=== PATIENT | male | born 1955 | race Caucasian/White ===

== ENCOUNTER 2017-06-06 04:53 | Inpatient (IN) | payer MEDICARE, OTHER ==
[2017-06-06] MEDS ORDERED: RX INFO: IV CONTRAST WAS GIVEN 1 EACH MISC MISCELLANE PRN (05:00)
[2017-06-06 05:03] LABS: Glucose,Whole Blood 563 mg/dL (75-99)
[2017-06-06] MEDS ORDERED: INSULIN REGULAR 100 UNIT/ML VIAL SQ STA (05:09)
--- NOTE | 2017-06-06 05:41 | CT ---
EXAM: CT Angiography Head Without and With Intravenous Contrast CLINICAL HISTORY: Reason: Neuro Deficits TECHNIQUE: Axial computed tomographic angiography images of the head without and with intravenous contrast using CT angiography protocol. DLP is 1936.30 mGy-cm. This CT exam was performed using one or more of the following dose reduction techniques: automated exposure control, adjustment of the mA and/or kV according to patient size, and/or use of iterative reconstruction technique. MIP reconstructed images were created and reviewed. CONTRAST: 65 mL of omni 350 administered intravenously. COMPARISON: 09/08/16 FINDINGS: Artifacts: Exam limited by motion artifact. VASCULATURE: Right internal carotid artery: No acute findings. Intracranial segment is patent with no significant stenosis. No aneurysm. Right anterior cerebral artery: Unremarkable. No occlusion or significant stenosis. No aneurysm. Right middle cerebral artery: Unremarkable. No occlusion or significant stenosis. No aneurysm. Right posterior cerebral artery: Unremarkable. No occlusion or significant stenosis. No aneurysm. Right vertebral artery: Unremarkable as visualized. Left internal carotid artery: No acute findings. Intracranial segment is patent with no significant stenosis. No aneurysm. Left anterior cerebral artery: Unremarkable. No occlusion or significant stenosis. No aneurysm. Left middle cerebral artery: Unremarkable. No occlusion or significant stenosis. No aneurysm. Left posterior cerebral artery: Unremarkable. No occlusion or significant stenosis. No aneurysm. Left vertebral artery: Unremarkable as visualized. Basilar artery: Unremarkable. No occlusion or significant stenosis. No aneurysm. HEAD: Brain: No acute findings. No hemorrhage. No edema. Normal enhancement. Ventricles: Unremarkable. No ventriculomegaly. Bones/joints: No acute fracture. Soft tissues: Unremarkable. Sinuses: Unremarkable as visualized. No acute sinusitis. Mastoid air cells: Unremarkable as visualized. No mastoid effusion. IMPRESSION: No acute findings. EXAM: CT Angiography Neck With Intravenous Contrast CLINICAL HISTORY: Reason: Neuro Deficits TECHNIQUE: Axial computed tomographic angiography images of the neck with intravenous contrast using CT angiography protocol. DLP is 476.80 mGy-cm. This CT exam was performed using one or more of the following dose reduction techniques: automated exposure control, adjustment of the mA and/or kV according to patient size, and/or use of iterative reconstruction technique. MIP reconstructed images were created and reviewed. CONTRAST: 65 mL of omni 350 administered intravenously. COMPARISON: 09/08/16 FINDINGS: VASCULATURE: Right common carotid artery: Unremarkable. No significant stenosis. No dissection or occlusion. Right internal carotid artery: Calcified atherosclerotic plaques are seen in the origins of the internal carotid arteries bilaterally without significant stenosis. No dissection or occlusion. Right external carotid artery: Unremarkable. No occlusion. Right vertebral artery: Unremarkable. No significant stenosis. No dissection or occlusion. Left common carotid artery: Unremarkable. No significant stenosis. No dissection or occlusion. Left internal carotid artery: See above. Left external carotid artery: Unremarkable. No occlusion. Left vertebral artery: Unremarkable. No significant stenosis. No dissection or occlusion. NECK: Bones/joints: No acute fracture. No dislocation. Soft tissues: Unremarkable as visualized. No mass. CAROTID STENOSIS REFERENCE USING NASCET CRITERIA: % ICA stenosis = (1 - narrowest ICA diameter/diameter of distal cervical ICA) x 100. Mild - <50% stenosis. Moderate - 50-69% stenosis. Severe - 70-94% stenosis. Near occlusion - 95-99% stenosis. Occluded - 100% stenosis. IMPRESSION: No acute findings.
--- NOTE | 2017-06-06 05:43 | CT ---
EXAM: CT Head Without Intravenous Contrast CLINICAL HISTORY: Reason: Neuro Deficits TECHNIQUE: Axial computed tomography images of the head/brain without intravenous contrast. DLP is 1936.30 mGy-cm. This CT exam was performed using one or more of the following dose reduction techniques: automated exposure control, adjustment of the mA and/or kV according to patient size, and/or use of iterative reconstruction technique. COMPARISON: No relevant prior studies available. FINDINGS: Brain: No hemorrhage. No significant white matter disease. No edema. Old lacunar infarct left basal ganglia. Ventricles: Unremarkable. No ventriculomegaly. Bones/joints: Unremarkable. No acute fracture. Soft tissues: Unremarkable. Sinuses: Unremarkable as visualized. No acute sinusitis. Mastoid air cells: Unremarkable as visualized. No mastoid effusion. Other findings: Generalized atrophy. IMPRESSION: No acute findings.
--- NOTE | 2017-06-06 05:52 | XR ---
EXAM: XR Chest, 1 View CLINICAL HISTORY: Reason: altered mental status TECHNIQUE: Frontal view of the chest. COMPARISON: 09/08/16 FINDINGS: Lungs: Unremarkable. No consolidation. Pleural space: Unremarkable. No pneumothorax. Heart: Unremarkable. No cardiomegaly. Mediastinum: Unremarkable. Bones/joints: Unremarkable. IMPRESSION: Normal chest x-ray.
[2017-06-06] MEDS ORDERED: ONDANSETRON 4 MG/2 ML VIAL IVP STA (06:07)
[2017-06-06] MEDS ORDERED: SODIUM CHLORIDE 0.9% 1,000 ML IV STA (06:31)
[2017-06-06] MEDS ORDERED: SODIUM CHLORIDE 0.9% 500 ML IV STA (06:31)
[2017-06-06] MEDS ORDERED: LORazepam 2 MG/ML SYRINGE IV STA ×2 (06:31→12:54)
[2017-06-06 06:32] LABS: Basophils % (A) 0 %; CH 29.3; CHCM 33.4; Eosinophils % (A) 0 %; HDW 2.68; Luc # (Auto) 0.07; Luc % (Auto) 1; Lymphocytes # (A) 1.1 k/uL (1.0-4.8); Lymphocytes % (A) 8 %; MCH 28.8 pg (25.0-35.0); MCHC 32.6 g/dL (31.0-37.0); MCV 88.2 fL (80.0-100.0); Mean Platelet Volume 9.9; Monocytes # (A) 0.3 k/uL (0-1.0); Monocytes % (A) 2 %; Neutrophils # (A) 12.1 k/uL (1.3-7.7); Neutrophils % (A) 89 %; RBC 4.87 m/uL (4.30-5.90); WBC 13.5 k/uL (3.8-10.6)
[2017-06-06 06:42] LABS: ALT 29 U/L (21-72); AST 21 U/L (17-59); Alkaline Phosphatase 102 U/L (38-126); Anion Gap 19 mmol/L; Blood Urea Nitrogen 14 mg/dL (9-20); Calcium 9.2 mg/dL (8.4-10.2); Carbon Dioxide 23 mmol/L (22-30); Chloride 103 mmol/L (98-107); Non-African American GFR(MDRD) >60 (>60 ml/min/1.73 sqM); Potassium 4.1 mmol/L (3.5-5.1); Sodium 145 mmol/L (137-145); Total Bilirubin 1.2 mg/dL (0.2-1.3); Total Protein 7.5 g/dL (6.3-8.2)
[2017-06-06 06:53] LABS: Glucose 569 mg/dL (74-99)
[2017-06-06 06:57] LABS: Creatine Kinase 105 U/L (55-170)
[2017-06-06 07:00] LABS: Appearance,Urine Clear (Clear); Bilirubin,Urine Negative (Negative); Glucose,Urine (UA) 4+ (Negative); Leukocyte Esterase,Urine Negative (Negative); Nitrite,Urine Negative (Negative); Protein,Urine Negative (Negative); Specific Gravity,Urine 1.035 (1.001-1.035); UA Billing (MACRO vs. MICRO) CHEM; Urobilinogen,Urine <2.0 mg/dL (<2.0)
[2017-06-06 07:04] LABS: INR 1.1 (<1.2); Prothrombin Time 11.2 sec (9.0-12.0)
[2017-06-06 07:11] LABS: Creatine Kinase MB 1.8 ng/mL (0.0-2.4); Troponin I <0.012 ng/mL (0.000-0.034)
[2017-06-06 07:13] LABS: Partial Thromboplastin Time 21.7 sec (22.0-30.0)
[2017-06-06] MEDS ORDERED: SODIUM CHLORIDE 0.9% 1,000 ML IV SCH (07:15)
[2017-06-06] MEDS ORDERED: INSULIN REGULAR 100 UNIT in SODIUM CHLORIDE 0.9% 100 ML IV ONE (07:18)
[2017-06-06 07:25] LABS: Ketones,Urine 2+ (Negative)
--- NOTE | 2017-06-06 07:29 | ED ---
Neuro HPI - General Chief Complaint: Neuro Symptoms/Deficit Stated Complaint: Possible CVA Time Seen by Provider: 06/06/17 04:57 Source: patient Mode of arrival: EMS Limitations: altered mental status - History of Present Illness Is the patient presenting with stroke symptoms?: Yes Last Known Well Date: 06/05/17 Last Known Well Time: 21:00 -: hour(s) Initial Comments: This patient is a 62-year-old man with history of previous stroke who presents after being found by his family members down on the floor. They state that when they found him this morning he was not able speak in he was having right sided weakness. The patient reportedly has history of previous right-sided weakness due to stroke. He was last seen well by family member who went to work at 9 PM. When they return from work he was found in the condition that he is now. I'm not able to obtain any history from the patient as he appears to have aphasia. Location: speech, right arm, right leg History of same: Yes Place: home Severity: severe Quality: weak Improves With: none Worsens With: none Context: found down - Related Data Home Medications: Home Medications Medication Instructions Recorded Confirmed Aspirin EC [Ecotrin] 325 mg PO DAILY 09/08/16 06/06/17 Atorvastatin [Lipitor] 20 mg PO DAILY 09/08/16 06/06/17 Clopidogrel [Plavix] 75 mg PO DAILY 09/08/16 06/06/17 Entyvio 1 tab PO DAILY 09/08/16 06/06/17 Gabapentin 600 mg PO TID 09/08/16 06/06/17 LORazepam [Ativan] 1 mg PO QID 09/08/16 06/06/17 Lisinopril [Zestril] 2.5 mg PO DAILY 09/08/16 06/06/17 Metoprolol Tartrate [Lopressor] 50 mg PO BID 09/08/16 06/06/17 Pantoprazole Sodium [Protonix] 40 mg PO DAILY 09/08/16 06/06/17 Sertraline [Zoloft] 150 mg PO DAILY 09/08/16 06/06/17 Temazepam [Restoril] 30 mg PO DAILY 09/08/16 06/06/17 levETIRAcetam [Keppra] 500 mg PO Q12HR 09/08/16 06/06/17 metFORMIN HCL [Glucophage] 500 mg PO BID 09/08/16 06/06/17 Insuln Asp Prt/Insulin Aspart 40 unit SQ TID 06/06/17 06/06/17 [NovoLOG MIX 70-30 VIAL] Allergies/Adverse Reactions: Allergies Allergy/AdvReac Type Severity Reaction Status Date / Time infliximab [From Remicade] Allergy Unknown Verified 06/06/17 07:41 neomycin Allergy Unknown Verified 06/06/17 07:41 nickel Allergy Unknown Verified 06/06/17 07:41 sulfamethoxazole Allergy Unknown Verified 06/06/17 07:41 [From Bactrim] trimethoprim [From Bactrim] Allergy Unknown Verified 06/06/17 07:41 Review of Systems ROS Statement: Those systems with pertinent positive or pertinent negative responses have been documented in the HPI. ROS Other: All systems not noted in ROS Statement are negative. Limitations: ROS unobtainable due to patients medical condition Constitutional: Denies: fever Neurological: Reports: weakness, confusion General Exam Limitations: altered mental status General appearance: alert Head exam: Present: atraumatic, normocephalic Eye exam: Present: normal appearance, PERRL, EOMI. Absent: scleral icterus, conjunctival injection ENT exam: Present: mucous membranes dry Neck exam: Present: normal inspection, full ROM. Absent: tenderness, meningismus Respiratory exam: Present: normal lung sounds bilaterally. Absent: respiratory distress, wheezes, rales, rhonchi, stridor Cardiovascular Exam: Present: regular rate, normal rhythm, normal heart sounds. Absent: systolic murmur, diastolic murmur, rubs, gallop GI/Abdominal exam: Present: soft. Absent: distended, tenderness, guarding, rebound, mass Extremities exam: Present: normal inspection, normal capillary refill. Absent: pedal edema, calf tenderness Back exam: Present: normal inspection. Absent: CVA tenderness (R), CVA tenderness (L) Neurological exam: Present: alert, motor sensory deficit, other (Patient is alert and does follow examiner with his eyes. He is nonverbal. Patient does have right-sided weakness versus contralateral. See the attached stroke scale.) . Absent: oriented X3 Skin exam: Present: warm, dry, intact, normal color. Absent: rash Stroke MDM - Lab Data Result diagrams: 06/06/17 06:14 06/06/17 11:48 Lab Results 06/06/17 06/06/17 06/06/17 Range/Units 05:02 06:14 06:14 WBC 13.5 H (3.8-10.6) k/uL RBC 4.87 (4.30-5.90) m/uL Hgb 14.0 (13.0-17.5) gm/dL Hct 43.0 (39.0-53.0) % MCV 88.2 (80.0-100.0) fL MCH 28.8 (25.0-35.0) pg MCHC 32.6 (31.0-37.0) g/dL RDW 15.0 (11.5-15.5) % Plt Count 247 (150-450) k/uL Neutrophils % 89 % Lymphocytes % 8 % Monocytes % 2 % Eosinophils % 0 % Basophils % 0 % Neutrophils # 12.1 H (1.3-7.7) k/uL Lymphocytes # 1.1 (1.0-4.8) k/uL Monocytes # 0.3 (0-1.0) k/uL Eosinophils # 0.0 (0-0.7) k/uL Basophils # 0.0 (0-0.2) k/uL PT (9.0-12.0) sec INR (<1.2) APTT (22.0-30.0) sec Sodium (137-145) mmol/L Potassium (3.5-5.1) mmol/L Chloride (98-107) mmol/L Carbon Dioxide (22-30) mmol/L Anion Gap mmol/L BUN (9-20) mg/dL Creatinine (0.66-1.25) mg/dL Est GFR (MDRD) Af Amer (>60 ml/min/1.73 sqM) Est GFR (MDRD) Non-Af (>60 ml/min/1.73 sqM) Glucose (74-99) mg/dL POC Glucose (mg/dL) 563 H (75-99) mg/dL POC Glu Map Maker ID Lacey Dodson Calcium (8.4-10.2) mg/dL Total Bilirubin (0.2-1.3) mg/dL AST (17-59) U/L ALT (21-72) U/L Alkaline Phosphatase (38-126) U/L Total Creatine Kinase 105 (55-170) U/L CK-MB (CK-2) 1.8 (0.0-2.4) ng/mL CK-MB (CK-2) Rel Index 1.7 Troponin I <0.012 (0.000-0.034) ng/mL Total Protein (6.3-8.2) g/dL Albumin (3.5-5.0) g/dL Urine Color Urine Appearance (Clear) Urine pH (5.0-8.0) Ur Specific [place] (1.001-1.035) Urine Protein (Negative) Urine Glucose (UA) (Negative) Urine Ketones (Negative) Urine Blood (Negative) Urine Nitrite (Negative) Urine Bilirubin (Negative) Urine Urobilinogen (<2.0) mg/dL Ur Leukocyte Esterase (Negative) Urine Opiates Screen (NotDetected) Ur Oxycodone Screen (NotDetected) Urine Methadone Screen (NotDetected) Ur Propoxyphene Screen (NotDetected) Ur Barbiturates Screen (NotDetected) U Tricyclic Antidepress (NotDetected) Ur Phencyclidine Scrn (NotDetected) Ur Amphetamines Screen (NotDetected) U Methamphetamines Scrn (NotDetected) U Benzodiazepines Scrn (NotDetected) Urine Cocaine Screen (NotDetected) U Marijuana (THC) Screen (NotDetected) Acetone, Qual (Negative) 06/06/17 06/06/17 06/06/17 Range/Units 06:14 06:14 06:30 WBC (3.8-10.6) k/uL RBC (4.30-5.90) m/uL Hgb (13.0-17.5) gm/dL Hct (39.0-53.0) % MCV (80.0-100.0) fL MCH (25.0-35.0) pg MCHC (31.0-37.0) g/dL RDW (11.5-15.5) % Plt Count (150-450) k/uL Neutrophils % % Lymphocytes % % Monocytes % % Eosinophils % % Basophils % % Neutrophils # (1.3-7.7) k/uL Lymphocytes # (1.0-4.8) k/uL Monocytes # (0-1.0) k/uL Eosinophils # (0-0.7) k/uL Basophils # (0-0.2) k/uL PT 11.2 (9.0-12.0) sec INR 1.1 (<1.2) APTT 21.7 L (22.0-30.0) sec Sodium 145 (137-145) mmol/L Potassium 4.1 (3.5-5.1) mmol/L Chloride 103 (98-107) mmol/L Carbon Dioxide 23 (22-30) mmol/L Anion Gap 19 mmol/L BUN 14 (9-20) mg/dL Creatinine 0.77 (0.66-1.25) mg/dL Est GFR (MDRD) Af Amer >60 (>60 ml/min/1.73 sqM) Est GFR (MDRD) Non-Af >60 (>60 ml/min/1.73 sqM) Glucose 569 H* (74-99) mg/dL POC Glucose (mg/dL) (75-99) mg/dL POC Glu Map Maker ID Calcium 9.2 (8.4-10.2) mg/dL Total Bilirubin 1.2 (0.2-1.3) mg/dL AST 21 (17-59) U/L ALT 29 (21-72) U/L Alkaline Phosphatase 102 (38-126) U/L Total Creatine Kinase (55-170) U/L CK-MB (CK-2) (0.0-2.4) ng/mL CK-MB (CK-2) Rel Index Troponin I (0.000-0.034) ng/mL Total Protein 7.5 (6.3-8.2) g/dL Albumin 4.4 (3.5-5.0) g/dL Urine Color Colorless Urine Appearance Clear (Clear) Urine pH 6.0 (5.0-8.0) Ur Specific [place] 1.035 (1.001-1.035) Urine Protein Negative (Negative) Urine Glucose (UA) 4+ H (Negative) Urine Ketones 2+ H (Negative) Urine Blood Negative (Negative) Urine Nitrite Negative (Negative) Urine Bilirubin Negative (Negative) Urine Urobilinogen <2.0 (<2.0) mg/dL Ur Leukocyte Esterase Negative (Negative) Urine Opiates Screen Not Detected (NotDetected) Ur Oxycodone Screen Not Detected (NotDetected) Urine Methadone Screen Not Detected (NotDetected) Ur Propoxyphene Screen Not Detected (NotDetected) Ur Barbiturates Screen Not Detected (NotDetected) U Tricyclic Antidepress Not Detected (NotDetected) Ur Phencyclidine Scrn Not Detected (NotDetected) Ur Amphetamines Screen Not Detected (NotDetected) U Methamphetamines Scrn Not Detected (NotDetected) U Benzodiazepines Scrn Detected H (NotDetected) Urine Cocaine Screen Not Detected (NotDetected) U Marijuana (THC) Screen Not Detected (NotDetected) Acetone, Qual Positive (Negative) - Thrombolytic Inclusion/Exclusion Thrombolytic Exclusion Criteria: Onset of Symptoms Unknown - Medical Decision Making This patient is a 62-year-old man with aphasia and right-sided weakness. The onset of symptoms is unknown, making him ineligible for TPA. Evaluated by stroke team and there treatment recommendations are incorporated. I discussed the patient's care with the hospitalist group as he falls under city call. Patient be admitted and have neurology consultation, as well as being treated for what appears to be some mild DKA. The patient's family is subsequently able to provide history that he has had symptoms like this associated with "fluid on the brain," however the patient's CT is not showing hydrocephalus today. Patient to have follow-up MRI and neurology consult. - EKG Data -: EKG Interpreted by Me EKG shows normal: sinus rhythm, axis (Normal), intervals (Normal), QRS complexes (Normal), ST-T waves (Normal) Rate: tachycardia (Rate 104 bpm) Past Medical History Past Medical History: Coronary Artery Disease (CAD), CVA/TIA, Diabetes Mellitus , Hyperlipidemia, Hypertension, Myocardial Infarction (MD), Osteoarthritis (OA) , Seizure Disorder Additional Past Medical History / Comment(s): seizure x1 in 2013, cva residual deficits right side weakness foot drag when tired/TRIPS EASILY-able to write but is shaky,delayed answers at times thought process slower now and has short term memory problems and at time has difficult time getting out what he wants to say. Crohns disease, DM, CAD with previous cath and stent insertion and previous MD, anxiety, depression, HYperlipidemia Last Myocardial Infarction Date:: History of Any Multi-Drug Resistant Organisms: None Reported Past Surgical History: Back Surgery, Heart Catheterization With Stent Additional Past Surgical History / Comment(s): lt elbow sx,bowel sx- ileostomy dt/ crohns disease, oral sx had all teeth extracted Past Anesthesia/Blood Transfusion Reactions: No Reported Reaction Date of Last Stent Placement:: 2011 Past Psychological History: Anxiety, Depression Smoking Status: Former smoker Past Alcohol Use History: None Reported Past Drug Use History: None Reported - Past Family History Father Family Medical History: Unable to Obtain Mother Family Medical History: Dementia Course Vital Signs 06/06/17 06/06/17 06/06/17 04:56 05:20 05:35 Temperature 98.1 F Pulse Rate 110 H 106 H 98 Pulse Rate [ Cupola Repairer ] Respiratory 24 24 Rate Blood Pressure 215/100 217/107 209/102 Blood Pressure [Right Arm] O2 Sat by Pulse 96 96 95 Oximetry 06/06/17 06/06/17 06/06/17 05:50 06:00 06:54 Temperature 97.3 F L Pulse Rate 91 103 H 95 Pulse Rate [ Cupola Repairer ] Respiratory 22 Rate Blood Pressure 254/154 254/124 Blood Pressure [Right Arm] O2 Sat by Pulse 94 L 94 L Oximetry 06/06/17 06/06/17 06/06/17 07:00 08:00 09:00 Temperature 97.0 F L Pulse Rate 93 Pulse Rate [ 104 H 107 H Cupola Repairer ] Respiratory 20 20 Rate Blood Pressure 190/110 Blood Pressure 188/90 192/91 [Right Arm] O2 Sat by Pulse 95 96 95 Oximetry 06/06/17 06/06/17 10:15 12:00 Temperature 97.2 F L 98.8 F Pulse Rate Pulse Rate [ 102 H 109 H Cupola Repairer ] Respiratory 20 16 Rate Blood Pressure Blood Pressure 181/85 186/80 [Right Arm] O2 Sat by Pulse 96 92 L Oximetry Critical Care Time Critical Care Time: Yes (35 minutes) Disposition Clinical Impression: Cerebrovascular accident, Altered mental status, Diabetic ketoacidosis Disposition: ADMITTED IP TO THIS [facility] Condition: Poor
[2017-06-06 08:13] LABS: Glucose,Whole Blood 393 mg/dL (75-99)
[2017-06-06] MEDS ORDERED: METOPROLOL TARTRATE 50 MG TAB PO SCH (09:00)
[2017-06-06] MEDS ORDERED: SERTRALINE 100 MG TAB PO SCH (09:00)
[2017-06-06] MEDS ORDERED: CLOPIDOGREL 75 MG TAB PO SCH (09:00)
[2017-06-06] MEDS ORDERED: LISINOPRIL 2.5 MG TAB PO SCH (09:00)
[2017-06-06] MEDS ORDERED: ENTYVIO PO SCH (09:00)
[2017-06-06] MEDS ORDERED: GABAPENTIN 300 MG CAP PO SCH (09:00)
[2017-06-06] MEDS ORDERED: NON-FORMULARY DRUG (Aspirin Ec 325 MG) PO SCH (09:00)
[2017-06-06] MEDS ORDERED: metFORMIN 500 MG TAB PO SCH (09:00)
[2017-06-06] MEDS ORDERED: FAMOTIDINE 20 MG/2 ML VIAL IV SCH (09:00)
[2017-06-06] MEDS ORDERED: levETIRAcetam 500 MG TAB PO SCH (09:00)
[2017-06-06] MEDS ORDERED: PANTOPRAZOLE 40 MG TABLET PO SCH (09:00)
[2017-06-06 09:11] LABS: Glucose,Whole Blood 239 mg/dL (75-99)
[2017-06-06] MEDS: LORazepam 1 MG TAB PO SCH ×2 (09:38→13:07)
[2017-06-06 10:11] LABS: Glucose,Whole Blood 482 mg/dL (75-99)
[2017-06-06 11:09] LABS: Glucose,Whole Blood 159 mg/dL (75-99)
[2017-06-06 12:07] LABS: Glucose,Whole Blood 145 mg/dL (75-99)
[2017-06-06 13:23] LABS: Glucose,Whole Blood >600 mg/dL (75-99)
[2017-06-06 13:25] LABS: Glucose,Whole Blood 196 mg/dL (75-99)
[2017-06-06 13:41] VITALS: BMI 29.8
[2017-06-06 13:46] LABS: Anion Gap 15 mmol/L; Blood Urea Nitrogen 16 mg/dL (9-20); Calcium 9.5 mg/dL (8.4-10.2); Carbon Dioxide 25 mmol/L (22-30); Chloride 109 mmol/L (98-107); Glucose 131 mg/dL (74-99); Non-African American GFR(MDRD) >60 (>60 ml/min/1.73 sqM); Potassium 3.8 mmol/L (3.5-5.1); Sodium 149 mmol/L (137-145)
--- NOTE | 2017-06-06 14:22 | P.HPIM ---
History of Present Illness H&P Date: 06/06/17 Chief Complaint: altered mentation Patient is a 8-year-old male with a past medical history of diabetes mellitus type 2 insulin-dependent, prior stroke with residual right-sided deficits, prior seizure disorder with last seizure greater than 1 year ago, and prior heart attack with stent placement who presented with altered mentation. His reports that for the last 2 days he has had multiple falls. He does have a history of right-sided weakness from his prior stroke but this appears to be slightly increased per the . Last night at 9 PM she came home and he was incoherent and confused. She presented to the emergency department here around 4 in the morning. She states that on a typical day he is alert and oriented 3 and is independent in all activities of daily living. Currently he opens his eyes to his name but is nonverbal. He does not follow commands. She has not noted any other unusual circumstances. She states he has not reported his blood sugars being high. He has not complained of any nausea, vomiting, chest pain, shortness of breath, urinary problems, diarrhea, or constipation. He recently saw his primary care doctor approximately one week ago. He did not have any changes in his medications. He has been being treated for a right great toe infection and his toe and the ulcer has been improving. He has been following with podiatry for this. She reports a history of normal pressure hydrocephalus in September of last year. She states he was seen at [facility]. They did not place a DATA SYSTEMS ANALYST shunt at that point in time. She states this is the exact same presentation he had prior. The last time he had urinary problems as well, however those have remained persistent so she is unaware of a change in his urinary patterns. In the emergency department he was found to have DKA with an anion gap of 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 He had a CTA of the carotids which was negative. He underwent a chest x-ray which was negative. He also underwent a urinalysis which was not consistent with infection. He was found to have a slightly elevated white blood cell count at 13.5. He does have a history of Crohn's disease, but again she denies any unusual diarrhea. Review of Systems ROS unobtainable: due to mental status (as able to obtain from in HPI.) Past Medical History Past Medical History: Coronary Artery Disease (CAD), CVA/TIA, Diabetes Mellitus , Hyperlipidemia, Hypertension, Myocardial Infarction ([place]), Osteoarthritis (OA) , Seizure Disorder Additional Past Medical History / Comment(s): seizure x1 in 2013, cva residual deficits right side weakness foot drag when tired/TRIPS EASILY-able to write but is shaky,delayed answers at times thought process slower now and has short term memory problems and at time has difficult time getting out what he wants to say. Crohns disease, DM, CAD with previous cath and stent insertion and previous [place], anxiety, depression, HYperlipidemia Last Myocardial Infarction Date:: History of Any Multi-Drug Resistant Organisms: None Reported Past Surgical History: Back Surgery, Heart Catheterization With Stent Additional Past Surgical History / Comment(s): lt elbow sx,bowel sx- ileostomy dt/ crohns disease, oral sx had all teeth extracted Past Anesthesia/Blood Transfusion Reactions: No Reported Reaction Date of Last Stent Placement:: 2011 Past Psychological History: Anxiety, Depression Smoking Status: Former smoker Past Alcohol Use History: None Reported Past Drug Use History: None Reported - Past Family History Father Family Medical History: Unable to Obtain Mother Family Medical History: Dementia Medications and Allergies Home Medications Medication Instructions Recorded Confirmed Type Aspirin EC [Ecotrin] 325 mg PO DAILY 09/08/16 06/06/17 History Atorvastatin [Lipitor] 20 mg PO DAILY 09/08/16 06/06/17 History Clopidogrel [Plavix] 75 mg PO DAILY 09/08/16 06/06/17 History Entyvio 1 tab PO DAILY 09/08/16 06/06/17 History LORazepam [Ativan] 1 mg PO QID 09/08/16 06/06/17 History Lisinopril [Zestril] 2.5 mg PO DAILY 09/08/16 06/06/17 History Metoprolol Tartrate [Lopressor] 50 mg PO BID 09/08/16 06/06/17 History Pantoprazole Sodium [Protonix] 40 mg PO DAILY 09/08/16 06/06/17 History RX: Gabapentin 600 mg PO TID 09/08/16 06/06/17 History Sertraline [Zoloft] 150 mg PO DAILY 09/08/16 06/06/17 History Temazepam [Restoril] 30 mg PO DAILY 09/08/16 06/06/17 History levETIRAcetam [Keppra] 500 mg PO Q12HR 09/08/16 06/06/17 History metFORMIN HCL [Glucophage] 500 mg PO BID 09/08/16 06/06/17 History Insuln Asp Prt/Insulin Aspart 40 unit SQ TID 06/06/17 06/06/17 History [NovoLOG MIX 70-30 VIAL] Allergies Allergy/AdvReac Type Severity Reaction Status Date / Time infliximab [From Remicade] Allergy Unknown Verified 06/06/17 07:41 neomycin Allergy Unknown Verified 06/06/17 07:41 nickel Allergy Unknown Verified 06/06/17 07:41 sulfamethoxazole Allergy Unknown Verified 06/06/17 07:41 [From Bactrim] trimethoprim [From Bactrim] Allergy Unknown Verified 06/06/17 07:41 Physical Exam Osteopathic Statement: *. No significant issues noted on an osteopathic structural exam other than those noted in the History and Physical/Consult. Vitals: Vital Signs Temp Pulse Pulse Resp BP BP Pulse Ox 06/06/17 12:00 96 20 184/80 96 06/06/17 10:15 97.2 F L 102 H 20 181/85 96 06/06/17 09:00 97.0 F L 107 H 20 192/91 95 06/06/17 08:00 104 H 20 188/90 96 06/06/17 07:38 98.8 F 104 H 16 186/80 92 L 06/06/17 07:00 93 190/110 95 06/06/17 06:54 97.3 F L 95 22 94 L 06/06/17 06:00 103 H 254/124 94 L 06/06/17 05:50 91 254/154 06/06/17 05:35 98 24 209/102 95 06/06/17 05:20 106 H 24 217/107 96 06/06/17 04:56 98.1 F 110 H 215/100 96 Intake and Output 06/05/17 06/06/17 06/06/17 22:59 06:59 14:59 Intake Total 12.541 Balance 12.541 Intake: Intake, IV Titration 12.541 Amount Insulin Regular 100 unit 12.541 In Sodium Chloride 0.9% 100 ml @ 3 UNIT/HR 3.03 mls/hr IV .Q24H ONE Rx#: [id number] Other: Weight 99.79 kg 99.79 kg Patient Weight 06/07/17 06:59 Weight 99.79 kg General: non toxic, moderate distress, appears at stated age, weight normal Derm: 0.5 cm ulcer with Ruber and escher and place, no lesions, no ulcers, no unusual ecchymoses Head: atraumatic, normocephalic, symmetric Eyes: EOMI, no lid lag, anicteric sclera, pupils equal round reactive to light ENT: no post nasal drip, no thrush , nearest patent, no pharyngeal erythema Neck: No thyromegaly, no cervical lymphadenopathy, trachea midline, supple Mouth: no lip lesion, mucus membranes moist Cardiovascular: S1S2 reg, no murmur, positive posterior tibial pulse bilateral, no edema , no JVD, no clubbing, no cyanosis, capillary refill less than 2 seconds Lungs: CTA bilateral, no rhonchi, no rales , no accessory muscle use Abdominal: soft, nontender to palpation, no guarding, no appreciable organomegaly, normal bowel sounds Ext: no gross muscle atrophy, muscle strength 5 out of 5 in all 4 extremities grossly, no contractures, Neuro: Pulse equal round and reactive to light, withdrawal to pain in all 4 extremities, all 4 extremities independently in bed, does not follow commands, Psych: Opens eyes to name, does not follow commands Results CBC & Chem 7: 06/06/17 06:14 06/06/17 11:48 Labs: Abnormal Lab Results - Last 24 Hours (Table) 06/06/17 06/06/17 06/06/17 Range/Units 05:02 06:14 06:14 WBC 13.5 H (3.8-10.6) k/uL Neutrophils # 12.1 H (1.3-7.7) k/uL APTT (22.0-30.0) sec Sodium (137-145) mmol/L Chloride (98-107) mmol/L Glucose 569 H* (74-99) mg/dL POC Glucose (mg/dL) 563 H (75-99) mg/dL Urine Glucose (UA) (Negative) Urine Ketones (Negative) U Benzodiazepines Scrn (NotDetected) 06/06/17 06/06/17 06/06/17 Range/Units 06:14 06:30 07:52 WBC (3.8-10.6) k/uL Neutrophils # (1.3-7.7) k/uL APTT 21.7 L (22.0-30.0) sec Sodium (137-145) mmol/L Chloride (98-107) mmol/L Glucose (74-99) mg/dL POC Glucose (mg/dL) 393 H (75-99) mg/dL Urine Glucose (UA) 4+ H (Negative) Urine Ketones 2+ H (Negative) U Benzodiazepines Scrn Detected H (NotDetected) 06/06/17 06/06/17 06/06/17 Range/Units 09:08 10:08 11:07 WBC (3.8-10.6) k/uL Neutrophils # (1.3-7.7) k/uL APTT (22.0-30.0) sec Sodium (137-145) mmol/L Chloride (98-107) mmol/L Glucose (74-99) mg/dL POC Glucose (mg/dL) 239 H 482 H 159 H (75-99) mg/dL Urine Glucose (UA) (Negative) Urine Ketones (Negative) U Benzodiazepines Scrn (NotDetected) 06/06/17 06/06/17 06/06/17 Range/Units 11:48 12:05 13:21 WBC (3.8-10.6) k/uL Neutrophils # (1.3-7.7) k/uL APTT (22.0-30.0) sec Sodium 149 H (137-145) mmol/L Chloride 109 H (98-107) mmol/L Glucose 131 H (74-99) mg/dL POC Glucose (mg/dL) 145 H >600 H (75-99) mg/dL Urine Glucose (UA) (Negative) Urine Ketones (Negative) U Benzodiazepines Scrn (NotDetected) 06/06/17 Range/Units 13:24 WBC (3.8-10.6) k/uL Neutrophils # (1.3-7.7) k/uL APTT (22.0-30.0) sec Sodium (137-145) mmol/L Chloride (98-107) mmol/L Glucose (74-99) mg/dL POC Glucose (mg/dL) 196 H (75-99) mg/dL Urine Glucose (UA) (Negative) Urine Ketones (Negative) U Benzodiazepines Scrn (NotDetected) CT Scan - head: report reviewed Thrombosis Risk Factor Assmnt - DVT/VTE Prophylaxis DVT/VTE Prophylaxis: Pharmacologic Prophylaxis ordered Assessment and Plan Plan: #DKA-hold insulin drip until we can verify glucose with basic metabolic profile , then initiate DKA protocol with sliding scale insulin, potassium and magnesium replacement, serial electrolytes, check hemoglobin A1c #Encephalopathy-suspected due to normal pressure hydrocephalus, unable to perform MRI here, unable to perform lumbar puncture at this time, has followed with [facility] regarding this in September 2016 and did not have a shunt placed, has spoke with the neuro ICU resident who has accepted his transfer to [facility]. #leukocytosis, undetermined etiology-chest x-ray negative, urinalysis negative, does have chronic infection of right great toe that will need to be further investigated but her family is appearing better and less infected #Prior cerebrovascular accident with residual right-sided deficits-aspirin, statin, PT, OT Chronic problems: Hypertension Dyslipidemia Atherosclerotic coronary artery disease with prior PCI and stent placement Crohn's disease Seizure disorder Surrogate decision-maker: Alpa Hickman [phone] CODE STATUS: DNR, but very hesitant DVT prophylaxis: SCDs Discussed with: and son, nursing, case management, ED physician, neuro ICU resident Anticipated discharge: Will transfer to [facility] today A total of 90 minutes of critical care time was spent on the care of this complex patient more than 50% of the time was spent in counseling and care coordination.
--- NOTE | 2017-06-06 14:29 | P.DS ---
Providers Date of admission: 06/06/17 07:15 Expected date of discharge: 06/06/17 Attending physician: Bria Coley DO Consults: 06/06/17 07:16 Consult Physician Routine Consulting Provider: Julissa Aguilar Consult Reason/Comments: altered mental status. Suspect stroke Do you want consulting provider notified?: Yes Primary care physician: Camacho Bauer - Discharge Diagnosis(es) (1) Encephalopathy Current Visit: Yes Status: Acute (2) Ulcer Current Visit: Yes Status: Acute (3) Dyslipidemia Current Visit: Yes Status: Acute (4) Hypertension Current Visit: Yes Status: Acute (5) Normal pressure hydrocephalus Current Visit: Yes Status: Acute (6) Diabetic ketoacidosis Current Visit: Yes Status: Acute (7) Cerebrovascular accident Current Visit: Yes Status: Acute Onset Date: ~09/08/16 Hospital Course: Patient is a 8-year-old male with a past medical history of diabetes mellitus type 2 insulin-dependent, prior stroke with residual right-sided deficits, prior seizure disorder with last seizure greater than 1 year ago, and prior heart attack with stent placement who presented with altered mentation. His reports that for the last 2 days he has had multiple falls. He does have a history of right-sided weakness from his prior stroke but this appears to be slightly increased per the . Last night at 9 PM she came home and he was incoherent and confused. She presented to the emergency department here around 4 in the morning. She states that on a typical day he is alert and oriented 3 and is independent in all activities of daily living. Currently he opens his eyes to his name but is nonverbal. He does not follow commands. She has not noted any other unusual circumstances. She states he has not reported his blood sugars being high. He has not complained of any nausea, vomiting, chest pain, shortness of breath, urinary problems, diarrhea, or constipation. He recently saw his primary care doctor approximately one week ago. He did not have any changes in his medications. He has been being treated for a right great toe infection and his toe and the ulcer has been improving. He has been following with podiatry for this. She reports a history of normal pressure hydrocephalus in September of last year. She states he was seen at [facility]. They did not place a HAM SAWYER shunt at that point in time. She states this is the exact same presentation he had prior. The last time he had urinary problems as well, however those have remained persistent so she is unaware of a change in his urinary patterns. In the emergency department he was found to have DKA with an anion gap of 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 He had a CTA of the carotids which was negative. He underwent a chest x-ray which was negative. He also underwent a urinalysis which was not consistent with infection. He was found to have a slightly elevated white blood cell count at 13.5. He does have a history of Crohn's disease, but again she denies any unusual diarrhea. On arrival to the unit stat basic metabolic profile was ordered. His insulin drip was held. It had been running at 2 units per hour in the emergency department until 12:15 and an had been on hold approximately 1.5 hours. notes that his right lower extremity wound is better. This could potentially be a source of infection. I was concerned that this may be a recurrence of his normal pressure hydrocephalus or other neurologic condition. I contacted [facility] and discussed the case with the physician covering the neuro intensive care unit. They have accepted the patient for transfer and further investigation of his altered mentation. His transfer had artery been improved with bed placement at [facility]. One dose of vancomycin was ordered, however this will be held in light of transferring. Patient is not clearly septic and if an LP is performed today it would yield better results prior to antibiotic administration. Vital signs are currently stable. updated up pending transfer. Patient is transferred in guarded condition. Pertinent Studies: Head CT with old left basal tingling or stroke, CTA with no signs of carotid stenosis or cerebral aneurysm, chest x-ray negative. Patient Condition at Discharge: Poor Plan - Discharge Summary New Discharge Prescriptions: No Action levETIRAcetam [Keppra] 500 mg PO Q12HR Lisinopril [Zestril] 2.5 mg PO DAILY Sertraline [Zoloft] 150 mg PO DAILY LORazepam [Ativan] 1 mg PO QID Temazepam [Restoril] 30 mg PO DAILY Metoprolol Tartrate [Lopressor] 50 mg PO BID Gabapentin 600 mg PO TID Atorvastatin [Lipitor] 20 mg PO DAILY Aspirin EC [Ecotrin] 325 mg PO DAILY metFORMIN HCL [Glucophage] 500 mg PO BID Pantoprazole Sodium [Protonix] 40 mg PO DAILY Clopidogrel [Plavix] 75 mg PO DAILY Entyvio 1 tab PO DAILY Insuln Asp Prt/Insulin Aspart [NovoLOG MIX 70-30 VIAL] 40 unit SQ TID Discharge Medication List Aspirin EC [Ecotrin] 325 mg PO DAILY 09/08/16 [History] Atorvastatin [Lipitor] 20 mg PO DAILY 09/08/16 [History] Clopidogrel [Plavix] 75 mg PO DAILY 09/08/16 [History] Entyvio 1 tab PO DAILY 09/08/16 [History] Gabapentin 600 mg PO TID 09/08/16 [History] LORazepam [Ativan] 1 mg PO QID 09/08/16 [History] Lisinopril [Zestril] 2.5 mg PO DAILY 09/08/16 [History] Metoprolol Tartrate [Lopressor] 50 mg PO BID 09/08/16 [History] Pantoprazole Sodium [Protonix] 40 mg PO DAILY 09/08/16 [History] Sertraline [Zoloft] 150 mg PO DAILY 09/08/16 [History] Temazepam [Restoril] 30 mg PO DAILY 09/08/16 [History] levETIRAcetam [Keppra] 500 mg PO Q12HR 09/08/16 [History] metFORMIN HCL [Glucophage] 500 mg PO BID 09/08/16 [History] Insuln Asp Prt/Insulin Aspart [NovoLOG MIX 70-30 VIAL] 40 unit SQ TID 06/06/17 [ History] Follow up Appointment(s)/Referral(s): Camacho Bauer MD [Primary Care Provider] - 1-2 days Discharge Disposition: OTHER INSTITUTION NOT DEFINED
[2017-06-06 14:36] VITALS: BP 186/80; RESP 16; TEMP 98.8
[2017-06-06 15:38] VITALS: PULSE 109
[2017-06-06] MEDS ORDERED: ATORVASTATIN 20 MG TAB PO SCH (21:00)
[2017-06-07] MEDS ORDERED: ASPIRIN 325 MG TAB PO SCH (09:00)
== END 2017-06-06 15:45 | disposition short-term general hospital (02) | DRG 56 ==
LOC: EC 04:53 → 6SEL 07:15
PROVIDERS: ADMIT Internal Medicine; ATTEND Internal Medicine
DX: G91.2 (Idiopathic) normal pressure hydrocephalus (principal); G93.40 Encephalopathy, unspecified; E13.10 Other specified diabetes mellitus with ketoacidosis without coma; I69.351 Hemiplegia and hemiparesis following cerebral infarction affecting right dominant side; K50.90 Crohn's disease, unspecified, without complications; D72.829 Elevated white blood cell count, unspecified; E78.5 Hyperlipidemia, unspecified; F32.9 Major depressive disorder, single episode, unspecified; F41.9 Anxiety disorder, unspecified; G40.909 Epilepsy, unspecified, not intractable, without status epilepticus; I10 Essential (primary) hypertension; I25.10 Atherosclerotic heart disease of native coronary artery without angina pectoris; I25.2 Old myocardial infarction; S81.801A Unspecified open wound, right lower leg, initial encounter; M19.90 Unspecified osteoarthritis, unspecified site; I69.998 Other sequelae following unspecified cerebrovascular disease; Z66 Do not resuscitate; Z79.02 Long term (current) use of antithrombotics/antiplatelets; Z79.4 Long term (current) use of insulin; Z79.899 Other long term (current) drug therapy; Z87.891 Personal history of nicotine dependence; Z95.5 Presence of coronary angioplasty implant and graft; Z88.1 Allergy status to other antibiotic agents; Z88.2 Allergy status to sulfonamides; Z88.8 Allergy status to other drugs, medicaments and biological substances
CPT/HCPCS: 36415; 70450; 70496; 70498; 71010; 80048; 80053; 80306; 81003; 82009; 82550; 82553; 84484; 85025; 85610; 85730; 93005; 96361; 96374; 96375; 99285

== ENCOUNTER 2018-12-11 11:40 | Inpatient (IN) | payer MEDICARE, OTHER ==
[2018-12-11] MEDS ORDERED: SODIUM CHLORIDE 0.9% 1,000 ML IV STA ×2 (11:42)
--- NOTE | 2018-12-11 11:49 | ED ---
GI Bleed HPI - General Stated complaint: Altered Mental Status Time Seen by Provider: 12/11/18 11:42 - History of Present Illness Initial comments: Patient is a 63-year-old male presenting for altered mental status, syncope and vomiting. Per EMS, the patient has a history of GI bleed and had coffee-ground emesis earlier today. He had a couple episodes of syncopized in. The details of these events are unknown as there is no family bedside. Patient is unable to provide review of systems but states that he does not have any chest pain, abdominal pain or headaches. - Related Data Home Medications Medication Instructions Recorded Confirmed Atorvastatin [Lipitor] 20 mg PO DAILY 09/08/16 12/11/18 Clopidogrel [Plavix] 75 mg PO DAILY 09/08/16 12/11/18 Gabapentin 600 mg PO TID 09/08/16 12/11/18 LORazepam [Ativan] 1 mg PO QID 09/08/16 12/11/18 Lisinopril [Zestril] 2.5 mg PO DAILY 09/08/16 12/11/18 Metoprolol Tartrate [Lopressor] 50 mg PO BID 09/08/16 12/11/18 Pantoprazole Sodium [Protonix] 40 mg PO DAILY 09/08/16 12/11/18 Sertraline [Zoloft] 150 mg PO DAILY 09/08/16 12/11/18 Temazepam [Restoril] 30 mg PO DAILY 09/08/16 12/11/18 levETIRAcetam [Keppra] 500 mg PO Q12HR 09/08/16 12/11/18 Insulin Glargine [Lantus] 25 mg PO DAILY 12/11/18 12/11/18 Toujeo (Unknown) unit SQ DIRECTED 12/11/18 Allergies Allergy/AdvReac Type Severity Reaction Status Date / Time infliximab [From Remicade] Allergy Unknown Verified 12/11/18 13:41 neomycin Allergy Unknown Verified 12/11/18 13:41 nickel Allergy Unknown Verified 12/11/18 13:41 sulfamethoxazole Allergy Unknown Verified 12/11/18 13:41 [From Bactrim] trimethoprim [From Bactrim] Allergy Unknown Verified 12/11/18 13:41 Review of Systems ROS Statement: Those systems with pertinent positive or pertinent negative responses have been documented in the HPI. Unable to complete secondary to patient's altered mental status ROS Other: All systems not noted in ROS Statement are negative. Past Medical History Past Medical History: Coronary Artery Disease (CAD), CVA/TIA, Diabetes Mellitus , Hyperlipidemia, Hypertension, Myocardial Infarction ([place]), Osteoarthritis (OA) , Seizure Disorder Additional Past Medical History / Comment(s): seizure x1 in 2013, cva residual deficits right side weakness foot drag when tired/TRIPS EASILY-able to write but is shaky,delayed answers at times thought process slower now and has short term memory problems and at time has difficult time getting out what he wants to say. Crohns disease, DM, CAD with previous cath and stent insertion and previous [place], anxiety, depression, HYperlipidemia Last Myocardial Infarction Date:: History of Any Multi-Drug Resistant Organisms: None Reported Past Surgical History: Back Surgery, Heart Catheterization With Stent Additional Past Surgical History / Comment(s): lt elbow sx,bowel sx- ileostomy dt/ crohns disease, oral sx had all teeth extracted Past Anesthesia/Blood Transfusion Reactions: No Reported Reaction Date of Last Stent Placement:: 2011 Past Psychological History: Anxiety, Depression Smoking Status: Former smoker Past Alcohol Use History: None Reported Past Drug Use History: None Reported - Past Family History Father Family Medical History: Unable to Obtain Mother Family Medical History: Dementia General Exam - General Exam Comments Initial Comments: Constitutional: Pt appears well-developed and well-nourished. Patient is ill- appearing Head: Normocephalic and atraumatic. Eyes: EOM are normal. Pupils PERRLA Mouth: Dry mucous membranes with coffee ground vomitus remnants noted in the oropharynx Neck: Normal range of motion. Neck supple. Cardiovascular: Tachycardia present, regular rhythm, S1 normal, S2 normal and normal heart sounds. Exam reveals no gallop and no friction rub. No murmur heard. Pulmonary/Chest: Effort normal and breath sounds normal. No tachypnea and no bradypnea. No respiratory distress. No wheezes or rales noted. Abdominal: Soft. Bowel sounds are normal. Pt exhibits no shifting dullness, no distension, no pulsatile liver, no fluid wave, no abdominal bruit and no ascites. There is no rigidity, no rebound, no guarding, no tenderness at McBurney's point and negative Orellana's sign. There is no tenderness. Musculoskeletal: Normal range of motion. Neurological: Pt is alert and oriented to person. Patient unable to comply with complex neuro exam but no obvious cranial nerve deficits noted Skin: Skin is warm and dry. No rash noted. Pt is not diaphoretic. No erythema. No pallor. Psychiatric: Pt has a normal mood and affect. Pt behavior is normal. Thought content normal. Course Vital Signs 12/11/18 12/11/18 12/11/18 11:49 12:52 13:01 Temperature Pulse Rate 128 H 130 H 129 H Respiratory 18 18 18 Rate Blood Pressure 109/73 109/81 119/70 O2 Sat by Pulse 89 L 88 L 92 L Oximetry 12/11/18 13:07 Temperature 97.4 F L Pulse Rate Respiratory Rate Blood Pressure O2 Sat by Pulse Oximetry Medical Decision Making - Medical Decision Making Based on initial physical exam, it appears that the patient was in either DKA or HHS. Based on the laboratory studies it is still unclear but it is more likely that it is DKA as the bicarbonate was 15. VBG was still pending at the time of disposition but because of the 1400 glucose, patient was started on insulin drip as well as given a bolus of insulin. Patient was also given 2 L of fluid and from a cardiac standpoint, BNP was elevated at 7080 but chest x- ray showed no extreme CHF overload. Troponin was also elevated at 0.181. However, the patient was not given aspirin as there is concern about hematemesis. In regards to hematemesis, patient was started on Protonix. CT of the head and neck were also noted to be unremarkable for acute pathology. Case is discussed with Dr. Moura and and it was agreed that the patient should go to the ICU. Additionally, the patient was in atrial fibrillation upon arrival and it was thought that perhaps replacement of fluid loss would slow down the heart rate. However, patient remained in age of fibrillation after the 2 L of fluids and therefore he was started on heart is a bolus as well as drip. - Lab Data Result diagrams: 12/11/18 12:07 12/11/18 12:07 Lab Results 12/11/18 12/11/18 12/11/18 Range/Units 12:00 12:07 12:07 WBC 13.8 H (3.8-10.6) k/uL RBC 5.74 (4.30-5.90) m/uL Hgb 16.5 (13.0-17.5) gm/dL Hct 56.4 H (39.0-53.0) % MCV 98.2 (80.0-100.0) fL MCH 28.8 (25.0-35.0) pg MCHC 29.3 L (31.0-37.0) g/dL RDW 14.2 (11.5-15.5) % Plt Count 320 (150-450) k/uL Neutrophils % 85 % Lymphocytes % 7 % Monocytes % 7 % Eosinophils % 1 % Basophils % 0 % Neutrophils # 11.7 H (1.3-7.7) k/uL Lymphocytes # 0.9 L (1.0-4.8) k/uL Monocytes # 1.0 (0-1.0) k/uL Eosinophils # 0.1 (0-0.7) k/uL Basophils # 0.0 (0-0.2) k/uL Hypochromasia Marked PT (9.0-12.0) sec INR (<1.2) APTT (22.0-30.0) sec Sodium 146 H (137-145) mmol/L Potassium 3.8 (3.5-5.1) mmol/L Chloride 99 (98-107) mmol/L Carbon Dioxide 15 L (22-30) mmol/L Anion Gap 32 mmol/L BUN 79 H (9-20) mg/dL Creatinine 3.95 H (0.66-1.25) mg/dL Est GFR (CKD-EPI)AfAm 18 (>60 ml/min/1.73 sqM) Est GFR (CKD-EPI)NonAf 15 (>60 ml/min/1.73 sqM) Glucose 1400 H* (74-99) mg/dL POC Glucose (mg/dL) >600 H (75-99) mg/dL POC Glu Machine Stone Polisher ID Chinyere Flores Osmolality 418 H* (280-301) mosm/kg Plasma Lactic Acid Jeffery (0.7-2.0) mmol/L Calcium 10.2 (8.4-10.2) mg/dL Total Bilirubin 1.2 (0.2-1.3) mg/dL AST 113 H (17-59) U/L ALT 34 (21-72) U/L Alkaline Phosphatase 139 H (38-126) U/L Troponin I (0.000-0.034) ng/mL NT-Pro-B Natriuret Pep pg/mL Total Protein 8.4 H (6.3-8.2) g/dL Albumin 4.6 (3.5-5.0) g/dL Lipase 113 (23-300) U/L Urine Color Urine Appearance (Clear) Urine pH (5.0-8.0) Ur Specific Fish[place] Eddy (1.001-1.035) Urine Protein (Negative) Urine Glucose (UA) (Negative) Urine Ketones (Negative) Urine Blood (Negative) Urine Nitrite (Negative) Urine Bilirubin (Negative) Urine Urobilinogen (<2.0) mg/dL Ur Leukocyte Esterase (Negative) Urine RBC (0-5) /hpf Urine WBC (0-5) /hpf Ur Squamous Epith Cells (0-4) /hpf Amorphous Sediment (None) /hpf Urine Bacteria (None) /hpf Hyaline Casts (0-2) /lpf Urine Mucus (None) /hpf Acetone, Qual Cancelled Blood Type Blood Type Recheck Antibody Screen Spec Expiration Date 12/11/18 12/11/18 12/11/18 Range/Units 12:07 12:07 12:07 WBC (3.8-10.6) k/uL RBC (4.30-5.90) m/uL Hgb (13.0-17.5) gm/dL Hct (39.0-53.0) % MCV (80.0-100.0) fL MCH (25.0-35.0) pg MCHC (31.0-37.0) g/dL RDW (11.5-15.5) % Plt Count (150-450) k/uL Neutrophils % % Lymphocytes % % Monocytes % % Eosinophils % % Basophils % % Neutrophils # (1.3-7.7) k/uL Lymphocytes # (1.0-4.8) k/uL Monocytes # (0-1.0) k/uL Eosinophils # (0-0.7) k/uL Basophils # (0-0.2) k/uL Hypochromasia PT (9.0-12.0) sec INR (<1.2) APTT (22.0-30.0) sec Sodium (137-145) mmol/L Potassium (3.5-5.1) mmol/L Chloride (98-107) mmol/L Carbon Dioxide (22-30) mmol/L Anion Gap mmol/L BUN (9-20) mg/dL Creatinine (0.66-1.25) mg/dL Est GFR (CKD-EPI)AfAm (>60 ml/min/1.73 sqM) Est GFR (CKD-EPI)NonAf (>60 ml/min/1.73 sqM) Glucose (74-99) mg/dL POC Glucose (mg/dL) (75-99) mg/dL POC Glu Machine Stone Polisher ID Osmolality ([phone]) mosm/kg Plasma Lactic Acid Jeffery 3.0 H* (0.7-2.0) mmol/L Calcium (8.4-10.2) mg/dL Total Bilirubin (0.2-1.3) mg/dL AST (17-59) U/L ALT (21-72) U/L Alkaline Phosphatase (38-126) U/L Troponin I 0.181 H* (0.000-0.034) ng/mL NT-Pro-B Natriuret Pep pg/mL Total Protein (6.3-8.2) g/dL Albumin (3.5-5.0) g/dL Lipase (23-300) U/L Urine Color Urine Appearance (Clear) Urine pH (5.0-8.0) Ur Specific Fish[place] Eddy (1.001-1.035) Urine Protein (Negative) Urine Glucose (UA) (Negative) Urine Ketones (Negative) Urine Blood (Negative) Urine Nitrite (Negative) Urine Bilirubin (Negative) Urine Urobilinogen (<2.0) mg/dL Ur Leukocyte Esterase (Negative) Urine RBC (0-5) /hpf Urine WBC (0-5) /hpf Ur Squamous Epith Cells (0-4) /hpf Amorphous Sediment (None) /hpf Urine Bacteria (None) /hpf Hyaline Casts (0-2) /lpf Urine Mucus (None) /hpf Acetone, Qual Blood Type A Positive Blood Type Recheck CABO Indicated Antibody Screen NEGATIVE Spec Expiration Date 12/14/2018 - 230612/11/18 12/11/18 12/11/18 Range/Units 12:07 12:37 13:23 WBC (3.8-10.6) k/uL RBC (4.30-5.90) m/uL Hgb (13.0-17.5) gm/dL Hct (39.0-53.0) % MCV (80.0-100.0) fL MCH (25.0-35.0) pg MCHC (31.0-37.0) g/dL RDW (11.5-15.5) % Plt Count (150-450) k/uL Neutrophils % % Lymphocytes % % Monocytes % % Eosinophils % % Basophils % % Neutrophils # (1.3-7.7) k/uL Lymphocytes # (1.0-4.8) k/uL Monocytes # (0-1.0) k/uL Eosinophils # (0-0.7) k/uL Basophils # (0-0.2) k/uL Hypochromasia PT 10.6 (9.0-12.0) sec INR 1.0 (<1.2) APTT 20.3 L (22.0-30.0) sec Sodium (137-145) mmol/L Potassium (3.5-5.1) mmol/L Chloride (98-107) mmol/L Carbon Dioxide (22-30) mmol/L Anion Gap mmol/L BUN (9-20) mg/dL Creatinine (0.66-1.25) mg/dL Est GFR (CKD-EPI)AfAm (>60 ml/min/1.73 sqM) Est GFR (CKD-EPI)NonAf (>60 ml/min/1.73 sqM) Glucose (74-99) mg/dL POC Glucose (mg/dL) (75-99) mg/dL POC Glu Machine Stone Polisher ID Osmolality ([phone]) mosm/kg Plasma Lactic Acid Jeffery (0.7-2.0) mmol/L Calcium (8.4-10.2) mg/dL Total Bilirubin (0.2-1.3) mg/dL AST (17-59) U/L ALT (21-72) U/L Alkaline Phosphatase (38-126) U/L Troponin I (0.000-0.034) ng/mL NT-Pro-B Natriuret Pep 7080 pg/mL Total Protein (6.3-8.2) g/dL Albumin (3.5-5.0) g/dL Lipase (23-300) U/L Urine Color Yellow Urine Appearance Cloudy (Clear) Urine pH 5.0 (5.0-8.0) Ur Specific Fishs Eddy 1.019 (1.001-1.035) Urine Protein 1+ H (Negative) Urine Glucose (UA) 4+ H (Negative) Urine Ketones Trace H (Negative) Urine Blood Moderate H (Negative) Urine Nitrite Negative (Negative) Urine Bilirubin Negative (Negative) Urine Urobilinogen <2.0 (<2.0) mg/dL Ur Leukocyte Esterase Negative (Negative) Urine RBC 2 (0-5) /hpf Urine WBC 7 H (0-5) /hpf Ur Squamous Epith Cells <1 (0-4) /hpf Amorphous Sediment Occasional H (None) /hpf Urine Bacteria Rare H (None) /hpf Hyaline Casts 53 H (0-2) /lpf Urine Mucus Occasional H (None) /hpf Acetone, Qual Blood Type Blood Type Recheck Antibody Screen Spec Expiration Date 12/11/18 Range/Units 14:43 WBC (3.8-10.6) k/uL RBC (4.30-5.90) m/uL Hgb (13.0-17.5) gm/dL Hct (39.0-53.0) % MCV (80.0-100.0) fL MCH (25.0-35.0) pg MCHC (31.0-37.0) g/dL RDW (11.5-15.5) % Plt Count (150-450) k/uL Neutrophils % % Lymphocytes % % Monocytes % % Eosinophils % % Basophils % % Neutrophils # (1.3-7.7) k/uL Lymphocytes # (1.0-4.8) k/uL Monocytes # (0-1.0) k/uL Eosinophils # (0-0.7) k/uL Basophils # (0-0.2) k/uL Hypochromasia PT (9.0-12.0) sec INR (<1.2) APTT (22.0-30.0) sec Sodium (137-145) mmol/L Potassium (3.5-5.1) mmol/L Chloride (98-107) mmol/L Carbon Dioxide (22-30) mmol/L Anion Gap mmol/L BUN (9-20) mg/dL Creatinine (0.66-1.25) mg/dL Est GFR (CKD-EPI)AfAm (>60 ml/min/1.73 sqM) Est GFR (CKD-EPI)NonAf (>60 ml/min/1.73 sqM) Glucose (74-99) mg/dL POC Glucose (mg/dL) >600 H (75-99) mg/dL POC Glu Machine Stone Polisher ID Dariana Hanna Osmolality ([phone]) mosm/kg Plasma Lactic Acid Jeffery (0.7-2.0) mmol/L Calcium (8.4-10.2) mg/dL Total Bilirubin (0.2-1.3) mg/dL AST (17-59) U/L ALT (21-72) U/L Alkaline Phosphatase (38-126) U/L Troponin I (0.000-0.034) ng/mL NT-Pro-B Natriuret Pep pg/mL Total Protein (6.3-8.2) g/dL Albumin (3.5-5.0) g/dL Lipase (23-300) U/L Urine Color Urine Appearance (Clear) Urine pH (5.0-8.0) Ur Specific Fish[place] Eddy (1.001-1.035) Urine Protein (Negative) Urine Glucose (UA) (Negative) Urine Ketones (Negative) Urine Blood (Negative) Urine Nitrite (Negative) Urine Bilirubin (Negative) Urine Urobilinogen (<2.0) mg/dL Ur Leukocyte Esterase (Negative) Urine RBC (0-5) /hpf Urine WBC (0-5) /hpf Ur Squamous Epith Cells (0-4) /hpf Amorphous Sediment (None) /hpf Urine Bacteria (None) /hpf Hyaline Casts (0-2) /lpf Urine Mucus (None) /hpf Acetone, Qual Blood Type Blood Type Recheck Antibody Screen Spec Expiration Date - EKG Data EKG Comments: EKG shows atrial fibrillation with RVR rate of 136, QRS duration 76, QTC 451. There is significant baseline artifact noted throughout all leads. Disposition Clinical Impression: DKA (diabetic ketoacidoses), Atrial fibrillation with RVR, Encephalopathy, NSTEMI (non-ST elevated myocardial infarction) Disposition: ADMITTED IP TO THIS HOSP Condition: Poor Referrals: None,Stated [Primary Care Provider] - 1-2 days Decision to Admit Reason: Admit from EC Decision Date: 12/11/18 Decision Time: 15:07
[2018-12-11 12:02] LABS: Glucose,Whole Blood >600 mg/dL (75-99)
[2018-12-11 12:42] LABS: Basophils % (A) 0 %; Eosinophils # (A) 0.1 k/uL (0-0.7); Eosinophils % (A) 1 %; HGB 16.5 gm/dL (13.0-17.5); Hypochromasia Marked; Lymphocytes # (A) 0.9 k/uL (1.0-4.8); Lymphocytes % (A) 7 %; MCH 28.8 pg (25.0-35.0); MCHC 29.3 g/dL (31.0-37.0); MCV 98.2 fL (80.0-100.0); Mean Platelet Volume 11.5; Monocytes % (A) 7 %; Neutrophils # (A) 11.7 k/uL (1.3-7.7); Neutrophils % (A) 85 %; Platelet Count 320 k/uL (150-450); RBC 5.74 m/uL (4.30-5.90); RDW 14.2 % (11.5-15.5); WBC 13.8 k/uL (3.8-10.6)
[2018-12-11 12:43] LABS: HCT 56.4 % (39.0-53.0)
[2018-12-11 12:56] LABS: Amorphous Sediment,Urine Occasional /hpf; Appearance,Urine Cloudy (Clear); Bacteria,Urine Rare /hpf; Bilirubin,Urine Negative (Negative); Blood,Urine Moderate (Negative); Color,Urine Yellow; Glucose,Urine (UA) 4+ (Negative); Hyaline Casts,Urine 53 /lpf (0-2); Ketones,Urine Trace (Negative); Leukocyte Esterase,Urine Negative (Negative); Mucus,Urine Occasional /hpf; Nitrite,Urine Negative (Negative); Protein,Urine 1+ (Negative); RBC,Urine 2 /hpf (0-5); Specific Gravity,Urine 1.019 (1.001-1.035); Squamous Epithelial Cell,Urine <1 /hpf (0-4); Urobilinogen,Urine <2.0 mg/dL (<2.0)
[2018-12-11 12:57] LABS: Albumin 4.6 g/dL (3.5-5.0); Calcium 10.2 mg/dL (8.4-10.2); Potassium 3.8 mmol/L (3.5-5.1); Total Bilirubin 1.2 mg/dL (0.2-1.3); Total Protein 8.4 g/dL (6.3-8.2)
[2018-12-11] MEDS ORDERED: PANTOPRAZOLE 40 MG/10 ML VIAL IVP ONE (13:03)
[2018-12-11] MEDS ORDERED: INSULIN REGULAR 100 UNIT in SODIUM CHLORIDE 0.9% 100 ML IV SCH (13:45)
--- NOTE | 2018-12-11 14:30 | CT ---
EXAMINATION TYPE: CT brain milind wo con DATE OF EXAM: 12/11/2018 COMPARISON: CT brain 06/06/2017 HISTORY: Pain headache. Neck pain. CT DLP: 1557.6 mGycm Automated exposure control for dose reduction was used. TECHNIQUE: CT scan of the head and cervical spine are performed without contrast. FINDINGS: There is enlargement of the ventricles. There is hypodensity in the left internal capsule . There is no mass effect nor midline shift. There is cerebral cortical atrophy. There is no evidence of intracranial hemorrhage. The calvarium is intact. Cervical vertebra have normal alignment. There is degenerative disc space narrowing at C5-6 C6-7. The re is spurring of the endplates. There is mild hypertrophic facet arthropathy. The skull base is inta ct. There is no evidence of a fracture. IMPRESSION: Spondylotic changes in the cervical spine. No fracture. Cerebral atrophy and hydrocephalus. Chronic small vessel ischemia. No change compared to old exam.
--- NOTE | 2018-12-11 14:35 | XR ---
EXAMINATION TYPE: XR chest 2V DATE OF EXAM: 12/11/2018 COMPARISON: 06/06/2017 HISTORY: Syncope TECHNIQUE: Frontal and lateral views of the chest are obtained. FINDINGS: There is mild infiltrate at the lateral left lung base. The other lung hawkins are clear. H eart is normal. There is no heart failure. Bony thorax is intact. There are chest leads. IMPRESSION: There is new Mild left basilar pulmonary infiltrate and atelectasis compared to old exam.
[2018-12-11] MEDS ORDERED: DILTIAZEM DRIP BOLUS FROM BAG 1 MG SOLN IV ONE (14:39)
[2018-12-11] MEDS ORDERED: DILTIAZEM 125 MG in SODIUM CHLORIDE 0.9% 100 ML IV SCH (14:45)
[2018-12-11] MEDS: INSULIN REGULAR BOLUS (FROM DRIP BAG) IV PRN ×2 (14:49→15:03)
[2018-12-11 14:55] LABS: Glucose,Whole Blood >600 mg/dL (75-99)
[2018-12-11] MEDS ORDERED: NALOXONE 0.4 MG/ML 1 ML VIAL IV PRN (14:55)
[2018-12-11] MEDS: INSULIN REGULAR 100 UNIT in SODIUM CHLORIDE 0.9% 100 ML IV SCH ×2 (15:07→23:12)
[2018-12-11 15:12] LABS: Partial Thromboplastin Time 20.3 sec (22.0-30.0); Prothrombin Time 10.6 sec (9.0-12.0)
[2018-12-11] MEDS ORDERED: SODIUM CHLORIDE 0.9% 1,000 ML IV ONE ×2 (15:19→18:36)
[2018-12-11] MEDS: DILTIAZEM 125 MG in SODIUM CHLORIDE 0.9% 100 ML IV STA (15:20)
[2018-12-11 15:31] LABS: VBG PH 7.25 (7.31-7.41)
--- NOTE | 2018-12-11 15:48 | P.CNPUL ---
History of Present Illness Consult date: 12/11/18 Chief complaint: Hyperglycemia History of present illness: 63-year-old male patient presented with altered mentation and vomiting. He apparently had coffee-ground emesis and syncope. In the ED, the patient was diagnosed having a acute hyperosmolar nonketotic state and the patient was started on treatment immediately with IV fluids and insulin drip. The patient himself was unable to provide any history. He denied having any chest pain. No abdominal pain. His initial blood sugar was 1400. The patient was given 2 L of IV fluids and started on insulin drip. The first set of troponin was 0.1. The BNP was 7080. Computed tomography scan of the head and the neck was unremarkable. The patient got transferred to the ICU. The patient is an acute kidney injury. Urine is at 79. Creatinine is at 3.9. The patient's anion gap is at 32. Serum bicarb is at 15. The lactic acid level is at 3.0. There is only trace urinary ketones. The patient's hemoglobin is at 16.5. White cell count is not elevated. EKG showing atrial fibrillation with rapid ventricular response. Chest x-ray showing a basilar atelectasis Review of Systems ROS unobtainable: due to mental status Past Medical History Past Medical History: Coronary Artery Disease (CAD), CVA/TIA, Diabetes Mellitus , Hyperlipidemia, Hypertension, Myocardial Infarction ([place]), Osteoarthritis (OA) , Seizure Disorder Additional Past Medical History / Comment(s): Coronary artery disease with previous cardiac catheterization and stenting, previous [place], Crohn's disease, diabetes mellitus, hyperlipidemia, depression, chronic anxiety, history of CVA with some right-sided weakness, history of seizure disorder last seizure was in 2013, hyperlipidemia, hypertension Last Myocardial Infarction Date:: History of Any Multi-Drug Resistant Organisms: None Reported Past Surgical History: Back Surgery, Heart Catheterization With Stent Additional Past Surgical History / Comment(s): lt elbow sx,bowel sx- ileostomy dt/ crohns disease, oral sx had all teeth extracted Past Anesthesia/Blood Transfusion Reactions: No Reported Reaction Date of Last Stent Placement:: 2011 Past Psychological History: Anxiety, Depression Smoking Status: Former smoker Past Alcohol Use History: None Reported Past Drug Use History: None Reported - Past Family History Father Family Medical History: Unable to Obtain Mother Family Medical History: Dementia Medications and Allergies Home Medications Medication Instructions Recorded Confirmed Type Atorvastatin [Lipitor] 20 mg PO DAILY 09/08/16 12/11/18 History Clopidogrel [Plavix] 75 mg PO DAILY 09/08/16 12/11/18 History Gabapentin 600 mg PO TID 09/08/16 12/11/18 History LORazepam [Ativan] 1 mg PO QID 09/08/16 12/11/18 History Lisinopril [Zestril] 2.5 mg PO DAILY 09/08/16 12/11/18 History Metoprolol Tartrate [Lopressor] 50 mg PO BID 09/08/16 12/11/18 History Pantoprazole Sodium [Protonix] 40 mg PO DAILY 09/08/16 12/11/18 History Sertraline [Zoloft] 150 mg PO DAILY 09/08/16 12/11/18 History Temazepam [Restoril] 30 mg PO DAILY 09/08/16 12/11/18 History levETIRAcetam [Keppra] 500 mg PO Q12HR 09/08/16 12/11/18 History Insulin Glargine [Lantus] 25 mg PO DAILY 12/11/18 12/11/18 History Toujeo (Unknown) unit SQ DIRECTED 12/11/18 History Allergies Allergy/AdvReac Type Severity Reaction Status Date / Time infliximab [From Remicade] Allergy Unknown Verified 12/11/18 13:41 neomycin Allergy Unknown Verified 12/11/18 13:41 nickel Allergy Unknown Verified 12/11/18 13:41 sulfamethoxazole Allergy Unknown Verified 12/11/18 13:41 [From Bactrim] trimethoprim [From Bactrim] Allergy Unknown Verified 12/11/18 13:41 Physical Exam Vitals: Vital Signs Temp Pulse Resp BP Pulse Ox 12/11/18 15:22 151 H 35 H 96/72 95 12/11/18 13:07 97.4 F L 12/11/18 13:01 129 H 18 119/70 92 L 12/11/18 12:52 130 H 18 109/81 88 L 12/11/18 11:49 128 H 18 109/73 89 L Intake and Output 12/11/18 12/11/18 12/11/18 06:59 14:59 22:59 Output Total 45 Balance -45 Output: Urine 45 Uretheral (Hunter) 45 Other: Weight 95.617 kg The patient is lethargic, arousable Head exam was generally normal. Examination of the neck was no scleral icterus or corneal arcus. Mucous membranes were moist.Neck was supple and without jugular venous distension, thyromegaly, or carotid bruits. Carotids were easily palpable bilaterally. There was no adenopathy. Note that there is no evidence of any neck stiffness and a neck is quite supple at this point. Mucus from veins are dry. Cardiac exam revealed the PMI to be normally situated and sized. The rhythm was irregular S1-S2 and no extrasystoles were noted during several minutes of auscultation. The first and second heart sounds were irregular and physiologic splitting of the second heart sound was noted. There were no murmurs, rubs, clicks, or gallops. Lungs were clear to auscultation and percussion, and with normal diaphragmatic excursion. No wheezes or rales were noted. Abdominal exam revealed normal bowel sounds. The abdomen was soft, non-tender, and without masses, organomegaly, or appreciable enlargement of the abdominal aorta. There are scars of previous abdominal surgery over the anterior abdominal wall. No direct tenderness. No rebound tenderness. No guarding Extremities show no cyanosis or clubbing. sores are present lower extremities bilaterally which are essentially well-healed. Pulses are diminished at the present. No cyanosis or clubbing at this point. Some chronic contractures are seen on the right compared to left. Neurologically, there is no facial asymmetry. No motor function on the right upper and right lower extremity. Preferential gaze to the left upper corner. No nystagmus. Pupils are 6 mm in size and they're reactive to light. Hyperreflexia is noted on the right side. Rigidity is also present on the right. Results - Laboratory Findings CBC and BMP: 12/11/18 12:07 12/11/18 12:07 PT/INR, D-dimer PT 10.6 sec (9.0-12.0) 12/11/18 13:23 INR 1.0 (<1.2) 12/11/18 13:23 Abnormal lab findings: Abnormal Labs 12/11/18 12/11/18 12/11/18 12:00 12:07 12:07 WBC 13.8 H Hct 56.4 H MCHC 29.3 L Neutrophils # 11.7 H Lymphocytes # 0.9 L APTT VBG pH VBG HCO3 Sodium 146 H Carbon Dioxide 15 L BUN 79 H Creatinine 3.95 H Glucose 1400 H* POC Glucose (mg/dL) >600 H Osmolality 418 H* Plasma Lactic Acid Jeffery AST 113 H Alkaline Phosphatase 139 H Troponin I Total Protein 8.4 H Urine Protein Urine Glucose (UA) Urine Ketones Urine Blood Urine WBC Amorphous Sediment Urine Bacteria Hyaline Casts Urine Mucus 12/11/18 12/11/18 12/11/18 12:07 12:07 12:37 WBC Hct MCHC Neutrophils # Lymphocytes # APTT VBG pH VBG HCO3 Sodium Carbon Dioxide BUN Creatinine Glucose POC Glucose (mg/dL) Osmolality Plasma Lactic Acid Jeffery 3.0 H* AST Alkaline Phosphatase Troponin I 0.181 H* Total Protein Urine Protein 1+ H Urine Glucose (UA) 4+ H Urine Ketones Trace H Urine Blood Moderate H Urine WBC 7 H Amorphous Sediment Occasional H Urine Bacteria Rare H Hyaline Casts 53 H Urine Mucus Occasional H 12/11/18 12/11/18 12/11/18 13:23 14:43 14:48 WBC Hct MCHC Neutrophils # Lymphocytes # APTT 20.3 L VBG pH 7.25 L VBG HCO3 19 L Sodium Carbon Dioxide BUN Creatinine Glucose POC Glucose (mg/dL) >600 H Osmolality Plasma Lactic Acid Jeffery AST Alkaline Phosphatase Troponin I Total Protein Urine Protein Urine Glucose (UA) Urine Ketones Urine Blood Urine WBC Amorphous Sediment Urine Bacteria Hyaline Casts Urine Mucus - Diagnostic Findings Chest x-ray: image reviewed Assessment and Plan Plan: Assessment 1 hyperosmolar nonketotic state (HHS) a complication of poorly controlled diabetes mellitus 2 altered mentation secondary to above 3 acute kidney injury along with a anion gap metabolic acidosis with mild lactic acidosis. Minimal amount of ketones also seen the urine. 4 new onset atrial fibrillation with rapid ventricular response 5 history of CVA with some residual right-sided weakness back in 2013 6 seizure disorder on Keppra, last bout of seizure was in 2013 7 coronary artery disease with previous myocardial infarction stenting of the coronaries, currently has a troponin leak due to above-mentioned metabolic derangements 8 diabetes mellitus 9 hypertension 10 hyperlipidemia 11 chronic anxiety/depression 12 questionable upper GI bleed with coffee-ground emesis I am Continue IV fluids. The patient received 2 L in the emergency. Increase his maintenance rate up to 150 mL an hour. The patient is currently on insulin drip at 0.1 units per KG. Titrate insulin dose based on the blood sugar control. Will follow hour strict protocols. We'll replace electrolytes if needed. IV Protonix. Monitor cardiac enzymes. Continue Cardizem drip and no need for IV heparin for now. Proceed with echocardiogram in a.m. Keep the patient nothing by mouth for now. Monitor the lactic acid level. Monitor the renal function. Monitor electrolyte q6 hours. Monitor the blood sugar every hour. No oral medications to the patient's mental status improve. Blood cultures. Urine cultures. We'll follow.
[2018-12-11 15:53] LABS: Glucose,Whole Blood >600 mg/dL (75-99)
[2018-12-11] MEDS ORDERED: SODIUM CHLORIDE 0.9% 2,000 ML IV ONE (16:01)
--- NOTE | 2018-12-11 16:10 | P.HPIM ---
History of Present Illness Chief Complaint: Hypoglycemia, altered mental status This 8-year-old gentleman who comes in to the ED for above-mentioned complaint. Patient the time examination was in the ICU he was alert oriented 0 totally obtunded not responding to commands barely able to open his eyes. Most of the history was taken with the help of the nurse and with the help of the ER records. Apparently according to the EMS patient had coffee-ground emesis earlier in the morning. Apparently according to the ER notes he was not complaining of any chest pain abdominal pain or headaches but to me he was not responding to anything or even able to tell me his name. Review of systems unobtainable at this time because of his mental status. ER course vitals show temperature of 97.4 pulse 151 respiration 35 blood pressure 96/72 chest x-ray showed mild left basilar infiltrate and atelectasis CT head and C-spine didn't show any acute abnormalities. Lab work showed WBC 13.8 hemoglobin 15.5 platelets 320 sodium 140 respiration 3.8 B1 39 creatinine 3.95 glucose 1400 anion gap was 32 lipase 113 per patient was given 2 L of IV fluid bolus, was started on insulin drip according to the DKA protocol. Patient was also admitted to ICU for further management Review of Systems ROS unobtainable: due to mental status Past Medical History Past Medical History: Coronary Artery Disease (CAD), CVA/TIA, Diabetes Mellitus , Hyperlipidemia, Hypertension, Myocardial Infarction ([place]), Osteoarthritis ([place]) , Seizure Disorder Additional Past Medical History / Comment(s): Coronary artery disease with previous cardiac catheterization and stenting, previous [place], Crohn's disease, diabetes mellitus, hyperlipidemia, depression, chronic anxiety, history of CVA with some right-sided weakness, history of seizure disorder last seizure was in 2013, hyperlipidemia, hypertension Last Myocardial Infarction Date:: History of Any Multi-Drug Resistant Organisms: None Reported Past Surgical History: Back Surgery, Heart Catheterization With Stent Additional Past Surgical History / Comment(s): lt elbow sx,bowel sx- ileostomy dt/ crohns disease, oral sx had all teeth extracted Past Anesthesia/Blood Transfusion Reactions: No Reported Reaction Date of Last Stent Placement:: 2011 Past Psychological History: Anxiety, Depression Smoking Status: Former smoker Past Alcohol Use History: None Reported Past Drug Use History: None Reported - Past Family History Father Family Medical History: Unable to Obtain Mother Family Medical History: Dementia Medications and Allergies Home Medications Medication Instructions Recorded Confirmed Type Atorvastatin [Lipitor] 20 mg PO DAILY 09/08/16 12/11/18 History Clopidogrel [Plavix] 75 mg PO DAILY 09/08/16 12/11/18 History Gabapentin 600 mg PO TID 09/08/16 12/11/18 History LORazepam [Ativan] 1 mg PO QID 09/08/16 12/11/18 History Lisinopril [Zestril] 2.5 mg PO DAILY 09/08/16 12/11/18 History Metoprolol Tartrate [Lopressor] 50 mg PO BID 09/08/16 12/11/18 History Pantoprazole Sodium [Protonix] 40 mg PO DAILY 09/08/16 12/11/18 History Sertraline [Zoloft] 150 mg PO DAILY 09/08/16 12/11/18 History Temazepam [Restoril] 30 mg PO DAILY 09/08/16 12/11/18 History levETIRAcetam [Keppra] 500 mg PO Q12HR 09/08/16 12/11/18 History Insulin Glargine [Lantus] 25 mg PO DAILY 12/11/18 12/11/18 History Toujeo (Unknown) unit SQ DIRECTED 12/11/18 History Allergies Allergy/AdvReac Type Severity Reaction Status Date / Time infliximab [From Remicade] Allergy Unknown Verified 12/11/18 13:41 neomycin Allergy Unknown Verified 12/11/18 13:41 nickel Allergy Unknown Verified 12/11/18 13:41 sulfamethoxazole Allergy Unknown Verified 12/11/18 13:41 [From Bactrim] trimethoprim [From Bactrim] Allergy Unknown Verified 12/11/18 13:41 Physical Exam Vitals: Vital Signs Temp Pulse Resp BP Pulse Ox 12/11/18 15:22 151 H 35 H 96/72 95 12/11/18 13:07 97.4 F L 12/11/18 13:01 129 H 18 119/70 92 L 12/11/18 12:52 130 H 18 109/81 88 L 12/11/18 11:49 128 H 18 109/73 89 L Intake and Output 12/11/18 12/11/18 12/11/18 06:59 14:59 22:59 Intake Total 8.042 Output Total 45 200 Balance -45 -191.958 Intake: Intake, IV Titration 8.042 Amount Insulin Regular 100 unit 8.042 In Sodium Chloride 0.9% 100 ml @ 0.1 UNITS/KG/HR 9.65 mls/hr IV .[id number] [facility] Rx#:[id number] Output: Urine 45 200 Uretheral (Hunter) 45 Other: Weight 95.617 kg On exam, alert and oriented 0. HEENT: Conjunctivae normal. eyes normal. Oral Mucosa is very dry NECK: No JVD. No thyroid enlargement. No LNs CARDIOVASCULAR: S1, S2 positive tachycardic RESPIRATION: Patient is having Kussmaul breathing because of his acidosis. ABDOMEN: Soft, nontender . No guarding. no masses palpable. No ascites, No hepatosplenomegaly.Bowel sounds heard. LEGS: No edema. no swelling NERVOUS SYSTEM: R was not able to examine his neuro status because of his mental status Results CBC & Chem 7: 12/11/18 12:07 12/11/18 12:07 Labs: Abnormal Lab Results - Last 24 Hours (Table) 12/11/18 12/11/18 12/11/18 Range/Units 12:00 12:07 12:07 WBC 13.8 H (3.8-10.6) k/uL Hct 56.4 H (39.0-53.0) % MCHC 29.3 L (31.0-37.0) g/dL Neutrophils # 11.7 H (1.3-7.7) k/uL Lymphocytes # 0.9 L (1.0-4.8) k/uL APTT (22.0-30.0) sec VBG pH (7.31-7.41) VBG HCO3 (24-28) mmol/L Sodium 146 H (137-145) mmol/L Carbon Dioxide 15 L (22-30) mmol/L BUN 79 H (9-20) mg/dL Creatinine 3.95 H (0.66-1.25) mg/dL Glucose 1400 H* (74-99) mg/dL POC Glucose (mg/dL) >600 H (75-99) mg/dL Osmolality 418 H* (280-301) mosm/kg Plasma Lactic Acid Jeffery (0.7-2.0) mmol/L AST 113 H (17-59) U/L Alkaline Phosphatase 139 H (38-126) U/L Troponin I (0.000-0.034) ng/mL Total Protein 8.4 H (6.3-8.2) g/dL Urine Protein (Negative) Urine Glucose (UA) (Negative) Urine Ketones (Negative) Urine Blood (Negative) Urine WBC (0-5) /hpf Amorphous Sediment (None) /hpf Urine Bacteria (None) /hpf Hyaline Casts (0-2) /lpf Urine Mucus (None) /hpf 12/11/18 12/11/18 12/11/18 Range/Units 12:07 12:07 12:37 WBC (3.8-10.6) k/uL Hct (39.0-53.0) % MCHC (31.0-37.0) g/dL Neutrophils # (1.3-7.7) k/uL Lymphocytes # (1.0-4.8) k/uL APTT (22.0-30.0) sec VBG pH (7.31-7.41) VBG HCO3 (24-28) mmol/L Sodium (137-145) mmol/L Carbon Dioxide (22-30) mmol/L BUN (9-20) mg/dL Creatinine (0.66-1.25) mg/dL Glucose (74-99) mg/dL POC Glucose (mg/dL) (75-99) mg/dL Osmolality (280-301) mosm/kg Plasma Lactic Acid Jeffery 3.0 H* (0.7-2.0) mmol/L AST (17-59) U/L Alkaline Phosphatase (38-126) U/L Troponin I 0.181 H* (0.000-0.034) ng/mL Total Protein (6.3-8.2) g/dL Urine Protein 1+ H (Negative) Urine Glucose (UA) 4+ H (Negative) Urine Ketones Trace H (Negative) Urine Blood Moderate H (Negative) Urine WBC 7 H (0-5) /hpf Amorphous Sediment Occasional H (None) /hpf Urine Bacteria Rare H (None) /hpf Hyaline Casts 53 H (0-2) /lpf Urine Mucus Occasional H (None) /hpf 12/11/18 12/11/18 12/11/18 Range/Units 13:23 14:43 14:48 WBC (3.8-10.6) k/uL Hct (39.0-53.0) % MCHC (31.0-37.0) g/dL Neutrophils # (1.3-7.7) k/uL Lymphocytes # (1.0-4.8) k/uL APTT 20.3 L (22.0-30.0) sec VBG pH 7.25 L (7.31-7.41) VBG HCO3 19 L (24-28) mmol/L Sodium (137-145) mmol/L Carbon Dioxide (22-30) mmol/L BUN (9-20) mg/dL Creatinine (0.66-1.25) mg/dL Glucose (74-99) mg/dL POC Glucose (mg/dL) >600 H (75-99) mg/dL Osmolality (280-301) mosm/kg Plasma Lactic Acid Jeffery (0.7-2.0) mmol/L AST (17-59) U/L Alkaline Phosphatase (38-126) U/L Troponin I (0.000-0.034) ng/mL Total Protein (6.3-8.2) g/dL Urine Protein (Negative) Urine Glucose (UA) (Negative) Urine Ketones (Negative) Urine Blood (Negative) Urine WBC (0-5) /hpf Amorphous Sediment (None) /hpf Urine Bacteria (None) /hpf Hyaline Casts (0-2) /lpf Urine Mucus (None) /hpf 12/11/18 Range/Units 15:51 WBC (3.8-10.6) k/uL Hct (39.0-53.0) % MCHC (31.0-37.0) g/dL Neutrophils # (1.3-7.7) k/uL Lymphocytes # (1.0-4.8) k/uL APTT (22.0-30.0) sec VBG pH (7.31-7.41) VBG HCO3 (24-28) mmol/L Sodium (137-145) mmol/L Carbon Dioxide (22-30) mmol/L BUN (9-20) mg/dL Creatinine (0.66-1.25) mg/dL Glucose (74-99) mg/dL POC Glucose (mg/dL) >600 H (75-99) mg/dL Osmolality (280-301) mosm/kg Plasma Lactic Acid Jeffery (0.7-2.0) mmol/L AST (17-59) U/L Alkaline Phosphatase (38-126) U/L Troponin I (0.000-0.034) ng/mL Total Protein (6.3-8.2) g/dL Urine Protein (Negative) Urine Glucose (UA) (Negative) Urine Ketones (Negative) Urine Blood (Negative) Urine WBC (0-5) /hpf Amorphous Sediment (None) /hpf Urine Bacteria (None) /hpf Hyaline Casts (0-2) /lpf Urine Mucus (None) /hpf Assessment and Plan Assessment: - Acute metabolic encephalopathy - Hyperosmolar nonketotic state probably causing altered mental status - AK I - Rule out GI bleed - New-onset A. fib with RVR - Mild troponin elevation - History of CVA with residual right-sided weakness - History of seizures - History of CAD - History of hypertension - History of hyperlipidemia Plan - Patient is admitted to ICU management of hyperglycemia and HSS as per ICU - GI consulted to rule out GI bleed - Patient is on Cardizem drip will continue that. We'll hold off on the heparin drip until generally ruled out - We'll consult cardiology for the recommendations - Patient also has CELESTINA. We'll continue with fluids - We'll hold off on any blood pressure medications that the patient is on as a blood pressures in the softer side - DVT and GI prophylaxis - We'll order for lab work in the morning - Expected length of stay: 2 midnights - Patient is full code Time with Patient: Greater than 30
[2018-12-11 16:46] LABS: Potassium 3.3 mmol/L (3.5-5.1)
[2018-12-11 16:56] LABS: Glucose,Whole Blood >600 mg/dL (75-99)
[2018-12-11 18:01] LABS: Glucose,Whole Blood >600 mg/dL (75-99)
[2018-12-11] MEDS ORDERED: POTASSIUM CHLORIDE 40 MEQ in WATER FOR INJECTION 1 100ML.BAG IVPB STA (18:37)
[2018-12-11 19:06] LABS: Glucose,Whole Blood 557 mg/dL (75-99)
[2018-12-11] MEDS: POTASSIUM CHLORIDE 20 MEQ in WATER FOR INJECTION 1 100ML.BAG IVPB SCH ×2 (19:43→22:53)
[2018-12-11] MEDS: SODIUM CHLORIDE 0.9% 1,000 ML IV SCH ×2 (19:43→20:14)
[2018-12-11 19:51] LABS: Glucose,Whole Blood 548 mg/dL (75-99)
[2018-12-11 21:02] LABS: Glucose,Whole Blood 448 mg/dL (75-99)
[2018-12-11 21:43] LABS: Phosphorus 1.8 mg/dL (2.5-4.5); Potassium 3.7 mmol/L (3.5-5.1)
[2018-12-11] MEDS ORDERED: SODIUM CHLORIDE 0.45% 1,000 ML IV SCH (22:00)
[2018-12-11] MEDS: levETIRAcetam IV 500 MG in SODIUM CHLORIDE 0.9% 100 ML IVPB SCH (22:04)
[2018-12-11 22:13] LABS: Glucose,Whole Blood 384 mg/dL (75-99)
[2018-12-11] MEDS ORDERED: METOPROLOL TARTRATE 5 MG/5 ML VIAL IVP ONE (22:47)
[2018-12-11 23:00] LABS: Glucose,Whole Blood 306 mg/dL (75-99)
[2018-12-12 00:01] LABS: Glucose,Whole Blood 259 mg/dL (75-99)
[2018-12-12] MEDS: PIPERACILLIN-TAZOBACTAM 3.375 GM in SODIUM CHLORIDE 0.9% 100 ML IVPB SCH ×4 (00:06→23:27)
[2018-12-12 01:11] LABS: Glucose,Whole Blood 164 mg/dL (75-99)
[2018-12-12 02:13] LABS: Glucose,Whole Blood 126 mg/dL (75-99)
[2018-12-12] MEDS: DEXTROSE 5%-0.45% NACL 1,000 ML IV SCH ×2 (02:27→11:23)
[2018-12-12 03:06] LABS: Glucose,Whole Blood 98 mg/dL (75-99)
[2018-12-12 03:25] LABS: Calcium 9.1 mg/dL (8.4-10.2); Magnesium 2.4 mg/dL (1.6-2.3); Phosphorus 2.8 mg/dL (2.5-4.5); Potassium 3.8 mmol/L (3.5-5.1)
[2018-12-12 03:41] LABS: Glucose,Whole Blood 77 mg/dL (75-99)
[2018-12-12] MEDS: DEXTROSE 5% IN WATER 1,000 ML IV SCH ×4 (03:43→23:28)
[2018-12-12 04:04] LABS: Glucose,Whole Blood 85 mg/dL (75-99)
[2018-12-12] MEDS: DILTIAZEM 125 MG in SODIUM CHLORIDE 0.9% 100 ML IV STA (04:45)
[2018-12-12] MEDS ORDERED: DILTIAZEM 125 MG in SODIUM CHLORIDE 0.9% 100 ML IV SCH (04:45)
[2018-12-12 05:04] LABS: Glucose,Whole Blood 125 mg/dL (75-99)
[2018-12-12] MEDS: INSULIN REGULAR 100 UNIT in SODIUM CHLORIDE 0.9% 100 ML IV SCH ×2 (05:06→12:08)
[2018-12-12 06:05] LABS: Glucose,Whole Blood 164 mg/dL (75-99)
[2018-12-12 06:57] LABS: Glucose,Whole Blood 195 mg/dL (75-99)
--- NOTE | 2018-12-12 07:26 | XR ---
EXAMINATION TYPE: XR chest 1V DATE OF EXAM: 12/12/2018 COMPARISON: 12/11/2018 HISTORY: Shortness of breath. Concern for congestive heart failure. TECHNIQUE: Single frontal view of the chest is obtained. FINDINGS: There is redemonstration of a small left basilar opacity and linear right basilar atelecta sis. No pulmonary vascular congestion. Trace left pleural effusion is noted. Remainder the lungs are well aerated. Cardiomediastinal silhouette is upper limits of normal. IMPRESSION: Redemonstration of left basilar airspace disease that may relate to atelectasis or devel oping pneumonia. This is unchanged from the prior.
[2018-12-12 08:21] LABS: Glucose,Whole Blood 227 mg/dL (75-99)
[2018-12-12] MEDS: PANTOPRAZOLE 40 MG/10 ML VIAL IV SCH (08:42)
[2018-12-12 10:01] LABS: Glucose,Whole Blood 248 mg/dL (75-99)
--- NOTE | 2018-12-12 10:29 | P.PN ---
Subjective Patient is still encephalopathy slightly better than yesterday. He is saying yes and no ROS unobtainable because of the mental status. Objective - Vital Signs Vital signs: Vital Signs Temp 99.2 F 12/12/18 04:00 Pulse 104 H 12/12/18 09:30 Resp 38 H 12/12/18 09:30 BP 122/69 12/12/18 09:30 Pulse Ox 94 L 12/12/18 09:30 Intake & Output 12/11/18 12/12/18 12/12/18 18:59 06:59 18:59 Intake Total 3031.203 3668.853 550 Output Total 360 390 150 Balance 2671.203 3278.853 400 Weight 95.617 kg 97.6 kg Intake: IV 3000 1000 Sodium Chloride 0.9% 2, 3000 1000 000 ml @ 999 mls/hr IV . Q2H1M ONE Rx#:[id number] Intake, IV Titration 31.203 2668.853 550 Amount Dextrose 5% in Water 1, 450 450 000 ml @ 150 mls/hr IV . Q6H40M [facility] Rx#:[id number] Dextrose 5%-0.45% NaCl 1, 150 000 ml @ 150 mls/hr IV . Q6H40M A[facility] Rx#:[id number] Diltiazem 125 mg In 110.833 Sodium Chloride 0.9% 100 ml @ 10 MG/HR 10 mls/hr IV .[id number] STA Rx#: [id number] Insulin Regular 100 unit 31.203 158.020 In Sodium Chloride 0.9% 100 ml @ 0.1 UNITS/KG/HR 9.65 mls/hr IV .[id number] [facility] Rx#:[id number] Piperacillin-Tazobactam 3 100 100 .375 gm In Sodium Chloride 0.9% 100 ml @ 25 mls/hr IVPB Q8HR [facility] Rx# :[id number] Potassium Chloride 20 meq 200 In Water For Injection 1 100ml.bag @ 50 mls/hr IVPB Q2H [facility] Rx#: [id number] Sodium Chloride 0.45% 1, 1000 000 ml @ 200 mls/hr IV . Q5H [facility] Rx#:[id number] Sodium Chloride 0.9% 1, 400 000 ml @ 200 mls/hr IV . Q5H [facility] Rx#:[id number] levETIRAcetam IV 500 mg 100 In Sodium Chloride 0.9% 100 ml @ 400 mls/hr IVPB Q12HR [facility] Rx#:[id number] Output: Urine 360 390 150 Uretheral (Hunter) 45 Other: Voiding Method Indwelling Catheter # Voids 1 - Exam On exam, alert and oriented x0. HEENT: Conjunctivae normal. eyes normal. NECK: No JVD. No thyroid enlargement. No LNs CARDIOVASCULAR: S1, S2 positive RESPIRATION: normal breath sounds, no ronchi, no crepts, no rales ABDOMEN: Soft, nontender . No guarding. no masses palpable. No ascites, No hepatosplenomegaly.Bowel sounds heard. LEGS: No edema. no swelling NERVOUS SYSTEM: Unable to examine the neuro exam as the patient is encephalopathic Skin: no ulcer no rash - Labs CBC & Chem 7: 12/11/18 12:07 12/12/18 02:15 Labs: Abnormal Lab Results - Last 24 Hours (Table) 12/11/18 12/11/18 12/11/18 Range/Units 12:00 12:07 12:07 WBC 13.8 H (3.8-10.6) k/uL Hct 56.4 H (39.0-53.0) % MCHC 29.3 L (31.0-37.0) g/dL Neutrophils # 11.7 H (1.3-7.7) k/uL Lymphocytes # 0.9 L (1.0-4.8) k/uL APTT (22.0-30.0) sec VBG pH (7.31-7.41) VBG HCO3 (24-28) mmol/L Sodium 146 H (137-145) mmol/L Potassium (3.5-5.1) mmol/L Chloride (98-107) mmol/L Carbon Dioxide 15 L (22-30) mmol/L BUN 79 H (9-20) mg/dL Creatinine 3.95 H (0.66-1.25) mg/dL Glucose 1400 H* (74-99) mg/dL POC Glucose (mg/dL) >600 H (75-99) mg/dL Osmolality 418 H* (280-301) mosm/kg Plasma Lactic Acid Jeffery (0.7-2.0) mmol/L Phosphorus (2.5-4.5) mg/dL Magnesium (1.6-2.3) mg/dL AST 113 H (17-59) U/L Alkaline Phosphatase 139 H (38-126) U/L Troponin I (0.000-0.034) ng/mL Total Protein 8.4 H (6.3-8.2) g/dL Urine Protein (Negative) Urine Glucose (UA) (Negative) Urine Ketones (Negative) Urine Blood (Negative) Urine WBC (0-5) /hpf Amorphous Sediment (None) /hpf Urine Bacteria (None) /hpf Hyaline Casts (0-2) /lpf Urine Mucus (None) /hpf 12/11/18 12/11/18 12/11/18 Range/Units 12:07 12:07 12:37 WBC (3.8-10.6) k/uL Hct (39.0-53.0) % MCHC (31.0-37.0) g/dL Neutrophils # (1.3-7.7) k/uL Lymphocytes # (1.0-4.8) k/uL APTT (22.0-30.0) sec VBG pH (7.31-7.41) VBG HCO3 (24-28) mmol/L Sodium (137-145) mmol/L Potassium (3.5-5.1) mmol/L Chloride (98-107) mmol/L Carbon Dioxide (22-30) mmol/L BUN (9-20) mg/dL Creatinine (0.66-1.25) mg/dL Glucose (74-99) mg/dL POC Glucose (mg/dL) (75-99) mg/dL Osmolality (280-301) mosm/kg Plasma Lactic Acid Jeffery 3.0 H* (0.7-2.0) mmol/L Phosphorus (2.5-4.5) mg/dL Magnesium (1.6-2.3) mg/dL AST (17-59) U/L Alkaline Phosphatase (38-126) U/L Troponin I 0.181 H* (0.000-0.034) ng/mL Total Protein (6.3-8.2) g/dL Urine Protein 1+ H (Negative) Urine Glucose (UA) 4+ H (Negative) Urine Ketones Trace H (Negative) Urine Blood Moderate H (Negative) Urine WBC 7 H (0-5) /hpf Amorphous Sediment Occasional H (None) /hpf Urine Bacteria Rare H (None) /hpf Hyaline Casts 53 H (0-2) /lpf Urine Mucus Occasional H (None) /hpf 12/11/18 12/11/18 12/11/18 Range/Units 13:23 14:43 14:48 WBC (3.8-10.6) k/uL Hct (39.0-53.0) % MCHC (31.0-37.0) g/dL Neutrophils # (1.3-7.7) k/uL Lymphocytes # (1.0-4.8) k/uL APTT 20.3 L (22.0-30.0) sec VBG pH 7.25 L (7.31-7.41) VBG HCO3 19 L (24-28) mmol/L Sodium (137-145) mmol/L Potassium (3.5-5.1) mmol/L Chloride (98-107) mmol/L Carbon Dioxide (22-30) mmol/L BUN (9-20) mg/dL Creatinine (0.66-1.25) mg/dL Glucose (74-99) mg/dL POC Glucose (mg/dL) >600 H (75-99) mg/dL Osmolality (280-301) mosm/kg Plasma Lactic Acid Jeffery (0.7-2.0) mmol/L Phosphorus (2.5-4.5) mg/dL Magnesium (1.6-2.3) mg/dL AST (17-59) U/L Alkaline Phosphatase (38-126) U/L Troponin I (0.000-0.034) ng/mL Total Protein (6.3-8.2) g/dL Urine Protein (Negative) Urine Glucose (UA) (Negative) Urine Ketones (Negative) Urine Blood (Negative) Urine WBC (0-5) /hpf Amorphous Sediment (None) /hpf Urine Bacteria (None) /hpf Hyaline Casts (0-2) /lpf Urine Mucus (None) /hpf 12/11/18 12/11/18 12/11/18 Range/Units 15:31 15:51 16:20 WBC (3.8-10.6) k/uL Hct (39.0-53.0) % MCHC (31.0-37.0) g/dL Neutrophils # (1.3-7.7) k/uL Lymphocytes # (1.0-4.8) k/uL APTT (22.0-30.0) sec VBG pH (7.31-7.41) VBG HCO3 (24-28) mmol/L Sodium 151 H (137-145) mmol/L Potassium 3.3 L (3.5-5.1) mmol/L Chloride 109 H (98-107) mmol/L Carbon Dioxide 17 L (22-30) mmol/L BUN 81 H (9-20) mg/dL Creatinine 3.59 H (0.66-1.25) mg/dL Glucose 1054 H* (74-99) mg/dL POC Glucose (mg/dL) >600 H (75-99) mg/dL Osmolality (280-301) mosm/kg Plasma Lactic Acid Jeffery (0.7-2.0) mmol/L Phosphorus (2.5-4.5) mg/dL Magnesium 3.0 H (1.6-2.3) mg/dL AST (17-59) U/L Alkaline Phosphatase (38-126) U/L Troponin I 0.175 H* (0.000-0.034) ng/mL Total Protein (6.3-8.2) g/dL Urine Protein (Negative) Urine Glucose (UA) (Negative) Urine Ketones (Negative) Urine Blood (Negative) Urine WBC (0-5) /hpf Amorphous Sediment (None) /hpf Urine Bacteria (None) /hpf Hyaline Casts (0-2) /lpf Urine Mucus (None) /hpf 12/11/18 12/11/18 12/11/18 Range/Units 16:20 16:51 18:00 WBC (3.8-10.6) k/uL Hct (39.0-53.0) % MCHC (31.0-37.0) g/dL Neutrophils # (1.3-7.7) k/uL Lymphocytes # (1.0-4.8) k/uL APTT (22.0-30.0) sec VBG pH (7.31-7.41) VBG HCO3 (24-28) mmol/L Sodium (137-145) mmol/L Potassium (3.5-5.1) mmol/L Chloride (98-107) mmol/L Carbon Dioxide (22-30) mmol/L BUN (9-20) mg/dL Creatinine (0.66-1.25) mg/dL Glucose (74-99) mg/dL POC Glucose (mg/dL) >600 H >600 H (75-99) mg/dL Osmolality (280-301) mosm/kg Plasma Lactic Acid Jeffery 3.7 H* (0.7-2.0) mmol/L Phosphorus (2.5-4.5) mg/dL Magnesium (1.6-2.3) mg/dL AST (17-59) U/L Alkaline Phosphatase (38-126) U/L Troponin I (0.000-0.034) ng/mL Total Protein (6.3-8.2) g/dL Urine Protein (Negative) Urine Glucose (UA) (Negative) Urine Ketones (Negative) Urine Blood (Negative) Urine WBC (0-5) /hpf Amorphous Sediment (None) /hpf Urine Bacteria (None) /hpf Hyaline Casts (0-2) /lpf Urine Mucus (None) /hpf 12/11/18 12/11/18 12/11/18 Range/Units 19:05 19:49 21:00 WBC (3.8-10.6) k/uL Hct (39.0-53.0) % MCHC (31.0-37.0) g/dL Neutrophils # (1.3-7.7) k/uL Lymphocytes # (1.0-4.8) k/uL APTT (22.0-30.0) sec VBG pH (7.31-7.41) VBG HCO3 (24-28) mmol/L Sodium (137-145) mmol/L Potassium (3.5-5.1) mmol/L Chloride (98-107) mmol/L Carbon Dioxide (22-30) mmol/L BUN (9-20) mg/dL Creatinine (0.66-1.25) mg/dL Glucose (74-99) mg/dL POC Glucose (mg/dL) 557 H 548 H 448 H (75-99) mg/dL Osmolality (280-301) mosm/kg Plasma Lactic Acid Jeffery (0.7-2.0) mmol/L Phosphorus (2.5-4.5) mg/dL Magnesium (1.6-2.3) mg/dL AST (17-59) U/L Alkaline Phosphatase (38-126) U/L Troponin I (0.000-0.034) ng/mL Total Protein (6.3-8.2) g/dL Urine Protein (Negative) Urine Glucose (UA) (Negative) Urine Ketones (Negative) Urine Blood (Negative) Urine WBC (0-5) /hpf Amorphous Sediment (None) /hpf Urine Bacteria (None) /hpf Hyaline Casts (0-2) /lpf Urine Mucus (None) /hpf 12/11/18 12/11/18 12/11/18 Range/Units 21:10 21:10 21:10 WBC (3.8-10.6) k/uL Hct (39.0-53.0) % MCHC (31.0-37.0) g/dL Neutrophils # (1.3-7.7) k/uL Lymphocytes # (1.0-4.8) k/uL APTT (22.0-30.0) sec VBG pH (7.31-7.41) VBG HCO3 (24-28) mmol/L Sodium 155 H (137-145) mmol/L Potassium (3.5-5.1) mmol/L Chloride 122 H (98-107) mmol/L Carbon Dioxide (22-30) mmol/L BUN 83 H (9-20) mg/dL Creatinine 2.69 H (0.66-1.25) mg/dL Glucose 499 H (74-99) mg/dL POC Glucose (mg/dL) (75-99) mg/dL Osmolality (280-301) mosm/kg Plasma Lactic Acid Jeffery 3.2 H* (0.7-2.0) mmol/L Phosphorus 1.8 L (2.5-4.5) mg/dL Magnesium (1.6-2.3) mg/dL AST (17-59) U/L Alkaline Phosphatase (38-126) U/L Troponin I 0.235 H* (0.000-0.034) ng/mL Total Protein (6.3-8.2) g/dL Urine Protein (Negative) Urine Glucose (UA) (Negative) Urine Ketones (Negative) Urine Blood (Negative) Urine WBC (0-5) /hpf Amorphous Sediment (None) /hpf Urine Bacteria (None) /hpf Hyaline Casts (0-2) /lpf Urine Mucus (None) /hpf 12/11/18 12/11/18 12/11/18 Range/Units 22:11 22:59 23:59 WBC (3.8-10.6) k/uL Hct (39.0-53.0) % MCHC (31.0-37.0) g/dL Neutrophils # (1.3-7.7) k/uL Lymphocytes # (1.0-4.8) k/uL APTT (22.0-30.0) sec VBG pH (7.31-7.41) VBG HCO3 (24-28) mmol/L Sodium (137-145) mmol/L Potassium (3.5-5.1) mmol/L Chloride (98-107) mmol/L Carbon Dioxide (22-30) mmol/L BUN (9-20) mg/dL Creatinine (0.66-1.25) mg/dL Glucose (74-99) mg/dL POC Glucose (mg/dL) 384 H 306 H 259 H (75-99) mg/dL Osmolality (280-301) mosm/kg Plasma Lactic Acid Jeffery (0.7-2.0) mmol/L Phosphorus (2.5-4.5) mg/dL Magnesium (1.6-2.3) mg/dL AST (17-59) U/L Alkaline Phosphatase (38-126) U/L Troponin I (0.000-0.034) ng/mL Total Protein (6.3-8.2) g/dL Urine Protein (Negative) Urine Glucose (UA) (Negative) Urine Ketones (Negative) Urine Blood (Negative) Urine WBC (0-5) /hpf Amorphous Sediment (None) /hpf Urine Bacteria (None) /hpf Hyaline Casts (0-2) /lpf Urine Mucus (None) /hpf 12/12/18 12/12/18 12/12/18 Range/Units 01:09 02:09 02:15 WBC (3.8-10.6) k/uL Hct (39.0-53.0) % MCHC (31.0-37.0) g/dL Neutrophils # (1.3-7.7) k/uL Lymphocytes # (1.0-4.8) k/uL APTT (22.0-30.0) sec VBG pH (7.31-7.41) VBG HCO3 (24-28) mmol/L Sodium 157 H (137-145) mmol/L Potassium (3.5-5.1) mmol/L Chloride 125 H (98-107) mmol/L Carbon Dioxide (22-30) mmol/L BUN 81 H (9-20) mg/dL Creatinine 2.64 H (0.66-1.25) mg/dL Glucose 125 H (74-99) mg/dL POC Glucose (mg/dL) 164 H 126 H (75-99) mg/dL Osmolality (280-301) mosm/kg Plasma Lactic Acid Jeffery (0.7-2.0) mmol/L Phosphorus (2.5-4.5) mg/dL Magnesium 2.4 H (1.6-2.3) mg/dL AST (17-59) U/L Alkaline Phosphatase (38-126) U/L Troponin I (0.000-0.034) ng/mL Total Protein (6.3-8.2) g/dL Urine Protein (Negative) Urine Glucose (UA) (Negative) Urine Ketones (Negative) Urine Blood (Negative) Urine WBC (0-5) /hpf Amorphous Sediment (None) /hpf Urine Bacteria (None) /hpf Hyaline Casts (0-2) /lpf Urine Mucus (None) /hpf 12/12/18 12/12/18 12/12/18 Range/Units 02:15 02:15 05:03 WBC (3.8-10.6) k/uL Hct (39.0-53.0) % MCHC (31.0-37.0) g/dL Neutrophils # (1.3-7.7) k/uL Lymphocytes # (1.0-4.8) k/uL APTT (22.0-30.0) sec VBG pH (7.31-7.41) VBG HCO3 (24-28) mmol/L Sodium (137-145) mmol/L Potassium (3.5-5.1) mmol/L Chloride (98-107) mmol/L Carbon Dioxide (22-30) mmol/L BUN (9-20) mg/dL Creatinine (0.66-1.25) mg/dL Glucose (74-99) mg/dL POC Glucose (mg/dL) 125 H (75-99) mg/dL Osmolality (280-301) mosm/kg Plasma Lactic Acid Jeffery 2.2 H* (0.7-2.0) mmol/L Phosphorus (2.5-4.5) mg/dL Magnesium (1.6-2.3) mg/dL AST (17-59) U/L Alkaline Phosphatase (38-126) U/L Troponin I 0.311 H* (0.000-0.034) ng/mL Total Protein (6.3-8.2) g/dL Urine Protein (Negative) Urine Glucose (UA) (Negative) Urine Ketones (Negative) Urine Blood (Negative) Urine WBC (0-5) /hpf Amorphous Sediment (None) /hpf Urine Bacteria (None) /hpf Hyaline Casts (0-2) /lpf Urine Mucus (None) /hpf 12/12/18 12/12/18 12/12/18 Range/Units 06:04 06:56 08:19 WBC (3.8-10.6) k/uL Hct (39.0-53.0) % MCHC (31.0-37.0) g/dL Neutrophils # (1.3-7.7) k/uL Lymphocytes # (1.0-4.8) k/uL APTT (22.0-30.0) sec VBG pH (7.31-7.41) VBG HCO3 (24-28) mmol/L Sodium (137-145) mmol/L Potassium (3.5-5.1) mmol/L Chloride (98-107) mmol/L Carbon Dioxide (22-30) mmol/L BUN (9-20) mg/dL Creatinine (0.66-1.25) mg/dL Glucose (74-99) mg/dL POC Glucose (mg/dL) 164 H 195 H 227 H (75-99) mg/dL Osmolality (280-301) mosm/kg Plasma Lactic Acid Jeffery (0.7-2.0) mmol/L Phosphorus (2.5-4.5) mg/dL Magnesium (1.6-2.3) mg/dL AST (17-59) U/L Alkaline Phosphatase (38-126) U/L Troponin I (0.000-0.034) ng/mL Total Protein (6.3-8.2) g/dL Urine Protein (Negative) Urine Glucose (UA) (Negative) Urine Ketones (Negative) Urine Blood (Negative) Urine WBC (0-5) /hpf Amorphous Sediment (None) /hpf Urine Bacteria (None) /hpf Hyaline Casts (0-2) /lpf Urine Mucus (None) /hpf 12/12/18 Range/Units 09:58 WBC (3.8-10.6) k/uL Hct (39.0-53.0) % MCHC (31.0-37.0) g/dL Neutrophils # (1.3-7.7) k/uL Lymphocytes # (1.0-4.8) k/uL APTT (22.0-30.0) sec VBG pH (7.31-7.41) VBG HCO3 (24-28) mmol/L Sodium (137-145) mmol/L Potassium (3.5-5.1) mmol/L Chloride (98-107) mmol/L Carbon Dioxide (22-30) mmol/L BUN (9-20) mg/dL Creatinine (0.66-1.25) mg/dL Glucose (74-99) mg/dL POC Glucose (mg/dL) 248 H (75-99) mg/dL Osmolality (280-301) mosm/kg Plasma Lactic Acid Jeffery (0.7-2.0) mmol/L Phosphorus (2.5-4.5) mg/dL Magnesium (1.6-2.3) mg/dL AST (17-59) U/L Alkaline Phosphatase (38-126) U/L Troponin I (0.000-0.034) ng/mL Total Protein (6.3-8.2) g/dL Urine Protein (Negative) Urine Glucose (UA) (Negative) Urine Ketones (Negative) Urine Blood (Negative) Urine WBC (0-5) /hpf Amorphous Sediment (None) /hpf Urine Bacteria (None) /hpf Hyaline Casts (0-2) /lpf Urine Mucus (None) /hpf Microbiology - Last 24 Hours (Table) 12/11/18 12:37 Urine Culture - Preliminary Urine,Voided Assessment and Plan Assessment: - Acute metabolic encephalopathy - Hyperosmolar nonketotic state probably causing altered mental status - Hypernatremia - AK I - Rule out GI bleed - New-onset A. fib with RVR - Mild troponin elevation - History of CVA with residual right-sided weakness - History of seizures - History of CAD - History of hypertension - History of hyperlipidemia Plan - patient admitted to ICU - Sugars better controlled today - Na LEVELS HIGH, ON d5w - GI consulted to rule out GI bleed - Patient is on Cardizem drip will continue that. - We'll consult cardiology for the recommendations - We'll continue with fluids - DVT and GI prophylaxis - Will f/u on the patient. Time with Patient: Greater than 30
[2018-12-12 10:53] LABS: Calcium 8.6 mg/dL (8.4-10.2); Potassium 4.1 mmol/L (3.5-5.1)
[2018-12-12 10:58] LABS: Glucose,Whole Blood 250 mg/dL (75-99)
--- NOTE | 2018-12-12 11:14 | P.PN ---
Subjective Progress Note Date: 12/12/18 Principal diagnosis: Hyperosmolar nonketotic state and mental status change 63-year-old male patient presented with altered mentation and vomiting. He apparently had coffee-ground emesis and syncope. In the ED, the patient was diagnosed having a acute hyperosmolar nonketotic state and the patient was started on treatment immediately with IV fluids and insulin drip. The patient himself was unable to provide any history. He denied having any chest pain. No abdominal pain. His initial blood sugar was 1400. The patient was given 2 L of IV fluids and started on insulin drip. The first set of troponin was 0.1. The BNP was 7080. Computed tomography scan of the head and the neck was unremarkable. The patient got transferred to the ICU. The patient is an acute kidney injury. Urine is at 79. Creatinine is at 3.9. The patient's anion gap is at 32. Serum bicarb is at 15. The lactic acid level is at 3.0. There is only trace urinary ketones. The patient's hemoglobin is at 16.5. White cell count is not elevated. EKG showing atrial fibrillation with rapid ventricular response. Chest x-ray showing a basilar atelectasis Patient was reevaluated today on 12/12/2018, remains in the intensive care unit, and bit more arousable, follows very simple instructions, but overall remains a bit encephalopathic. According to the nurses his mental status is gradually improving. Patient remains on insulin drip, his IV fluid was switched to D5W because of his significantly elevated sodium today is up to 157. Patient does not seem to be in any form of distress. He is resting comfortably in bed. Repeat labs this morning showed a sodium of 154 BUN of 76 creatinine is 2.09. His creatinine is gradually improving, it was 3.95 yesterday. Chest x-ray this morning showed mostly left basilar airspace disease, likely atelectasis, underlying pneumonia is not entirely ruled out. Objective - Vital Signs Vital signs: Vital Signs Temp 99.2 F 12/12/18 04:00 Pulse 104 H 12/12/18 09:30 Resp 38 H 12/12/18 09:30 BP 122/69 12/12/18 09:30 Pulse Ox 94 L 12/12/18 09:30 Intake & Output 12/11/18 12/12/18 12/12/18 18:59 06:59 18:59 Intake Total 3031.203 3668.853 550 Output Total 360 390 150 Balance 2671.203 3278.853 400 Weight 95.617 kg 97.6 kg Intake: IV 3000 1000 Sodium Chloride 0.9% 2, 3000 1000 000 ml @ 999 mls/hr IV . Q2H1M ONE Rx#:[id number] Intake, IV Titration 31.203 2668.853 550 Amount Dextrose 5% in Water 1, 450 450 000 ml @ 150 mls/hr IV . Q6H40M [facility] Rx#:[id number] Dextrose 5%-0.45% NaCl 1, 150 000 ml @ 150 mls/hr IV . Q6H40M [facility] Rx#:[id number] Diltiazem 125 mg In 110.833 Sodium Chloride 0.9% 100 ml @ 10 MG/HR 10 mls/hr IV .[id number] STA Rx#: [id number] Insulin Regular 100 unit 31.203 158.020 In Sodium Chloride 0.9% 100 ml @ 0.1 UNITS/KG/HR 9.65 mls/hr IV .[id number] [facility] Rx#:[id number] Piperacillin-Tazobactam 3 100 100 .375 gm In Sodium Chloride 0.9% 100 ml @ 25 mls/hr IVPB Q8HR [facility] Rx# :[id number] Potassium Chloride 20 meq 200 In Water For Injection 1 100ml.bag @ 50 mls/hr IVPB Q2H A[facility] Rx#: [id number] Sodium Chloride 0.45% 1, 1000 000 ml @ 200 mls/hr IV . Q5H [facility] Rx#:[id number] Sodium Chloride 0.9% 1, 400 000 ml @ 200 mls/hr IV . Q5H [facility] Rx#:[id number] levETIRAcetam IV 500 mg 100 In Sodium Chloride 0.9% 100 ml @ 400 mls/hr IVPB Q12HR [facility] Rx#:[id number] Output: Urine 360 390 150 Uretheral (Hunter) 45 Other: Voiding Method Indwelling Catheter # Voids 1 - Exam Physical Exam: Revealed a 63-year-old white male, lethargic, in no distress. Head: Atraumatic, normocephalic. HEENT:[Neck is supple.] [No neck masses.] [No thyromegaly.] [No JVD.] PERRLA, EOMI, no icterus. Chest: [Diminished breath sounds at the bases, no crackles or rhonchi or wheezes.] Cardiac Exam: [Normal S1 and S2, no S3 gallop, no murmur.] Abdomen: [Soft, nontender, no megaly, no rebound, no guarding, normal bowel sounds.] Extremities: [No clubbing, no edema, no cyanosis.], However there is evidence of inflammatory changes involving both feet especially the right big toe, foot was noted to be slightly erythematous, warm, good pulses. Superficial ulceration noted on his distal aspect of the right big toe. Neurological Exam: Arousable, followed simple instructions, but overall remains slightly encephalopathic. And lethargic. Lymphatics: No lymphadenopathy. Psychiatric: Could not be assessed. - Labs CBC & Chem 7: 12/11/18 12:07 12/12/18 10:34 Labs: Abnormal Lab Results - Last 24 Hours (Table) 12/11/18 12/11/18 12/11/18 Range/Units 12:00 12:07 12:07 WBC 13.8 H (3.8-10.6) k/uL Hct 56.4 H (39.0-53.0) % MCHC 29.3 L (31.0-37.0) g/dL Neutrophils # 11.7 H (1.3-7.7) k/uL Lymphocytes # 0.9 L (1.0-4.8) k/uL APTT (22.0-30.0) sec VBG pH (7.31-7.41) VBG HCO3 (24-28) mmol/L Sodium 146 H (137-145) mmol/L Potassium (3.5-5.1) mmol/L Chloride (98-107) mmol/L Carbon Dioxide 15 L (22-30) mmol/L BUN 79 H (9-20) mg/dL Creatinine 3.95 H (0.66-1.25) mg/dL Glucose 1400 H* (74-99) mg/dL POC Glucose (mg/dL) >600 H (75-99) mg/dL Osmolality 418 H* (280-301) mosm/kg Plasma Lactic Acid Jeffery (0.7-2.0) mmol/L Phosphorus (2.5-4.5) mg/dL Magnesium (1.6-2.3) mg/dL AST 113 H (17-59) U/L Alkaline Phosphatase 139 H (38-126) U/L Troponin I (0.000-0.034) ng/mL Total Protein 8.4 H (6.3-8.2) g/dL Urine Protein (Negative) Urine Glucose (UA) (Negative) Urine Ketones (Negative) Urine Blood (Negative) Urine WBC (0-5) /hpf Amorphous Sediment (None) /hpf Urine Bacteria (None) /hpf Hyaline Casts (0-2) /lpf Urine Mucus (None) /hpf 12/11/18 12/11/18 12/11/18 Range/Units 12:07 12:07 12:37 WBC (3.8-10.6) k/uL Hct (39.0-53.0) % MCHC (31.0-37.0) g/dL Neutrophils # (1.3-7.7) k/uL Lymphocytes # (1.0-4.8) k/uL APTT (22.0-30.0) sec VBG pH (7.31-7.41) VBG HCO3 (24-28) mmol/L Sodium (137-145) mmol/L Potassium (3.5-5.1) mmol/L Chloride (98-107) mmol/L Carbon Dioxide (22-30) mmol/L BUN (9-20) mg/dL Creatinine (0.66-1.25) mg/dL Glucose (74-99) mg/dL POC Glucose (mg/dL) (75-99) mg/dL Osmolality (280-301) mosm/kg Plasma Lactic Acid Jeffery 3.0 H* (0.7-2.0) mmol/L Phosphorus (2.5-4.5) mg/dL Magnesium (1.6-2.3) mg/dL AST (17-59) U/L Alkaline Phosphatase (38-126) U/L Troponin I 0.181 H* (0.000-0.034) ng/mL Total Protein (6.3-8.2) g/dL Urine Protein 1+ H (Negative) Urine Glucose (UA) 4+ H (Negative) Urine Ketones Trace H (Negative) Urine Blood Moderate H (Negative) Urine WBC 7 H (0-5) /hpf Amorphous Sediment Occasional H (None) /hpf Urine Bacteria Rare H (None) /hpf Hyaline Casts 53 H (0-2) /lpf Urine Mucus Occasional H (None) /hpf 12/11/18 12/11/18 12/11/18 Range/Units 13:23 14:43 14:48 WBC (3.8-10.6) k/uL Hct (39.0-53.0) % MCHC (31.0-37.0) g/dL Neutrophils # (1.3-7.7) k/uL Lymphocytes # (1.0-4.8) k/uL APTT 20.3 L (22.0-30.0) sec VBG pH 7.25 L (7.31-7.41) VBG HCO3 19 L (24-28) mmol/L Sodium (137-145) mmol/L Potassium (3.5-5.1) mmol/L Chloride (98-107) mmol/L Carbon Dioxide (22-30) mmol/L BUN (9-20) mg/dL Creatinine (0.66-1.25) mg/dL Glucose (74-99) mg/dL POC Glucose (mg/dL) >600 H (75-99) mg/dL Osmolality (280-301) mosm/kg Plasma Lactic Acid Jeffery (0.7-2.0) mmol/L Phosphorus (2.5-4.5) mg/dL Magnesium (1.6-2.3) mg/dL AST (17-59) U/L Alkaline Phosphatase (38-126) U/L Troponin I (0.000-0.034) ng/mL Total Protein (6.3-8.2) g/dL Urine Protein (Negative) Urine Glucose (UA) (Negative) Urine Ketones (Negative) Urine Blood (Negative) Urine WBC (0-5) /hpf Amorphous Sediment (None) /hpf Urine Bacteria (None) /hpf Hyaline Casts (0-2) /lpf Urine Mucus (None) /hpf 12/11/18 12/11/18 12/11/18 Range/Units 15:31 15:51 16:20 WBC (3.8-10.6) k/uL Hct (39.0-53.0) % MCHC (31.0-37.0) g/dL Neutrophils # (1.3-7.7) k/uL Lymphocytes # (1.0-4.8) k/uL APTT (22.0-30.0) sec VBG pH (7.31-7.41) VBG HCO3 (24-28) mmol/L Sodium 151 H (137-145) mmol/L Potassium 3.3 L (3.5-5.1) mmol/L Chloride 109 H (98-107) mmol/L Carbon Dioxide 17 L (22-30) mmol/L BUN 81 H (9-20) mg/dL Creatinine 3.59 H (0.66-1.25) mg/dL Glucose 1054 H* (74-99) mg/dL POC Glucose (mg/dL) >600 H (75-99) mg/dL Osmolality (280-301) mosm/kg Plasma Lactic Acid Jeffery (0.7-2.0) mmol/L Phosphorus (2.5-4.5) mg/dL Magnesium 3.0 H (1.6-2.3) mg/dL AST (17-59) U/L Alkaline Phosphatase (38-126) U/L Troponin I 0.175 H* (0.000-0.034) ng/mL Total Protein (6.3-8.2) g/dL Urine Protein (Negative) Urine Glucose (UA) (Negative) Urine Ketones (Negative) Urine Blood (Negative) Urine WBC (0-5) /hpf Amorphous Sediment (None) /hpf Urine Bacteria (None) /hpf Hyaline Casts (0-2) /lpf Urine Mucus (None) /hpf 12/11/18 12/11/18 12/11/18 Range/Units 16:20 16:51 18:00 WBC (3.8-10.6) k/uL Hct (39.0-53.0) % MCHC (31.0-37.0) g/dL Neutrophils # (1.3-7.7) k/uL Lymphocytes # (1.0-4.8) k/uL APTT (22.0-30.0) sec VBG pH (7.31-7.41) VBG HCO3 (24-28) mmol/L Sodium (137-145) mmol/L Potassium (3.5-5.1) mmol/L Chloride (98-107) mmol/L Carbon Dioxide (22-30) mmol/L BUN (9-20) mg/dL Creatinine (0.66-1.25) mg/dL Glucose (74-99) mg/dL POC Glucose (mg/dL) >600 H >600 H (75-99) mg/dL Osmolality (280-301) mosm/kg Plasma Lactic Acid Jeffery 3.7 H* (0.7-2.0) mmol/L Phosphorus (2.5-4.5) mg/dL Magnesium (1.6-2.3) mg/dL AST (17-59) U/L Alkaline Phosphatase (38-126) U/L Troponin I (0.000-0.034) ng/mL Total Protein (6.3-8.2) g/dL Urine Protein (Negative) Urine Glucose (UA) (Negative) Urine Ketones (Negative) Urine Blood (Negative) Urine WBC (0-5) /hpf Amorphous Sediment (None) /hpf Urine Bacteria (None) /hpf Hyaline Casts (0-2) /lpf Urine Mucus (None) /hpf 12/11/18 12/11/18 12/11/18 Range/Units 19:05 19:49 21:00 WBC (3.8-10.6) k/uL Hct (39.0-53.0) % MCHC (31.0-37.0) g/dL Neutrophils # (1.3-7.7) k/uL Lymphocytes # (1.0-4.8) k/uL APTT (22.0-30.0) sec VBG pH (7.31-7.41) VBG HCO3 (24-28) mmol/L Sodium (137-145) mmol/L Potassium (3.5-5.1) mmol/L Chloride (98-107) mmol/L Carbon Dioxide (22-30) mmol/L BUN (9-20) mg/dL Creatinine (0.66-1.25) mg/dL Glucose (74-99) mg/dL POC Glucose (mg/dL) 557 H 548 H 448 H (75-99) mg/dL Osmolality (280-301) mosm/kg Plasma Lactic Acid Jeffery (0.7-2.0) mmol/L Phosphorus (2.5-4.5) mg/dL Magnesium (1.6-2.3) mg/dL AST (17-59) U/L Alkaline Phosphatase (38-126) U/L Troponin I (0.000-0.034) ng/mL Total Protein (6.3-8.2) g/dL Urine Protein (Negative) Urine Glucose (UA) (Negative) Urine Ketones (Negative) Urine Blood (Negative) Urine WBC (0-5) /hpf Amorphous Sediment (None) /hpf Urine Bacteria (None) /hpf Hyaline Casts (0-2) /lpf Urine Mucus (None) /hpf 12/11/18 12/11/18 12/11/18 Range/Units 21:10 21:10 21:10 WBC (3.8-10.6) k/uL Hct (39.0-53.0) % MCHC (31.0-37.0) g/dL Neutrophils # (1.3-7.7) k/uL Lymphocytes # (1.0-4.8) k/uL APTT (22.0-30.0) sec VBG pH (7.31-7.41) VBG HCO3 (24-28) mmol/L Sodium 155 H (137-145) mmol/L Potassium (3.5-5.1) mmol/L Chloride 122 H (98-107) mmol/L Carbon Dioxide (22-30) mmol/L BUN 83 H (9-20) mg/dL Creatinine 2.69 H (0.66-1.25) mg/dL Glucose 499 H (74-99) mg/dL POC Glucose (mg/dL) (75-99) mg/dL Osmolality (280-301) mosm/kg Plasma Lactic Acid Jeffery 3.2 H* (0.7-2.0) mmol/L Phosphorus 1.8 L (2.5-4.5) mg/dL Magnesium (1.6-2.3) mg/dL AST (17-59) U/L Alkaline Phosphatase (38-126) U/L Troponin I 0.235 H* (0.000-0.034) ng/mL Total Protein (6.3-8.2) g/dL Urine Protein (Negative) Urine Glucose (UA) (Negative) Urine Ketones (Negative) Urine Blood (Negative) Urine WBC (0-5) /hpf Amorphous Sediment (None) /hpf Urine Bacteria (None) /hpf Hyaline Casts (0-2) /lpf Urine Mucus (None) /hpf 12/11/18 12/11/18 12/11/18 Range/Units 22:11 22:59 23:59 WBC (3.8-10.6) k/uL Hct (39.0-53.0) % MCHC (31.0-37.0) g/dL Neutrophils # (1.3-7.7) k/uL Lymphocytes # (1.0-4.8) k/uL APTT (22.0-30.0) sec VBG pH (7.31-7.41) VBG HCO3 (24-28) mmol/L Sodium (137-145) mmol/L Potassium (3.5-5.1) mmol/L Chloride (98-107) mmol/L Carbon Dioxide (22-30) mmol/L BUN (9-20) mg/dL Creatinine (0.66-1.25) mg/dL Glucose (74-99) mg/dL POC Glucose (mg/dL) 384 H 306 H 259 H (75-99) mg/dL Osmolality (280-301) mosm/kg Plasma Lactic Acid Jeffery (0.7-2.0) mmol/L Phosphorus (2.5-4.5) mg/dL Magnesium (1.6-2.3) mg/dL AST (17-59) U/L Alkaline Phosphatase (38-126) U/L Troponin I (0.000-0.034) ng/mL Total Protein (6.3-8.2) g/dL Urine Protein (Negative) Urine Glucose (UA) (Negative) Urine Ketones (Negative) Urine Blood (Negative) Urine WBC (0-5) /hpf Amorphous Sediment (None) /hpf Urine Bacteria (None) /hpf Hyaline Casts (0-2) /lpf Urine Mucus (None) /hpf 12/12/18 12/12/18 12/12/18 Range/Units 01:09 02:09 02:15 WBC (3.8-10.6) k/uL Hct (39.0-53.0) % MCHC (31.0-37.0) g/dL Neutrophils # (1.3-7.7) k/uL Lymphocytes # (1.0-4.8) k/uL APTT (22.0-30.0) sec VBG pH (7.31-7.41) VBG HCO3 (24-28) mmol/L Sodium 157 H (137-145) mmol/L Potassium (3.5-5.1) mmol/L Chloride 125 H (98-107) mmol/L Carbon Dioxide (22-30) mmol/L BUN 81 H (9-20) mg/dL Creatinine 2.64 H (0.66-1.25) mg/dL Glucose 125 H (74-99) mg/dL POC Glucose (mg/dL) 164 H 126 H (75-99) mg/dL Osmolality (280-301) mosm/kg Plasma Lactic Acid Jeffery (0.7-2.0) mmol/L Phosphorus (2.5-4.5) mg/dL Magnesium 2.4 H (1.6-2.3) mg/dL AST (17-59) U/L Alkaline Phosphatase (38-126) U/L Troponin I (0.000-0.034) ng/mL Total Protein (6.3-8.2) g/dL Urine Protein (Negative) Urine Glucose (UA) (Negative) Urine Ketones (Negative) Urine Blood (Negative) Urine WBC (0-5) /hpf Amorphous Sediment (None) /hpf Urine Bacteria (None) /hpf Hyaline Casts (0-2) /lpf Urine Mucus (None) /hpf 12/12/18 12/12/18 12/12/18 Range/Units 02:15 02:15 05:03 WBC (3.8-10.6) k/uL Hct (39.0-53.0) % MCHC (31.0-37.0) g/dL Neutrophils # (1.3-7.7) k/uL Lymphocytes # (1.0-4.8) k/uL APTT (22.0-30.0) sec VBG pH (7.31-7.41) VBG HCO3 (24-28) mmol/L Sodium (137-145) mmol/L Potassium (3.5-5.1) mmol/L Chloride (98-107) mmol/L Carbon Dioxide (22-30) mmol/L BUN (9-20) mg/dL Creatinine (0.66-1.25) mg/dL Glucose (74-99) mg/dL POC Glucose (mg/dL) 125 H (75-99) mg/dL Osmolality (280-301) mosm/kg Plasma Lactic Acid Jeffery 2.2 H* (0.7-2.0) mmol/L Phosphorus (2.5-4.5) mg/dL Magnesium (1.6-2.3) mg/dL AST (17-59) U/L Alkaline Phosphatase (38-126) U/L Troponin I 0.311 H* (0.000-0.034) ng/mL Total Protein (6.3-8.2) g/dL Urine Protein (Negative) Urine Glucose (UA) (Negative) Urine Ketones (Negative) Urine Blood (Negative) Urine WBC (0-5) /hpf Amorphous Sediment (None) /hpf Urine Bacteria (None) /hpf Hyaline Casts (0-2) /lpf Urine Mucus (None) /hpf 12/12/18 12/12/18 12/12/18 Range/Units 06:04 06:56 08:19 WBC (3.8-10.6) k/uL Hct (39.0-53.0) % MCHC (31.0-37.0) g/dL Neutrophils # (1.3-7.7) k/uL Lymphocytes # (1.0-4.8) k/uL APTT (22.0-30.0) sec VBG pH (7.31-7.41) VBG HCO3 (24-28) mmol/L Sodium (137-145) mmol/L Potassium (3.5-5.1) mmol/L Chloride (98-107) mmol/L Carbon Dioxide (22-30) mmol/L BUN (9-20) mg/dL Creatinine (0.66-1.25) mg/dL Glucose (74-99) mg/dL POC Glucose (mg/dL) 164 H 195 H 227 H (75-99) mg/dL Osmolality (280-301) mosm/kg Plasma Lactic Acid Jeffery (0.7-2.0) mmol/L Phosphorus (2.5-4.5) mg/dL Magnesium (1.6-2.3) mg/dL AST (17-59) U/L Alkaline Phosphatase (38-126) U/L Troponin I (0.000-0.034) ng/mL Total Protein (6.3-8.2) g/dL Urine Protein (Negative) Urine Glucose (UA) (Negative) Urine Ketones (Negative) Urine Blood (Negative) Urine WBC (0-5) /hpf Amorphous Sediment (None) /hpf Urine Bacteria (None) /hpf Hyaline Casts (0-2) /lpf Urine Mucus (None) /hpf 12/12/18 12/12/18 12/12/18 Range/Units 09:58 10:34 10:56 WBC (3.8-10.6) k/uL Hct (39.0-53.0) % MCHC (31.0-37.0) g/dL Neutrophils # (1.3-7.7) k/uL Lymphocytes # (1.0-4.8) k/uL APTT (22.0-30.0) sec VBG pH (7.31-7.41) VBG HCO3 (24-28) mmol/L Sodium 154 H (137-145) mmol/L Potassium (3.5-5.1) mmol/L Chloride 123 H (98-107) mmol/L Carbon Dioxide 21 L (22-30) mmol/L BUN 76 H (9-20) mg/dL Creatinine 2.09 H (0.66-1.25) mg/dL Glucose 299 H (74-99) mg/dL POC Glucose (mg/dL) 248 H 250 H (75-99) mg/dL Osmolality (280-301) mosm/kg Plasma Lactic Acid Jeffery (0.7-2.0) mmol/L Phosphorus (2.5-4.5) mg/dL Magnesium (1.6-2.3) mg/dL AST (17-59) U/L Alkaline Phosphatase (38-126) U/L Troponin I (0.000-0.034) ng/mL Total Protein (6.3-8.2) g/dL Urine Protein (Negative) Urine Glucose (UA) (Negative) Urine Ketones (Negative) Urine Blood (Negative) Urine WBC (0-5) /hpf Amorphous Sediment (None) /hpf Urine Bacteria (None) /hpf Hyaline Casts (0-2) /lpf Urine Mucus (None) /hpf Microbiology - Last 24 Hours (Table) 12/11/18 12:37 Urine Culture - Preliminary Urine,Voided Assessment and Plan Assessment: Impression: 1 acute hyperosmolar nonketotic state. 2 acute metabolic encephalopathy 3 new-onset atrial fibrillation with RVR, presently in sinus rhythm. 4 acute kidney injury with anion gap metabolic acidosis, could be related to profound hypovolemia on presentation with hyperosmolar nonketotic state. Possibility of infection and sepsis is not entirely ruled out, but felt to be less likely. 5 history of seizure disorder remains on Keppra. 6 history of CVA in 2013. 7 coronary artery disease and previous DC 8 benign essential hypertension 9 chronic generalized anxiety disorder and depression. 10 acute hypernatremia, mostly iatrogenic received significant amount of saline since admission. patient is free water depleted, hence he will improve with changing the fluids from 0.9 normal saline to D5W. Recommendation: Continue IV fluids, presently on D5W, presently at 1 50 mL per hour, continue insulin as per protocol. Continue to monitor electrolytes, continue GI and DVT prophylaxis, continue to monitor for recurrent atrial fibrillation and RVR, continue empiric antibiotics. Patient is presently on Zosyn, the findings on the right foot and the right big toe are slightly concerning, blood cultures were ordered. Overall prognosis remains guarded, however I believe the patient is making slight improvement over the last 24 hours. We will continue to follow. Patient will remain in the ICU today. Time with Patient: Less than 30
[2018-12-12] MEDS: levETIRAcetam IV 500 MG in SODIUM CHLORIDE 0.9% 100 ML IVPB SCH ×2 (11:28→20:17)
[2018-12-12 12:14] LABS: Glucose,Whole Blood 313 mg/dL (75-99)
--- NOTE | 2018-12-12 12:38 | ECHOF ---
Referral Reason:Assess heart function MEASUREMENTS -------- HEIGHT: 180.3 cm WEIGHT: 95.3 kg BP: 114/63 IVSd: 1.8 cm (0.6 - 1.1) LVIDd: 2.7 cm (3.9 - 5.3) LVPWd: 1.6 cm (0.6 - 1.1) IVSs: 1.8 cm LVIDs: 1.3 cm LVPWs: 1.9 cm Ao Diam: 3.4 cm (2.0 - 3.7) AV Cusp: 1.6 cm (1.5 - 2.6) LA Diam: 4.4 cm (2.7 - 3.8) MV E Gabriele: 0.76 m/s MV DecT: 151 ms MV A Gabriele: 1.12 m/s MV E/A Ratio: 0.68 FINDINGS -------- Resting tachycardia (HR>100bpm). This was a technically adequate study. The left ventricular size is normal. There is moderate concentric left ventricular hypertrophy. O verall left ventricular systolic function is normal with, an EF between 55 - 60 %. LVOT Obstruction with a peak gradient of 23mmHg The right ventricular wall thickness is normal measuring < 5mm. The left atrium is normal in size. The right atrial size is normal. The aortic valve is trileaflet, and appears structurally normal. No aortic stenosis or regurgitation. The mitral valve leaflets are mildly thickened. Mild mitral regurgitation is present. Mild tricuspid regurgitation present. There is no evidence of pulmonary hypertension. The right v entricular systolic pressure, as measured by Doppler, is {RVSP}. There is no pulmonic regurgitation present. The aortic root size is normal. Normal inferior vena cava with normal inspiratory collapse consistent with estimated right atrial pre ssure of 5 mmHg. There is no pericardial effusion. CONCLUSIONS -------- 1. Resting tachycardia (HR>100bpm). 2. This was a technically adequate study. 3. The left ventricular size is normal. 4. There is moderate concentric left ventricular hypertrophy. 5. Overall left ventricular systolic function is normal with, an EF between 55 - 60 %. 6. LVOT Obstruction with a peak gradient of 23mmHg. 7. The right ventricular wall thickness is normal measuring < 5mm. 8. The left atrium is normal in size. 9. The aortic valve is trileaflet, and appears structurally normal. No aortic stenosis or regurgitati on. 10. The mitral valve leaflets are mildly thickened. 11. Mild mitral regurgitation is present. 12. Mild tricuspid regurgitation present. 13. There is no evidence of pulmonary hypertension. 14. There is no pulmonic regurgitation present. 15. The aortic root size is normal. 16. Normal inferior vena cava with normal inspiratory collapse consistent with estimated right atrial pressure of 5 mmHg. 17. There is no pericardial effusion. INSPECTOR FINISHING: Clare Garcia RDCS
[2018-12-12 13:01] LABS: Glucose,Whole Blood 284 mg/dL (75-99)
--- NOTE | 2018-12-12 13:57 | P.CRDCN ---
History of Present Illness Consult date: 12/12/18 History of present illness: This is a 63-year-old male with history of coronary artery disease, diabetes mellitus, hyperlipidemia, hypertension, previous myocardial infarction and also seizure disorder who is admitted to the hospital with heart rate mental status and vomiting. Apparently patient had episode of syncope and also coffee-ground emesis at home. Patient was brought to the emergency room and was found to be unresponsive. Patient was found to have hyperosmolar nonketotic state and patient was started IV fluids and also insulin drip. At the time of my examination patient is still unresponsive, hypercapnic and apparently not responding to verbal stimuli. Computed tomography scan of the head and neck were negative. His BNP was reported as 7080. His troponin values were 0.181 and went up to maximum 0.311. Patient also was initially noted to have accelerated junctional rhythm and subsequently went into atrial fibrillation with rapid ventricular response. He was given IV Cardizem and converted back to sinus rhythm and has been maintaining sinus tachycardia. His echo cardiogram showed normal LV function. At this time, We'll continue with medical therapy with IV beta blockers, aspirin and possibly IV heparin. Most probably troponin elevation is secondary to supply demand mismatch suggestive of type II myocardial infarction. His creatinine is also high in the range of 2.09. No invasive cardiac workup at this time. Prognosis is guarded Review of Systems Not obtained Past Medical History Past Medical History: Coronary Artery Disease (CAD), CVA/TIA, Diabetes Mellitus , Hyperlipidemia, Hypertension, Myocardial Infarction (MT), Osteoarthritis (OA) , Seizure Disorder Additional Past Medical History / Comment(s): Coronary artery disease with previous cardiac catheterization and stenting, previous MT, Crohn's disease, diabetes mellitus, hyperlipidemia, depression, chronic anxiety, history of CVA with some right-sided weakness, history of seizure disorder last seizure was in 2013, hyperlipidemia, hypertension Last Myocardial Infarction Date:: History of Any Multi-Drug Resistant Organisms: None Reported Past Surgical History: Back Surgery, Heart Catheterization With Stent Additional Past Surgical History / Comment(s): lt elbow sx,bowel sx- ileostomy with reversal dt/ crohns disease, oral sx had all teeth extracted Past Anesthesia/Blood Transfusion Reactions: No Reported Reaction Date of Last Stent Placement:: 2011 Smoking Status: Former smoker - Past Family History Father Family Medical History: Unable to Obtain Mother Family Medical History: Dementia Medications and Allergies Home Medications Medication Instructions Recorded Confirmed Type Atorvastatin [Lipitor] 20 mg PO DAILY 09/08/16 12/11/18 History Clopidogrel [Plavix] 75 mg PO DAILY 09/08/16 12/11/18 History Gabapentin 600 mg PO TID 09/08/16 12/11/18 History LORazepam [Ativan] 1 mg PO QID 09/08/16 12/11/18 History Lisinopril [Zestril] 2.5 mg PO DAILY 09/08/16 12/11/18 History Metoprolol Tartrate [Lopressor] 50 mg PO BID 09/08/16 12/11/18 History Pantoprazole Sodium [Protonix] 40 mg PO DAILY 09/08/16 12/11/18 History Sertraline [Zoloft] 150 mg PO DAILY 09/08/16 12/11/18 History Temazepam [Restoril] 30 mg PO DAILY 09/08/16 12/11/18 History levETIRAcetam [Keppra] 500 mg PO Q12HR 09/08/16 12/11/18 History Insulin Glargine [Lantus] 25 units SQ DAILY 12/11/18 12/11/18 History Allergies Allergy/AdvReac Type Severity Reaction Status Date / Time infliximab [From Remicade] Allergy Unknown Verified 12/11/18 13:41 neomycin Allergy Unknown Verified 12/11/18 13:41 nickel Allergy Unknown Verified 12/11/18 13:41 sulfamethoxazole Allergy Unknown Verified 12/11/18 13:41 [From Bactrim] trimethoprim [From Bactrim] Allergy Unknown Verified 12/11/18 13:41 Physical Exam Vitals: Vital Signs Temp Pulse Resp BP Pulse Ox 12/12/18 12:00 109 H 34 H 128/68 92 L 12/12/18 11:30 105 H 37 H 126/67 92 L 12/12/18 11:00 102 H 37 H 121/66 92 L 12/12/18 10:30 108 H 35 H 128/68 94 L 12/12/18 10:00 105 H 39 H 122/67 92 L 12/12/18 09:30 104 H 38 H 122/69 94 L 12/12/18 09:00 107 H 37 H 123/69 94 L 12/12/18 08:30 106 H 40 H 119/65 93 L 12/12/18 08:00 106 H 38 H 110/63 93 L 12/12/18 07:30 114 H 31 H 117/66 93 L 12/12/18 07:00 106 H 41 H 119/66 93 L 12/12/18 06:30 106 H 40 H 112/65 93 L 12/12/18 06:00 106 H 41 H 114/63 94 L 12/12/18 05:30 105 H 42 H 100/59 93 L 12/12/18 05:00 109 H 47 H 107/66 92 L 12/12/18 04:30 111 H 44 H 115/72 93 L 12/12/18 04:00 99.2 F 111 H 41 H 119/72 93 L 12/12/18 03:30 113 H 44 H 118/69 92 L 12/12/18 03:00 111 H 40 H 114/67 93 L 12/12/18 02:30 113 H 42 H 101/64 93 L 12/12/18 02:00 111 H 43 H 102/64 93 L 12/12/18 01:30 111 H 42 H 112/67 93 L 12/12/18 01:00 112 H 42 H 112/67 92 L 12/12/18 00:30 110 H 41 H 109/65 93 L 12/12/18 00:01 109 H 38 H 103/67 93 L 12/12/18 00:00 99.7 F H 109 H 42 H 117/65 94 L 12/11/18 23:30 103 H 44 H 104/69 92 L 12/11/18 23:00 151 H 41 H 100/62 92 L 12/11/18 22:30 151 H 43 H 90/60 12/11/18 22:00 149 H 37 H 99/63 92 L 12/11/18 21:30 151 H 44 H 83/59 91 L 12/11/18 21:00 149 H 46 H 98/63 91 L 12/11/18 20:45 147 H 42 H 94/59 91 L 12/11/18 20:30 147 H 48 H 105/62 91 L 12/11/18 20:15 149 H 38 H 97/65 92 L 12/11/18 20:00 99.1 F 146 H 41 H 98/65 92 L 12/11/18 19:45 147 H 45 H 115/75 92 L 12/11/18 19:30 144 H 43 H 103/67 92 L 12/11/18 19:15 144 H 42 H 96/69 92 L 12/11/18 19:00 144 H 34 H 109/65 92 L 12/11/18 18:45 144 H 42 H 102/67 92 L 12/11/18 18:30 144 H 34 H 103/65 92 L 12/11/18 18:15 142 H 39 H 100/63 91 L 12/11/18 18:00 144 H 34 H 94/62 92 L 12/11/18 17:45 142 H 34 H 91/62 91 L 12/11/18 17:30 142 H 41 H 98/60 91 L 12/11/18 17:15 144 H 37 H 99/65 91 L 12/11/18 17:00 141 H 34 H 104/70 92 L 12/11/18 16:45 138 H 35 H 115/78 91 L 12/11/18 16:30 137 H 38 H 91 L 12/11/18 16:15 138 H 38 H 92 L 12/11/18 16:00 97.3 F L 135 H 32 H 110/68 94 L 12/11/18 15:22 151 H 35 H 96/72 95 Intake and Output 12/11/18 12/12/18 12/12/18 22:59 06:59 14:59 Intake Total 4880.676 4316.295 9588.421 Output Total 415 290 375 Balance 4465.676 1529.380 625.421 Intake: IV 4000 Sodium Chloride 0.9% 2, 4000 000 ml @ 999 mls/hr IV . Q2H1M [facility] Rx#:[id number] Intake, IV Titration 575.727 3661.380 1000.421 Amount Dextrose 5% in Water 1, 450 900 000 ml @ 150 mls/hr IV . Q6H40M [facility] Rx#:[id number] Dextrose 5%-0.45% NaCl 1, 150 000 ml @ 150 mls/hr IV . Q6H40M [facility] Rx#:[id number] Diltiazem 125 mg In 23.333 87.5 Sodium Chloride 0.9% 100 ml @ 10 MG/HR 10 mls/hr IV .[id number] [facility] Rx#: [id number] Insulin Regular 100 unit 57.343 131.880 In Sodium Chloride 0.9% 100 ml @ 0.1 UNITS/KG/HR 9.65 mls/hr IV .[id number] [facility] Rx#:[id number] Insulin Regular 100 unit 0.421 In Sodium Chloride 0.9% 100 ml @ Per Protocol IV .Q0M [facility] Rx#:[id number] Piperacillin-Tazobactam 3 100 100 .375 gm In Sodium Chloride 0.9% 100 ml @ 25 mls/hr IVPB Q8HR [facility] Rx# :[id number] Potassium Chloride 20 meq 100 100 In Water For Injection 1 100ml.bag @ 50 mls/hr IVPB Q2H [facility] Rx#: [id number] Sodium Chloride 0.45% 1, 200 800 000 ml @ 200 mls/hr IV . Q5H [facility] Rx#:[id number] Sodium Chloride 0.9% 1, 400 000 ml @ 200 mls/hr IV . Q5H [facility] Rx#:[id number] levETIRAcetam IV 500 mg 100 In Sodium Chloride 0.9% 100 ml @ 400 mls/hr IVPB Q12HR [facility] Rx#:[id number] Output: Urine 415 290 375 Other: Voiding Method Indwelling Catheter # Voids 1 Weight 97.6 kg 97.6 kg GENERAL EXAM: Patient is unresponsive and appears to be tachypneic HEENT: Normocephalic. Pupils appear to small but reactive NECK: No masses, no nuchal rigidity. CHEST: No chest wall deformity. LUNGS: Diminished breath sounds at bases HEART: S1 and S2 normal ABDOMEN: Soft SKIN: No rashes CENTRAL NERVOUS SYSTEM: Deferred Results 12/11/18 12:07 12/12/18 10:34 Cardiac Enzymes 12/11/18 12/11/18 12/12/18 Range/Units 15:31 21:10 02:15 Troponin I 0.175 H* 0.235 H* 0.311 H* (0.000-0.034) ng/mL 12/12/18 Range/Units 10:34 Troponin I 0.246 H* (0.000-0.034) ng/mL Coagulation 12/11/18 Range/Units 13:23 PT 10.6 (9.0-12.0) sec APTT 20.3 L (22.0-30.0) sec Comprehensive Metabolic Panel 12/11/18 12/11/18 12/12/18 Range/Units 16:20 21:10 02:15 Sodium 151 H 155 H 157 H (137-145) mmol/L Potassium 3.3 L 3.7 3.8 (3.5-5.1) mmol/L Chloride 109 H 122 H 125 H (98-107) mmol/L Carbon Dioxide 17 L 22 23 (22-30) mmol/L BUN 81 H 83 H 81 H (9-20) mg/dL Creatinine 3.59 H 2.69 H 2.64 H (0.66-1.25) mg/dL Glucose 1054 H* 499 H 125 H (74-99) mg/dL Calcium 9.1 (8.4-10.2) mg/dL 12/12/18 Range/Units 10:34 Sodium 154 H (137-145) mmol/L Potassium 4.1 (3.5-5.1) mmol/L Chloride 123 H (98-107) mmol/L Carbon Dioxide 21 L (22-30) mmol/L BUN 76 H (9-20) mg/dL Creatinine 2.09 H (0.66-1.25) mg/dL Glucose 299 H (74-99) mg/dL Calcium 8.6 (8.4-10.2) mg/dL Current Medications Generic Name Dose Route Start Last Admin Trade Name Freq PRN Reason Stop Dose Admin Levetiracetam 500 mg/ Sodium 105 mls @ 400 mls/hr 12/11/18 21:00 12/12/18 11: 28 Chloride IVPB 400 mls/hr Q12HR [facility] Administration Piperacillin Sod/Tazobactam 100 mls @ 25 mls/hr 12/12/18 00:00 12/12/18 08:41 Sod 3.375 gm/ Sodium Chloride IVPB 25 mls/hr Q8HR [facility] Administration Dextrose/Water 1,000 mls @ 150 mls/hr 12/12/18 03:45 12/12/18 11:29 Dextrose 5%-Water Iv Soln IV 150 mls/hr .Q6H40M [facility] Administration Insulin Human Regular 100 unit 101 mls @ 0 mls/hr 12/12/18 11:00 12/12/18 12: 13 / Sodium Chloride IV 7 units/hr .Q0M [facility] 7.07 mls/hr Titration Protocol Per Protocol Naloxone HCl 0.2 mg 12/11/18 14:55 Narcan IV Q2M PRN Opioid Reversal Pantoprazole Sodium 40 mg 12/12/18 09:00 12/12/18 08:42 Protonix IV 40 mg DAILY [facility] Administration Intake and Output 12/11/18 12/12/18 12/12/18 22:59 06:59 14:59 Intake Total 4880.676 2327.216 3260.421 Output Total 415 290 375 Balance 4465.676 1529.380 625.421 Intake: IV 4000 Sodium Chloride 0.9% 2, 4000 000 ml @ 999 mls/hr IV . Q2H1M [facility] Rx#:[id number] Intake, IV Titration 273.685 5100.380 1000.421 Amount Dextrose 5% in Water 1, 450 900 000 ml @ 150 mls/hr IV . Q6H40M [facility] Rx#:[id number] Dextrose 5%-0.45% NaCl 1, 150 000 ml @ 150 mls/hr IV . Q6H40M [facility] Rx#:[id number] Diltiazem 125 mg In 23.333 87.5 Sodium Chloride 0.9% 100 ml @ 10 MG/HR 10 mls/hr IV .[id number] [facility] Rx#: [id number] Insulin Regular 100 unit 57.343 131.880 In Sodium Chloride 0.9% 100 ml @ 0.1 UNITS/KG/HR 9.65 mls/hr IV .[id number] [facility] Rx#:[id number] Insulin Regular 100 unit 0.421 In Sodium Chloride 0.9% 100 ml @ Per Protocol IV .Q0M [facility] Rx#:[id number] Piperacillin-Tazobactam 3 100 100 .375 gm In Sodium Chloride 0.9% 100 ml @ 25 mls/hr IVPB Q8HR [facility] Rx# :[id number] Potassium Chloride 20 meq 100 100 In Water For Injection 1 100ml.bag @ 50 mls/hr IVPB Q2H [facility] Rx#: [id number] Sodium Chloride 0.45% 1, 200 800 000 ml @ 200 mls/hr IV . Q5H [facility] Rx#:[id number] Sodium Chloride 0.9% 1, 400 000 ml @ 200 mls/hr IV . Q5H [facility] Rx#:[id number] levETIRAcetam IV 500 mg 100 In Sodium Chloride 0.9% 100 ml @ 400 mls/hr IVPB Q12HR [facility] Rx#:[id number] Output: Urine 415 290 375 Other: Voiding Method Indwelling Catheter # Voids 1 Weight 97.6 kg 97.6 kg Patient Weight 12/13/18 06:59 Weight 97.6 kg 12/11/18 12:07 12/12/18 10:34 EKG Interpretations (text) Atrial fibrillation with rapid ventricular response Assessment and Plan (1) Atrial fibrillation with RVR Current Visit: Yes Status: Acute Code(s): I48.91 - UNSPECIFIED ATRIAL FIBRILLATION SNOMED Code(s): 808725226714622 (2) Dyslipidemia Current Visit: No Status: Acute Code(s): E78.5 - HYPERLIPIDEMIA, UNSPECIFIED SNOMED Code(s): 350362893 (3) Hypertension Current Visit: No Status: Acute Code(s): I10 - ESSENTIAL (PRIMARY) HYPERTENSION SNOMED Code(s): 21109981 (4) Elevated troponin Current Visit: Yes Status: Acute Code(s): R74.8 - ABNORMAL LEVELS OF OTHER SERUM ENZYMES SNOMED Code(s): 902104946 Plan: This patient is still in a hyperosmolar state. Patient is back in sinus rhythm. His troponin elevation most probably related to supply demand mismatch and also increasing creatinine. Echo Cardigan showed normal LV function. I'll continue with IV beta aliya, aspirin, and also heparin at this time. Further recommendations depend upon clinical course.
[2018-12-12 14:25] LABS: Glucose,Whole Blood 224 mg/dL (75-99)
[2018-12-12] MEDS: METOPROLOL TARTRATE 5 MG/5 ML VIAL IVP SCH ×3 (14:38→23:28)
[2018-12-12 16:07] LABS: Glucose,Whole Blood 214 mg/dL (75-99)
--- NOTE | 2018-12-12 16:38 | CONS ---
CONSULTATION REASON FOR CONSULT: Renal failure. HISTORY OF PRESENT ILLNESS: Patient is a 63-year-old male who was admitted to the hospital, as he was found by his family to be unresponsive. He was barely opening his eyes. They are not sure how long patient was down. In the ER, he was found to be in DKA. His glucose was 1400. Patient's anion gap was 32 at the time of admission. His serum creatinine was 3.95 on initial admission. Patient is currently maintained on IV fluids. His serum creatinine is down to 2.09. Sodium is elevated at 157, for which patient is maintained on D5W, and his sodium was down to 154 this morning. Patient has had good urine output. PAST MEDICAL HISTORY: Significant for: 1. Type 2 diabetes. 2. Coronary artery disease. 3. History of CVA/TIA. 4. Hyperlipidemia. 5. History of ID. 6. Osteoarthritis. 7. Seizure disorder. 8. History of Crohn's disease. 9. Anxiety. 10.Depression. PAST SURGICAL HISTORY: 1. Back surgery. 2. Cardiac catheterization. 3. Coronary stent placement. 4. Bowel surgery with ileostomy. 5. Oral surgery for teeth. SOCIAL HISTORY: Patient is a former smoker. No history of drug abuse or alcohol abuse. MEDICATIONS: Medications prior to admission included: 1. Lipitor. 2. Plavix. 3. Ativan. 4. Gabapentin. 5. Zestril. 6. Lopressor. 7. Protonix. 8. Zoloft. 9. Keppra. 10.Insulin. ALLERGIES: ALLERGIES INCLUDE: 1. REMICADE. 2. NEOMYCIN. 3. NICKEL. PHYSICAL EXAMINATION: Patient is currently sleepy. He is arousable but is not able to communicate or answer questions. Blood pressure is 128/68, heart rate 108 per minute. He is afebrile. EXAMINATION OF THE HEART: S1 and S2. EXAMINATION OF LUNGS: Bilateral breath sounds are heard. ABDOMEN: Soft, non-tender. Examination of lower extremities shows no significant edema. There is erythema noted on the right big toe with induration; possibly some small amount of drainage also noted. [employer] exam cannot be performed in detail. However, patient had been moving all 4 extremities. LABS: Sodium 154, potassium 4.1, chloride 123, BUN 76, serum creatinine 2.09. Troponin 0.246. UA shows 4+ glucose, 1+ protein, 7 WBCs and hyaline casts 53. ASSESSMENT: 1. Acute kidney injury, prerenal, currently improving. There is an element of ATN which is currently nonoliguric. Patient is not on any nephrotoxic medications currently. 2. Hypernatremia secondary to free water deficit, maintained on D5W and currently improving. 3. Atrial fibrillation with rapid ventricular response, maintained on Cardizem drip. Troponin borderline at 0.181 and 0.311. 4. History of hypertension. 5. Previous history of cerebrovascular accident/transient ischemic attack. PLAN: Continue with D5W. Repeat electrolytes this evening. Continue to avoid nephrotoxic agents. Avoid hypotension. Thank you for this consultation. We will continue to follow the patient with you during his hospitalization. MMODL / IJN: [id number] /
[2018-12-12 17:51] LABS: Glucose,Whole Blood 205 mg/dL (75-99)
[2018-12-12 18:46] LABS: Calcium 8.8 mg/dL (8.4-10.2)
[2018-12-12 19:55] LABS: Glucose,Whole Blood 171 mg/dL (75-99)
--- NOTE | 2018-12-12 21:16 | P.CONS ---
History of Present Illness - Reason for Consult Consult date: 12/12/18 GI bleed Requesting physician: Rafy Moura - Chief Complaint Altered mental status - History of Present Illness 63-year-old male with multiple medical comorbidities including coronary artery disease, prior CVA, diabetes mellitus, osteoarthritis, seizure disorder and hypertension who presented to the hospital due to altered mental status. The patient was found hyperosmolar nonketotic hyperglycemia and is currently receiving treatment in the medical ICU. In addition he is receiving treatment for acute kidney injury. Of note history has been taken in conversation with the ICU team and on review of the EMR due to the patient's mentation. GI consult was placed for reports of coffee-ground emesis prior to presentation. Since being admitted to the hospital the patient has had no further nausea or vomiting, coffee-ground emesis, or any bowel movements, melena or hematochezia. No reports of abdominal pain. The patient's hemoglobin was found to be 16.5 on presentation and stool was found to be negative for occult blood. Review of Systems ROS unobtainable: due to mental status Past Medical History Past Medical History: Coronary Artery Disease (CAD), CVA/TIA, Diabetes Mellitus , Hyperlipidemia, Hypertension, Myocardial Infarction (SC), Osteoarthritis (OA) , Seizure Disorder Additional Past Medical History / Comment(s): Coronary artery disease with previous cardiac catheterization and stenting, previous SC, Crohn's disease, diabetes mellitus, hyperlipidemia, depression, chronic anxiety, history of CVA with some right-sided weakness, history of seizure disorder last seizure was in 2013, hyperlipidemia, hypertension Last Myocardial Infarction Date:: History of Any Multi-Drug Resistant Organisms: None Reported Past Surgical History: Back Surgery, Heart Catheterization With Stent Additional Past Surgical History / Comment(s): lt elbow sx,bowel sx- ileostomy with reversal dt/ crohns disease, oral sx had all teeth extracted Past Anesthesia/Blood Transfusion Reactions: No Reported Reaction Date of Last Stent Placement:: 2011 Smoking Status: Former smoker - Past Family History Father Family Medical History: Unable to Obtain Mother Family Medical History: Dementia Medications and Allergies Home Medications Medication Instructions Recorded Confirmed Type Atorvastatin [Lipitor] 20 mg PO DAILY 09/08/16 12/11/18 History Clopidogrel [Plavix] 75 mg PO DAILY 09/08/16 12/11/18 History Gabapentin 600 mg PO TID 09/08/16 12/11/18 History LORazepam [Ativan] 1 mg PO QID 09/08/16 12/11/18 History Lisinopril [Zestril] 2.5 mg PO DAILY 09/08/16 12/11/18 History Metoprolol Tartrate [Lopressor] 50 mg PO BID 09/08/16 12/11/18 History Pantoprazole Sodium [Protonix] 40 mg PO DAILY 09/08/16 12/11/18 History Sertraline [Zoloft] 150 mg PO DAILY 09/08/16 12/11/18 History Temazepam [Restoril] 30 mg PO DAILY 09/08/16 12/11/18 History levETIRAcetam [Keppra] 500 mg PO Q12HR 09/08/16 12/11/18 History Insulin Glargine [Lantus] 25 units SQ DAILY 12/11/18 12/11/18 History Insulin Glargine,Hum.rec.anlog 25 units SQ DAILY 12/12/18 12/12/18 History [Kyara Torres] Allergies Allergy/AdvReac Type Severity Reaction Status Date / Time infliximab [From Remicade] Allergy Unknown Verified 12/11/18 13:41 neomycin Allergy Unknown Verified 12/11/18 13:41 nickel Allergy Unknown Verified 12/11/18 13:41 sulfamethoxazole Allergy Unknown Verified 12/11/18 13:41 [From Bactrim] trimethoprim [From Bactrim] Allergy Unknown Verified 12/11/18 13:41 Physical Exam Vitals: Vital Signs Temp Pulse Resp BP Pulse Ox 12/12/18 20:00 99.1 F 95 23 140/76 92 L 12/12/18 19:00 93 31 H 137/75 92 L 12/12/18 18:00 96 30 H 137/78 92 L 12/12/18 17:00 96 32 H 135/73 92 L 12/12/18 16:00 94 34 H 125/74 12/12/18 15:00 90 31 H 137/76 94 L 12/12/18 14:00 108 H 35 H 112/68 94 L 12/12/18 13:00 99 33 H 129/69 94 L 12/12/18 12:00 109 H 34 H 128/68 92 L 12/12/18 11:30 105 H 37 H 126/67 92 L /01/27 11:00 102 H 37 H 121/66 92 L 12/12/18 10:30 108 H 35 H 128/68 94 L 12/12/18 10:00 105 H 39 H 122/67 92 L 12/12/18 09:30 104 H 38 H 122/69 94 L /01/27 09:00 107 H 37 H 123/69 94 L /01/27 08:30 106 H 40 H 119/65 93 L 12/12/18 08:00 106 H 38 H 110/63 93 L 12/12/18 07:30 114 H 31 H 117/66 93 L 12/12/18 07:00 106 H 41 H 119/66 93 L 12/12/18 06:30 106 H 40 H 112/65 93 L 12/12/18 06:00 106 H 41 H 114/63 94 L 12/12/18 05:30 105 H 42 H 100/59 93 L 12/12/18 05:00 109 H 47 H 107/66 92 L 12/12/18 04:30 111 H 44 H 115/72 93 L /01/27 04:00 99.2 F 111 H 41 H 119/72 93 L /01/27 03:30 113 H 44 H 118/69 92 L 12/12/18 03:00 111 H 40 H 114/67 93 L 12/12/18 02:30 113 H 42 H 101/64 93 L 12/12/18 02:00 111 H 43 H 102/64 93 L 12/12/18 01:30 111 H 42 H 112/67 93 L 12/12/18 01:00 112 H 42 H 112/67 92 L 12/12/18 00:30 110 H 41 H 109/65 93 L /01/27 00:01 109 H 38 H 103/67 93 L /01/27 00:00 99.7 F H 109 H 42 H 117/65 94 L 12/11/18 23:30 103 H 44 H 104/69 92 L 03 23:00 151 H 41 H 100/62 92 L /03 22:30 151 H 43 H 90/60 12/11/18 22:00 149 H 37 H 99/63 92 L 12/11/18 21:30 151 H 44 H 83/59 91 L Intake and Output 12/12/18 12/12/18 12/12/18 06:59 14:59 22:59 Intake Total 0257.573 3240.847 1273.836 Output Total 290 575 575 Balance 1529.380 739.847 698.836 Intake: IV 650 Dextrose 5% in Water 1, 450 000 ml @ 150 mls/hr IV . Q6H40M [facility] Rx#:[id number] Piperacillin-Tazobactam 3 100 .375 gm In Sodium Chloride 0.9% 100 ml @ 25 mls/hr IVPB Q8HR [facility] Rx# :[id number] levETIRAcetam IV 500 mg 100 In Sodium Chloride 0.9% 100 ml @ 400 mls/hr IVPB Q12HR [facility] Rx#:[id number] Intake, IV Titration 6675.411 0244.847 623.836 Amount Dextrose 5% in Water 1, 450 1200 300 000 ml @ 150 mls/hr IV . Q6H40M [facility] Rx#:[id number] Dextrose 5%-0.45% NaCl 1, 150 300 000 ml @ 150 mls/hr IV . Q6H40M [facility] Rx#:[id number] Diltiazem 125 mg In 87.5 Sodium Chloride 0.9% 100 ml @ 10 MG/HR 10 mls/hr IV .[id number] [facility] Rx#: [id number] Insulin Regular 100 unit 131.880 In Sodium Chloride 0.9% 100 ml @ 0.1 UNITS/KG/HR 9.65 mls/hr IV .[id number] [facility] Rx#:[id number] Insulin Regular 100 unit 14.847 23.836 In Sodium Chloride 0.9% 100 ml @ Per Protocol IV .Q0M [facility] Rx#:[id number] Piperacillin-Tazobactam 3 100 100 .375 gm In Sodium Chloride 0.9% 100 ml @ 25 mls/hr IVPB Q8HR [facility] Rx# :[id number] Potassium Chloride 20 meq 100 In Water For Injection 1 100ml.bag @ 50 mls/hr IVPB Q2H [facility] Rx#: [id number] Sodium Chloride 0.45% 1, 800 000 ml @ 200 mls/hr IV . Q5H [facility] Rx#:[id number] Output: Urine 290 575 575 Other: Voiding Method Indwelling Catheter Indwelling Catheter # Voids 1 Weight 97.6 kg 97.6 kg On physical examination, patient appears comfortable in no apparent distress. HEAD: Normocephalic, atraumatic. EYES: No scleral icterus. No conjunctival injection. MOUTH: No lesions, tongue midline. NECK: Trachea midline, no gross abnormalities. CHEST: Clear to auscultation with no wheezing or rhonchi appreciated. HEART: S1-S2 appreciated, no murmurs appreciated. ABDOMEN: Soft, obese. Bowel sounds are positive. No organomegaly. No guarding or rigidity. EXTREMITIES: No pedal edema. SKIN: No rashes, no jaundice. NEUROLOGIC: Arousable but not interactive. Results CBC & Chem 7: 12/11/18 12:07 12/12/18 18:00 Labs: Abnormal Lab Results - Last 24 Hours (Table) 12/11/18 12/11/18 12/11/18 Range/Units 21:00 21:10 21:10 Sodium 155 H (137-145) mmol/L Chloride 122 H (98-107) mmol/L Carbon Dioxide (22-30) mmol/L BUN 83 H (9-20) mg/dL Creatinine 2.69 H (0.66-1.25) mg/dL Glucose 499 H (74-99) mg/dL POC Glucose (mg/dL) 448 H (75-99) mg/dL Plasma Lactic Acid Jeffery (0.7-2.0) mmol/L Phosphorus 1.8 L (2.5-4.5) mg/dL Magnesium (1.6-2.3) mg/dL Troponin I 0.235 H* (0.000-0.034) ng/mL 12/11/18 12/11/18 12/11/18 Range/Units 21:10 22:11 22:59 Sodium (137-145) mmol/L Chloride (98-107) mmol/L Carbon Dioxide (22-30) mmol/L BUN (9-20) mg/dL Creatinine (0.66-1.25) mg/dL Glucose (74-99) mg/dL POC Glucose (mg/dL) 384 H 306 H (75-99) mg/dL Plasma Lactic Acid Jeffery 3.2 H* (0.7-2.0) mmol/L Phosphorus (2.5-4.5) mg/dL Magnesium (1.6-2.3) mg/dL Troponin I (0.000-0.034) ng/mL 12/11/18 12/12/18 12/12/18 Range/Units 23:59 01:09 02:09 Sodium (137-145) mmol/L Chloride (98-107) mmol/L Carbon Dioxide (22-30) mmol/L BUN (9-20) mg/dL Creatinine (0.66-1.25) mg/dL Glucose (74-99) mg/dL POC Glucose (mg/dL) 259 H 164 H 126 H (75-99) mg/dL Plasma Lactic Acid Jeffery (0.7-2.0) mmol/L Phosphorus (2.5-4.5) mg/dL Magnesium (1.6-2.3) mg/dL Troponin I (0.000-0.034) ng/mL 12/12/18 12/12/18 12/12/18 Range/Units 02:15 02:15 02:15 Sodium 157 H (137-145) mmol/L Chloride 125 H (98-107) mmol/L Carbon Dioxide (22-30) mmol/L BUN 81 H (9-20) mg/dL Creatinine 2.64 H (0.66-1.25) mg/dL Glucose 125 H (74-99) mg/dL POC Glucose (mg/dL) (75-99) mg/dL Plasma Lactic Acid Jeffery 2.2 H* (0.7-2.0) mmol/L Phosphorus (2.5-4.5) mg/dL Magnesium 2.4 H (1.6-2.3) mg/dL Troponin I 0.311 H* (0.000-0.034) ng/mL 12/12/18 12/12/18 12/12/18 Range/Units 05:03 06:04 06:56 Sodium (137-145) mmol/L Chloride (98-107) mmol/L Carbon Dioxide (22-30) mmol/L BUN (9-20) mg/dL Creatinine (0.66-1.25) mg/dL Glucose (74-99) mg/dL POC Glucose (mg/dL) 125 H 164 H 195 H (75-99) mg/dL Plasma Lactic Acid Jeffery (0.7-2.0) mmol/L Phosphorus (2.5-4.5) mg/dL Magnesium (1.6-2.3) mg/dL Troponin I (0.000-0.034) ng/mL 12/12/18 12/12/18 12/12/18 Range/Units 08:19 09:58 10:34 Sodium 154 H (137-145) mmol/L Chloride 123 H (98-107) mmol/L Carbon Dioxide 21 L (22-30) mmol/L BUN 76 H (9-20) mg/dL Creatinine 2.09 H (0.66-1.25) mg/dL Glucose 299 H (74-99) mg/dL POC Glucose (mg/dL) 227 H 248 H (75-99) mg/dL Plasma Lactic Acid Jeffery (0.7-2.0) mmol/L Phosphorus (2.5-4.5) mg/dL Magnesium (1.6-2.3) mg/dL Troponin I (0.000-0.034) ng/mL 12/12/18 12/12/18 12/12/18 Range/Units 10:34 10:56 12:13 Sodium (137-145) mmol/L Chloride (98-107) mmol/L Carbon Dioxide (22-30) mmol/L BUN (9-20) mg/dL Creatinine (0.66-1.25) mg/dL Glucose (74-99) mg/dL POC Glucose (mg/dL) 250 H 313 H (75-99) mg/dL Plasma Lactic Acid Jeffery (0.7-2.0) mmol/L Phosphorus (2.5-4.5) mg/dL Magnesium (1.6-2.3) mg/dL Troponin I 0.246 H* (0.000-0.034) ng/mL 12/12/18 12/12/18 12/12/18 Range/Units 12:59 14:23 16:05 Sodium (137-145) mmol/L Chloride (98-107) mmol/L Carbon Dioxide (22-30) mmol/L BUN (9-20) mg/dL Creatinine (0.66-1.25) mg/dL Glucose (74-99) mg/dL POC Glucose (mg/dL) 284 H 224 H 214 H (75-99) mg/dL Plasma Lactic Acid Jeffery (0.7-2.0) mmol/L Phosphorus (2.5-4.5) mg/dL Magnesium (1.6-2.3) mg/dL Troponin I (0.000-0.034) ng/mL 12/12/18 12/12/18 12/12/18 Range/Units 17:49 18:00 19:54 Sodium 155 H (137-145) mmol/L Chloride 121 H (98-107) mmol/L Carbon Dioxide (22-30) mmol/L BUN 64 H (9-20) mg/dL Creatinine 1.61 H (0.66-1.25) mg/dL Glucose 218 H (74-99) mg/dL POC Glucose (mg/dL) 205 H 171 H (75-99) mg/dL Plasma Lactic Acid Jeffery (0.7-2.0) mmol/L Phosphorus (2.5-4.5) mg/dL Magnesium (1.6-2.3) mg/dL Troponin I (0.000-0.034) ng/mL Microbiology - Last 24 Hours (Table) 12/11/18 12:37 Urine Culture - Final Urine,Voided Chest x-ray: report reviewed (Redemonstration of left basilar airspace disease on chest x-ray) Assessment and Plan (1) Coffee ground emesis Narrative/Plan: Reports of coffee-ground emesis on presentation in the setting of nausea and vomiting, suspicion is for possible Vilma-Stein tear with differential also including esophagitis, gastritis, peptic ulcer disease or other etiology, although these are less likely in the setting of stable hemoglobin and a negative stool testing for occult blood. Current Visit: Yes Status: Acute Code(s): K92.0 - HEMATEMESIS SNOMED Code( s): 94896765 (2) Nausea & vomiting Current Visit: Yes Status: Acute Code(s): R11.2 - NAUSEA WITH VOMITING, UNSPECIFIED SNOMED Code(s): 20302976 Plan: Supportive care Nothing by mouth Continue Protonix daily Continue to monitor hemoglobin and transfuse as needed Continue medical management of multiple medical comorbidities No plans for endoscopic evaluation at this time, however further evaluation if patient has fall in his hemoglobin or signs or symptoms of GI bleeding develops Thank you for allowing us to participate in the care of the patient, we will continue to follow
[2018-12-12 21:52] LABS: Glucose,Whole Blood 174 mg/dL (75-99)
[2018-12-13 00:10] LABS: Glucose,Whole Blood 220 mg/dL (75-99)
[2018-12-13 01:25] LABS: Calcium 8.7 mg/dL (8.4-10.2); Potassium 3.8 mmol/L (3.5-5.1)
[2018-12-13 01:48] LABS: Glucose,Whole Blood 217 mg/dL (75-99)
[2018-12-13] MEDS ORDERED: Potassium Replacement Protocol 1 EACH MISC MISCELLANE PRN (01:53)
[2018-12-13] MEDS: POTASSIUM CHLORIDE 10 MEQ in WATER FOR INJECTION 1 100ML.BAG IVPB SCH ×2 (03:29→04:22)
[2018-12-13 04:04] LABS: Glucose,Whole Blood 245 mg/dL (75-99)
[2018-12-13 04:51] LABS: HCT 48.6 % (39.0-53.0); HGB 14.6 gm/dL (13.0-17.5); Hypochromasia Marked; MCH 28.4 pg (25.0-35.0); MCHC 30.1 g/dL (31.0-37.0); MCV 94.1 fL (80.0-100.0); Mean Platelet Volume 9.3; Platelet Count 192 k/uL (150-450); RBC 5.17 m/uL (4.30-5.90); RDW 14.6 % (11.5-15.5); WBC 10.5 k/uL (3.8-10.6)
[2018-12-13 05:08] LABS: Calcium 8.6 mg/dL (8.4-10.2); Phosphorus 1.7 mg/dL (2.5-4.5); Potassium 3.9 mmol/L (3.5-5.1)
[2018-12-13] MEDS ORDERED: Phosphorus Replacement Protoco 1 EACH MISC MISCELLANE PRN (05:20)
[2018-12-13 05:24] LABS: Band Neutrophils % 9 %; Eosinophils # (M) 0.11 k/uL (0-0.7); Monocytes # (M) 0.42 k/uL (0-1.0); Neutrophils % (M) 66 %; Nucleated Red Blood Cells 0 /100 WBC (0-0); Total Cells Counted 100
[2018-12-13 05:25] LABS: Large Platelets Present
[2018-12-13] MEDS: METOPROLOL TARTRATE 5 MG/5 ML VIAL IVP SCH ×3 (05:31→23:53)
[2018-12-13] MEDS: DEXTROSE 5% IN WATER 1,000 ML IV SCH ×3 (05:31→20:09)
[2018-12-13 05:40] LABS: Glucose,Whole Blood 147 mg/dL (75-99)
[2018-12-13] MEDS: POTASSIUM PHOSPHATE 10 MMOL in SODIUM CHLORIDE 0.9% 250 ML IV SCH ×2 (05:49→08:40)
[2018-12-13 08:01] LABS: Glucose,Whole Blood 155 mg/dL (75-99)
[2018-12-13] MEDS: levETIRAcetam IV 500 MG in SODIUM CHLORIDE 0.9% 100 ML IVPB SCH ×2 (08:14→20:10)
[2018-12-13] MEDS: PANTOPRAZOLE 40 MG/10 ML VIAL IV SCH (08:15)
[2018-12-13] MEDS ORDERED: ASPIRIN 325 MG TAB PO SCH (09:00)
[2018-12-13] MEDS: PIPERACILLIN-TAZOBACTAM 3.375 GM in SODIUM CHLORIDE 0.9% 100 ML IVPB SCH ×3 (09:05→23:53)
--- NOTE | 2018-12-13 09:06 | XR ---
EXAMINATION TYPE: XR chest 1V portable DATE OF EXAM: 12/13/2018 Comparison: 12/12/2018 Clinical History: 63-year-old male shortness of breath Findings: Heart normal size. Aorta and pulmonary vasculature within normal limits. Continued focal patchy left opacity. Trace effusion may be present on that side as well. Impression: Stable left basilar infiltrate. Trace effusion on the left is also possible.
[2018-12-13] MEDS ORDERED: HEPARIN SODIUM,PORCINE 5,000 UNIT/ML 1 ML VIAL IV ONE (09:16)
--- NOTE | 2018-12-13 09:19 | P.PN ---
Subjective Progress Note Date: 12/13/18 Principal diagnosis: Altered mental status coffee-ground emesis No episodes of hematemesis hematochezia or melena. Patient more alert today. Hemoglobin 14.6. BUN improved 46. Creatinine 1.0. Objective - Vital Signs Vital signs: Vital Signs Temp 99.4 F 12/13/18 04:00 Pulse 98 12/13/18 07:00 Resp 25 H 12/13/18 07:00 BP 155/94 12/13/18 07:00 Pulse Ox 93 L 12/13/18 07:00 Intake & Output 12/12/18 12/13/18 12/13/18 18:59 06:59 18:59 Intake Total 5545.292 2407.230 Output Total 950 1105 Balance 083.918 1358.230 Weight 97.6 kg 98.8 kg Intake: IV 2475 Dextrose 5% in Water 1, 1950 000 ml @ 150 mls/hr IV . Q6H40M [facility] Rx#:[id number] Piperacillin-Tazobactam 3 225 .375 gm In Sodium Chloride 0.9% 100 ml @ 25 mls/hr IVPB Q8HR [facility] Rx# :[id number] Potassium Chloride 10 meq 200 In Water For Injection 1 100ml.bag @ 100 mls/hr IVPB Q1H [facility] Rx#: [id number] levETIRAcetam IV 500 mg 100 In Sodium Chloride 0.9% 100 ml @ 400 mls/hr IVPB Q12HR [facility] Rx#:[id number] Intake, IV Titration 1914.847 60.230 Amount Dextrose 5% in Water 1, 1500 000 ml @ 150 mls/hr IV . Q6H40M [facility] Rx#:[id number] Dextrose 5%-0.45% NaCl 1, 300 000 ml @ 150 mls/hr IV . Q6H40M [facility] Rx#:[id number] Insulin Regular 100 unit 14.847 60.230 In Sodium Chloride 0.9% 100 ml @ Per Protocol IV .Q0M [facility] Rx#:[id number] Piperacillin-Tazobactam 3 100 .375 gm In Sodium Chloride 0.9% 100 ml @ 25 mls/hr IVPB Q8HR [facility] Rx# :[id number] Output: Urine 950 1105 Other: Voiding Method Indwelling Catheter Indwelling Catheter # Voids 1 - Exam General appearance: The patient is awake answers to his name but does not hold a conversation. HET: Head is normocephalic and atraumatic. Pupils are equal and reactive. Oropharynx is clear without lesions. Neck: Supple without lymphadenopathy. Trachea midline. Heart: S1 S2. Regular rate and rhythm. Lungs: No crackles or wheezes are heard. Abdomen: Soft, nontender, nondistended with bowel sounds. No peritoneal signs. No palpable organomegaly or masses. Extremities: No edema. - Labs CBC & Chem 7: 12/13/18 04:35 12/13/18 04:35 Labs: Abnormal Lab Results - Last 24 Hours (Table) 12/12/18 12/12/18 12/12/18 Range/Units 09:58 10:34 10:34 MCHC (31.0-37.0) g/dL Neutrophils # (Manual) (1.3-7.7) k/uL Sodium 154 H (137-145) mmol/L Chloride 123 H (98-107) mmol/L Carbon Dioxide 21 L (22-30) mmol/L BUN 76 H (9-20) mg/dL Creatinine 2.09 H (0.66-1.25) mg/dL Glucose 299 H (74-99) mg/dL POC Glucose (mg/dL) 248 H (75-99) mg/dL Phosphorus (2.5-4.5) mg/dL Troponin I 0.246 H* (0.000-0.034) ng/mL 12/12/18 12/12/18 12/12/18 Range/Units 10:56 12:13 12:59 MCHC (31.0-37.0) g/dL Neutrophils # (Manual) (1.3-7.7) k/uL Sodium (137-145) mmol/L Chloride (98-107) mmol/L Carbon Dioxide (22-30) mmol/L BUN (9-20) mg/dL Creatinine (0.66-1.25) mg/dL Glucose (74-99) mg/dL POC Glucose (mg/dL) 250 H 313 H 284 H (75-99) mg/dL Phosphorus (2.5-4.5) mg/dL Troponin I (0.000-0.034) ng/mL 12/12/18 12/12/18 12/12/18 Range/Units 14:23 16:05 17:49 MCHC (31.0-37.0) g/dL Neutrophils # (Manual) (1.3-7.7) k/uL Sodium (137-145) mmol/L Chloride (98-107) mmol/L Carbon Dioxide (22-30) mmol/L BUN (9-20) mg/dL Creatinine (0.66-1.25) mg/dL Glucose (74-99) mg/dL POC Glucose (mg/dL) 224 H 214 H 205 H (75-99) mg/dL Phosphorus (2.5-4.5) mg/dL Troponin I (0.000-0.034) ng/mL 12/12/18 12/12/18 12/12/18 Range/Units 18:00 19:54 21:50 MCHC (31.0-37.0) g/dL Neutrophils # (Manual) (1.3-7.7) k/uL Sodium 155 H (137-145) mmol/L Chloride 121 H (98-107) mmol/L Carbon Dioxide (22-30) mmol/L BUN 64 H (9-20) mg/dL Creatinine 1.61 H (0.66-1.25) mg/dL Glucose 218 H (74-99) mg/dL POC Glucose (mg/dL) 171 H 174 H (75-99) mg/dL Phosphorus (2.5-4.5) mg/dL Troponin I (0.000-0.034) ng/mL 12/13/18 12/13/18 12/13/18 Range/Units 00:09 00:26 01:47 MCHC (31.0-37.0) g/dL Neutrophils # (Manual) (1.3-7.7) k/uL Sodium 154 H (137-145) mmol/L Chloride 120 H (98-107) mmol/L Carbon Dioxide (22-30) mmol/L BUN 49 H (9-20) mg/dL Creatinine (0.66-1.25) mg/dL Glucose 233 H (74-99) mg/dL POC Glucose (mg/dL) 220 H 217 H (75-99) mg/dL Phosphorus (2.5-4.5) mg/dL Troponin I (0.000-0.034) ng/mL 12/13/18 12/13/18 12/13/18 Range/Units 04:02 04:35 04:35 MCHC 30.1 L (31.0-37.0) g/dL Neutrophils # (Manual) 7.80 H (1.3-7.7) k/uL Sodium 153 H (137-145) mmol/L Chloride 121 H (98-107) mmol/L Carbon Dioxide (22-30) mmol/L BUN 46 H (9-20) mg/dL Creatinine (0.66-1.25) mg/dL Glucose 218 H (74-99) mg/dL POC Glucose (mg/dL) 245 H (75-99) mg/dL Phosphorus 1.7 L (2.5-4.5) mg/dL Troponin I (0.000-0.034) ng/mL 12/13/18 12/13/18 Range/Units 05:39 08:00 MCHC (31.0-37.0) g/dL Neutrophils # (Manual) (1.3-7.7) k/uL Sodium (137-145) mmol/L Chloride (98-107) mmol/L Carbon Dioxide (22-30) mmol/L BUN (9-20) mg/dL Creatinine (0.66-1.25) mg/dL Glucose (74-99) mg/dL POC Glucose (mg/dL) 147 H 155 H (75-99) mg/dL Phosphorus (2.5-4.5) mg/dL Troponin I (0.000-0.034) ng/mL Microbiology - Last 24 Hours (Table) 12/11/18 12:37 Urine Culture - Final Urine,Voided Assessment and Plan (1) Coffee ground emesis Current Visit: Yes Status: Acute Code(s): K92.0 - HEMATEMESIS SNOMED Code( s): 16684513 (2) Metabolic encephalopathy Current Visit: Yes Status: Acute Code(s): G93.41 - METABOLIC ENCEPHALOPATHY SNOMED Code(s): 02653030 (3) Acute kidney injury Current Visit: Yes Status: Acute Code(s): N17.9 - ACUTE KIDNEY FAILURE, UNSPECIFIED SNOMED Code(s): 34638894 (4) Diabetic ketoacidosis Current Visit: Yes Status: Acute Code(s): E13.10 - OTH DIABETES MELLITUS WITH KETOACIDOSIS WITHOUT COMA SNOMED Code(s): 893201130 (5) Elevated troponin Current Visit: Yes Status: Acute Code(s): R74.8 - ABNORMAL LEVELS OF OTHER SERUM ENZYMES SNOMED Code(s): 452404581 Plan: 1. From a GI standpoint agreeable for aspirin and IV heparin per cardiology recommendations. Patient will need to be observed closely for any signs or symptoms of acute GI bleeding such as hematemesis hematochezia melena. CBC monitoring. Continue with Protonix 40 mg daily. Speech consult for swallowing evaluation; if satisfactory may have ice chips and popsicles sparingly today. Inpatient endoscopic exam not planned at this time but contingent on clinical course. Assessment and plan a care discussed with Dr. Giron
--- NOTE | 2018-12-13 09:38 | XR ---
EXAMINATION TYPE: XR chest 1V portable DATE OF EXAM: 12/13/2018 COMPARISON: Prior chest x-ray same date earlier time. HISTORY: Shortness of breath TECHNIQUE: Single frontal view of the chest is obtained. FINDINGS: Patchy basilar density persists on the left. No pneumothorax. Heart size is stable. There are overlying cardiac leads. IMPRESSION: No significant interval change. Correlate for left lower lobe atelectasis versus pneumon ia. Possible associated small effusion.
[2018-12-13 10:02] LABS: Glucose,Whole Blood 170 mg/dL (75-99)
[2018-12-13] MEDS: INSULIN REGULAR 100 UNIT in SODIUM CHLORIDE 0.9% 100 ML IV SCH ×2 (10:07→21:37)
[2018-12-13] MEDS: ASPIRIN 300 MG SUPP RECTAL SCH (10:09)
[2018-12-13] MEDS ORDERED: LORazepam 2 MG/ML INJ IV STA (10:23)
--- NOTE | 2018-12-13 10:42 | P.PN ---
Subjective Progress Note Date: 12/13/18 Principal diagnosis: Hyperosmolar nonketotic state and mental status change 63-year-old male patient presented with altered mentation and vomiting. He apparently had coffee-ground emesis and syncope. In the ED, the patient was diagnosed having a acute hyperosmolar nonketotic state and the patient was started on treatment immediately with IV fluids and insulin drip. The patient himself was unable to provide any history. He denied having any chest pain. No abdominal pain. His initial blood sugar was 1400. The patient was given 2 L of IV fluids and started on insulin drip. The first set of troponin was 0.1. The BNP was 7080. Computed tomography scan of the head and the neck was unremarkable. The patient got transferred to the ICU. The patient is an acute kidney injury. Urine is at 79. Creatinine is at 3.9. The patient's anion gap is at 32. Serum bicarb is at 15. The lactic acid level is at 3.0. There is only trace urinary ketones. The patient's hemoglobin is at 16.5. White cell count is not elevated. EKG showing atrial fibrillation with rapid ventricular response. Chest x-ray showing a basilar atelectasis Patient was reevaluated today on 12/12/2018, remains in the intensive care unit, and bit more arousable, follows very simple instructions, but overall remains a bit encephalopathic. According to the nurses his mental status is gradually improving. Patient remains on insulin drip, his IV fluid was switched to D5W because of his significantly elevated sodium today is up to 157. Patient does not seem to be in any form of distress. He is resting comfortably in bed. Repeat labs this morning showed a sodium of 154 BUN of 76 creatinine is 2.09. His creatinine is gradually improving, it was 3.95 yesterday. Chest x-ray this morning showed mostly left basilar airspace disease, likely atelectasis, underlying pneumonia is not entirely ruled out. Reevaluated today on 12/13/2018, patient remains in the ICU, he is more alert, however he is noted to have marginal O2 saturations. Patient was placed overnight on a high flow nasal cannula, and I have noted this morning that the patient has an extremely poor and weak cough. His chest x-ray showed mostly atelectasis especially at the left base. Hence I recommended patient goes on BiPAP, and he would be on BiPAP of 12 and 4. His FiO2 will be titrated accordingly. His sodium remains high at 153, BUN is 46 creatinine is 1.05. WBC count is 10.5 hemoglobin is 14.6. Patient remains on Zosyn empirically, his IV fluid was cut down to 75 mL/h, he remains on Keppra, and this morning because of his agitation and I recommended Ativan 1 mg IV push times one. Objective - Vital Signs Vital signs: Vital Signs Temp 99.1 F 12/13/18 08:00 Pulse 110 H 12/13/18 10:00 Resp 40 H 12/13/18 10:00 BP 148/82 12/13/18 10:00 Pulse Ox 97 12/13/18 10:00 Intake & Output 12/12/18 12/13/18 12/13/18 18:59 06:59 18:59 Intake Total 2285.632 4267.230 565.810 Output Total 950 1105 110 Balance 590.563 4727.230 455.810 Weight 97.6 kg 98.8 kg Intake: IV 2475 550 Dextrose 5% in Water 1, 1950 100 000 ml @ 75 mls/hr IV . [id number] ALEYDA Rx#:[id number] Piperacillin-Tazobactam 3 225 100 .375 gm In Sodium Chloride 0.9% 100 ml @ 25 mls/hr IVPB Q8HR ALEYDA Rx# :[id number] Potassium Chloride 10 meq 200 In Water For Injection 1 100ml.bag @ 100 mls/hr IVPB Q1H ALEYDA Rx#: [id number] Potassium Phosphate 10 250 mmol In Sodium Chloride 0 .9% 250 ml @ 125 mls/hr IV Q2H ALEYDA Rx#:[id number] levETIRAcetam IV 500 mg 100 100 In Sodium Chloride 0.9% 100 ml @ 400 mls/hr IVPB Q12HR ALEYDA Rx#:[id number] Intake, IV Titration 1914.847 60.230 15.810 Amount Dextrose 5% in Water 1, 1500 000 ml @ 75 mls/hr IV . [id number] ALEYDA Rx#:[id number] Dextrose 5%-0.45% NaCl 1, 300 000 ml @ 150 mls/hr IV . Q6H40M ALEYDA Rx#:[id number] Insulin Regular 100 unit 14.847 60.230 15.810 In Sodium Chloride 0.9% 100 ml @ Per Protocol IV .Q0M ALEYDA Rx#:[id number] Piperacillin-Tazobactam 3 100 .375 gm In Sodium Chloride 0.9% 100 ml @ 25 mls/hr IVPB Q8HR ALEYDA Rx# :[id number] Output: Urine 950 1105 110 Other: Voiding Method Indwelling Catheter Indwelling Catheter # Voids 1 - Exam Physical Exam: Revealed a 63-year-old white male, awake, responsive, follows instructions, Head: Atraumatic, normocephalic. HEENT:[Neck is supple.] [No neck masses.] [No thyromegaly.] [No JVD.] PERRLA, EOMI, no icterus. Chest: [Diminished breath sounds at the bases, minimal crackles at the left base noted, no rhonchi and no wheezes. Symmetrical chest expansion. No chest wall tenderness..] Cardiac Exam: [Normal S1 and S2, no S3 gallop, no murmur.] Abdomen: [Soft, nontender, no megaly, no rebound, no guarding, normal bowel sounds.] Extremities: [No clubbing, no edema, no cyanosis.], However there is evidence of inflammatory changes involving both feet especially the right big toe, foot was noted to be slightly erythematous, warm, good pulses. Superficial ulceration noted on his distal aspect of the right big toe. Neurological Exam: Alert, oriented, seems to be generally weak, followed all simple instructions. Lymphatics: No lymphadenopathy. Psychiatric: Normal mood, affect and mental status examination. - Labs CBC & Chem 7: 12/13/18 04:35 12/13/18 04:35 Labs: Abnormal Lab Results - Last 24 Hours (Table) 12/12/18 12/12/18 12/12/18 Range/Units 10:34 10:34 10:56 MCHC (31.0-37.0) g/dL Neutrophils # (Manual) (1.3-7.7) k/uL Sodium 154 H (137-145) mmol/L Chloride 123 H (98-107) mmol/L Carbon Dioxide 21 L (22-30) mmol/L BUN 76 H (9-20) mg/dL Creatinine 2.09 H (0.66-1.25) mg/dL Glucose 299 H (74-99) mg/dL POC Glucose (mg/dL) 250 H (75-99) mg/dL Phosphorus (2.5-4.5) mg/dL Troponin I 0.246 H* (0.000-0.034) ng/mL 12/12/18 12/12/18 12/12/18 Range/Units 12:13 12:59 14:23 MCHC (31.0-37.0) g/dL Neutrophils # (Manual) (1.3-7.7) k/uL Sodium (137-145) mmol/L Chloride (98-107) mmol/L Carbon Dioxide (22-30) mmol/L BUN (9-20) mg/dL Creatinine (0.66-1.25) mg/dL Glucose (74-99) mg/dL POC Glucose (mg/dL) 313 H 284 H 224 H (75-99) mg/dL Phosphorus (2.5-4.5) mg/dL Troponin I (0.000-0.034) ng/mL 12/12/18 12/12/18 12/12/18 Range/Units 16:05 17:49 18:00 MCHC (31.0-37.0) g/dL Neutrophils # (Manual) (1.3-7.7) k/uL Sodium 155 H (137-145) mmol/L Chloride 121 H (98-107) mmol/L Carbon Dioxide (22-30) mmol/L BUN 64 H (9-20) mg/dL Creatinine 1.61 H (0.66-1.25) mg/dL Glucose 218 H (74-99) mg/dL POC Glucose (mg/dL) 214 H 205 H (75-99) mg/dL Phosphorus (2.5-4.5) mg/dL Troponin I (0.000-0.034) ng/mL 12/12/18 12/12/18 12/13/18 Range/Units 19:54 21:50 00:09 MCHC (31.0-37.0) g/dL Neutrophils # (Manual) (1.3-7.7) k/uL Sodium (137-145) mmol/L Chloride (98-107) mmol/L Carbon Dioxide (22-30) mmol/L BUN (9-20) mg/dL Creatinine (0.66-1.25) mg/dL Glucose (74-99) mg/dL POC Glucose (mg/dL) 171 H 174 H 220 H (75-99) mg/dL Phosphorus (2.5-4.5) mg/dL Troponin I (0.000-0.034) ng/mL 12/13/18 12/13/18 12/13/18 Range/Units 00:26 01:47 04:02 MCHC (31.0-37.0) g/dL Neutrophils # (Manual) (1.3-7.7) k/uL Sodium 154 H (137-145) mmol/L Chloride 120 H (98-107) mmol/L Carbon Dioxide (22-30) mmol/L BUN 49 H (9-20) mg/dL Creatinine (0.66-1.25) mg/dL Glucose 233 H (74-99) mg/dL POC Glucose (mg/dL) 217 H 245 H (75-99) mg/dL Phosphorus (2.5-4.5) mg/dL Troponin I (0.000-0.034) ng/mL 12/13/18 12/13/18 12/13/18 Range/Units 04:35 04:35 05:39 MCHC 30.1 L (31.0-37.0) g/dL Neutrophils # (Manual) 7.80 H (1.3-7.7) k/uL Sodium 153 H (137-145) mmol/L Chloride 121 H (98-107) mmol/L Carbon Dioxide (22-30) mmol/L BUN 46 H (9-20) mg/dL Creatinine (0.66-1.25) mg/dL Glucose 218 H (74-99) mg/dL POC Glucose (mg/dL) 147 H (75-99) mg/dL Phosphorus 1.7 L (2.5-4.5) mg/dL Troponin I (0.000-0.034) ng/mL 12/13/18 12/13/18 Range/Units 08:00 10:00 MCHC (31.0-37.0) g/dL Neutrophils # (Manual) (1.3-7.7) k/uL Sodium (137-145) mmol/L Chloride (98-107) mmol/L Carbon Dioxide (22-30) mmol/L BUN (9-20) mg/dL Creatinine (0.66-1.25) mg/dL Glucose (74-99) mg/dL POC Glucose (mg/dL) 155 H 170 H (75-99) mg/dL Phosphorus (2.5-4.5) mg/dL Troponin I (0.000-0.034) ng/mL Microbiology - Last 24 Hours (Table) 12/11/18 12:37 Urine Culture - Final Urine,Voided Assessment and Plan Assessment: Impression: 1 acute hyperosmolar nonketotic state. 2 acute metabolic encephalopathy, improving significantly over the last 2 days. 3 new-onset atrial fibrillation with RVR, presently in sinus rhythm. 4 acute kidney injury with anion gap metabolic acidosis, could be related to profound hypovolemia on presentation with hyperosmolar nonketotic state. Possibility of infection and sepsis is not entirely ruled out, but felt to be less likely. 5 history of seizure disorder remains on Keppra. 6 history of CVA in 2013. 7 coronary artery disease and previous [place] 8 benign essential hypertension 9 chronic generalized anxiety disorder and depression. 10 acute hypernatremia, mostly iatrogenic received significant amount of saline since admission. patient is free water depleted, hence he will improve with changing the fluids from 0.9 normal saline to D5W. 11 by basilar atelectasis is noted on the chest x-ray this morning, requiring patient to be placed on BiPAP, chest x-ray was reviewed, and we will encourage incentive spirometry. In the meantime we'll continue antibiotics for possible component of aspiration involving her lower lobes. Patient is on Zosyn. Recommendation: Continue IV fluids, cut down D5W to 75 ML per hour., continue insulin as per protocol. Continue to monitor electrolytes, continue GI and DVT prophylaxis, continue to monitor for recurrent atrial fibrillation and RVR, continue empiric antibiotics. Patient is presently on Zosyn, the findings on the right foot and the right big toe are slightly concerning, blood cultures are pending, this Zosyn is given empirically for his cellulitis of the right foot, and empirically for presumptive/possible pneumonia involving the lower lobes. Patient will need to remain in the ICU today, and we will continue to follow closely. Prognosis remains relatively guarded at this point. He is not ready for any transfer plans at this point. Time with Patient: Less than 30
[2018-12-13 11:05] LABS: INR 1.1 (<1.2); Partial Thromboplastin Time 22.5 sec (22.0-30.0); Prothrombin Time 11.2 sec (9.0-12.0)
--- NOTE | 2018-12-13 11:07 | P.PN ---
Subjective Patient is still encephalopathy slightly better than yesterday. He is saying yes and no ROS unobtainable because of the mental status. 12/13/2018 Patient on BiPAP now Patient more awake than yesterday. According to the he apparently has expressive aphasia and very slow. He is moving his left upper and lower extremities on command today. Objective - Vital Signs Vital signs: Vital Signs Temp 99.1 F 12/13/18 08:00 Pulse 110 H 12/13/18 10:00 Resp 40 H 12/13/18 10:00 BP 148/82 12/13/18 10:00 Pulse Ox 97 12/13/18 10:00 Intake & Output 12/12/18 12/13/18 12/13/18 18:59 06:59 18:59 Intake Total 2432.125 0357.230 565.810 Output Total 950 1105 110 Balance 866.432 0268.230 455.810 Weight 97.6 kg 98.8 kg Intake: IV 2475 550 Dextrose 5% in Water 1, 1950 100 000 ml @ 75 mls/hr IV . [id number] ALEYDA Rx#:[id number] Piperacillin-Tazobactam 3 225 100 .375 gm In Sodium Chloride 0.9% 100 ml @ 25 mls/hr IVPB Q8HR ALEYDA Rx# :[id number] Potassium Chloride 10 meq 200 In Water For Injection 1 100ml.bag @ 100 mls/hr IVPB Q1H ALEYDA Rx#: [id number] Potassium Phosphate 10 250 mmol In Sodium Chloride 0 .9% 250 ml @ 125 mls/hr IV Q2H ALEYDA Rx#:[id number] levETIRAcetam IV 500 mg 100 100 In Sodium Chloride 0.9% 100 ml @ 400 mls/hr IVPB Q12HR ALEYDA Rx#:[id number] Intake, IV Titration 1914.847 60.230 15.810 Amount Dextrose 5% in Water 1, 1500 000 ml @ 75 mls/hr IV . [id number] ALEYDA Rx#:[id number] Dextrose 5%-0.45% NaCl 1, 300 000 ml @ 150 mls/hr IV . Q6H40M ALEYDA Rx#:[id number] Insulin Regular 100 unit 14.847 60.230 15.810 In Sodium Chloride 0.9% 100 ml @ Per Protocol IV .Q0M ALEYDA Rx#:[id number] Piperacillin-Tazobactam 3 100 .375 gm In Sodium Chloride 0.9% 100 ml @ 25 mls/hr IVPB Q8HR ALEYDA Rx# :[id number] Output: Urine 950 1105 110 Other: Voiding Method Indwelling Catheter Indwelling Catheter # Voids 1 - Exam On exam, more alert today.. HEENT: Conjunctivae normal. eyes normal. NECK: No JVD. No thyroid enlargement. No LNs CARDIOVASCULAR: S1, S2 positive RESPIRATION: Raspy breath sounds anteriorly and posteriorly ABDOMEN: Soft, nontender . No guarding. no masses palpable. No ascites, No hepatosplenomegaly.Bowel sounds heard. LEGS: No edema. no swelling NERVOUS SYSTEM: He is moving his left upper and lower extremities on command and saying that he is doing fine when asked Skin: no ulcer no rash - Labs CBC & Chem 7: 12/13/18 04:35 12/13/18 04:35 Labs: Abnormal Lab Results - Last 24 Hours (Table) 12/12/18 12/12/18 12/12/18 Range/Units 10:34 10:34 12:13 MCHC (31.0-37.0) g/dL Neutrophils # (Manual) (1.3-7.7) k/uL Sodium 154 H (137-145) mmol/L Chloride 123 H (98-107) mmol/L Carbon Dioxide 21 L (22-30) mmol/L BUN 76 H (9-20) mg/dL Creatinine 2.09 H (0.66-1.25) mg/dL Glucose 299 H (74-99) mg/dL POC Glucose (mg/dL) 313 H (75-99) mg/dL Phosphorus (2.5-4.5) mg/dL Troponin I 0.246 H* (0.000-0.034) ng/mL 12/12/18 12/12/18 12/12/18 Range/Units 12:59 14:23 16:05 MCHC (31.0-37.0) g/dL Neutrophils # (Manual) (1.3-7.7) k/uL Sodium (137-145) mmol/L Chloride (98-107) mmol/L Carbon Dioxide (22-30) mmol/L BUN (9-20) mg/dL Creatinine (0.66-1.25) mg/dL Glucose (74-99) mg/dL POC Glucose (mg/dL) 284 H 224 H 214 H (75-99) mg/dL Phosphorus (2.5-4.5) mg/dL Troponin I (0.000-0.034) ng/mL 12/12/18 12/12/18 12/12/18 Range/Units 17:49 18:00 19:54 MCHC (31.0-37.0) g/dL Neutrophils # (Manual) (1.3-7.7) k/uL Sodium 155 H (137-145) mmol/L Chloride 121 H (98-107) mmol/L Carbon Dioxide (22-30) mmol/L BUN 64 H (9-20) mg/dL Creatinine 1.61 H (0.66-1.25) mg/dL Glucose 218 H (74-99) mg/dL POC Glucose (mg/dL) 205 H 171 H (75-99) mg/dL Phosphorus (2.5-4.5) mg/dL Troponin I (0.000-0.034) ng/mL 12/12/18 12/13/18 12/13/18 Range/Units 21:50 00:09 00:26 MCHC (31.0-37.0) g/dL Neutrophils # (Manual) (1.3-7.7) k/uL Sodium 154 H (137-145) mmol/L Chloride 120 H (98-107) mmol/L Carbon Dioxide (22-30) mmol/L BUN 49 H (9-20) mg/dL Creatinine (0.66-1.25) mg/dL Glucose 233 H (74-99) mg/dL POC Glucose (mg/dL) 174 H 220 H (75-99) mg/dL Phosphorus (2.5-4.5) mg/dL Troponin I (0.000-0.034) ng/mL 12/13/18 12/13/18 12/13/18 Range/Units 01:47 04:02 04:35 MCHC 30.1 L (31.0-37.0) g/dL Neutrophils # (Manual) 7.80 H (1.3-7.7) k/uL Sodium (137-145) mmol/L Chloride (98-107) mmol/L Carbon Dioxide (22-30) mmol/L BUN (9-20) mg/dL Creatinine (0.66-1.25) mg/dL Glucose (74-99) mg/dL POC Glucose (mg/dL) 217 H 245 H (75-99) mg/dL Phosphorus (2.5-4.5) mg/dL Troponin I (0.000-0.034) ng/mL 12/13/18 12/13/18 12/13/18 Range/Units 04:35 05:39 08:00 MCHC (31.0-37.0) g/dL Neutrophils # (Manual) (1.3-7.7) k/uL Sodium 153 H (137-145) mmol/L Chloride 121 H (98-107) mmol/L Carbon Dioxide (22-30) mmol/L BUN 46 H (9-20) mg/dL Creatinine (0.66-1.25) mg/dL Glucose 218 H (74-99) mg/dL POC Glucose (mg/dL) 147 H 155 H (75-99) mg/dL Phosphorus 1.7 L (2.5-4.5) mg/dL Troponin I (0.000-0.034) ng/mL 12/13/18 Range/Units 10:00 MCHC (31.0-37.0) g/dL Neutrophils # (Manual) (1.3-7.7) k/uL Sodium (137-145) mmol/L Chloride (98-107) mmol/L Carbon Dioxide (22-30) mmol/L BUN (9-20) mg/dL Creatinine (0.66-1.25) mg/dL Glucose (74-99) mg/dL POC Glucose (mg/dL) 170 H (75-99) mg/dL Phosphorus (2.5-4.5) mg/dL Troponin I (0.000-0.034) ng/mL Microbiology - Last 24 Hours (Table) 12/11/18 12:37 Urine Culture - Final Urine,Voided Assessment and Plan Assessment: - Acute hypoxic respiratory failure rule out aspiration - Acute metabolic encephalopathy - Hyperosmolar nonketotic state probably causing altered mental status - Hypernatremia improving - AK I - Rule out GI bleed - New-onset A. fib with RVR now in sinus rhythm - Mild troponin elevation - History of CVA with residual right-sided weakness - History of seizures - History of CAD - History of hypertension - History of hyperlipidemia Plan - patient admitted to ICU - Continue BiPAP. ICU following the patient appreciate recommendations - Fluids can down to 75 mL of D5W. He is still on insulin drip will continue that for now - Is already on Zosyn for cellulitis of his lower extremity and for possible aspiration - We'll follow the patient Time with Patient: Greater than 30
[2018-12-13] MEDS: HEPARIN SOD,PORK IN 0.45% NACL 25,000 UNIT in 0.45% NACL 1 250ML.BAG IV SCH (11:23)
--- NOTE | 2018-12-13 11:23 | PN ---
PROGRESS NOTE Patient is seen for followup for acute kidney injury, hypernatremia. He is maintained on D5W. This morning patient is tachypneic. He is currently on a BiPAP. Mentation is somewhat improved from yesterday. Patient remains on insulin drip. The anion gap is . PHYSICAL EXAMINATION: On examination this morning, blood pressure was 148/82, heart rate 110 per minute. Patient is tachypneic. He is maintained on BiPAP. He does respond to simple questions and opens his eyes and follows simple commands. He is not able to give me a detailed history, however. EXAMINATION OF THE HEART: S1, S2. EXAMINATION OF THE LUNGS: Bilateral breath sounds are heard. No crackles or wheezing is heard. Abdomen is soft, nontender. Examination of the lower extremities shows no significant edema. LABS: Labs show sodium of 153, potassium 3.9. Serum creatinine down to 1.05. Phosphorus is 1.7. Hemoglobin at 14.6. ASSESSMENT: 1. Acute kidney injury, acute tubular necrosis, nonoliguric, currently improved. 2. Intravascular volume depletion, currently improved. 3. Left lower lobe pneumonia versus atelectasis, maintained on antibiotics. 4. Hypernatremia associated with free water deficit. Serum sodium is slightly improved IV D5W was decreased to 75 mL an hour. We will repeat another sodium this afternoon. Currently patient is not able to take oral free water secondary to his altered mentation. Swallowing test has been ordered. PLAN: Continue with the D5W. Repeat labs in a.m. Recheck serum sodium this afternoon. MMODL / IJN: [id number] /
[2018-12-13] MEDS ORDERED: VANCOMYCIN 1,000 MG in SODIUM CHLORIDE 0.9% 250 ML IVPB STA (11:49)
[2018-12-13] MEDS ORDERED: ACETAMINOPHEN IV (For NPO) 1,000 MG in EMPTY BAG 1 BAG IVPB ONE (11:50)
[2018-12-13] MEDS ORDERED: VANCOMYCIN IV PER PHARMACY 1 EACH MISC MISCELLANE PRN (11:50)
[2018-12-13] MEDS ORDERED: ACETAMINOPHEN IV (For NPO) 1,000 MG in EMPTY BAG 1 BAG IVPB PRN (11:56)
[2018-12-13 12:13] LABS: Glucose,Whole Blood 212 mg/dL (75-99)
[2018-12-13] MEDS ORDERED: VANCOMYCIN 1,750 MG in SODIUM CHLORIDE 0.9% 500 ML 500 ML IVPB ONE (12:30)
[2018-12-13 12:33] LABS: ABG Base Excess 2.7 mmol/L; ABG HCO3 26 mmol/L (21-25); ABG Oxygen Saturation 99.8 % (94-97); ABG PCO2 34 mmHg (35-45); ABG PH 7.49 (7.35-7.45); ABG PO2 143 mmHg (83-108); ABG TCO2 27 mmol/L (19-24)
[2018-12-13] MEDS ORDERED: LORazepam 2 MG/ML INJ IV PRN (12:58)
[2018-12-13 14:08] LABS: Glucose,Whole Blood 202 mg/dL (75-99)
--- NOTE | 2018-12-13 15:53 | P.PN ---
Subjective Progress Note Date: 12/13/18 This is 53-year-old gentleman is seemed to be more alert today. Patient is maintaining sinus rhythm. Slow in responding to verbal commands. His sodium is still remaining at 153. Be in his 46 and creatinine 1.05. No evidence of any recurrence of atrial fibrillation. Patient does have history of previous CVA. Because of his high TK score, patient is started on anti-cognition therapy in the form of IV heparin, if cleared by GI department. We'll continue with IV Lopressor. We'll switch to oral medication to gradually. Patient is also on prophylactic antibiotics. We'll follow Objective - Vital Signs Vital signs: Vital Signs Temp 98.7 F 12/13/18 15:00 Pulse 82 12/13/18 15:00 Resp 31 H 12/13/18 15:00 BP 108/74 12/13/18 15:00 Pulse Ox 97 12/13/18 15:00 Intake & Output 12/12/18 12/13/18 12/13/18 18:59 06:59 18:59 Intake Total 7244.748 0145.230 1099.025 Output Total 950 1105 475 Balance 526.536 6210.230 624.025 Weight 97.6 kg 98.8 kg Intake: IV 2475 1075 Dextrose 5% in Water 1, 1950 625 000 ml @ 75 mls/hr IV . [id number] [facility] Rx#:[id number] Piperacillin-Tazobactam 3 225 100 .375 gm In Sodium Chloride 0.9% 100 ml @ 25 mls/hr IVPB Q8HR [facility] Rx# :[id number] Potassium Chloride 10 meq 200 In Water For Injection 1 100ml.bag @ 100 mls/hr IVPB Q1H [facility] Rx#: [id number] Potassium Phosphate 10 250 mmol In Sodium Chloride 0 .9% 250 ml @ 125 mls/hr IV Q2H [facility] Rx#:[id number] levETIRAcetam IV 500 mg 100 100 In Sodium Chloride 0.9% 100 ml @ 400 mls/hr IVPB Q12HR [facility] Rx#:[id number] Intake, IV Titration 1914.847 60.230 24.025 Amount Dextrose 5% in Water 1, 1500 000 ml @ 75 mls/hr IV . [id number] [facility] Rx#:[id number] Dextrose 5%-0.45% NaCl 1, 300 000 ml @ 150 mls/hr IV . Q6H40M [facility] Rx#:[id number] Insulin Regular 100 unit 14.847 60.230 24.025 In Sodium Chloride 0.9% 100 ml @ Per Protocol IV .Q0M [facility] Rx#:[id number] Piperacillin-Tazobactam 3 100 .375 gm In Sodium Chloride 0.9% 100 ml @ 25 mls/hr IVPB Q8HR [facility] Rx# :[id number] Output: Urine 950 1105 475 Other: Voiding Method Indwelling Catheter Indwelling Catheter Indwelling Catheter # Voids 1 - Exam GENERAL EXAM: Patient is alert but slow in mentation. Could be secondary to previous CVA HEENT: Normocephalic. Normal reaction of pupils, equal size, normal range of extraocular motion. No erythema or exudates in the throat. NECK: No masses, no nuchal rigidity. CHEST: No chest wall deformity. LUNGS: Crepitations at the base HEART: S1 and S2 normal with no audible mumurs or gallops. Regular rhythm, femorals equal on both sides.. ABDOMEN: No hepatosplenomegaly, normal bowel sounds, no guarding or rigidity. SKIN: No rashes CENTRAL NERVOUS SYSTEM: No focal deficits. EXTREMITIES: No cyanosis, clubbing or edema. - Labs CBC & Chem 7: 12/13/18 04:35 12/13/18 04:35 Labs: Abnormal Lab Results - Last 24 Hours (Table) 12/12/18 12/12/18 12/12/18 Range/Units 16:05 17:49 18:00 MCHC (31.0-37.0) g/dL Neutrophils # (Manual) (1.3-7.7) k/uL ABG pH (7.35-7.45) ABG pCO2 (35-45) mmHg ABG pO2 (83-108) mmHg ABG HCO3 (21-25) mmol/L ABG Total CO2 (19-24) mmol/L ABG O2 Saturation (94-97) % Sodium 155 H (137-145) mmol/L Chloride 121 H (98-107) mmol/L BUN 64 H (9-20) mg/dL Creatinine 1.61 H (0.66-1.25) mg/dL Glucose 218 H (74-99) mg/dL POC Glucose (mg/dL) 214 H 205 H (75-99) mg/dL Phosphorus (2.5-4.5) mg/dL 12/12/18 12/12/18 12/13/18 Range/Units 19:54 21:50 00:09 MCHC (31.0-37.0) g/dL Neutrophils # (Manual) (1.3-7.7) k/uL ABG pH (7.35-7.45) ABG pCO2 (35-45) mmHg ABG pO2 (83-108) mmHg ABG HCO3 (21-25) mmol/L ABG Total CO2 (19-24) mmol/L ABG O2 Saturation (94-97) % Sodium (137-145) mmol/L Chloride (98-107) mmol/L BUN (9-20) mg/dL Creatinine (0.66-1.25) mg/dL Glucose (74-99) mg/dL POC Glucose (mg/dL) 171 H 174 H 220 H (75-99) mg/dL Phosphorus (2.5-4.5) mg/dL 12/13/18 12/13/18 12/13/18 Range/Units 00:26 01:47 04:02 MCHC (31.0-37.0) g/dL Neutrophils # (Manual) (1.3-7.7) k/uL ABG pH (7.35-7.45) ABG pCO2 (35-45) mmHg ABG pO2 (83-108) mmHg ABG HCO3 (21-25) mmol/L ABG Total CO2 (19-24) mmol/L ABG O2 Saturation (94-97) % Sodium 154 H (137-145) mmol/L Chloride 120 H (98-107) mmol/L BUN 49 H (9-20) mg/dL Creatinine (0.66-1.25) mg/dL Glucose 233 H (74-99) mg/dL POC Glucose (mg/dL) 217 H 245 H (75-99) mg/dL Phosphorus (2.5-4.5) mg/dL 12/13/18 12/13/18 12/13/18 Range/Units 04:35 04:35 05:39 MCHC 30.1 L (31.0-37.0) g/dL Neutrophils # (Manual) 7.80 H (1.3-7.7) k/uL ABG pH (7.35-7.45) ABG pCO2 (35-45) mmHg ABG pO2 (83-108) mmHg ABG HCO3 (21-25) mmol/L ABG Total CO2 (19-24) mmol/L ABG O2 Saturation (94-97) % Sodium 153 H (137-145) mmol/L Chloride 121 H (98-107) mmol/L BUN 46 H (9-20) mg/dL Creatinine (0.66-1.25) mg/dL Glucose 218 H (74-99) mg/dL POC Glucose (mg/dL) 147 H (75-99) mg/dL Phosphorus 1.7 L (2.5-4.5) mg/dL 12/13/18 12/13/18 12/13/18 Range/Units 08:00 10:00 12:08 MCHC (31.0-37.0) g/dL Neutrophils # (Manual) (1.3-7.7) k/uL ABG pH (7.35-7.45) ABG pCO2 (35-45) mmHg ABG pO2 (83-108) mmHg ABG HCO3 (21-25) mmol/L ABG Total CO2 (19-24) mmol/L ABG O2 Saturation (94-97) % Sodium (137-145) mmol/L Chloride (98-107) mmol/L BUN (9-20) mg/dL Creatinine (0.66-1.25) mg/dL Glucose (74-99) mg/dL POC Glucose (mg/dL) 155 H 170 H 212 H (75-99) mg/dL Phosphorus (2.5-4.5) mg/dL 12/13/18 12/13/18 Range/Units 12:28 14:07 MCHC (31.0-37.0) g/dL Neutrophils # (Manual) (1.3-7.7) k/uL ABG pH 7.49 H (7.35-7.45) ABG pCO2 34 L (35-45) mmHg ABG pO2 143 H (83-108) mmHg ABG HCO3 26 H (21-25) mmol/L ABG Total CO2 27 H (19-24) mmol/L ABG O2 Saturation 99.8 H (94-97) % Sodium (137-145) mmol/L Chloride (98-107) mmol/L BUN (9-20) mg/dL Creatinine (0.66-1.25) mg/dL Glucose (74-99) mg/dL POC Glucose (mg/dL) 202 H (75-99) mg/dL Phosphorus (2.5-4.5) mg/dL Microbiology - Last 24 Hours (Table) 12/12/18 10:34 Blood Culture - Preliminary Blood No Growth after 24 hours 12/11/18 12:37 Urine Culture - Final Urine,Voided Assessment and Plan (1) Atrial fibrillation with RVR Current Visit: Yes Status: Acute Code(s): I48.91 - UNSPECIFIED ATRIAL FIBRILLATION SNOMED Code(s): 087284886506848 (2) Dyslipidemia Current Visit: No Status: Acute Code(s): E78.5 - HYPERLIPIDEMIA, UNSPECIFIED SNOMED Code(s): 329178210 (3) Hypertension Current Visit: No Status: Acute Code(s): I10 - ESSENTIAL (PRIMARY) HYPERTENSION SNOMED Code(s): 34170844 (4) Elevated troponin Current Visit: Yes Status: Acute Code(s): R74.8 - ABNORMAL LEVELS OF OTHER SERUM ENZYMES SNOMED Code(s): 003977063 Plan: Patient is more alert. Still has hyperosmolar state with sodium of 153. Maintaining sinus rhythm. Being initiated on IV anticoagulation
[2018-12-13 16:07] LABS: Glucose,Whole Blood 164 mg/dL (75-99)
--- NOTE | 2018-12-13 16:17 | CONS ---
CONSULTATION This is a 63-year-old gentleman who has been admitted to intensive care unit. The patient has been admitted with acute metabolic encephalopathy. History of coronary artery disease, history of CVA with right-sided weakness, history of hypertension, hyperlipidemia. I was consulted. The patient has an ulcer right foot big toe. PHYSICAL EXAMINATION: Patient was seen in his room. Patient is on BiPAP. The patient has respiratory first and second sounds present but crackles noted bilateral. ABDOMEN: Soft, nontender. Vascular examination: Femorals are palpable. Posterior tibial, dorsalis pedis by the Doppler. Right foot big toe has ulcer at the nail bed with mild redness. No discharge or redness noted. PLAN: We will use Medihoney gel for the right foot big toe, change the dressing daily and patient is on IV antibiotic which will be continued. At this point, ultrasound of the big toe is not infected. We will treat with local wound care. When patient is discharged from the hospital, we can follow this in the wound clinic. The patient does not need any surgical intervention. Thank you very much for the consultation. MMODL / IJN: [id number] /
[2018-12-13 17:13] LABS: HCT 41.9 % (39.0-53.0); HGB 13.7 gm/dL (13.0-17.5); MCHC 32.7 g/dL (31.0-37.0); Platelet Count 154 k/uL (150-450); RBC 4.72 m/uL (4.30-5.90); RDW 14.8 % (11.5-15.5); WBC 13.7 k/uL (3.8-10.6)
[2018-12-13 17:16] LABS: MCV 88.7 fL (80.0-100.0)
[2018-12-13 17:36] LABS: Potassium 3.8 mmol/L (3.5-5.1)
[2018-12-13 18:06] LABS: Glucose,Whole Blood 181 mg/dL (75-99)
[2018-12-13] MEDS: HEPARIN SODIUM,PORCINE 5,000 UNIT/ML 1 ML VIAL IV PRN (18:29)
[2018-12-13 19:35] LABS: Hemoglobin A1C 12.7 % (4.0-6.0)
[2018-12-13 19:52] LABS: Glucose,Whole Blood 187 mg/dL (75-99)
[2018-12-13 22:06] LABS: Glucose,Whole Blood 168 mg/dL (75-99)
[2018-12-14] MEDS ORDERED: VANCOMYCIN 1,500 MG in SODIUM CHLORIDE 0.9% 250 ML IVPB SCH ×2
[2018-12-14 00:03] LABS: Glucose,Whole Blood 171 mg/dL (75-99)
[2018-12-14 01:56] LABS: Glucose,Whole Blood 169 mg/dL (75-99)
[2018-12-14 03:51] LABS: Glucose,Whole Blood 153 mg/dL (75-99)
[2018-12-14 05:48] LABS: Glucose,Whole Blood 139 mg/dL (75-99)
[2018-12-14 06:20] LABS: Basophils % (A) 0 %; Eosinophils # (A) 0.1 k/uL (0-0.7); Eosinophils % (A) 1 %; HGB 14.2 gm/dL (13.0-17.5); Lymphocytes # (A) 1.4 k/uL (1.0-4.8); Lymphocytes % (A) 12 %; MCH 28.3 pg (25.0-35.0); MCHC 31.7 g/dL (31.0-37.0); MCV 89.2 fL (80.0-100.0); Monocytes # (A) 0.5 k/uL (0-1.0); Monocytes % (A) 4 %; Neutrophils % (A) 82 %; Platelet Count 129 k/uL (150-450); RBC 5.04 m/uL (4.30-5.90); RDW 14.6 % (11.5-15.5); WBC 12.2 k/uL (3.8-10.6)
[2018-12-14 06:33] LABS: Anion Gap 4 mmol/L; Blood Urea Nitrogen 31 mg/dL (9-20); Calcium 8.1 mg/dL (8.4-10.2); Carbon Dioxide 28 mmol/L (22-30); Chloride 116 mmol/L (98-107); Glucose 163 mg/dL (74-99); Magnesium 1.9 mg/dL (1.6-2.3); Phosphorus 1.5 mg/dL (2.5-4.5); Potassium 3.9 mmol/L (3.5-5.1); Sodium 148 mmol/L (137-145)
--- NOTE | 2018-12-14 06:35 | XR ---
EXAMINATION TYPE: XR chest 1V portable DATE OF EXAM: 12/14/2018 CLINICAL HISTORY: Difficulty breathing progress study. TECHNIQUE: Single AP portable upright view of the chest is obtained. COMPARISON: Chest x-ray from one day earlier and older studies. FINDINGS: Patchy left basilar opacity remains present. Right lung remains clear. Cardiac silhouette size is stable and within normal limits. Osseous structures are intact. Overlying EKG leads are redem onstrated. IMPRESSION: Overall stable findings, persistent patchy left basilar atelectasis and/or infiltrate
[2018-12-14 07:01] LABS: Glucose,Whole Blood 147 mg/dL (75-99)
[2018-12-14] MEDS: METOPROLOL TARTRATE 5 MG/5 ML VIAL IVP SCH ×3 (07:09→23:55)
[2018-12-14] MEDS: HEPARIN SOD,PORK IN 0.45% NACL 25,000 UNIT in 0.45% NACL 1 250ML.BAG IV SCH (07:30)
[2018-12-14 09:02] LABS: Glucose,Whole Blood 146 mg/dL (75-99)
[2018-12-14] MEDS: POTASSIUM PHOSPHATE 10 MMOL in SODIUM CHLORIDE 0.9% 250 ML IV SCH ×2 (09:47→13:21)
[2018-12-14] MEDS: PANTOPRAZOLE 40 MG/10 ML VIAL IV SCH (09:48)
[2018-12-14] MEDS: PIPERACILLIN-TAZOBACTAM 3.375 GM in SODIUM CHLORIDE 0.9% 100 ML IVPB SCH ×3 (09:48→23:51)
[2018-12-14] MEDS: VANCOMYCIN 1,500 MG in SODIUM CHLORIDE 0.9% 250 ML IVPB SCH ×2 (10:04→18:40)
[2018-12-14] MEDS ORDERED: IPRATROPIUM-ALBUTEROL 3 ML NEB INHALATION PRN (10:14)
[2018-12-14] MEDS ORDERED: ACETAMINOPHEN IV (For NPO) 1,000 MG in EMPTY BAG 1 BAG IVPB PRN (10:36)
[2018-12-14] MEDS: levETIRAcetam IV 500 MG in SODIUM CHLORIDE 0.9% 100 ML IVPB SCH ×2 (10:42→20:40)
[2018-12-14] MEDS: DEXTROSE 5% IN WATER 1,000 ML IV SCH ×2 (11:01→23:51)
[2018-12-14 11:05] LABS: Glucose,Whole Blood 148 mg/dL (75-99)
--- NOTE | 2018-12-14 11:06 | P.PN ---
Subjective Progress Note Date: 12/14/18 This is 53-year-old gentleman is seemed to be more alert today. Patient is maintaining sinus rhythm. Slow in responding to verbal commands. His sodium is still remaining at 153. Be in his 46 and creatinine 1.05. No evidence of any recurrence of atrial fibrillation. Patient does have history of previous CVA. Because of his high TK score, patient is started on anti-cognition therapy in the form of IV heparin, if cleared by GI department. We'll continue with IV Lopressor. We'll switch to oral medication to gradually. Patient is also on prophylactic antibiotics. We'll follow. 12/14/2018: Patient remains alert and communicative. Maintaining sinus rhythm. His sodium showed improvement and is about 148. Renal functions are stable. Urine output is good. Doesn't appear to be in acute distress. Patient is going to have a swallowing evaluation. Patient is on IV heparin and also IV Lopressor. We'll continue current medical therapy. Once patient is able to take medication by mouth, we'll start him on by mouth beta aliya and also anticoagulate agent. Objective - Vital Signs Vital signs: Vital Signs Temp 101 F H 12/14/18 10:00 Pulse 98 12/14/18 10:00 Resp 18 12/14/18 10:00 BP 115/66 12/14/18 10:00 Pulse Ox 95 12/14/18 10:00 Intake & Output 12/13/18 12/14/18 12/14/18 18:59 06:59 18:59 Intake Total 6690.233 8139.957 950 Output Total 665 740 320 Balance 791.278 665.957 630 Weight 103.1 kg Intake: IV 1400 1350 950 Dextrose 5% in Water 1, 850 900 375 000 ml @ 75 mls/hr IV . [id number] [facility] Rx#:[id number] Piperacillin-Tazobactam 3 200 100 100 .375 gm In Sodium Chloride 0.9% 100 ml @ 25 mls/hr IVPB Q8HR [facility] Rx# :[id number] Potassium Phosphate 10 250 mmol In Sodium Chloride 0 .9% 250 ml @ 125 mls/hr IV Q2H [facility] Rx#:[id number] Potassium Phosphate 10 125 mmol In Sodium Chloride 0 .9% 250 ml @ 125 mls/hr IV Q2H [facility] Rx#:[id number] Vancomycin 1,500 mg In 250 Sodium Chloride 0.9% 250 ml @ 125 mls/hr IVPB Q12H [facility] Rx#:[id number] Vancomycin 1,500 mg In 250 Sodium Chloride 0.9% 250 ml @ 125 mls/hr IVPB Q8H [facility] Rx#:[id number] levETIRAcetam IV 500 mg 100 100 100 In Sodium Chloride 0.9% 100 ml @ 400 mls/hr IVPB Q12HR [facility] Rx#:[id number] Intake, IV Titration 56.278 55.957 0 Amount Insulin Regular 100 unit 56.278 55.957 0 In Sodium Chloride 0.9% 100 ml @ Per Protocol IV .Q0M [facility] Rx#:[id number] Output: Urine 665 740 320 Other: Voiding Method Indwelling Catheter Indwelling Catheter # Bowel Movements 1 - Exam GENERAL EXAM: Patient is alert but slow in mentation. Could be secondary to previous CVA HEENT: Normocephalic. Normal reaction of pupils, equal size, normal range of extraocular motion. No erythema or exudates in the throat. NECK: No masses, no nuchal rigidity. CHEST: No chest wall deformity. LUNGS: Crepitations at the base HEART: S1 and S2 normal with no audible mumurs or gallops. Regular rhythm, femorals equal on both sides.. ABDOMEN: No hepatosplenomegaly, normal bowel sounds, no guarding or rigidity. SKIN: No rashes CENTRAL NERVOUS SYSTEM: No focal deficits. EXTREMITIES: No cyanosis, clubbing or edema. - Labs CBC & Chem 7: 12/14/18 05:41 12/14/18 05:41 Labs: Abnormal Lab Results - Last 24 Hours (Table) 12/13/18 12/13/18 12/13/18 Range/Units 10:32 12:08 12:28 WBC (3.8-10.6) k/uL Plt Count (150-450) k/uL Neutrophils # (1.3-7.7) k/uL APTT (22.0-30.0) sec ABG pH 7.49 H (7.35-7.45) ABG pCO2 34 L (35-45) mmHg ABG pO2 143 H (83-108) mmHg ABG HCO3 26 H (21-25) mmol/L ABG Total CO2 27 H (19-24) mmol/L ABG O2 Saturation 99.8 H (94-97) % Sodium (137-145) mmol/L Chloride (98-107) mmol/L BUN (9-20) mg/dL Glucose (74-99) mg/dL POC Glucose (mg/dL) 212 H (75-99) mg/dL Hemoglobin A1c 12.7 H (4.0-6.0) % Calcium (8.4-10.2) mg/dL Phosphorus (2.5-4.5) mg/dL 12/13/18 12/13/18 12/13/18 Range/Units 14:07 16:06 17:00 WBC (3.8-10.6) k/uL Plt Count (150-450) k/uL Neutrophils # (1.3-7.7) k/uL APTT (22.0-30.0) sec ABG pH (7.35-7.45) ABG pCO2 (35-45) mmHg ABG pO2 (83-108) mmHg ABG HCO3 (21-25) mmol/L ABG Total CO2 (19-24) mmol/L ABG O2 Saturation (94-97) % Sodium 150 H (137-145) mmol/L Chloride 117 H (98-107) mmol/L BUN (9-20) mg/dL Glucose (74-99) mg/dL POC Glucose (mg/dL) 202 H 164 H (75-99) mg/dL Hemoglobin A1c (4.0-6.0) % Calcium (8.4-10.2) mg/dL Phosphorus (2.5-4.5) mg/dL 12/13/18 12/13/18 12/13/18 Range/Units 17:00 17:00 18:03 WBC 13.7 H (3.8-10.6) k/uL Plt Count (150-450) k/uL Neutrophils # (1.3-7.7) k/uL APTT 35.4 H (22.0-30.0) sec ABG pH (7.35-7.45) ABG pCO2 (35-45) mmHg ABG pO2 (83-108) mmHg ABG HCO3 (21-25) mmol/L ABG Total CO2 (19-24) mmol/L ABG O2 Saturation (94-97) % Sodium (137-145) mmol/L Chloride (98-107) mmol/L BUN (9-20) mg/dL Glucose (74-99) mg/dL POC Glucose (mg/dL) 181 H (75-99) mg/dL Hemoglobin A1c (4.0-6.0) % Calcium (8.4-10.2) mg/dL Phosphorus (2.5-4.5) mg/dL 12/13/18 12/13/18 12/14/18 Range/Units 19:51 22:05 00:01 WBC (3.8-10.6) k/uL Plt Count (150-450) k/uL Neutrophils # (1.3-7.7) k/uL APTT (22.0-30.0) sec ABG pH (7.35-7.45) ABG pCO2 (35-45) mmHg ABG pO2 (83-108) mmHg ABG HCO3 (21-25) mmol/L ABG Total CO2 (19-24) mmol/L ABG O2 Saturation (94-97) % Sodium (137-145) mmol/L Chloride (98-107) mmol/L BUN (9-20) mg/dL Glucose (74-99) mg/dL POC Glucose (mg/dL) 187 H 168 H 171 H (75-99) mg/dL Hemoglobin A1c (4.0-6.0) % Calcium (8.4-10.2) mg/dL Phosphorus (2.5-4.5) mg/dL 12/14/18 12/14/18 12/14/18 Range/Units 01:35 01:54 03:49 WBC (3.8-10.6) k/uL Plt Count (150-450) k/uL Neutrophils # (1.3-7.7) k/uL APTT 57.4 H (22.0-30.0) sec ABG pH (7.35-7.45) ABG pCO2 (35-45) mmHg ABG pO2 (83-108) mmHg ABG HCO3 (21-25) mmol/L ABG Total CO2 (19-24) mmol/L ABG O2 Saturation (94-97) % Sodium (137-145) mmol/L Chloride (98-107) mmol/L BUN (9-20) mg/dL Glucose (74-99) mg/dL POC Glucose (mg/dL) 169 H 153 H (75-99) mg/dL Hemoglobin A1c (4.0-6.0) % Calcium (8.4-10.2) mg/dL Phosphorus (2.5-4.5) mg/dL 12/14/18 12/14/18 12/14/18 Range/Units 05:41 05:41 05:47 WBC 12.2 H (3.8-10.6) k/uL Plt Count 129 L (150-450) k/uL Neutrophils # 10.0 H (1.3-7.7) k/uL APTT (22.0-30.0) sec ABG pH (7.35-7.45) ABG pCO2 (35-45) mmHg ABG pO2 (83-108) mmHg ABG HCO3 (21-25) mmol/L ABG Total CO2 (19-24) mmol/L ABG O2 Saturation (94-97) % Sodium 148 H (137-145) mmol/L Chloride 116 H (98-107) mmol/L BUN 31 H (9-20) mg/dL Glucose 163 H (74-99) mg/dL POC Glucose (mg/dL) 139 H (75-99) mg/dL Hemoglobin A1c (4.0-6.0) % Calcium 8.1 L (8.4-10.2) mg/dL Phosphorus 1.5 L (2.5-4.5) mg/dL 12/14/18 12/14/18 Range/Units 06:59 09:01 WBC (3.8-10.6) k/uL Plt Count (150-450) k/uL Neutrophils # (1.3-7.7) k/uL APTT (22.0-30.0) sec ABG pH (7.35-7.45) ABG pCO2 (35-45) mmHg ABG pO2 (83-108) mmHg ABG HCO3 (21-25) mmol/L ABG Total CO2 (19-24) mmol/L ABG O2 Saturation (94-97) % Sodium (137-145) mmol/L Chloride (98-107) mmol/L BUN (9-20) mg/dL Glucose (74-99) mg/dL POC Glucose (mg/dL) 147 H 146 H (75-99) mg/dL Hemoglobin A1c (4.0-6.0) % Calcium (8.4-10.2) mg/dL Phosphorus (2.5-4.5) mg/dL Microbiology - Last 24 Hours (Table) 12/12/18 10:34 Blood Culture - Preliminary Blood No Growth after 24 hours Assessment and Plan (1) Atrial fibrillation with RVR Current Visit: Yes Status: Acute Code(s): I48.91 - UNSPECIFIED ATRIAL FIBRILLATION SNOMED Code(s): 631007553212349 (2) Dyslipidemia Current Visit: No Status: Acute Code(s): E78.5 - HYPERLIPIDEMIA, UNSPECIFIED SNOMED Code(s): 964891224 (3) Hypertension Current Visit: No Status: Acute Code(s): I10 - ESSENTIAL (PRIMARY) HYPERTENSION SNOMED Code(s): 46566076 (4) Elevated troponin Current Visit: Yes Status: Acute Code(s): R74.8 - ABNORMAL LEVELS OF OTHER SERUM ENZYMES SNOMED Code(s): 608502730 Plan: Continue current management. Swallowing evaluation today. We will switch to by mouth medications when patient is able to swallow
--- NOTE | 2018-12-14 11:19 | P.PN ---
Subjective Progress Note Date: 12/14/18 Principal diagnosis: Hyperosmolar nonketotic state and mental status change 63-year-old male patient presented with altered mentation and vomiting. He apparently had coffee-ground emesis and syncope. In the ED, the patient was diagnosed having a acute hyperosmolar nonketotic state and the patient was started on treatment immediately with IV fluids and insulin drip. The patient himself was unable to provide any history. He denied having any chest pain. No abdominal pain. His initial blood sugar was 1400. The patient was given 2 L of IV fluids and started on insulin drip. The first set of troponin was 0.1. The BNP was 7080. Computed tomography scan of the head and the neck was unremarkable. The patient got transferred to the ICU. The patient is an acute kidney injury. Urine is at 79. Creatinine is at 3.9. The patient's anion gap is at 32. Serum bicarb is at 15. The lactic acid level is at 3.0. There is only trace urinary ketones. The patient's hemoglobin is at 16.5. White cell count is not elevated. EKG showing atrial fibrillation with rapid ventricular response. Chest x-ray showing a basilar atelectasis Patient was reevaluated today on 12/12/2018, remains in the intensive care unit, and bit more arousable, follows very simple instructions, but overall remains a bit encephalopathic. According to the nurses his mental status is gradually improving. Patient remains on insulin drip, his IV fluid was switched to D5W because of his significantly elevated sodium today is up to 157. Patient does not seem to be in any form of distress. He is resting comfortably in bed. Repeat labs this morning showed a sodium of 154 BUN of 76 creatinine is 2.09. His creatinine is gradually improving, it was 3.95 yesterday. Chest x-ray this morning showed mostly left basilar airspace disease, likely atelectasis, underlying pneumonia is not entirely ruled out. Reevaluated today on 12/13/2018, patient remains in the ICU, he is more alert, however he is noted to have marginal O2 saturations. Patient was placed overnight on a high flow nasal cannula, and I have noted this morning that the patient has an extremely poor and weak cough. His chest x-ray showed mostly atelectasis especially at the left base. Hence I recommended patient goes on BiPAP, and he would be on BiPAP of 12 and 4. His FiO2 will be titrated accordingly. His sodium remains high at 153, BUN is 46 creatinine is 1.05. WBC count is 10.5 hemoglobin is 14.6. Patient remains on Zosyn empirically, his IV fluid was cut down to 75 mL/h, he remains on Keppra, and this morning because of his agitation and I recommended Ativan 1 mg IV push times one. Patient was reevaluated today on 12/14/2018, remains in the ICU, becoming more and more alert, however he has a very weak cough. Patient is now off BiPAP, and he is on 10 L high flow nasal cannula. O2 saturation is in the mid 90s. Patient has been spiking fevers intermittently, cultures have been negative so far, and the patient remains on Zosyn and vancomycin for now. I will likely discontinue vancomycin tomorrow if cultures come back nondiagnostic. However I would maintain the patient on Zosyn. Chest x-ray continues to show some atelectasis at the left base. Patient had no major issues overnight, and his labs were reviewed today. CBC is relatively normal. PTT is therapeutic at 57.4. Sodium is coming down to 148 renal profile is significantly better is basically almost normal. Sugar is 163. Repeat lactic acid couple of days ago was 1.1 his serum osmolality on admission was 418. Patient remains on heparin for atrial fibrillation with RVR. And that is being addressed by cardiology, he was also noted to have elevated troponin on admission. Patient is now in sinus rhythm. Patient will likely have a swallow evaluation today, and if he passes we will start oral feedings. Objective - Vital Signs Vital signs: Vital Signs Temp 101 F H 12/14/18 10:00 Pulse 96 12/14/18 11:00 Resp 21 12/14/18 11:00 BP 113/73 12/14/18 11:00 Pulse Ox 95 12/14/18 11:00 Intake & Output 12/13/18 12/14/18 12/14/18 18:59 06:59 18:59 Intake Total 4853.958 6307.957 950 Output Total 665 740 320 Balance 791.278 665.957 630 Weight 103.1 kg Intake: IV 1400 1350 950 Dextrose 5% in Water 1, 850 900 375 000 ml @ 75 mls/hr IV . [id number] [facility] Rx#:[id number] Piperacillin-Tazobactam 3 200 100 100 .375 gm In Sodium Chloride 0.9% 100 ml @ 25 mls/hr IVPB Q8HR [facility] Rx# :[id number] Potassium Phosphate 10 250 mmol In Sodium Chloride 0 .9% 250 ml @ 125 mls/hr IV Q2H [facility] Rx#:[id number] Potassium Phosphate 10 125 mmol In Sodium Chloride 0 .9% 250 ml @ 125 mls/hr IV Q2H [facility] Rx#:[id number] Vancomycin 1,500 mg In 250 Sodium Chloride 0.9% 250 ml @ 125 mls/hr IVPB Q12H [facility] Rx#:[id number] Vancomycin 1,500 mg In 250 Sodium Chloride 0.9% 250 ml @ 125 mls/hr IVPB Q8H [facility] Rx#:[id number] levETIRAcetam IV 500 mg 100 100 100 In Sodium Chloride 0.9% 100 ml @ 400 mls/hr IVPB Q12HR [facility] Rx#:[id number] Intake, IV Titration 56.278 55.957 0 Amount Insulin Regular 100 unit 56.278 55.957 0 In Sodium Chloride 0.9% 100 ml @ Per Protocol IV .Q0M [facility] Rx#:[id number] Output: Urine 665 740 320 Other: Voiding Method Indwelling Catheter Indwelling Catheter # Bowel Movements 1 - Exam Physical Exam: Revealed a 63-year-old white male, awake, responsive, sitting at a bedside chair. However continues to have a very weak cough. Head: Atraumatic, normocephalic. HEENT:[Neck is supple.] [No neck masses.] [No thyromegaly.] [No JVD.] PERRLA, EOMI, no icterus. Chest: [Diminished breath sounds at the bases, minimal crackles at the left base noted, no rhonchi and no wheezes. Symmetrical chest expansion. No chest wall tenderness..] Cardiac Exam: [Normal S1 and S2, no S3 gallop, no murmur.] Abdomen: [Soft, nontender, no megaly, no rebound, no guarding, normal bowel sounds.] Extremities: [No clubbing, no edema, no cyanosis.], Those are basically unchanged basically the same pain Neurological Exam: Alert, oriented, seems to be a bit stronger today, but generally weak, follows instructions. Lymphatics: No lymphadenopathy. Psychiatric: Normal mood, affect and mental status examination. - Labs CBC & Chem 7: 12/14/18 05:41 12/14/18 05:41 Labs: Abnormal Lab Results - Last 24 Hours (Table) 12/13/18 12/13/18 12/13/18 Range/Units 10:32 12:08 12:28 WBC (3.8-10.6) k/uL Plt Count (150-450) k/uL Neutrophils # (1.3-7.7) k/uL APTT (22.0-30.0) sec ABG pH 7.49 H (7.35-7.45) ABG pCO2 34 L (35-45) mmHg ABG pO2 143 H (83-108) mmHg ABG HCO3 26 H (21-25) mmol/L ABG Total CO2 27 H (19-24) mmol/L ABG O2 Saturation 99.8 H (94-97) % Sodium (137-145) mmol/L Chloride (98-107) mmol/L BUN (9-20) mg/dL Glucose (74-99) mg/dL POC Glucose (mg/dL) 212 H (75-99) mg/dL Hemoglobin A1c 12.7 H (4.0-6.0) % Calcium (8.4-10.2) mg/dL Phosphorus (2.5-4.5) mg/dL 12/13/18 12/13/18 12/13/18 Range/Units 14:07 16:06 17:00 WBC (3.8-10.6) k/uL Plt Count (150-450) k/uL Neutrophils # (1.3-7.7) k/uL APTT (22.0-30.0) sec ABG pH (7.35-7.45) ABG pCO2 (35-45) mmHg ABG pO2 (83-108) mmHg ABG HCO3 (21-25) mmol/L ABG Total CO2 (19-24) mmol/L ABG O2 Saturation (94-97) % Sodium 150 H (137-145) mmol/L Chloride 117 H (98-107) mmol/L BUN (9-20) mg/dL Glucose (74-99) mg/dL POC Glucose (mg/dL) 202 H 164 H (75-99) mg/dL Hemoglobin A1c (4.0-6.0) % Calcium (8.4-10.2) mg/dL Phosphorus (2.5-4.5) mg/dL 12/13/18 12/13/18 12/13/18 Range/Units 17:00 17:00 18:03 WBC 13.7 H (3.8-10.6) k/uL Plt Count (150-450) k/uL Neutrophils # (1.3-7.7) k/uL APTT 35.4 H (22.0-30.0) sec ABG pH (7.35-7.45) ABG pCO2 (35-45) mmHg ABG pO2 (83-108) mmHg ABG HCO3 (21-25) mmol/L ABG Total CO2 (19-24) mmol/L ABG O2 Saturation (94-97) % Sodium (137-145) mmol/L Chloride (98-107) mmol/L BUN (9-20) mg/dL Glucose (74-99) mg/dL POC Glucose (mg/dL) 181 H (75-99) mg/dL Hemoglobin A1c (4.0-6.0) % Calcium (8.4-10.2) mg/dL Phosphorus (2.5-4.5) mg/dL 12/13/18 12/13/18 12/14/18 Range/Units 19:51 22:05 00:01 WBC (3.8-10.6) k/uL Plt Count (150-450) k/uL Neutrophils # (1.3-7.7) k/uL APTT (22.0-30.0) sec ABG pH (7.35-7.45) ABG pCO2 (35-45) mmHg ABG pO2 (83-108) mmHg ABG HCO3 (21-25) mmol/L ABG Total CO2 (19-24) mmol/L ABG O2 Saturation (94-97) % Sodium (137-145) mmol/L Chloride (98-107) mmol/L BUN (9-20) mg/dL Glucose (74-99) mg/dL POC Glucose (mg/dL) 187 H 168 H 171 H (75-99) mg/dL Hemoglobin A1c (4.0-6.0) % Calcium (8.4-10.2) mg/dL Phosphorus (2.5-4.5) mg/dL 12/14/18 12/14/18 12/14/18 Range/Units 01:35 01:54 03:49 WBC (3.8-10.6) k/uL Plt Count (150-450) k/uL Neutrophils # (1.3-7.7) k/uL APTT 57.4 H (22.0-30.0) sec ABG pH (7.35-7.45) ABG pCO2 (35-45) mmHg ABG pO2 (83-108) mmHg ABG HCO3 (21-25) mmol/L ABG Total CO2 (19-24) mmol/L ABG O2 Saturation (94-97) % Sodium (137-145) mmol/L Chloride (98-107) mmol/L BUN (9-20) mg/dL Glucose (74-99) mg/dL POC Glucose (mg/dL) 169 H 153 H (75-99) mg/dL Hemoglobin A1c (4.0-6.0) % Calcium (8.4-10.2) mg/dL Phosphorus (2.5-4.5) mg/dL 12/14/18 12/14/18 12/14/18 Range/Units 05:41 05:41 05:47 WBC 12.2 H (3.8-10.6) k/uL Plt Count 129 L (150-450) k/uL Neutrophils # 10.0 H (1.3-7.7) k/uL APTT (22.0-30.0) sec ABG pH (7.35-7.45) ABG pCO2 (35-45) mmHg ABG pO2 (83-108) mmHg ABG HCO3 (21-25) mmol/L ABG Total CO2 (19-24) mmol/L ABG O2 Saturation (94-97) % Sodium 148 H (137-145) mmol/L Chloride 116 H (98-107) mmol/L BUN 31 H (9-20) mg/dL Glucose 163 H (74-99) mg/dL POC Glucose (mg/dL) 139 H (75-99) mg/dL Hemoglobin A1c (4.0-6.0) % Calcium 8.1 L (8.4-10.2) mg/dL Phosphorus 1.5 L (2.5-4.5) mg/dL 12/14/18 12/14/18 12/14/18 Range/Units 06:59 09:01 11:04 WBC (3.8-10.6) k/uL Plt Count (150-450) k/uL Neutrophils # (1.3-7.7) k/uL APTT (22.0-30.0) sec ABG pH (7.35-7.45) ABG pCO2 (35-45) mmHg ABG pO2 (83-108) mmHg ABG HCO3 (21-25) mmol/L ABG Total CO2 (19-24) mmol/L ABG O2 Saturation (94-97) % Sodium (137-145) mmol/L Chloride (98-107) mmol/L BUN (9-20) mg/dL Glucose (74-99) mg/dL POC Glucose (mg/dL) 147 H 146 H 148 H (75-99) mg/dL Hemoglobin A1c (4.0-6.0) % Calcium (8.4-10.2) mg/dL Phosphorus (2.5-4.5) mg/dL Microbiology - Last 24 Hours (Table) 12/12/18 10:34 Blood Culture - Preliminary Blood No Growth after 24 hours Assessment and Plan Assessment: Impression: 1 acute hyperosmolar nonketotic state. Significantly improved. 2 acute metabolic encephalopathy, improving significantly over the last 2 days. 3 new-onset atrial fibrillation with RVR, presently in sinus rhythm. Remains in normal sinus rhythm today to 4 acute kidney injury with anion gap metabolic acidosis, could be related to profound hypovolemia on presentation with hyperosmolar nonketotic state. Possibility of infection and sepsis is not entirely ruled out, but felt to be less likely. Renal functioning is significantly improved over the last couple of days. 5 history of seizure disorder remains on Keppra. 6 history of CVA in 2013. 7 coronary artery disease and previous [facility] 8 benign essential hypertension 9 chronic generalized anxiety disorder and depression. 10 acute hypernatremia, improved significantly sodium is down to 148 today. 11 by basilar atelectasis is noted on the chest x-ray this morning, requiring patient to be placed on BiPAP, chest x-ray was reviewed, and we will encourage incentive spirometry. In the meantime we'll continue antibiotics for possible component of aspiration involving her lower lobes. Patient is on Zosyn. Recommendation: Continue D5W, continue antibiotics including Zosyn and vancomycin, may consider stopping vancomycin in the next 24 hours. Continue to monitor in the ICU, continue GI and DVT prophylaxis, patient is on IV heparin for atrial fibrillation. Continue local care of the right foot and right big toe as recommended by vascular surgery. Arrange for swallow evaluation today, and decide on oral feeding, continue high flow nasal cannula and titrate accordingly. Continue treatment of presumptive pneumonia/aspiration pneumonia I plan to give the patient in the ICU today, and depending how he responds over the next 24 hours all healthy improves, we'll likely transfer in the next 24 hours to the medical floor. Prognosis remains quite guarded at this point, patient continues to have significant complex medical issues that are concerning. Time with Patient: Less than 30
--- NOTE | 2018-12-14 11:51 | P.PN ---
Subjective Progress Note Date: 12/14/18 Principal diagnosis: Altered mental status coffee-ground emesis No episodes of hematemesis hematochezia or melena. Patient more alert today. Hemoglobin 14.2. BUN improved 31. Creatinine 0.7. Receiving IV heparin. Stool occult positive. Denies abdominal pain. Speech pathology to evaluate swallow today. Objective - Vital Signs Vital signs: Vital Signs Temp 101 F H 12/14/18 10:00 Pulse 96 12/14/18 11:00 Resp 21 12/14/18 11:00 BP 113/73 12/14/18 11:00 Pulse Ox 95 12/14/18 11:00 Intake & Output 12/13/18 12/14/18 12/14/18 18:59 06:59 18:59 Intake Total 1892.724 9462.957 950 Output Total 665 740 320 Balance 791.278 665.957 630 Weight 103.1 kg Intake: IV 1400 1350 950 Dextrose 5% in Water 1, 850 900 375 000 ml @ 75 mls/hr IV . [id number] [facility] Rx#:[id number] Piperacillin-Tazobactam 3 200 100 100 .375 gm In Sodium Chloride 0.9% 100 ml @ 25 mls/hr IVPB Q8HR [facility] Rx# :[id number] Potassium Phosphate 10 250 mmol In Sodium Chloride 0 .9% 250 ml @ 125 mls/hr IV Q2H [facility] Rx#:[id number] Potassium Phosphate 10 125 mmol In Sodium Chloride 0 .9% 250 ml @ 125 mls/hr IV Q2H [facility] Rx#:[id number] Vancomycin 1,500 mg In 250 Sodium Chloride 0.9% 250 ml @ 125 mls/hr IVPB Q12H [facility] Rx#:[id number] Vancomycin 1,500 mg In 250 Sodium Chloride 0.9% 250 ml @ 125 mls/hr IVPB Q8H [facility] Rx#:[id number] levETIRAcetam IV 500 mg 100 100 100 In Sodium Chloride 0.9% 100 ml @ 400 mls/hr IVPB Q12HR [facility] Rx#:[id number] Intake, IV Titration 56.278 55.957 0 Amount Insulin Regular 100 unit 56.278 55.957 0 In Sodium Chloride 0.9% 100 ml @ Per Protocol IV .Q0M [facility] Rx#:[id number] Output: Urine 665 740 320 Other: Voiding Method Indwelling Catheter Indwelling Catheter # Bowel Movements 1 - Exam General appearance: The patient is awake answers to his name but does not hold a conversation. HET: Head is normocephalic and atraumatic. Pupils are equal and reactive. Oropharynx is clear without lesions. Neck: Supple without lymphadenopathy. Trachea midline. Heart: S1 S2. Regular rate and rhythm. Lungs: No crackles or wheezes are heard. Abdomen: Soft, nontender, nondistended with bowel sounds. No peritoneal signs. No palpable organomegaly or masses. Extremities: No edema. - Labs CBC & Chem 7: 12/14/18 05:41 12/14/18 05:41 Labs: Abnormal Lab Results - Last 24 Hours (Table) 12/13/18 12/13/18 12/13/18 Range/Units 10:32 12:08 12:28 WBC (3.8-10.6) k/uL Plt Count (150-450) k/uL Neutrophils # (1.3-7.7) k/uL APTT (22.0-30.0) sec ABG pH 7.49 H (7.35-7.45) ABG pCO2 34 L (35-45) mmHg ABG pO2 143 H (83-108) mmHg ABG HCO3 26 H (21-25) mmol/L ABG Total CO2 27 H (19-24) mmol/L ABG O2 Saturation 99.8 H (94-97) % Sodium (137-145) mmol/L Chloride (98-107) mmol/L BUN (9-20) mg/dL Glucose (74-99) mg/dL POC Glucose (mg/dL) 212 H (75-99) mg/dL Hemoglobin A1c 12.7 H (4.0-6.0) % Calcium (8.4-10.2) mg/dL Phosphorus (2.5-4.5) mg/dL 12/13/18 12/13/18 12/13/18 Range/Units 14:07 16:06 17:00 WBC (3.8-10.6) k/uL Plt Count (150-450) k/uL Neutrophils # (1.3-7.7) k/uL APTT (22.0-30.0) sec ABG pH (7.35-7.45) ABG pCO2 (35-45) mmHg ABG pO2 (83-108) mmHg ABG HCO3 (21-25) mmol/L ABG Total CO2 (19-24) mmol/L ABG O2 Saturation (94-97) % Sodium 150 H (137-145) mmol/L Chloride 117 H (98-107) mmol/L BUN (9-20) mg/dL Glucose (74-99) mg/dL POC Glucose (mg/dL) 202 H 164 H (75-99) mg/dL Hemoglobin A1c (4.0-6.0) % Calcium (8.4-10.2) mg/dL Phosphorus (2.5-4.5) mg/dL 12/13/18 12/13/18 12/13/18 Range/Units 17:00 17:00 18:03 WBC 13.7 H (3.8-10.6) k/uL Plt Count (150-450) k/uL Neutrophils # (1.3-7.7) k/uL APTT 35.4 H (22.0-30.0) sec ABG pH (7.35-7.45) ABG pCO2 (35-45) mmHg ABG pO2 (83-108) mmHg ABG HCO3 (21-25) mmol/L ABG Total CO2 (19-24) mmol/L ABG O2 Saturation (94-97) % Sodium (137-145) mmol/L Chloride (98-107) mmol/L BUN (9-20) mg/dL Glucose (74-99) mg/dL POC Glucose (mg/dL) 181 H (75-99) mg/dL Hemoglobin A1c (4.0-6.0) % Calcium (8.4-10.2) mg/dL Phosphorus (2.5-4.5) mg/dL 12/13/18 12/13/18 12/14/18 Range/Units 19:51 22:05 00:01 WBC (3.8-10.6) k/uL Plt Count (150-450) k/uL Neutrophils # (1.3-7.7) k/uL APTT (22.0-30.0) sec ABG pH (7.35-7.45) ABG pCO2 (35-45) mmHg ABG pO2 (83-108) mmHg ABG HCO3 (21-25) mmol/L ABG Total CO2 (19-24) mmol/L ABG O2 Saturation (94-97) % Sodium (137-145) mmol/L Chloride (98-107) mmol/L BUN (9-20) mg/dL Glucose (74-99) mg/dL POC Glucose (mg/dL) 187 H 168 H 171 H (75-99) mg/dL Hemoglobin A1c (4.0-6.0) % Calcium (8.4-10.2) mg/dL Phosphorus (2.5-4.5) mg/dL 12/14/18 12/14/18 12/14/18 Range/Units 01:35 01:54 03:49 WBC (3.8-10.6) k/uL Plt Count (150-450) k/uL Neutrophils # (1.3-7.7) k/uL APTT 57.4 H (22.0-30.0) sec ABG pH (7.35-7.45) ABG pCO2 (35-45) mmHg ABG pO2 (83-108) mmHg ABG HCO3 (21-25) mmol/L ABG Total CO2 (19-24) mmol/L ABG O2 Saturation (94-97) % Sodium (137-145) mmol/L Chloride (98-107) mmol/L BUN (9-20) mg/dL Glucose (74-99) mg/dL POC Glucose (mg/dL) 169 H 153 H (75-99) mg/dL Hemoglobin A1c (4.0-6.0) % Calcium (8.4-10.2) mg/dL Phosphorus (2.5-4.5) mg/dL 12/14/18 12/14/18 12/14/18 Range/Units 05:41 05:41 05:47 WBC 12.2 H (3.8-10.6) k/uL Plt Count 129 L (150-450) k/uL Neutrophils # 10.0 H (1.3-7.7) k/uL APTT (22.0-30.0) sec ABG pH (7.35-7.45) ABG pCO2 (35-45) mmHg ABG pO2 (83-108) mmHg ABG HCO3 (21-25) mmol/L ABG Total CO2 (19-24) mmol/L ABG O2 Saturation (94-97) % Sodium 148 H (137-145) mmol/L Chloride 116 H (98-107) mmol/L BUN 31 H (9-20) mg/dL Glucose 163 H (74-99) mg/dL POC Glucose (mg/dL) 139 H (75-99) mg/dL Hemoglobin A1c (4.0-6.0) % Calcium 8.1 L (8.4-10.2) mg/dL Phosphorus 1.5 L (2.5-4.5) mg/dL 12/14/18 12/14/18 12/14/18 Range/Units 06:59 09:01 11:04 WBC (3.8-10.6) k/uL Plt Count (150-450) k/uL Neutrophils # (1.3-7.7) k/uL APTT (22.0-30.0) sec ABG pH (7.35-7.45) ABG pCO2 (35-45) mmHg ABG pO2 (83-108) mmHg ABG HCO3 (21-25) mmol/L ABG Total CO2 (19-24) mmol/L ABG O2 Saturation (94-97) % Sodium (137-145) mmol/L Chloride (98-107) mmol/L BUN (9-20) mg/dL Glucose (74-99) mg/dL POC Glucose (mg/dL) 147 H 146 H 148 H (75-99) mg/dL Hemoglobin A1c (4.0-6.0) % Calcium (8.4-10.2) mg/dL Phosphorus (2.5-4.5) mg/dL Microbiology - Last 24 Hours (Table) 12/12/18 10:34 Blood Culture - Preliminary Blood No Growth after 24 hours Assessment and Plan (1) Coffee ground emesis Current Visit: Yes Status: Acute Code(s): K92.0 - HEMATEMESIS SNOMED Code( s): 13302491 (2) Metabolic encephalopathy Current Visit: Yes Status: Acute Code(s): G93.41 - METABOLIC ENCEPHALOPATHY SNOMED Code(s): 24175217 (3) Acute kidney injury Current Visit: Yes Status: Acute Code(s): N17.9 - ACUTE KIDNEY FAILURE, UNSPECIFIED SNOMED Code(s): 71858342 (4) Diabetic ketoacidosis Current Visit: Yes Status: Acute Code(s): E13.10 - OTH DIABETES MELLITUS WITH KETOACIDOSIS WITHOUT COMA SNOMED Code(s): 791680164 (5) Elevated troponin Current Visit: Yes Status: Acute Code(s): R74.8 - ABNORMAL LEVELS OF OTHER SERUM ENZYMES SNOMED Code(s): 381748439 (6) Atrial fibrillation with RVR Current Visit: Yes Status: Acute Code(s): I48.91 - UNSPECIFIED ATRIAL FIBRILLATION SNOMED Code(s): 152307828198353 Plan: 1. From a GI standpoint continue to aspirin and IV heparin per cardiology recommendations. Patient will need to be observed closely for any signs or symptoms of acute GI bleeding such as hematemesis hematochezia melena. CBC monitoring. Continue with Protonix 40 mg daily. Speech consult for swallowing evaluation; if satisfactory may have ice chips and popsicles sparingly today and advance as tolerated. Inpatient endoscopic exam not planned at this time but contingent on clinical course. Assessment and plan a care discussed with Dr. Giron
[2018-12-14 13:01] LABS: Glucose,Whole Blood 171 mg/dL (75-99)
[2018-12-14 15:14] LABS: Glucose,Whole Blood 149 mg/dL (75-99)
--- NOTE | 2018-12-14 15:21 | P.PN ---
Subjective Patient is still encephalopathy slightly better than yesterday. He is saying yes and no ROS unobtainable because of the mental status. 12/13/2018 Patient on BiPAP now Patient more awake than yesterday. According to the he apparently has expressive aphasia and very slow. He is moving his left upper and lower extremities on command today. 12/14/2018 Patient much more alert and oriented today. He is back to baseline talking and responding to commands sitting on the chair No chest pain or racing heart Objective - Vital Signs Vital signs: Vital Signs Temp 99.2 F 12/14/18 12:00 Pulse 81 12/14/18 15:00 Resp 23 12/14/18 15:00 BP 112/70 12/14/18 15:00 Pulse Ox 96 12/14/18 15:00 Intake & Output 12/13/18 12/14/18 12/14/18 18:59 06:59 18:59 Intake Total 9988.015 6966.957 1125.385 Output Total 665 740 420 Balance 791.278 665.957 705.385 Weight 103.1 kg 103.1 kg Intake: IV 1400 1350 1100 Dextrose 5% in Water 1, 850 900 525 000 ml @ 75 mls/hr IV . [id number] [facility] Rx#:[id number] Piperacillin-Tazobactam 3 200 100 100 .375 gm In Sodium Chloride 0.9% 100 ml @ 25 mls/hr IVPB Q8HR [facility] Rx# :[id number] Potassium Phosphate 10 250 mmol In Sodium Chloride 0 .9% 250 ml @ 125 mls/hr IV Q2H [facility] Rx#:[id number] Potassium Phosphate 10 125 mmol In Sodium Chloride 0 .9% 250 ml @ 125 mls/hr IV Q2H [facility] Rx#:[id number] Vancomycin 1,500 mg In 250 Sodium Chloride 0.9% 250 ml @ 125 mls/hr IVPB Q12H [facility] Rx#:[id number] Vancomycin 1,500 mg In 250 Sodium Chloride 0.9% 250 ml @ 125 mls/hr IVPB Q8H [facility] Rx#:[id number] levETIRAcetam IV 500 mg 100 100 100 In Sodium Chloride 0.9% 100 ml @ 400 mls/hr IVPB Q12HR [facility] Rx#:[id number] Intake, IV Titration 56.278 55.957 25.385 Amount Insulin Regular 100 unit 56.278 55.957 25.385 In Sodium Chloride 0.9% 100 ml @ Per Protocol IV .Q0M [facility] Rx#:[id number] Output: Urine 665 740 420 Other: Voiding Method Indwelling Catheter Indwelling Catheter Indwelling Catheter # Bowel Movements 1 - Exam On exam, alert and oriented almost back to baseline HEENT: Conjunctivae normal. eyes normal. Oral mucosa dry NECK: No JVD. No thyroid enlargement. No LNs CARDIOVASCULAR: S1, S2 positive RESPIRATION: Raspy breath sounds anteriorly and posteriorly ABDOMEN: Soft, nontender . No guarding. no masses palpable. No ascites, No hepatosplenomegaly.Bowel sounds heard. LEGS: No edema. no swelling NERVOUS SYSTEM: He is answering questions when asked moving all of his left upper and lower extremities Skin: no ulcer no rash - Labs CBC & Chem 7: 12/14/18 05:41 12/14/18 05:41 Labs: Abnormal Lab Results - Last 24 Hours (Table) 12/13/18 12/13/18 12/13/18 Range/Units 10:32 16:06 17:00 WBC (3.8-10.6) k/uL Plt Count (150-450) k/uL Neutrophils # (1.3-7.7) k/uL APTT (22.0-30.0) sec Sodium 150 H (137-145) mmol/L Chloride 117 H (98-107) mmol/L BUN (9-20) mg/dL Glucose (74-99) mg/dL POC Glucose (mg/dL) 164 H (75-99) mg/dL Hemoglobin A1c 12.7 H (4.0-6.0) % Calcium (8.4-10.2) mg/dL Phosphorus (2.5-4.5) mg/dL 12/13/18 12/13/18 12/13/18 Range/Units 17:00 17:00 18:03 WBC 13.7 H (3.8-10.6) k/uL Plt Count (150-450) k/uL Neutrophils # (1.3-7.7) k/uL APTT 35.4 H (22.0-30.0) sec Sodium (137-145) mmol/L Chloride (98-107) mmol/L BUN (9-20) mg/dL Glucose (74-99) mg/dL POC Glucose (mg/dL) 181 H (75-99) mg/dL Hemoglobin A1c (4.0-6.0) % Calcium (8.4-10.2) mg/dL Phosphorus (2.5-4.5) mg/dL 12/13/18 12/13/18 12/14/18 Range/Units 19:51 22:05 00:01 WBC (3.8-10.6) k/uL Plt Count (150-450) k/uL Neutrophils # (1.3-7.7) k/uL APTT (22.0-30.0) sec Sodium (137-145) mmol/L Chloride (98-107) mmol/L BUN (9-20) mg/dL Glucose (74-99) mg/dL POC Glucose (mg/dL) 187 H 168 H 171 H (75-99) mg/dL Hemoglobin A1c (4.0-6.0) % Calcium (8.4-10.2) mg/dL Phosphorus (2.5-4.5) mg/dL 12/14/18 12/14/18 12/14/18 Range/Units 01:35 01:54 03:49 WBC (3.8-10.6) k/uL Plt Count (150-450) k/uL Neutrophils # (1.3-7.7) k/uL APTT 57.4 H (22.0-30.0) sec Sodium (137-145) mmol/L Chloride (98-107) mmol/L BUN (9-20) mg/dL Glucose (74-99) mg/dL POC Glucose (mg/dL) 169 H 153 H (75-99) mg/dL Hemoglobin A1c (4.0-6.0) % Calcium (8.4-10.2) mg/dL Phosphorus (2.5-4.5) mg/dL 12/14/18 12/14/18 12/14/18 Range/Units 05:41 05:41 05:47 WBC 12.2 H (3.8-10.6) k/uL Plt Count 129 L (150-450) k/uL Neutrophils # 10.0 H (1.3-7.7) k/uL APTT (22.0-30.0) sec Sodium 148 H (137-145) mmol/L Chloride 116 H (98-107) mmol/L BUN 31 H (9-20) mg/dL Glucose 163 H (74-99) mg/dL POC Glucose (mg/dL) 139 H (75-99) mg/dL Hemoglobin A1c (4.0-6.0) % Calcium 8.1 L (8.4-10.2) mg/dL Phosphorus 1.5 L (2.5-4.5) mg/dL 12/14/18 12/14/18 12/14/18 Range/Units 06:59 09:01 11:04 WBC (3.8-10.6) k/uL Plt Count (150-450) k/uL Neutrophils # (1.3-7.7) k/uL APTT (22.0-30.0) sec Sodium (137-145) mmol/L Chloride (98-107) mmol/L BUN (9-20) mg/dL Glucose (74-99) mg/dL POC Glucose (mg/dL) 147 H 146 H 148 H (75-99) mg/dL Hemoglobin A1c (4.0-6.0) % Calcium (8.4-10.2) mg/dL Phosphorus (2.5-4.5) mg/dL 12/14/18 12/14/18 Range/Units 13:00 15:12 WBC (3.8-10.6) k/uL Plt Count (150-450) k/uL Neutrophils # (1.3-7.7) k/uL APTT (22.0-30.0) sec Sodium (137-145) mmol/L Chloride (98-107) mmol/L BUN (9-20) mg/dL Glucose (74-99) mg/dL POC Glucose (mg/dL) 171 H 149 H (75-99) mg/dL Hemoglobin A1c (4.0-6.0) % Calcium (8.4-10.2) mg/dL Phosphorus (2.5-4.5) mg/dL Microbiology - Last 24 Hours (Table) 12/13/18 12:11 Blood Culture - Preliminary Blood No Growth after 24 hours 12/12/18 10:34 Blood Culture - Preliminary Blood No Growth after 48 hours Assessment and Plan Assessment: - Acute hypoxic respiratory failure rule out aspiration - Acute metabolic encephalopathy - Hyperosmolar nonketotic state probably causing altered mental status - Hypernatremia improving - AK I - Rule out GI bleed - New-onset A. fib with RVR now in sinus rhythm - Mild troponin elevation - History of CVA with residual right-sided weakness - History of seizures - History of CAD - History of hypertension - History of hyperlipidemia Plan - Continue to monitor in ICU - Patient to have speech study today - GI following the patient - Cardiology following the patient for new onset A. fib. Continue treatment as per cardiology and additional recommendations - Sodium slowly improving - We will continue to follow the patient up Time with Patient: Greater than 30
[2018-12-14] MEDS: ASPIRIN 300 MG SUPP RECTAL SCH (15:22)
[2018-12-14 17:07] LABS: Glucose,Whole Blood 142 mg/dL (75-99)
[2018-12-14 19:03] LABS: Glucose,Whole Blood 157 mg/dL (75-99)
[2018-12-14 20:08] LABS: Glucose,Whole Blood 173 mg/dL (75-99)
[2018-12-14] MEDS: INSULIN REGULAR 100 UNIT in SODIUM CHLORIDE 0.9% 100 ML IV SCH (20:37)
--- NOTE | 2018-12-14 21:02 | PN ---
PROGRESS NOTE Patient is seen for followup for acute kidney injury and hypernatremia. This morning patient was sitting out of bed in a bedside chair. His mentation is much better. He is awake. A swallow evaluation was ordered for later on today. Patient's respiratory status is also better than yesterday. He did get one dose of Xanax and had been on BiPAP yesterday. On examination this morning, blood pressure was 115/66, heart rate of about 80 per minute. Patient is afebrile. EXAMINATION OF THE HEART: S1 and S2. EXAMINATION OF LUNGS: Bilateral breath sounds are heard. ABDOMEN: Soft, non-tender. Examination of lower extremities shows no significant edema. [employer] exam shows patient is moving all 4 extremities. Mentation is improved but not completely normal. Labs show sodium 148, potassium 3.9, BUN 31, serum creatinine 0.76, phosphorus 1.5. ASSESSMENT: 1. Acute kidney injury, acute tubular necrosis, currently significantly improved. Creatinine down to 0.7 from 3.95 on initial admission. May continue with the D5W. 2. Hypernatremia associated with free water deficit, now improved. 3. Status post hyperosmolar nonketotic state. Serum acetone was negative. Patient did have metabolic acidosis, which can also be from the renal failure. 4. New-onset atrial fibrillation with rapid ventricular response, currently with controlled ventricular response and in sinus rhythm. 5. History of seizures. PLAN: Continue D5W for one more day. Hopefully patient will be allowed to eat and he will pass his swallow evaluation and we can encourage oral free water intake. Repeat labs in a.m. MMODL / IJN: [id number] /
[2018-12-14 21:16] LABS: Glucose,Whole Blood 182 mg/dL (75-99)
[2018-12-14 22:03] LABS: Glucose,Whole Blood 193 mg/dL (75-99)
[2018-12-14 23:14] LABS: Glucose,Whole Blood 166 mg/dL (75-99)
[2018-12-15 00:11] LABS: Glucose,Whole Blood 166 mg/dL (75-99)
[2018-12-15 01:08] LABS: Glucose,Whole Blood 157 mg/dL (75-99)
[2018-12-15] MEDS: HEPARIN SOD,PORK IN 0.45% NACL 25,000 UNIT in 0.45% NACL 1 250ML.BAG IV SCH ×2 (01:54→18:39)
[2018-12-15] MEDS: VANCOMYCIN 1,500 MG in SODIUM CHLORIDE 0.9% 250 ML IVPB SCH (01:58)
[2018-12-15 02:32] LABS: Glucose,Whole Blood 150 mg/dL (75-99)
[2018-12-15 06:07] LABS: Glucose,Whole Blood 120 mg/dL (75-99)
[2018-12-15 06:07] LABS: Glucose,Whole Blood 111 mg/dL (75-99)
[2018-12-15 06:07] LABS: Glucose,Whole Blood 120 mg/dL (75-99)
[2018-12-15 06:08] LABS: Glucose,Whole Blood 137 mg/dL (75-99)
[2018-12-15 06:52] LABS: Basophils % (A) 0 %; Eosinophils # (A) 0.2 k/uL (0-0.7); Eosinophils % (A) 1 %; HCT 39.9 % (39.0-53.0); HGB 12.5 gm/dL (13.0-17.5); Hypochromasia Slight; Lymphocytes # (A) 1.3 k/uL (1.0-4.8); Lymphocytes % (A) 10 %; MCH 28.5 pg (25.0-35.0); MCHC 31.3 g/dL (31.0-37.0); Mean Platelet Volume 12.5; Monocytes # (A) 0.8 k/uL (0-1.0); Monocytes % (A) 6 %; Neutrophils # (A) 10.5 k/uL (1.3-7.7); Neutrophils % (A) 81 %; Platelet Count 125 k/uL (150-450); RBC 4.38 m/uL (4.30-5.90); RDW 14.6 % (11.5-15.5); WBC 12.9 k/uL (3.8-10.6)
[2018-12-15 06:54] LABS: Glucose,Whole Blood 141 mg/dL (75-99)
[2018-12-15 07:03] LABS: Anion Gap 7 mmol/L; Blood Urea Nitrogen 20 mg/dL (9-20); Calcium 7.6 mg/dL (8.4-10.2); Carbon Dioxide 23 mmol/L (22-30); Chloride 114 mmol/L (98-107); Glucose 148 mg/dL (74-99); Magnesium 1.7 mg/dL (1.6-2.3); Phosphorus 1.6 mg/dL (2.5-4.5); Potassium 3.7 mmol/L (3.5-5.1); Sodium 144 mmol/L (137-145)
[2018-12-15] MEDS ORDERED: Magnesium Replacement Protocol 1 EACH MISC MISCELLANE PRN (07:51)
[2018-12-15] MEDS: HEPARIN SODIUM,PORCINE 5,000 UNIT/ML 1 ML VIAL IV PRN ×2 (08:15→15:42)
[2018-12-15 08:17] LABS: Glucose,Whole Blood 148 mg/dL (75-99)
[2018-12-15] MEDS: PIPERACILLIN-TAZOBACTAM 3.375 GM in SODIUM CHLORIDE 0.9% 100 ML IVPB SCH ×3 (08:34→23:44)
[2018-12-15] MEDS: ASPIRIN 300 MG SUPP RECTAL SCH (08:34)
[2018-12-15] MEDS: levETIRAcetam IV 500 MG in SODIUM CHLORIDE 0.9% 100 ML IVPB SCH ×2 (08:35→21:48)
[2018-12-15] MEDS: METOPROLOL TARTRATE 5 MG/5 ML VIAL IVP SCH ×3 (08:35→23:48)
[2018-12-15] MEDS: PANTOPRAZOLE 40 MG/10 ML VIAL IV SCH (08:35)
[2018-12-15] MEDS ORDERED: VANCOMYCIN TROUGH DUE 1 EACH MISC MISCELLANE ONE (09:00)
[2018-12-15 09:15] LABS: Glucose,Whole Blood 140 mg/dL (75-99)
--- NOTE | 2018-12-15 09:37 | XR ---
EXAMINATION TYPE: XR chest 1V portable DATE OF EXAM: 12/15/2018 COMPARISON: 12/14/2018 HISTORY: Follow-up for left basilar airspace disease. Difficulty breathing. TECHNIQUE: Single frontal view of the chest is obtained. FINDINGS: There is worsening of the left basilar airspace disease partially obscuring the left hemid iaphragm. Remainder the lungs are clear. Cardiomediastinal silhouette is within normal limits. Osseou s structures are grossly intact. IMPRESSION: Worsening left basilar airspace disease likely representing pneumonia with an associated trace left pleural effusion.
[2018-12-15] MEDS: MAGNESIUM SULFATE-D5W PMX 1 GM in DEXTROSE/WATER 1 100ML.BAG IVPB SCH ×2 (10:11→12:37)
[2018-12-15] MEDS: POTASSIUM PHOSPHATE 10 MMOL in SODIUM CHLORIDE 0.9% 250 ML IV SCH ×2 (10:12→15:15)
[2018-12-15] MEDS: SODIUM CHLORIDE 0.9% 1,000 ML IV SCH (10:21)
[2018-12-15 10:58] LABS: Glucose,Whole Blood 170 mg/dL (75-99)
[2018-12-15] MEDS ORDERED: INSULIN DETEMIR (LEVEMIR) 100 UNIT/ML SYR SQ ONE (11:00)
--- NOTE | 2018-12-15 11:05 | P.PN ---
Subjective Progress Note Date: 12/15/18 Principal diagnosis: Altered mental status coffee-ground emesis No episodes of hematemesis hematochezia or melena. Hemoglobin 12.5. BUN improved 20. Receiving IV heparin. Denies abdominal pain. Failed swallow exam yesterday MBS ordered today. Objective - Vital Signs Vital signs: Vital Signs Temp 99.1 F 12/15/18 08:00 Pulse 79 12/15/18 10:00 Resp 16 12/15/18 10:00 BP 118/60 12/15/18 10:00 Pulse Ox 92 L 12/15/18 10:00 Intake & Output 12/14/18 12/15/18 12/15/18 18:59 06:59 18:59 Intake Total 2060.431 1815.209 456.28 Output Total 645 935 195 Balance 1415.431 880.209 261.28 Weight 103.1 kg 98.5 kg Intake: IV 1825 1525 375 Dextrose 5% in Water 1, 900 975 225 000 ml @ 75 mls/hr IV . [id number] [facility] Rx#:[id number] Piperacillin-Tazobactam 3 200 200 50 .375 gm In Sodium Chloride 0.9% 100 ml @ 25 mls/hr IVPB Q8HR [facility] Rx# :[id number] Potassium Phosphate 10 375 mmol In Sodium Chloride 0 .9% 250 ml @ 125 mls/hr IV Q2H [facility] Rx#:[id number] Vancomycin 1,500 mg In 250 250 Sodium Chloride 0.9% 250 ml @ 125 mls/hr IVPB Q8H [facility] Rx#:[id number] levETIRAcetam IV 500 mg 100 100 100 In Sodium Chloride 0.9% 100 ml @ 400 mls/hr IVPB Q12HR [facility] Rx#:[id number] Intake, IV Titration 235.431 290.209 81.28 Amount Heparin Sod,Pork in 0.45% 200.966 235.52 81.28 NaCl 25,000 unit In 0.45 % NaCl 1 250ml.bag @ 10. 12 UNITS/KG/HR 9.99 mls/ hr IV .Q24H [facility] Rx#: [id number] Insulin Regular 100 unit 34.465 54.689 In Sodium Chloride 0.9% 100 ml @ Per Protocol IV .Q0M [facility] Rx#:[id number] Output: Urine 645 935 195 Other: Voiding Method Indwelling Catheter Indwelling Catheter - Exam General appearance: The patient is awake answers to his name but does not hold a conversation. HET: Head is normocephalic and atraumatic. Pupils are equal and reactive. Oropharynx is clear without lesions. Neck: Supple without lymphadenopathy. Trachea midline. Heart: S1 S2. Regular rate and rhythm. Lungs: No crackles or wheezes are heard. Abdomen: Soft, nontender, nondistended with bowel sounds. No peritoneal signs. No palpable organomegaly or masses. Extremities: No edema. - Labs CBC & Chem 7: 12/15/18 05:46 12/15/18 05:46 Labs: Abnormal Lab Results - Last 24 Hours (Table) 12/14/18 12/14/18 12/14/18 Range/Units 11:04 13:00 15:12 WBC (3.8-10.6) k/uL Hgb (13.0-17.5) gm/dL Plt Count (150-450) k/uL Neutrophils # (1.3-7.7) k/uL Chloride (98-107) mmol/L Creatinine (0.66-1.25) mg/dL Glucose (74-99) mg/dL POC Glucose (mg/dL) 148 H 171 H 149 H (75-99) mg/dL Calcium (8.4-10.2) mg/dL Phosphorus (2.5-4.5) mg/dL 12/14/18 12/14/18 12/14/18 Range/Units 17:04 18:59 20:06 WBC (3.8-10.6) k/uL Hgb (13.0-17.5) gm/dL Plt Count (150-450) k/uL Neutrophils # (1.3-7.7) k/uL Chloride (98-107) mmol/L Creatinine (0.66-1.25) mg/dL Glucose (74-99) mg/dL POC Glucose (mg/dL) 142 H 157 H 173 H (75-99) mg/dL Calcium (8.4-10.2) mg/dL Phosphorus (2.5-4.5) mg/dL 12/14/18 12/14/18 12/14/18 Range/Units 21:14 22:02 23:13 WBC (3.8-10.6) k/uL Hgb (13.0-17.5) gm/dL Plt Count (150-450) k/uL Neutrophils # (1.3-7.7) k/uL Chloride (98-107) mmol/L Creatinine (0.66-1.25) mg/dL Glucose (74-99) mg/dL POC Glucose (mg/dL) 182 H 193 H 166 H (75-99) mg/dL Calcium (8.4-10.2) mg/dL Phosphorus (2.5-4.5) mg/dL 12/15/18 12/15/18 12/15/18 Range/Units 00:08 01:04 02:05 WBC (3.8-10.6) k/uL Hgb (13.0-17.5) gm/dL Plt Count (150-450) k/uL Neutrophils # (1.3-7.7) k/uL Chloride (98-107) mmol/L Creatinine (0.66-1.25) mg/dL Glucose (74-99) mg/dL POC Glucose (mg/dL) 166 H 157 H 150 H (75-99) mg/dL Calcium (8.4-10.2) mg/dL Phosphorus (2.5-4.5) mg/dL 12/15/18 12/15/18 12/15/18 Range/Units 03:06 03:57 05:03 WBC (3.8-10.6) k/uL Hgb (13.0-17.5) gm/dL Plt Count (150-450) k/uL Neutrophils # (1.3-7.7) k/uL Chloride (98-107) mmol/L Creatinine (0.66-1.25) mg/dL Glucose (74-99) mg/dL POC Glucose (mg/dL) 120 H 111 H 120 H (75-99) mg/dL Calcium (8.4-10.2) mg/dL Phosphorus (2.5-4.5) mg/dL 12/15/18 12/15/18 12/15/18 Range/Units 05:46 05:46 06:06 WBC 12.9 H (3.8-10.6) k/uL Hgb 12.5 L (13.0-17.5) gm/dL Plt Count 125 L (150-450) k/uL Neutrophils # 10.5 H (1.3-7.7) k/uL Chloride 114 H (98-107) mmol/L Creatinine 0.64 L (0.66-1.25) mg/dL Glucose 148 H (74-99) mg/dL POC Glucose (mg/dL) 137 H (75-99) mg/dL Calcium 7.6 L (8.4-10.2) mg/dL Phosphorus 1.6 L (2.5-4.5) mg/dL 12/15/18 12/15/18 12/15/18 Range/Units 06:52 08:14 09:01 WBC (3.8-10.6) k/uL Hgb (13.0-17.5) gm/dL Plt Count (150-450) k/uL Neutrophils # (1.3-7.7) k/uL Chloride (98-107) mmol/L Creatinine (0.66-1.25) mg/dL Glucose (74-99) mg/dL POC Glucose (mg/dL) 141 H 148 H 140 H (75-99) mg/dL Calcium (8.4-10.2) mg/dL Phosphorus (2.5-4.5) mg/dL 12/15/18 Range/Units 10:44 WBC (3.8-10.6) k/uL Hgb (13.0-17.5) gm/dL Plt Count (150-450) k/uL Neutrophils # (1.3-7.7) k/uL Chloride (98-107) mmol/L Creatinine (0.66-1.25) mg/dL Glucose (74-99) mg/dL POC Glucose (mg/dL) 170 H (75-99) mg/dL Calcium (8.4-10.2) mg/dL Phosphorus (2.5-4.5) mg/dL Microbiology - Last 24 Hours (Table) 12/13/18 12:11 Blood Culture - Preliminary Blood No Growth after 24 hours 12/12/18 10:34 Blood Culture - Preliminary Blood No Growth after 48 hours Assessment and Plan (1) Coffee ground emesis Current Visit: Yes Status: Acute Code(s): K92.0 - HEMATEMESIS SNOMED Code(s): 04133263 (2) Metabolic encephalopathy Current Visit: Yes Status: Acute Code(s): G93.41 - METABOLIC ENCEPHALOPATHY SNOMED Code(s): 41513843 (3) Acute kidney injury Current Visit: Yes Status: Acute Code(s): N17.9 - ACUTE KIDNEY FAILURE, UNSPECIFIED SNOMED Code(s): 73295631 (4) Diabetic ketoacidosis Current Visit: Yes Status: Acute Code(s): E13.10 - OTH DIABETES MELLITUS WITH KETOACIDOSIS WITHOUT COMA SNOMED Code(s): 016774590 (5) Elevated troponin Current Visit: Yes Status: Acute Code(s): R74.8 - ABNORMAL LEVELS OF OTHER SERUM ENZYMES SNOMED Code(s): 679274617 (6) Atrial fibrillation with RVR Current Visit: Yes Status: Acute Code(s): I48.91 - UNSPECIFIED ATRIAL FIBRILLATION SNOMED Code(s): 160347685203537 (7) Dysphagia Narrative/Plan: Failed swallow exam MBS ordered. Current Visit: Yes Status: Acute Code(s): R13.10 - DYSPHAGIA, UNSPECIFIED SNOMED Code(s): 32694692 Plan: 1. From a GI standpoint continue to aspirin and IV heparin per cardiology recommendations. Patient will need to be observed closely for any signs or symptoms of acute GI bleeding such as hematemesis hematochezia melena. Hemoglobin 12.5 today down from yesterday however no active bleeding. CBC monitoring. Continue with Protonix 40 mg daily. MBS ordered. We'll continue to follow closely with you. Inpatient endoscopic exam not planned at this time but contingent on clinical course. Assessment and plan a care discussed with Dr. Giron
--- NOTE | 2018-12-15 11:22 | P.PN ---
Subjective Progress Note Date: 12/15/18 Principal diagnosis: Hyperosmolar nonketotic state and mental status change 63-year-old male patient presented with altered mentation and vomiting. He apparently had coffee-ground emesis and syncope. In the ED, the patient was diagnosed having a acute hyperosmolar nonketotic state and the patient was started on treatment immediately with IV fluids and insulin drip. The patient himself was unable to provide any history. He denied having any chest pain. No abdominal pain. His initial blood sugar was 1400. The patient was given 2 L of IV fluids and started on insulin drip. The first set of troponin was 0.1. The BNP was 7080. Computed tomography scan of the head and the neck was unremarkable. The patient got transferred to the ICU. The patient is an acute kidney injury. Urine is at 79. Creatinine is at 3.9. The patient's anion gap is at 32. Serum bicarb is at 15. The lactic acid level is at 3.0. There is only trace urinary ketones. The patient's hemoglobin is at 16.5. White cell count is not elevated. EKG showing atrial fibrillation with rapid ventricular response. Chest x-ray showing a basilar atelectasis Patient was reevaluated today on 12/12/2018, remains in the intensive care unit, and bit more arousable, follows very simple instructions, but overall remains a bit encephalopathic. According to the nurses his mental status is gradually improving. Patient remains on insulin drip, his IV fluid was switched to D5W because of his significantly elevated sodium today is up to 157. Patient does not seem to be in any form of distress. He is resting comfortably in bed. Repeat labs this morning showed a sodium of 154 BUN of 76 creatinine is 2.09. His creatinine is gradually improving, it was 3.95 yesterday. Chest x-ray this morning showed mostly left basilar airspace disease, likely atelectasis, underlying pneumonia is not entirely ruled out. Reevaluated today on 12/13/2018, patient remains in the ICU, he is more alert, however he is noted to have marginal O2 saturations. Patient was placed overnight on a high flow nasal cannula, and I have noted this morning that the patient has an extremely poor and weak cough. His chest x-ray showed mostly atelectasis especially at the left base. Hence I recommended patient goes on Bi PAP, and he would be on BiPAP of 12 and 4. His FiO2 will be titrated accordingly. His sodium remains high at 153, BUN is 46 creatinine is 1.05. WBC count is 10.5 hemoglobin is 14.6. Patient remains on Zosyn empirically, his IV fluid was cut down to 75 mL/h, he remains on Keppra, and this morning because of his agitation and I recommended Ativan 1 mg IV push times one. Patient was reevaluated today on 12/14/2018, remains in the ICU, becoming more and more alert, however he has a very weak cough. Patient is now off BiPAP, and he is on 10 L high flow nasal cannula. O2 saturation is in the mid 90s. Patient has been spiking fevers intermittently, cultures have been negative so far, and the patient remains on Zosyn and vancomycin for now. I will likely discontinue vancomycin tomorrow if cultures come back nondiagnostic. However I would maintain the patient on Zosyn. Chest x-ray continues to show some atelectasis at the left base. Patient had no major issues overnight, and his labs were reviewed today. CBC is relatively normal. PTT is therapeutic at 57.4. Sodium is coming down to 148 renal profile is significantly better is basically almost normal. Sugar is 163. Repeat lactic acid couple of days ago was 1.1 his serum osmolality on admission was 418. Patient remains on heparin for atrial fibrillation with RVR. And that is being addressed by cardiology, he was also noted to have elevated troponin on admission. Patient is now in sinus rhythm. Patient will likely have a swallow evaluation today, and if he passes we will start oral feedings. Patient was reevaluated today on 12/15/2018, remains in the ICU, he is becoming more awake and more oriented, he is coughing better, and he is now off BiPAP. Presently on 3 L nasal cannula, saturating in the low 90s. Blood cultures remain negative. Patient has been on Zosyn and vancomycin, hence I will go ahead and discontinue vancomycin today. He will remain on Zosyn, chest x-ray is suggestive of a left lower lobe infiltrate. Labs today were reviewed, WBC count is 12.9 hemoglobin is 12.5. Basic metabolic profile is normal, his sodium corrected nicely today it is 144. Hence I have switched his IV fluid from D5 to normal saline at 50 mL per hour. I would also discontinue his insulin drip, and start the patient on sliding scale as well as Lantus insulin. Patient failed his swallow evaluation yesterday, and he is going today for a modified barium swallow, and may or may not consider a Dobbhoff tube placement for nutritional support. This will be decided upon after the barium swallow. Objective - Vital Signs Vital signs: Vital Signs Temp 99.1 F 12/15/18 08:00 Pulse 79 12/15/18 10:00 Resp 16 12/15/18 10:00 BP 118/60 12/15/18 10:00 Pulse Ox 92 L 12/15/18 10:00 Intake & Output 12/14/18 12/15/18 12/15/18 18:59 06:59 18:59 Intake Total 2060.431 1815.209 456.28 Output Total 645 935 195 Balance 1415.431 880.209 261.28 Weight 103.1 kg 98.5 kg Intake: IV 1825 1525 375 Dextrose 5% in Water 1, 900 975 225 000 ml @ 75 mls/hr IV . [id number] [facility] Rx#:[id number] Piperacillin-Tazobactam 3 200 200 50 .375 gm In Sodium Chloride 0.9% 100 ml @ 25 mls/hr IVPB Q8HR [facility] Rx# :[id number] Potassium Phosphate 10 375 mmol In Sodium Chloride 0 .9% 250 ml @ 125 mls/hr IV Q2H [facility] Rx#:[id number] Vancomycin 1,500 mg In 250 250 Sodium Chloride 0.9% 250 ml @ 125 mls/hr IVPB Q8H [facility] Rx#:[id number] levETIRAcetam IV 500 mg 100 100 100 In Sodium Chloride 0.9% 100 ml @ 400 mls/hr IVPB Q12HR [facility] Rx#:[id number] Intake, IV Titration 235.431 290.209 81.28 Amount Heparin Sod,Pork in 0.45% 200.966 235.52 81.28 NaCl 25,000 unit In 0.45 % NaCl 1 250ml.bag @ 10. 12 UNITS/KG/HR 9.99 mls/ hr IV .Q24H [facility] Rx#: [id number] Insulin Regular 100 unit 34.465 54.689 In Sodium Chloride 0.9% 100 ml @ Per Protocol IV .Q0M [facility] Rx#:[id number] Output: Urine 645 935 195 Other: Voiding Method Indwelling Catheter Indwelling Catheter - Exam Physical Exam: Revealed a 63-year-old white male, awake, responsive, On 3 L nasal cannula, in no distress. Head: Atraumatic, normocephalic. HEENT:[Neck is supple.] [No neck masses.] [No thyromegaly.] [No JVD.] PERRLA, EOMI, no icterus. Chest: [Diminished breath sounds at the bases, minimal crackles at the left base noted, no rhonchi and no wheezes. Symmetrical chest expansion. No chest wall tenderness..] Cardiac Exam: [Normal S1 and S2, no S3 gallop, no murmur.] Abdomen: [Soft, nontender, no megaly, no rebound, no guarding, normal bowel sounds.] Extremities: [No clubbing, no edema, no cyanosis.], Ulceration changes on the tip of his big toe are unchanged. Neurological Exam: Alert, oriented, follows instructions. Lymphatics: No lymphadenopathy. Psychiatric: Normal mood, affect and mental status examination. - Labs CBC & Chem 7: 12/15/18 05:46 12/15/18 05:46 Labs: Abnormal Lab Results - Last 24 Hours (Table) 12/14/18 12/14/18 12/14/18 Range/Units 13:00 15:12 17:04 WBC (3.8-10.6) k/uL Hgb (13.0-17.5) gm/dL Plt Count (150-450) k/uL Neutrophils # (1.3-7.7) k/uL Chloride (98-107) mmol/L Creatinine (0.66-1.25) mg/dL Glucose (74-99) mg/dL POC Glucose (mg/dL) 171 H 149 H 142 H (75-99) mg/dL Calcium (8.4-10.2) mg/dL Phosphorus (2.5-4.5) mg/dL 12/14/18 12/14/18 12/14/18 Range/Units 18:59 20:06 21:14 WBC (3.8-10.6) k/uL Hgb (13.0-17.5) gm/dL Plt Count (150-450) k/uL Neutrophils # (1.3-7.7) k/uL Chloride (98-107) mmol/L Creatinine (0.66-1.25) mg/dL Glucose (74-99) mg/dL POC Glucose (mg/dL) 157 H 173 H 182 H (75-99) mg/dL Calcium (8.4-10.2) mg/dL Phosphorus (2.5-4.5) mg/dL 12/14/18 12/14/18 12/15/18 Range/Units 22:02 23:13 00:08 WBC (3.8-10.6) k/uL Hgb (13.0-17.5) gm/dL Plt Count (150-450) k/uL Neutrophils # (1.3-7.7) k/uL Chloride (98-107) mmol/L Creatinine (0.66-1.25) mg/dL Glucose (74-99) mg/dL POC Glucose (mg/dL) 193 H 166 H 166 H (75-99) mg/dL Calcium (8.4-10.2) mg/dL Phosphorus (2.5-4.5) mg/dL 12/15/18 12/15/18 12/15/18 Range/Units 01:04 02:05 03:06 WBC (3.8-10.6) k/uL Hgb (13.0-17.5) gm/dL Plt Count (150-450) k/uL Neutrophils # (1.3-7.7) k/uL Chloride (98-107) mmol/L Creatinine (0.66-1.25) mg/dL Glucose (74-99) mg/dL POC Glucose (mg/dL) 157 H 150 H 120 H (75-99) mg/dL Calcium (8.4-10.2) mg/dL Phosphorus (2.5-4.5) mg/dL 12/15/18 12/15/18 12/15/18 Range/Units 03:57 05:03 05:46 WBC 12.9 H (3.8-10.6) k/uL Hgb 12.5 L (13.0-17.5) gm/dL Plt Count 125 L (150-450) k/uL Neutrophils # 10.5 H (1.3-7.7) k/uL Chloride (98-107) mmol/L Creatinine (0.66-1.25) mg/dL Glucose (74-99) mg/dL POC Glucose (mg/dL) 111 H 120 H (75-99) mg/dL Calcium (8.4-10.2) mg/dL Phosphorus (2.5-4.5) mg/dL 12/15/18 12/15/18 12/15/18 Range/Units 05:46 06:06 06:52 WBC (3.8-10.6) k/uL Hgb (13.0-17.5) gm/dL Plt Count (150-450) k/uL Neutrophils # (1.3-7.7) k/uL Chloride 114 H (98-107) mmol/L Creatinine 0.64 L (0.66-1.25) mg/dL Glucose 148 H (74-99) mg/dL POC Glucose (mg/dL) 137 H 141 H (75-99) mg/dL Calcium 7.6 L (8.4-10.2) mg/dL Phosphorus 1.6 L (2.5-4.5) mg/dL 12/15/18 12/15/18 12/15/18 Range/Units 08:14 09:01 10:44 WBC (3.8-10.6) k/uL Hgb (13.0-17.5) gm/dL Plt Count (150-450) k/uL Neutrophils # (1.3-7.7) k/uL Chloride (98-107) mmol/L Creatinine (0.66-1.25) mg/dL Glucose (74-99) mg/dL POC Glucose (mg/dL) 148 H 140 H 170 H (75-99) mg/dL Calcium (8.4-10.2) mg/dL Phosphorus (2.5-4.5) mg/dL Microbiology - Last 24 Hours (Table) 12/13/18 12:11 Blood Culture - Preliminary Blood No Growth after 24 hours 12/12/18 10:34 Blood Culture - Preliminary Blood No Growth after 48 hours Assessment and Plan Assessment: Impression: 1 acute hyperosmolar nonketotic state. Resolved. 2 acute metabolic encephalopathy, improving significantly since admission. 3 new-onset atrial fibrillation with RVR, presently in sinus rhythm. 4 acute kidney injury with anion gap metabolic acidosis, could be related to profound hypovolemia on presentation with hyperosmolar nonketotic state. Pos sibility of infection and sepsis is not entirely ruled out, so far we have negative cultures. And chest x-ray is suspicious for left lower lobe pneumonia. Again this is likely community-acquired. Or possibly aspiration. 5 seizure disorder remains on Keppra. 6 history of CVA in 2013. 7 coronary artery disease and previous MA 8 benign essential hypertension 9 chronic generalized anxiety disorder and depression. 10 acute hypernatremia, improved significantly sodium is down to 144 today. 11 by basilar atelectasis is noted on the chest x-ray this morning, pneumonia involving the left lower lobe is not entirely ruled out, hence we'll continue Zosyn Recommendation: Change main IV fluid from D5 W2.9 normal saline at 50 mL per hour. Continue Zosyn but discontinue vancomycin. Continue GI and DVT prophylaxis. Continue heparin. Continue BiPAP if needed especially at night. Modified barium swallow scheduled for today. Discontinue insulin drip and start the patient on Lantus insulin and sliding scale coverage as per protocol. Continue bronchodilators. Patient needs to remain in the ICU for today, and possibly transfer out of the ICU in the next 24 or 48 hours. Prognosis remains definitely guarded. We'll continue to follow. Time with Patient: Less than 30
[2018-12-15] MEDS ORDERED: INSULIN ASPART (NovoLOG) 100 UNIT/ML VIAL SQ SCH (12:00)
[2018-12-15 12:36] LABS: Glucose,Whole Blood 166 mg/dL (75-99)
--- NOTE | 2018-12-15 12:56 | FL ---
EXAMINATION TYPE: FL barium swallow w video DATE OF EXAM: 12/15/2018 MODIFIED SWALLOW / DEGLUTITION STUDY CLINICAL HISTORY: Dysphagia. TECHNIQUE: Deglutition study is performed utilizing thin liquid barium, honey and nectar thick liqui d barium, barium thick applesauce, and barium coated cracker. 3.57 minutes of fluoroscopy time was ut ilized during the examination. 0 images were saved as video recording was performed. COMPARISON: None. FINDINGS: The oral and pharyngeal phases show satisfactory initiation and propagation with all modali ties tested. Persistent vallecular residuals is seen with thick viscosity consistencies. Deep laryng eal penetration is seen with the thin consistency without the chin tuck maneuver. Inconsistent transi ent penetration is seen with the chin tuck maneuver. Normal mastication is seen with solid modalities tested. IMPRESSION: Deep penetration when administering the thin liquid consistency without the chin tuck man euver, improved to inconsistent transient penetration with the chin to maneuver. Vallecular residuals throughout the examination with thickened viscosity consistencies is also noted. Please refer to spe ech therapist notes for further details if necessary.
--- NOTE | 2018-12-15 13:56 | P.PN ---
Subjective Progress Note Date: 12/15/18 This is 53-year-old gentleman is seemed to be more alert today. Patient is maintaining sinus rhythm. Slow in responding to verbal commands. His sodium is still remaining at 153. Be in his 46 and creatinine 1.05. No evidence of any recurrence of atrial fibrillation. Patient does have history of previous CVA. Because of his high TK score, patient is started on anti-cognition therapy in the form of IV heparin, if cleared by GI department. We'll continue with IV Lopressor. We'll switch to oral medication to gradually. Patient is also on prophylactic antibiotics. We'll follow. 12/14/2018: Patient remains alert and communicative. Maintaining sinus rhythm. His sodium showed improvement and is about 148. Renal functions are stable. Urine output is good. Doesn't appear to be in acute distress. Patient is going to have a swallowing evaluation. Patient is on IV heparin and also IV Lop ressor. We'll continue current medical therapy. Once patient is able to take medication by mouth, we'll start him on by mouth beta aliya and also anticoagulate agent. 12/15/2018: This patient is more alert and communicative. Maintaining sinus rhythm. His sodium levels are improved and patient was switched to normal saline. Patient is unable to swallow. Patient is having a barium swallow e valuation today. Patient is on IV heparin and IV beta aliya. We'll continue current medical therapy. May switch to by mouth medications, when patient is able to take his oral medication. Objective - Vital Signs Vital signs: Vital Signs Temp 99.1 F 12/15/18 08:00 Pulse 83 12/15/18 11:00 Resp 32 H 12/15/18 11:00 BP 120/61 12/15/18 11:00 Pulse Ox 90 L 12/15/18 11:00 Intake & Output 12/14/18 12/15/18 12/15/18 18:59 06:59 18:59 Intake Total 2060.431 1815.209 881.28 Output Total 645 935 235 Balance 1415.431 880.209 646.28 Weight 103.1 kg 98.5 kg Intake: IV 1825 1525 800 Dextrose 5% in Water 1, 900 975 225 000 ml @ 75 mls/hr IV . [id number] [facility] Rx#:[id number] Magnesium Sulfate-D5w Pmx 100 1 gm In Dextrose/Water 1 100ml.bag @ 100 mls/hr IVPB Q1H [facility] Rx#: [id number] Piperacillin-Tazobactam 3 200 200 75 .375 gm In Sodium Chloride 0.9% 100 ml @ 25 mls/hr IVPB Q8HR [facility] Rx# :[id number] Potassium Phosphate 10 375 250 mmol In Sodium Chloride 0 .9% 250 ml @ 125 mls/hr IV Q2H [facility] Rx#:[id number] Sodium Chloride 0.9% 1, 50 000 ml @ 50 mls/hr IV . Q20H [facility] Rx#:[id number] Vancomycin 1,500 mg In 250 250 Sodium Chloride 0.9% 250 ml @ 125 mls/hr IVPB Q8H [facility] Rx#:[id number] levETIRAcetam IV 500 mg 100 100 100 In Sodium Chloride 0.9% 100 ml @ 400 mls/hr IVPB Q12HR [facility] Rx#:[id number] Intake, IV Titration 235.431 290.209 81.28 Amount Heparin Sod,Pork in 0.45% 200.966 235.52 81.28 NaCl 25,000 unit In 0.45 % NaCl 1 250ml.bag @ 10. 12 UNITS/KG/HR 9.99 mls/ hr IV .Q24H [facility] Rx#: [id number] Insulin Regular 100 unit 34.465 54.689 In Sodium Chloride 0.9% 100 ml @ Per Protocol IV .Q0M [facility] Rx#:[id number] Output: Urine 645 935 235 Other: Voiding Method Indwelling Catheter Indwelling Catheter Indwelling Catheter - Exam GENERAL EXAM: Patient is alert but slow in mentation. Could be secondary to previous CVA HEENT: Normocephalic. Normal reaction of pupils, equal size, normal range of extraocular motion. No erythema or exudates in the throat. NECK: No masses, no nuchal rigidity. CHEST: No chest wall deformity. LUNGS: Crepitations at the base HEART: S1 and S2 normal with no audible mumurs or gallops. Regular rhythm, femorals equal on both sides.. ABDOMEN: No hepatosplenomegaly, normal bowel sounds, no guarding or rigidity. SKIN: No rashes CENTRAL NERVOUS SYSTEM: No focal deficits. EXTREMITIES: No cyanosis, clubbing or edema. - Labs CBC & Chem 7: 12/15/18 05:46 12/15/18 05:46 Labs: Abnormal Lab Results - Last 24 Hours (Table) 12/14/18 12/14/18 12/14/18 Range/Units 15:12 17:04 18:59 WBC (3.8-10.6) k/uL Hgb (13.0-17.5) gm/dL Plt Count (150-450) k/uL Neutrophils # (1.3-7.7) k/uL Chloride (98-107) mmol/L Creatinine (0.66-1.25) mg/dL Glucose (74-99) mg/dL POC Glucose (mg/dL) 149 H 142 H 157 H (75-99) mg/dL Calcium (8.4-10.2) mg/dL Phosphorus (2.5-4.5) mg/dL 12/14/18 12/14/18 12/14/18 Range/Units 20:06 21:14 22:02 WBC (3.8-10.6) k/uL Hgb (13.0-17.5) gm/dL Plt Count (150-450) k/uL Neutrophils # (1.3-7.7) k/uL Chloride (98-107) mmol/L Creatinine (0.66-1.25) mg/dL Glucose (74-99) mg/dL POC Glucose (mg/dL) 173 H 182 H 193 H (75-99) mg/dL Calcium (8.4-10.2) mg/dL Phosphorus (2.5-4.5) mg/dL 12/14/18 12/15/18 12/15/18 Range/Units 23:13 00:08 01:04 WBC (3.8-10.6) k/uL Hgb (13.0-17.5) gm/dL Plt Count (150-450) k/uL Neutrophils # (1.3-7.7) k/uL Chloride (98-107) mmol/L Creatinine (0.66-1.25) mg/dL Glucose (74-99) mg/dL POC Glucose (mg/dL) 166 H 166 H 157 H (75-99) mg/dL Calcium (8.4-10.2) mg/dL Phosphorus (2.5-4.5) mg/dL 12/15/18 12/15/18 12/15/18 Range/Units 02:05 03:06 03:57 WBC (3.8-10.6) k/uL Hgb (13.0-17.5) gm/dL Plt Count (150-450) k/uL Neutrophils # (1.3-7.7) k/uL Chloride (98-107) mmol/L Creatinine (0.66-1.25) mg/dL Glucose (74-99) mg/dL POC Glucose (mg/dL) 150 H 120 H 111 H (75-99) mg/dL Calcium (8.4-10.2) mg/dL Phosphorus (2.5-4.5) mg/dL 12/15/18 12/15/18 12/15/18 Range/Units 05:03 05:46 05:46 WBC 12.9 H (3.8-10.6) k/uL Hgb 12.5 L (13.0-17.5) gm/dL Plt Count 125 L (150-450) k/uL Neutrophils # 10.5 H (1.3-7.7) k/uL Chloride 114 H (98-107) mmol/L Creatinine 0.64 L (0.66-1.25) mg/dL Glucose 148 H (74-99) mg/dL POC Glucose (mg/dL) 120 H (75-99) mg/dL Calcium 7.6 L (8.4-10.2) mg/dL Phosphorus 1.6 L (2.5-4.5) mg/dL 12/15/18 12/15/18 12/15/18 Range/Units 06:06 06:52 08:14 WBC (3.8-10.6) k/uL Hgb (13.0-17.5) gm/dL Plt Count (150-450) k/uL Neutrophils # (1.3-7.7) k/uL Chloride (98-107) mmol/L Creatinine (0.66-1.25) mg/dL Glucose (74-99) mg/dL POC Glucose (mg/dL) 137 H 141 H 148 H (75-99) mg/dL Calcium (8.4-10.2) mg/dL Phosphorus (2.5-4.5) mg/dL 12/15/18 12/15/18 12/15/18 Range/Units 09:01 10:44 12:33 WBC (3.8-10.6) k/uL Hgb (13.0-17.5) gm/dL Plt Count (150-450) k/uL Neutrophils # (1.3-7.7) k/uL Chloride (98-107) mmol/L Creatinine (0.66-1.25) mg/dL Glucose (74-99) mg/dL POC Glucose (mg/dL) 140 H 170 H 166 H (75-99) mg/dL Calcium (8.4-10.2) mg/dL Phosphorus (2.5-4.5) mg/dL Microbiology - Last 24 Hours (Table) 12/12/18 10:34 Blood Culture - Preliminary Blood No Growth after 72 hours 12/13/18 12:11 Blood Culture - Preliminary Blood No Growth after 24 hours Assessment and Plan (1) Atrial fibrillation with RVR Current Visit: Yes Status: Acute Code(s): I48.91 - UNSPECIFIED ATRIAL FIBRILLATION SNOMED Code(s): 941657893195910 (2) Dyslipidemia Current Visit: No Status: Acute Code(s): E78.5 - HYPERLIPIDEMIA, UNSPECIFIED SNOMED Code(s): 727124472 (3) Hypertension Current Visit: No Status: Acute Code(s): I10 - ESSENTIAL (PRIMARY) HYPERTENSION SNOMED Code(s): 57751073 (4) Elevated troponin Current Visit: Yes Status: Acute Code(s): R74.8 - ABNORMAL LEVELS OF OTHER SERUM ENZYMES SNOMED Code(s): 163276719 Plan: Patient seemed to be clinically more stable. His sodium levels have come back t o normal range. He is maintaining sinus rhythm. We'll continue IV metoprolol and heparin, until patient is able to take oral medications.
--- NOTE | 2018-12-15 14:21 | P.PN ---
Subjective This is a pleasant 63 years old male with past medical history of diabetes mellitus on insulin therapy, coronary artery disease status post cardiac cath and stenting,, CVA/TIA, diabetes mellitus, hyperlipidemia, hypertension, osteoarthritis, seizure disorder, Crohn's disease, CVA with right hemiparesis. He presents since with altered mental status secondary to hyperosmolar hyperglycemia nonketotic state. As per patient and at bedside he usually suit taking any insulin Lantus 25 units daily. However recently he needed a higher dose of insulin felt by the patient himself without checking his sugar and without consult in his primary care doctor, as a result patient ran out of his Lantus medication and new prescription she needed insurance authorization which needed 2 days during which he was without insulin, that's when he develope d with hyperglycemic nonketotic coma. Patient was treated with IV fluids and he regained his consciousness. Also was complaining of from coffee ground vomitus and GI were following with him and treating him conservatively. Patient is being evaluated for swallow test. Also cardiology evaluated the patient for new onset atrial fibrillation. He is breathing quietly on nasal cannula 2 L/M. No chest pain or abdominal pain. He had bowel movement, he denies pain anywhere else. Patient remains on heparin drip and D5W was switched to normal saline at 50 mL per hour as his sodium normalized today from 148 down to 144. This has leukocytosis of 12.9 K. And he is on IV vancomycin and Zosyn. Blood cultures are negative. Vancomycin was discontinued Patient still has fever of 101 yesterday. Review of systems , access was mentioned above CONSTITUTIONAL: No fever, no malaise, no fatigue. HEENT: No recent visual problems or hearing problems. Denied any sore throat. CARDIOVASCULAR: , no palpitations, no syncope. PULMONARY: no hemoptysis. GASTROINTESTINAL: No diarrhea, no nausea, no vomiting, no abdominal pain. Normoactive bowel sounds. NEUROLOGICAL: No headaches, no weakness, no numbness. HEMATOLOGICAL: Denies any bleeding or petechiae. GENITOURINARY: Denies any burning micturition, frequency, or urgency. MUSCULOSKELETAL/RHEUMATOLOGICAL: Denies any joint pain, swelling, or any muscle pain. ENDOCRINE: Denies any polyuria or polydipsia. Medication: Albuterol, aspirin, heparin, NovoLog, Levemir insulin, Keppra, Lopressor, potassium, Protonix, Zosyn, sodium chloride at 50 mL per hour. Objective - Vital Signs Vital signs: Vital Signs Temp 99.1 F 12/15/18 08:00 Pulse 83 12/15/18 11:00 Resp 32 H 12/15/18 11:00 BP 120/61 12/15/18 11:00 Pulse Ox 90 L 12/15/18 11:00 Intake & Output 12/14/18 12/15/18 12/15/18 18:59 06:59 18:59 Intake Total 2060.431 1815.209 881.28 Output Total 645 935 235 Balance 1415.431 880.209 646.28 Weight 103.1 kg 98.5 kg Intake: IV 1825 1525 800 Dextrose 5% in Water 1, 900 975 225 000 ml @ 75 mls/hr IV . [id number] [facility] Rx#:[id number] Magnesium Sulfate-D5w Pmx 100 1 gm In Dextrose/Water 1 100ml.bag @ 100 mls/hr IVPB Q1H [facility] Rx#: [id number] Piperacillin-Tazobactam 3 200 200 75 .375 gm In Sodium Chloride 0.9% 100 ml @ 25 mls/hr IVPB Q8HR [facility] Rx# :[id number] Potassium Phosphate 10 375 250 mmol In Sodium Chloride 0 .9% 250 ml @ 125 mls/hr IV Q2H [facility] Rx#:[id number] Sodium Chloride 0.9% 1, 50 000 ml @ 50 mls/hr IV . Q20H [facility] Rx#:[id number] Vancomycin 1,500 mg In 250 250 Sodium Chloride 0.9% 250 ml @ 125 mls/hr IVPB Q8H [facility] Rx#:[id number] levETIRAcetam IV 500 mg 100 100 100 In Sodium Chloride 0.9% 100 ml @ 400 mls/hr IVPB Q12HR [facility] Rx#:[id number] Intake, IV Titration 235.431 290.209 81.28 Amount Heparin Sod,Pork in 0.45% 200.966 235.52 81.28 NaCl 25,000 unit In 0.45 % NaCl 1 250ml.bag @ 10. 12 UNITS/KG/HR 9.99 mls/ hr IV .Q24H [facility] Rx#: [id number] Insulin Regular 100 unit 34.465 54.689 In Sodium Chloride 0.9% 100 ml @ Per Protocol IV .Q0M [facility] Rx#:[id number] Output: Urine 645 935 235 Other: Voiding Method Indwelling Catheter Indwelling Catheter Indwelling Catheter - Exam GENERAL: The patient is alert and oriented x3, not in any acute distress. Well developed, well nourished. HEENT: Pupils are round and equally reacting to light. EOMI. No scleral icterus. No conjunctival pallor. Normocephalic, atraumatic. No pharyngeal erythema. No thyromegaly. CARDIOVASCULAR: S1 and S2 present. Irregular heart rate. No murmurs, rubs, or gallops. -PULMONARY: Chest is clear to auscultation, scattered wheezing. No crackles. ABDOMEN: Soft, nontender, nondistended, normoactive bowel sounds. No palpable organomegaly. MUSCULOSKELETAL: No joint swelling or deformity. EXTREMITIES: No cyanosis, clubbing, or pedal edema. NEUROLOGICAL: Gross neurological examination did not reveal any focal deficits. SKIN: No rashes. - Labs CBC & Chem 7: 12/15/18 05:46 12/15/18 05:46 Labs: Abnormal Lab Results - Last 24 Hours (Table) 12/14/18 12/14/18 12/14/18 Range/Units 15:12 17:04 18:59 WBC (3.8-10.6) k/uL Hgb (13.0-17.5) gm/dL Plt Count (150-450) k/uL Neutrophils # (1.3-7.7) k/uL Chloride (98-107) mmol/L Creatinine (0.66-1.25) mg/dL Glucose (74-99) mg/dL POC Glucose (mg/dL) 149 H 142 H 157 H (75-99) mg/dL Calcium (8.4-10.2) mg/dL Phosphorus (2.5-4.5) mg/dL 12/14/18 12/14/18 12/14/18 Range/Units 20:06 21:14 22:02 WBC (3.8-10.6) k/uL Hgb (13.0-17.5) gm/dL Plt Count (150-450) k/uL Neutrophils # (1.3-7.7) k/uL Chloride (98-107) mmol/L Creatinine (0.66-1.25) mg/dL Glucose (74-99) mg/dL POC Glucose (mg/dL) 173 H 182 H 193 H (75-99) mg/dL Calcium (8.4-10.2) mg/dL Phosphorus (2.5-4.5) mg/dL 12/14/18 12/15/18 12/15/18 Range/Units 23:13 00:08 01:04 WBC (3.8-10.6) k/uL Hgb (13.0-17.5) gm/dL Plt Count (150-450) k/uL Neutrophils # (1.3-7.7) k/uL Chloride (98-107) mmol/L Creatinine (0.66-1.25) mg/dL Glucose (74-99) mg/dL POC Glucose (mg/dL) 166 H 166 H 157 H (75-99) mg/dL Calcium (8.4-10.2) mg/dL Phosphorus (2.5-4.5) mg/dL 12/15/18 12/15/18 12/15/18 Range/Units 02:05 03:06 03:57 WBC (3.8-10.6) k/uL Hgb (13.0-17.5) gm/dL Plt Count (150-450) k/uL Neutrophils # (1.3-7.7) k/uL Chloride (98-107) mmol/L Creatinine (0.66-1.25) mg/dL Glucose (74-99) mg/dL POC Glucose (mg/dL) 150 H 120 H 111 H (75-99) mg/dL Calcium (8.4-10.2) mg/dL Phosphorus (2.5-4.5) mg/dL 12/15/18 12/15/18 12/15/18 Range/Units 05:03 05:46 05:46 WBC 12.9 H (3.8-10.6) k/uL Hgb 12.5 L (13.0-17.5) gm/dL Plt Count 125 L (150-450) k/uL Neutrophils # 10.5 H (1.3-7.7) k/uL Chloride 114 H (98-107) mmol/L Creatinine 0.64 L (0.66-1.25) mg/dL Glucose 148 H (74-99) mg/dL POC Glucose (mg/dL) 120 H (75-99) mg/dL Calcium 7.6 L (8.4-10.2) mg/dL Phosphorus 1.6 L (2.5-4.5) mg/dL 12/15/18 12/15/18 12/15/18 Range/Units 06:06 06:52 08:14 WBC (3.8-10.6) k/uL Hgb (13.0-17.5) gm/dL Plt Count (150-450) k/uL Neutrophils # (1.3-7.7) k/uL Chloride (98-107) mmol/L Creatinine (0.66-1.25) mg/dL Glucose (74-99) mg/dL POC Glucose (mg/dL) 137 H 141 H 148 H (75-99) mg/dL Calcium (8.4-10.2) mg/dL Phosphorus (2.5-4.5) mg/dL 12/15/18 12/15/18 12/15/18 Range/Units 09:01 10:44 12:33 WBC (3.8-10.6) k/uL Hgb (13.0-17.5) gm/dL Plt Count (150-450) k/uL Neutrophils # (1.3-7.7) k/uL Chloride (98-107) mmol/L Creatinine (0.66-1.25) mg/dL Glucose (74-99) mg/dL POC Glucose (mg/dL) 140 H 170 H 166 H (75-99) mg/dL Calcium (8.4-10.2) mg/dL Phosphorus (2.5-4.5) mg/dL Microbiology - Last 24 Hours (Table) 12/12/18 10:34 Blood Culture - Preliminary Blood No Growth after 72 hours 12/13/18 12:11 Blood Culture - Preliminary Blood No Growth after 24 hours Assessment and Plan Assessment: - Acute hypoxic respiratory failure rule out aspiration, improving - Acute metabolic encephalopathy, resolved - Hyperosmolar nonketotic state probably causing altered mental status. Results - New-onset A. fib with RVR now in sinus rhythm - Community acquired versus aspiration pneumonia in the left lower lobe - Hypernatremia , resolved - CELESTINA, resolved - Rule out GI bleed - Mild troponin elevation - History of CVA with residual right-sided weakness - History of seizures, Keppra - History of CAD - History of hypertension - History of hyperlipidemia Plan: This is a pleasant 63 years old male who presents with running out of his Lasix leading to hyperglycemic nonketotic state with altered mental status. Associated with new onset A. fib and pneumonia. Continue with antibiotics. Follow-up culture results and leukocytes level . Continue with heparin drip. Continue with beta aliya.Resume his own insulin and adjust dose accordingly. Continue with oxygen therapy. Monitor labs include WBC, hemoglobin and liver tests.
--- NOTE | 2018-12-15 14:52 | P.PN ---
Subjective Patient is seen in follow-up for acute kidney injury which is resolved. Sodium level down to 144 this morning. His IV fluids were switched to normal saline to be run at 50 mL an hour. No vomiting or diarrhea. Patient had a barium swallow done this morning. Vital signs are stable. General: The patient appeared well nourished and normally developed. HEENT: Head exam is unremarkable. Neck is without jugular venous distension. LUNGS: Lungs are clear to auscultation and percussion. Breath sounds decreased. HEART: Rate and Rhythm are regular. First and second heart sounds normal. No murmurs, rubs or gallops. ABDOMEN: Abdominal exam reveals normal bowel sounds. Non-tender and non- distended. No evidence of peritonitis. EXTREMITITES: No clubbing, cyanosis, or edema. Objective - Vital Signs Vital signs: Vital Signs Temp 99.1 F 12/15/18 08:00 Pulse 83 12/15/18 11:00 Resp 32 H 12/15/18 11:00 BP 120/61 12/15/18 11:00 Pulse Ox 90 L 12/15/18 11:00 Intake & Output 12/14/18 12/15/18 12/15/18 18:59 06:59 18:59 Intake Total 2060.431 1815.209 881.28 Output Total 645 935 235 Balance 1415.431 880.209 646.28 Weight 103.1 kg 98.5 kg Intake: IV 1825 1525 800 Dextrose 5% in Water 1, 900 975 225 000 ml @ 75 mls/hr IV . [id number] [facility] Rx#:[id number] Magnesium Sulfate-D5w Pmx 100 1 gm In Dextrose/Water 1 100ml.bag @ 100 mls/hr IVPB Q1H [facility] Rx#: [id number] Piperacillin-Tazobactam 3 200 200 75 .375 gm In Sodium Chloride 0.9% 100 ml @ 25 mls/hr IVPB Q8HR [facility] Rx# :[id number] Potassium Phosphate 10 375 250 mmol In Sodium Chloride 0 .9% 250 ml @ 125 mls/hr IV Q2H [facility] Rx#:[id number] Sodium Chloride 0.9% 1, 50 000 ml @ 50 mls/hr IV . Q20H [facility] Rx#:[id number] Vancomycin 1,500 mg In 250 250 Sodium Chloride 0.9% 250 ml @ 125 mls/hr IVPB Q8H [facility] Rx#:[id number] levETIRAcetam IV 500 mg 100 100 100 In Sodium Chloride 0.9% 100 ml @ 400 mls/hr IVPB Q12HR [facility] Rx#:[id number] Intake, IV Titration 235.431 290.209 81.28 Amount Heparin Sod,Pork in 0.45% 200.966 235.52 81.28 NaCl 25,000 unit In 0.45 % NaCl 1 250ml.bag @ 10. 12 UNITS/KG/HR 9.99 mls/ hr IV .Q24H [facility] Rx#: [id number] Insulin Regular 100 unit 34.465 54.689 In Sodium Chloride 0.9% 100 ml @ Per Protocol IV .Q0M [facility] Rx#:[id number] Output: Urine 645 935 235 Other: Voiding Method Indwelling Catheter Indwelling Catheter Indwelling Catheter - Labs CBC & Chem 7: 12/15/18 05:46 12/15/18 05:46 Labs: Abnormal Lab Results - Last 24 Hours (Table) 12/14/18 12/14/18 12/14/18 Range/Units 15:12 17:04 18:59 WBC (3.8-10.6) k/uL Hgb (13.0-17.5) gm/dL Plt Count (150-450) k/uL Neutrophils # (1.3-7.7) k/uL APTT (22.0-30.0) sec Chloride (98-107) mmol/L Creatinine (0.66-1.25) mg/dL Glucose (74-99) mg/dL POC Glucose (mg/dL) 149 H 142 H 157 H (75-99) mg/dL Calcium (8.4-10.2) mg/dL Phosphorus (2.5-4.5) mg/dL 12/14/18 12/14/18 12/14/18 Range/Units 20:06 21:14 22:02 WBC (3.8-10.6) k/uL Hgb (13.0-17.5) gm/dL Plt Count (150-450) k/uL Neutrophils # (1.3-7.7) k/uL APTT (22.0-30.0) sec Chloride (98-107) mmol/L Creatinine (0.66-1.25) mg/dL Glucose (74-99) mg/dL POC Glucose (mg/dL) 173 H 182 H 193 H (75-99) mg/dL Calcium (8.4-10.2) mg/dL Phosphorus (2.5-4.5) mg/dL 12/14/18 12/15/18 12/15/18 Range/Units 23:13 00:08 01:04 WBC (3.8-10.6) k/uL Hgb (13.0-17.5) gm/dL Plt Count (150-450) k/uL Neutrophils # (1.3-7.7) k/uL APTT (22.0-30.0) sec Chloride (98-107) mmol/L Creatinine (0.66-1.25) mg/dL Glucose (74-99) mg/dL POC Glucose (mg/dL) 166 H 166 H 157 H (75-99) mg/dL Calcium (8.4-10.2) mg/dL Phosphorus (2.5-4.5) mg/dL 12/15/18 12/15/18 12/15/18 Range/Units 02:05 03:06 03:57 WBC (3.8-10.6) k/uL Hgb (13.0-17.5) gm/dL Plt Count (150-450) k/uL Neutrophils # (1.3-7.7) k/uL APTT (22.0-30.0) sec Chloride (98-107) mmol/L Creatinine (0.66-1.25) mg/dL Glucose (74-99) mg/dL POC Glucose (mg/dL) 150 H 120 H 111 H (75-99) mg/dL Calcium (8.4-10.2) mg/dL Phosphorus (2.5-4.5) mg/dL 12/15/18 12/15/18 12/15/18 Range/Units 05:03 05:46 05:46 WBC 12.9 H (3.8-10.6) k/uL Hgb 12.5 L (13.0-17.5) gm/dL Plt Count 125 L (150-450) k/uL Neutrophils # 10.5 H (1.3-7.7) k/uL APTT (22.0-30.0) sec Chloride 114 H (98-107) mmol/L Creatinine 0.64 L (0.66-1.25) mg/dL Glucose 148 H (74-99) mg/dL POC Glucose (mg/dL) 120 H (75-99) mg/dL Calcium 7.6 L (8.4-10.2) mg/dL Phosphorus 1.6 L (2.5-4.5) mg/dL 12/15/18 12/15/18 12/15/18 Range/Units 06:06 06:52 08:14 WBC (3.8-10.6) k/uL Hgb (13.0-17.5) gm/dL Plt Count (150-450) k/uL Neutrophils # (1.3-7.7) k/uL APTT (22.0-30.0) sec Chloride (98-107) mmol/L Creatinine (0.66-1.25) mg/dL Glucose (74-99) mg/dL POC Glucose (mg/dL) 137 H 141 H 148 H (75-99) mg/dL Calcium (8.4-10.2) mg/dL Phosphorus (2.5-4.5) mg/dL 12/15/18 12/15/18 12/15/18 Range/Units 09:01 10:44 12:33 WBC (3.8-10.6) k/uL Hgb (13.0-17.5) gm/dL Plt Count (150-450) k/uL Neutrophils # (1.3-7.7) k/uL APTT (22.0-30.0) sec Chloride (98-107) mmol/L Creatinine (0.66-1.25) mg/dL Glucose (74-99) mg/dL POC Glucose (mg/dL) 140 H 170 H 166 H (75-99) mg/dL Calcium (8.4-10.2) mg/dL Phosphorus (2.5-4.5) mg/dL 12/15/18 Range/Units 13:59 WBC (3.8-10.6) k/uL Hgb (13.0-17.5) gm/dL Plt Count (150-450) k/uL Neutrophils # (1.3-7.7) k/uL APTT 39.5 H (22.0-30.0) sec Chloride (98-107) mmol/L Creatinine (0.66-1.25) mg/dL Glucose (74-99) mg/dL POC Glucose (mg/dL) (75-99) mg/dL Calcium (8.4-10.2) mg/dL Phosphorus (2.5-4.5) mg/dL Microbiology - Last 24 Hours (Table) 12/13/18 12:11 Blood Culture - Preliminary Blood No Growth after 48 hours 12/12/18 10:34 Blood Culture - Preliminary Blood No Growth after 72 hours Assessment and Plan Plan: Assessment: 1. Acute kidney injury secondary to ATN. Resolved. 2. Hyponatremia secondary to lack of oral water intake. Improved with D5W inf usion. 3. A. fib with RVR. Now rate controlled. 4. History of seizures. 5. Hypophosphatemia from poor oral intake. Plan: Maintain normal saline at 50 mL an hour. Phosphorus was replaced. Repeat electrolytes in the morning.
[2018-12-15 17:03] LABS: Glucose,Whole Blood 279 mg/dL (75-99)
[2018-12-15] MEDS: INSULIN ASPART (NovoLOG) 100 UNIT/ML VIAL SQ SCH ×2 (17:11→21:01)
[2018-12-15 20:57] LABS: Glucose,Whole Blood 171 mg/dL (75-99)
[2018-12-15] MEDS: INSULIN DETEMIR (LEVEMIR) 100 UNIT/ML SYR SQ SCH (21:01)
[2018-12-16 01:39] LABS: Glucose,Whole Blood 145 mg/dL (75-99)
[2018-12-16 05:50] LABS: Basophils % (A) 0 %; Eosinophils # (A) 0.2 k/uL (0-0.7); Eosinophils % (A) 2 %; HCT 37.4 % (39.0-53.0); HGB 11.6 gm/dL (13.0-17.5); Lymphocytes # (A) 1.1 k/uL (1.0-4.8); Lymphocytes % (A) 11 %; MCH 28.2 pg (25.0-35.0); MCHC 31.1 g/dL (31.0-37.0); MCV 90.7 fL (80.0-100.0); Mean Platelet Volume 11.2; Monocytes # (A) 0.8 k/uL (0-1.0); Monocytes % (A) 9 %; Neutrophils # (A) 7.1 k/uL (1.3-7.7); Neutrophils % (A) 76 %; Platelet Count 141 k/uL (150-450); RBC 4.12 m/uL (4.30-5.90); RDW 14.5 % (11.5-15.5); WBC 9.4 k/uL (3.8-10.6)
[2018-12-16 06:28] LABS: Anion Gap 6 mmol/L; Blood Urea Nitrogen 18 mg/dL (9-20); Calcium 7.5 mg/dL (8.4-10.2); Carbon Dioxide 21 mmol/L (22-30); Chloride 116 mmol/L (98-107); Glucose 138 mg/dL (74-99); Phosphorus 1.6 mg/dL (2.5-4.5); Potassium 3.8 mmol/L (3.5-5.1); Sodium 143 mmol/L (137-145)
[2018-12-16] MEDS: HEPARIN SODIUM,PORCINE 5,000 UNIT/ML 1 ML VIAL IV PRN (06:42)
[2018-12-16] MEDS: SODIUM CHLORIDE 0.9% 1,000 ML IV SCH (06:45)
[2018-12-16] MEDS: INSULIN ASPART (NovoLOG) 100 UNIT/ML VIAL SQ SCH ×4 (07:00→21:56)
[2018-12-16] MEDS: POTASSIUM PHOSPHATE 10 MMOL in SODIUM CHLORIDE 0.9% 250 ML IV SCH ×2 (07:02→09:18)
--- NOTE | 2018-12-16 07:07 | XR ---
EXAMINATION TYPE: XR chest 1V portable DATE OF EXAM: 12/16/2018 COMPARISON: 12/15/2018 HISTORY: Difficulty breathing TECHNIQUE: Single frontal view of the chest is obtained. FINDINGS: There is stable left basilar airspace disease partially obscuring the left hemidiaphragm. Remainder the lungs are clear. Cardiomediastinal silhouette is within normal limits. Osseous structur es are grossly intact. IMPRESSION: Stable left basilar airspace disease likely representing pneumonia with an associated tra ce left pleural effusion.
[2018-12-16 07:29] LABS: Glucose,Whole Blood 135 mg/dL (75-99)
[2018-12-16] MEDS: levETIRAcetam IV 500 MG in SODIUM CHLORIDE 0.9% 100 ML IVPB SCH (08:10)
[2018-12-16] MEDS: PANTOPRAZOLE 40 MG/10 ML VIAL IV SCH (08:11)
[2018-12-16] MEDS: SODIUM CHLORIDE 0.45% 1,000 ML IV SCH (08:13)
[2018-12-16] MEDS: PIPERACILLIN-TAZOBACTAM 3.375 GM in SODIUM CHLORIDE 0.9% 100 ML IVPB SCH ×2 (08:47→16:30)
[2018-12-16] MEDS: METOPROLOL TARTRATE 5 MG/5 ML VIAL IVP SCH ×2 (08:48→10:45)
--- NOTE | 2018-12-16 09:04 | P.PN ---
Subjective Progress Note Date: 12/16/18 Principal diagnosis: Altered mental status coffee-ground emesis Past his MBS tolerating pured diet. Multiple nonbloody bowel movements per nursing. Hemoglobin 11.5. Still receiving IV heparin. Afebrile. Denies abdominal pain nausea vomiting.BUN 18. Creatinine 0.5. Platelet 141. Objective - Vital Signs Vital signs: Vital Signs Temp 98.6 F 12/16/18 08:00 Pulse 76 12/16/18 08:00 Resp 20 12/16/18 08:00 BP 154/75 12/16/18 08:00 Pulse Ox 93 L 12/16/18 08:00 Intake & Output 12/15/18 12/16/18 12/16/18 18:59 06:59 18:59 Intake Total 2405.000 1114.16 805 Output Total 900 800 140 Balance 1505.000 314.16 665 Weight 102.3 kg Intake: IV 1425 650 325 Dextrose 5% in Water 1, 225 000 ml @ 75 mls/hr IV . [id number] [facility] Rx#:[id number] Magnesium Sulfate-D5w Pmx 200 1 gm In Dextrose/Water 1 100ml.bag @ 100 mls/hr IVPB Q1H [facility] Rx#: [id number] Piperacillin-Tazobactam 3 200 .375 gm In Sodium Chloride 0.9% 100 ml @ 25 mls/hr IVPB Q8HR [facility] Rx# :[id number] Potassium Phosphate 10 250 125 mmol In Sodium Chloride 0 .9% 250 ml @ 125 mls/hr IV Q2H [facility] Rx#:[id number] Sodium Chloride 0.9% 1, 450 550 100 000 ml @ 50 mls/hr IV . Q20H [facility] Rx#:[id number] levETIRAcetam IV 500 mg 100 100 100 In Sodium Chloride 0.9% 100 ml @ 400 mls/hr IVPB Q12HR [facility] Rx#:[id number] Intake, IV Titration 500.000 224.16 Amount Heparin Sod,Pork in 0.45% 250.000 224.16 NaCl 25,000 unit In 0.45 % NaCl 1 250ml.bag @ 10. 12 UNITS/KG/HR 9.99 mls/ hr IV .Q24H [facility] Rx#: [id number] Potassium Phosphate 10 250 mmol In Sodium Chloride 0 .9% 250 ml @ 125 mls/hr IV Q2H [facility] Rx#:[id number] Oral 480 240 480 Output: Urine 900 800 140 Other: Voiding Method Indwelling Catheter Indwelling Catheter # Bowel Movements 1 1 - Exam General appearance: The patient is awake alert appropriate conversation. HET: Head is normocephalic and atraumatic. Pupils are equal and reactive. Oropharynx is clear without lesions. Neck: Supple without lymphadenopathy. Trachea midline. Heart: S1 S2. Regular rate and rhythm. Lungs: No crackles or wheezes are heard. Abdomen: Soft, nontender, nondistended with bowel sounds. No peritoneal signs. No palpable organomegaly or masses. Extremities: No edema. - Labs CBC & Chem 7: 12/16/18 05:23 12/16/18 05:23 Labs: Abnormal Lab Results - Last 24 Hours (Table) 12/15/18 12/15/18 12/15/18 Range/Units 09:01 10:44 12:33 RBC (4.30-5.90) m/uL Hgb (13.0-17.5) gm/dL Hct (39.0-53.0) % Plt Count (150-450) k/uL APTT (22.0-30.0) sec Chloride (98-107) mmol/L Carbon Dioxide (22-30) mmol/L Creatinine (0.66-1.25) mg/dL Glucose (74-99) mg/dL POC Glucose (mg/dL) 140 H 170 H 166 H (75-99) mg/dL Calcium (8.4-10.2) mg/dL Phosphorus (2.5-4.5) mg/dL 12/15/18 12/15/18 12/15/18 Range/Units 13:59 17:00 20:53 RBC (4.30-5.90) m/uL Hgb (13.0-17.5) gm/dL Hct (39.0-53.0) % Plt Count (150-450) k/uL APTT 39.5 H (22.0-30.0) sec Chloride (98-107) mmol/L Carbon Dioxide (22-30) mmol/L Creatinine (0.66-1.25) mg/dL Glucose (74-99) mg/dL POC Glucose (mg/dL) 279 H 171 H (75-99) mg/dL Calcium (8.4-10.2) mg/dL Phosphorus (2.5-4.5) mg/dL 12/15/18 12/16/18 12/16/18 Range/Units 21:02 01:36 05:23 RBC 4.12 L (4.30-5.90) m/uL Hgb 11.6 L (13.0-17.5) gm/dL Hct 37.4 L (39.0-53.0) % Plt Count 141 L (150-450) k/uL APTT 56.3 H (22.0-30.0) sec Chloride (98-107) mmol/L Carbon Dioxide (22-30) mmol/L Creatinine (0.66-1.25) mg/dL Glucose (74-99) mg/dL POC Glucose (mg/dL) 145 H (75-99) mg/dL Calcium (8.4-10.2) mg/dL Phosphorus (2.5-4.5) mg/dL 12/16/18 12/16/18 12/16/18 Range/Units 05:23 05:23 06:51 RBC (4.30-5.90) m/uL Hgb (13.0-17.5) gm/dL Hct (39.0-53.0) % Plt Count (150-450) k/uL APTT 36.7 H (22.0-30.0) sec Chloride 116 H (98-107) mmol/L Carbon Dioxide 21 L (22-30) mmol/L Creatinine 0.56 L (0.66-1.25) mg/dL Glucose 138 H (74-99) mg/dL POC Glucose (mg/dL) 135 H (75-99) mg/dL Calcium 7.5 L (8.4-10.2) mg/dL Phosphorus 1.6 L (2.5-4.5) mg/dL Microbiology - Last 24 Hours (Table) 12/13/18 12:11 Blood Culture - Preliminary Blood No Growth after 48 hours 12/12/18 10:34 Blood Culture - Preliminary Blood No Growth after 72 hours Assessment and Plan (1) Coffee ground emesis Current Visit: Yes Status: Acute Code(s): K92.0 - HEMATEMESIS SNOMED Code(s): 06725658 (2) Metabolic encephalopathy Current Visit: Yes Status: Acute Code(s): G93.41 - METABOLIC ENCEPHALOPATHY SNOMED Code(s): 00855857 (3) Acute kidney injury Current Visit: Yes Status: Acute Code(s): N17.9 - ACUTE KIDNEY FAILURE, UNSPECIFIED SNOMED Code(s): 32794935 (4) Diabetic ketoacidosis Current Visit: Yes Status: Acute Code(s): E13.10 - OTH DIABETES MELLITUS WITH KETOACIDOSIS WITHOUT COMA SNOMED Code(s): 506256276 (5) Elevated troponin Current Visit: Yes Status: Acute Code(s): R74.8 - ABNORMAL LEVELS OF OTHER S MARTHA ENZYMES SNOMED Code(s): 079496349 (6) Atrial fibrillation with RVR Current Visit: Yes Status: Acute Code(s): I48.91 - UNSPECIFIED ATRIAL FIBRILLATION SNOMED Code(s): 982036112081885 (7) Dysphagia Narrative/Plan: tolerating pureed diet Current Visit: Yes Status: Acute Code(s): R13.10 - DYSPHAGIA, UNSPECIFIED SNOMED Code(s): 33275645 Plan: 1. Hemoglobin down today 11.5 without active GI bleeding. Tolerating pureed diet. Contiue present medical therapy. Will continue to follow and trend CBC. Inpatient scopes not planned at this time. Continue Protonix. Assessment and plan of discussed with Dr. Giron.
[2018-12-16] MEDS: ASPIRIN 325 MG TAB PO SCH (09:26)
--- NOTE | 2018-12-16 10:40 | P.PN ---
Subjective Progress Note Date: 12/16/18 Principal diagnosis: Hyperosmolar nonketotic state and mental status change 63-year-old male patient presented with altered mentation and vomiting. He apparently had coffee-ground emesis and syncope. In the ED, the patient was diagnosed having a acute hyperosmolar nonketotic state and the patient was started on treatment immediately with IV fluids and insulin drip. The patient himself was unable to provide any history. He denied having any chest pain. No abdominal pain. His initial blood sugar was 1400. The patient was given 2 L of IV fluids and started on insulin drip. The first set of troponin was 0.1. The BNP was 7080. Computed tomography scan of the head and the neck was unremarkable. The patient got transferred to the ICU. The patient is an acute kidney injury. Urine is at 79. Creatinine is at 3.9. The patient's anion gap is at 32. Serum bicarb is at 15. The lactic acid level is at 3.0. There is only trace urinary ketones. The patient's hemoglobin is at 16.5. White cell count is not elevated. EKG showing atrial fibrillation with rapid ventricular response. Chest x-ray showing a basilar atelectasis Patient was reevaluated today on 12/12/2018, remains in the intensive care unit, and bit more arousable, follows very simple instructions, but overall remains a bit encephalopathic. According to the nurses his mental status is gradually improving. Patient remains on insulin drip, his IV fluid was switched to D5W because of his significantly elevated sodium today is up to 157. Patient does not seem to be in any form of distress. He is resting comfortably in bed. Repeat labs this morning showed a sodium of 154 BUN of 76 creatinine is 2.09. His creatinine is gradually improving, it was 3.95 yesterday. Chest x-ray this morning showed mostly left basilar airspace disease, likely atelectasis, underlying pneumonia is not entirely ruled out. Reevaluated today on 12/13/2018, patient remains in the ICU, he is more alert, however he is noted to have marginal O2 saturations. Patient was placed overnight on a high flow nasal cannula, and I have noted this morning that the patient has an extremely poor and weak cough. His chest x-ray showed mostly atelectasis especially at the left base. Hence I recommended patient goes on Bi PAP, and he would be on BiPAP of 12 and 4. His FiO2 will be titrated accordingly. His sodium remains high at 153, BUN is 46 creatinine is 1.05. WBC count is 10.5 hemoglobin is 14.6. Patient remains on Zosyn empirically, his IV fluid was cut down to 75 mL/h, he remains on Keppra, and this morning because of his agitation and I recommended Ativan 1 mg IV push times one. Patient was reevaluated today on 12/14/2018, remains in the ICU, becoming more and more alert, however he has a very weak cough. Patient is now off BiPAP, and he is on 10 L high flow nasal cannula. O2 saturation is in the mid 90s. Patient has been spiking fevers intermittently, cultures have been negative so far, and the patient remains on Zosyn and vancomycin for now. I will likely discontinue vancomycin tomorrow if cultures come back nondiagnostic. However I would maintain the patient on Zosyn. Chest x-ray continues to show some atelectasis at the left base. Patient had no major issues overnight, and his labs were reviewed today. CBC is relatively normal. PTT is therapeutic at 57.4. Sodium is coming down to 148 renal profile is significantly better is basically almost normal. Sugar is 163. Repeat lactic acid couple of days ago was 1.1 his serum osmolality on admission was 418. Patient remains on heparin for atrial fibrillation with RVR. And that is being addressed by cardiology, he was also noted to have elevated troponin on admission. Patient is now in sinus rhythm. Patient will likely have a swallow evaluation today, and if he passes we will start oral feedings. Patient was reevaluated today on 12/15/2018, remains in the ICU, he is becoming more awake and more oriented, he is coughing better, and he is now off BiPAP. Presently on 3 L nasal cannula, saturating in the low 90s. Blood cultures remain negative. Patient has been on Zosyn and vancomycin, hence I will go ahead and discontinue vancomycin today. He will remain on Zosyn, chest x-ray is suggestive of a left lower lobe infiltrate. Labs today were reviewed, WBC count is 12.9 hemoglobin is 12.5. Basic metabolic profile is normal, his sodium corrected nicely today it is 144. Hence I have switched his IV fluid from D5 to normal saline at 50 mL per hour. I would also discontinue his insulin drip, and start the patient on sliding scale as well as Lantus insulin. Patient failed his swallow evaluation yesterday, and he is going today for a modified barium swallow, and may or may not consider a Dobbhoff tube placement for nutritional support. This will be decided upon after the barium swallow. Patient was evaluated today on 12/16/2018, remains in the ICU, however he seems to be doing quite well, responding much better to treatment. Patient is on 3 L nasal cannula, saturating well. His hemoglobin is stable. Electrolytes and renal profile significantly improved. His diabetes seems to be under control. His atrial fibrillation is also under control presently in normal sinus rhythm. Patient is now tolerating pured diet. Chest x-ray continues to show limited infiltrate in the left lower lobe. His CBC is relatively normal hemoglobin is 11.6. BUN is 18 and creatinine is 0.56. Patient has intermittent episodes of confusion, but he seems quite appropriate today, he is oriented to place, but not oriented to the year. Objective - Vital Signs Vital signs: Vital Signs Temp 98.6 F 12/16/18 08:00 Pulse 84 12/16/18 09:00 Resp 13 12/16/18 09:00 BP 155/78 12/16/18 09:00 Pulse Ox 91 L 12/16/18 09:00 Intake & Output 12/15/18 12/16/18 12/16/18 18:59 06:59 18:59 Intake Total 2405.000 1114.16 1245 Output Total 900 800 265 Balance 1505.000 314.16 980 Weight 102.3 kg Intake: IV 1425 650 525 Dextrose 5% in Water 1, 225 000 ml @ 75 mls/hr IV . [id number] ALEYDA Rx#:[id number] Magnesium Sulfate-D5w Pmx 200 1 gm In Dextrose/Water 1 100ml.bag @ 100 mls/hr IVPB Q1H ALEYDA Rx#: [id number] Piperacillin-Tazobactam 3 200 25 .375 gm In Sodium Chloride 0.9% 100 ml @ 25 mls/hr IVPB Q8HR ALEYDA Rx# :[id number] Potassium Phosphate 10 250 250 mmol In Sodium Chloride 0 .9% 250 ml @ 125 mls/hr IV Q2H ALEYDA Rx#:[id number] Sodium Chloride 0.45% 1, 50 000 ml @ 50 mls/hr IV . Q20H ALEYDA Rx#:[id number] Sodium Chloride 0.9% 1, 450 550 100 000 ml @ 50 mls/hr IV . Q20H ALEYDA Rx#:[id number] levETIRAcetam IV 500 mg 100 100 100 In Sodium Chloride 0.9% 100 ml @ 400 mls/hr IVPB Q12HR ALEYDA Rx#:[id number] Intake, IV Titration 500.000 224.16 Amount Heparin Sod,Pork in 0.45% 250.000 224.16 NaCl 25,000 unit In 0.45 % NaCl 1 250ml.bag @ 10. 12 UNITS/KG/HR 9.99 mls/ hr IV .Q24H ALEYDA Rx#: [id number] Potassium Phosphate 10 250 mmol In Sodium Chloride 0 .9% 250 ml @ 125 mls/hr IV Q2H ALEYDA Rx#:[id number] Oral 480 240 720 Output: Urine 900 800 265 Other: Voiding Method Indwelling Catheter Indwelling Catheter Indwelling Catheter # Bowel Movements 1 1 - Exam Physical Exam: Revealed a 63-year-old white male, in no form of respiratory distress maintained on 3 L nasal cannula. Head: Atraumatic, normocephalic. HEENT:[Neck is supple.] [No neck masses.] [No thyromegaly.] [No JVD.] PERRLA, EOMI, no icterus. Dry mucous membranes noted. Chest: [Minimal crackles at the left base, no rhonchi and no wheezes no chest wall tenderness. Cardiac Exam: [Normal S1 and S2, no S3 gallop, no murmur.] Abdomen: [Soft, nontender, no megaly, no rebound, no guarding, normal bowel sounds.] Extremities: [No clubbing, no edema, no cyanosis.], Ulceration changes on the tip of his big toe are unchanged. Neurological Exam: Alert, oriented, follows instructions. Lymphatics: No lymphadenopathy. Psychiatric: Normal mood, affect and mental status examination. Again he is alert and oriented to place and person but not to time. - Labs CBC & Chem 7: 12/16/18 05:23 12/16/18 05:23 Labs: Abnormal Lab Results - Last 24 Hours (Table) 12/15/18 12/15/18 12/15/18 Range/Units 10:44 12:33 13:59 RBC (4.30-5.90) m/uL Hgb (13.0-17.5) gm/dL Hct (39.0-53.0) % Plt Count (150-450) k/uL APTT 39.5 H (22.0-30.0) sec Chloride (98-107) mmol/L Carbon Dioxide (22-30) mmol/L Creatinine (0.66-1.25) mg/dL Glucose (74-99) mg/dL POC Glucose (mg/dL) 170 H 166 H (75-99) mg/dL Calcium (8.4-10.2) mg/dL Phosphorus (2.5-4.5) mg/dL 12/15/18 12/15/18 12/15/18 Range/Units 17:00 20:53 21:02 RBC (4.30-5.90) m/uL Hgb (13.0-17.5) gm/dL Hct (39.0-53.0) % Plt Count (150-450) k/uL APTT 56.3 H (22.0-30.0) sec Chloride (98-107) mmol/L Carbon Dioxide (22-30) mmol/L Creatinine (0.66-1.25) mg/dL Glucose (74-99) mg/dL POC Glucose (mg/dL) 279 H 171 H (75-99) mg/dL Calcium (8.4-10.2) mg/dL Phosphorus (2.5-4.5) mg/dL 12/16/18 12/16/18 12/16/18 Range/Units 01:36 05:23 05:23 RBC 4.12 L (4.30-5.90) m/uL Hgb 11.6 L (13.0-17.5) gm/dL Hct 37.4 L (39.0-53.0) % Plt Count 141 L (150-450) k/uL APTT (22.0-30.0) sec Chloride 116 H (98-107) mmol/L Carbon Dioxide 21 L (22-30) mmol/L Creatinine 0.56 L (0.66-1.25) mg/dL Glucose 138 H (74-99) mg/dL POC Glucose (mg/dL) 145 H (75-99) mg/dL Calcium 7.5 L (8.4-10.2) mg/dL Phosphorus 1.6 L (2.5-4.5) mg/dL 12/16/18 12/16/18 Range/Units 05:23 06:51 RBC (4.30-5.90) m/uL Hgb (13.0-17.5) gm/dL Hct (39.0-53.0) % Plt Count (150-450) k/uL APTT 36.7 H (22.0-30.0) sec Chloride (98-107) mmol/L Carbon Dioxide (22-30) mmol/L Creatinine (0.66-1.25) mg/dL Glucose (74-99) mg/dL POC Glucose (mg/dL) 135 H (75-99) mg/dL Calcium (8.4-10.2) mg/dL Phosphorus (2.5-4.5) mg/dL Microbiology - Last 24 Hours (Table) 12/13/18 12:11 Blood Culture - Preliminary Blood No Growth after 48 hours 12/12/18 10:34 Blood Culture - Preliminary Blood No Growth after 72 hours Assessment and Plan Assessment: Impression: 1 acute hyperosmolar nonketotic state. Resolved. 2 acute metabolic encephalopathy, resolved 3 new-onset atrial fibrillation with RVR, presently in sinus rhythm. His heparin could be discontinued today and probably switch to eliquis, that'll be decided upon by cardiology. 4 acute kidney injury with anion gap metabolic acidosis, resolved 5 seizure disorder remains on Keppra. I will switch his Keppra from IV to oral which is his usual dose 500 mg by mouth twice a day for 6 history of CVA in 2014. 7 coronary artery disease and previous DC, being followed by cardiology 8 benign essential hypertension 9 chronic generalized anxiety disorder and depression. 10 acute hypernatremia, resolved 11 basilar atelectasis is noted on the chest x-ray this morning, pneumonia invo lving the left lower lobe is not entirely ruled out, hence we'll continue Zosyn , this could be aspiration pneumonia. Recommendation: I have recommended transferring the patient out of the ICU to a monitor bed on selective, in the meantime I have switched his IV Protonix to oral Protonix, switch his IV Keppra to oral Keppra, his sugar seems to be well- controlled he is on Lantus insulin and is also on insulin as per protocol subcu every 6 hours. Patient will remain on bronchodilators, antibiotics, not requiring BiPAP anymore, maintained on 3 L nasal cannula, I will definitely arrange for the patient to transfer out of the ICU, continue present supportive care measures, and hopefully professor of social work to evaluate for possible discharge planning in the next 48 hours. We'll continue to follow, obviously the patient continues to have multiple complex medical issues as noted above. Prognosis remains definitely guarded. Time with Patient: Less than 30
[2018-12-16] MEDS: ASPIRIN 300 MG SUPP RECTAL SCH (10:44)
[2018-12-16] MEDS: APIXABAN 5 MG TAB PO SCH ×2 (11:36→21:55)
[2018-12-16 12:25] LABS: Glucose,Whole Blood 161 mg/dL (75-99)
--- NOTE | 2018-12-16 14:29 | CDI ---
Documentation Clarification Form Date: 12/16/2018 2:22:06 PM From: Meliza AV Vides, CCDS Admit Date: 12/11/2018 2:55:00 PM Patient Name: Demian Hickman Visit Number: [id number] Discharge Date: ATTENTION: The Clinical Documentation Specialists (CDI) and [facility] Coding Staff appreciate your assistance in clarifying documentation. Please respond to the clarification below the line at the bottom and electronically sign. The CDI & [facility] Coding staff will review the response and follow-up if needed. Please note: Queries are made part of the Legal Health Record. If you have any questions, please contact the author of this message via ITS. Dr. Sophia Rinaldi: Atrial Fibrillation is documented in the 12/12 Cardiology Consult and also in the subsequent progress notes as a New Onset Atrial Fibrillation with RVR. History/Risk Factors: CAD w/previous OK with stenting, CVA, DM, Hyperlipidemia, Hypertension, Seizure Disorder.& former smoker. Clinical Indicators: Presented with Hypoglycemia and altered mental status. Diagnosed with acute metabolic encephalopathy, Hyperosmolar nonketotic state, Acute Kidney Injury and new onset A Fib w/RVR. EKG: R 136 Atrial fibrillation w/RVR. Treatment: IV fluid bolus, IV fluid rate 75, IV Protonix, IV Insulin, IV Cardizem drip, IV Kcl In your professional opinion, can you please clarify the type of Atrial Fibrillation, if known? Chronic/Permanent Paroxysmal Persistent Other, please specify Unable to determine (Last Revision: January 2018) MTDD
--- NOTE | 2018-12-16 14:41 | P.PN ---
Subjective Progress Note Date: 12/16/18 This is 53-year-old gentleman is seemed to be more alert today. Patient is maintaining sinus rhythm. Slow in responding to verbal commands. His sodium is still remaining at 153. Be in his 46 and creatinine 1.05. No evidence of any recurrence of atrial fibrillation. Patient does have history of previous CVA. Because of his high TK score, patient is started on anti-cognition therapy in the form of IV heparin, if cleared by GI department. We'll continue with IV Lopressor. We'll switch to oral medication to gradually. Patient is also on prophylactic antibiotics. We'll follow. 12/14/2018: Patient remains alert and communicative. Maintaining sinus rhythm. His sodium showed improvement and is about 148. Renal functions are stable. Urine output is good. Doesn't appear to be in acute distress. Patient is going to have a swallowing evaluation. Patient is on IV heparin and also IV Lop ressor. We'll continue current medical therapy. Once patient is able to take medication by mouth, we'll start him on by mouth beta aliya and also anticoagulate agent. 12/15/2018: This patient is more alert and communicative. Maintaining sinus rhythm. His sodium levels are improved and patient was switched to normal saline. Patient is unable to swallow. Patient is having a barium swallow e valuation today. Patient is on IV heparin and IV beta aliya. We'll continue current medical therapy. May switch to by mouth medications, when patient is able to take his oral medication. 12/16/2018: Patient's to be alert and oriented. Doesn't appear to be in acute distress. Maintaining sinus rhythm. Hasn't had any recurrence of atrial fibrillation. Patient is able to take food by mouth. We'll resume his oral medication. Currently patient is on metoprolol 25 mg by mouth twice a day. We will start him on Eliquis 5 mg by mouth twice a day. Patient being transferred to stepdown unit. His blood work and vital signs are reviewed. Objective - Vital Signs Vital signs: Vital Signs Temp 98.6 F 12/16/18 08:00 Pulse 84 12/16/18 09:00 Resp 13 12/16/18 09:00 BP 155/78 12/16/18 09:00 Pulse Ox 91 L 12/16/18 09:00 Intake & Output 0312/16/18 12/16/18 18:59 06:59 18:59 Intake Total 2405.000 1114.16 1245 Output Total 900 800 265 Balance 1505.000 314.16 980 Weight 102.3 kg 102.3 kg Intake: IV 1425 650 525 Dextrose 5% in Water 1, 225 000 ml @ 75 mls/hr IV . [id number] ALEYDA Rx#:[id number] Magnesium Sulfate-D5w Pmx 200 1 gm In Dextrose/Water 1 100ml.bag @ 100 mls/hr IVPB Q1H ALEYDA Rx#: [id number] Piperacillin-Tazobactam 3 200 25 .375 gm In Sodium Chloride 0.9% 100 ml @ 25 mls/hr IVPB Q8HR ALEYDA Rx# :[id number] Potassium Phosphate 10 250 250 mmol In Sodium Chloride 0 .9% 250 ml @ 125 mls/hr IV Q2H ALEYDA Rx#:[id number] Sodium Chloride 0.45% 1, 50 000 ml @ 50 mls/hr IV . Q20H ALEYDA Rx#:[id number] Sodium Chloride 0.9% 1, 450 550 100 000 ml @ 50 mls/hr IV . Q20H ALEYDA Rx#:[id number] levETIRAcetam IV 500 mg 100 100 100 In Sodium Chloride 0.9% 100 ml @ 400 mls/hr IVPB Q12HR ALEYDA Rx#:[id number] Intake, IV Titration 500.000 224.16 Amount Heparin Sod,Pork in 0.45% 250.000 224.16 NaCl 25,000 unit In 0.45 % NaCl 1 250ml.bag @ 10. 12 UNITS/KG/HR 9.99 mls/ hr IV .Q24H ALEYDA Rx#: [id number] Potassium Phosphate 10 250 mmol In Sodium Chloride 0 .9% 250 ml @ 125 mls/hr IV Q2H ALEYDA Rx#:[id number] Oral 480 240 720 Output: Urine 900 800 265 Other: Voiding Method Indwelling Catheter Indwelling Catheter Indwelling Catheter # Bowel Movements 1 1 - Exam GENERAL EXAM: Patient is alert but slow in mentation. Could be secondary to previous CVA HEENT: Normocephalic. Normal reaction of pupils, equal size, normal range of extraocular motion. No erythema or exudates in the throat. NECK: No masses, no nuchal rigidity. CHEST: No chest wall deformity. LUNGS: Crepitations at the base HEART: S1 and S2 normal with no audible mumurs or gallops. Regular rhythm, femorals equal on both sides.. ABDOMEN: No hepatosplenomegaly, normal bowel sounds, no guarding or rigidity. SKIN: No rashes CENTRAL NERVOUS SYSTEM: No focal deficits. EXTREMITIES: No cyanosis, clubbing or edema. - Labs CBC & Chem 7: 12/16/18 05:23 12/16/18 05:23 Labs: Abnormal Lab Results - Last 24 Hours (Table) 12/15/18 12/15/18 12/15/18 Range/Units 17:00 20:53 21:02 RBC (4.30-5.90) m/uL Hgb (13.0-17.5) gm/dL Hct (39.0-53.0) % Plt Count (150-450) k/uL APTT 56.3 H (22.0-30.0) sec Chloride (98-107) mmol/L Carbon Dioxide (22-30) mmol/L Creatinine (0.66-1.25) mg/dL Glucose (74-99) mg/dL POC Glucose (mg/dL) 279 H 171 H (75-99) mg/dL Calcium (8.4-10.2) mg/dL Phosphorus (2.5-4.5) mg/dL 12/16/18 12/16/18 12/16/18 Range/Units 01:36 05:23 05:23 RBC 4.12 L (4.30-5.90) m/uL Hgb 11.6 L (13.0-17.5) gm/dL Hct 37.4 L (39.0-53.0) % Plt Count 141 L (150-450) k/uL APTT (22.0-30.0) sec Chloride 116 H (98-107) mmol/L Carbon Dioxide 21 L (22-30) mmol/L Creatinine 0.56 L (0.66-1.25) mg/dL Glucose 138 H (74-99) mg/dL POC Glucose (mg/dL) 145 H (75-99) mg/dL Calcium 7.5 L (8.4-10.2) mg/dL Phosphorus 1.6 L (2.5-4.5) mg/dL 12/16/18 12/16/18 12/16/18 Range/Units 05:23 06:51 12:11 RBC (4.30-5.90) m/uL Hgb (13.0-17.5) gm/dL Hct (39.0-53.0) % Plt Count (150-450) k/uL APTT 36.7 H (22.0-30.0) sec Chloride (98-107) mmol/L Carbon Dioxide (22-30) mmol/L Creatinine (0.66-1.25) mg/dL Glucose (74-99) mg/dL POC Glucose (mg/dL) 135 H 161 H (75-99) mg/dL Calcium (8.4-10.2) mg/dL Phosphorus (2.5-4.5) mg/dL Microbiology - Last 24 Hours (Table) 12/13/18 12:11 Blood Culture - Preliminary Blood No Growth after 72 hours 12/12/18 10:34 Blood Culture - Preliminary Blood No Growth after 96 hours Assessment and Plan (1) Atrial fibrillation with RVR Current Visit: Yes Status: Acute Code(s): I48.91 - UNSPECIFIED ATRIAL FIBRILLATION SNOMED Code(s): 732450541246138 (2) Dyslipidemia Current Visit: No Status: Acute Code(s): E78.5 - HYPERLIPIDEMIA, UNSPECIFIED SNOMED Code(s): 965390346 (3) Hypertension Current Visit: No Status: Acute Code(s): I10 - ESSENTIAL (PRIMARY) HYPERTENSION SNOMED Code(s): 50856322 (4) Elevated troponin Current Visit: Yes Status: Acute Code(s): R74.8 - ABNORMAL LEVELS OF OTHER SERUM ENZYMES SNOMED Code(s): 007039373 Plan: Patient overall condition is improved. His sodium levels are normal. Patient is being started for to stepdown unit. Patient initiated on oral medications including beta aliya and anti-coagulation therapy
[2018-12-16 16:17] LABS: Glucose,Whole Blood 264 mg/dL (75-99)
[2018-12-16] MEDS: PANTOPRAZOLE 40 MG TABLET PO SCH (17:45)
[2018-12-16] MEDS ORDERED: METOPROLOL SUCCINATE (ER) 25 MG TAB.ER.24H PO SCH (21:00)
[2018-12-16 21:03] LABS: Glucose,Whole Blood 187 mg/dL (75-99)
[2018-12-16] MEDS: METOPROLOL TARTRATE 25 MG TAB PO SCH (21:55)
[2018-12-16] MEDS: levETIRAcetam 500 MG TAB PO SCH (21:55)
[2018-12-16] MEDS: INSULIN DETEMIR (LEVEMIR) 100 UNIT/ML SYR SQ SCH (21:56)
--- NOTE | 2018-12-16 22:49 | PN ---
PROGRESS NOTE Patient is seen for followup for acute kidney injury and hypernatremia. His mentation has improved significantly. This morning patient is awake. He is alert and oriented x3. Patient will be transferred out of the ICU. PHYSICAL EXAMINATION: Blood pressure this morning was 151/79, heart rate of 80 per minute. Patient is afebrile. Examination of the heart S1, S2. Examination lungs bilateral breath sounds are heard. Abdomen is soft, nontender. Examination of lower extremities shows no significant edema. 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 Patient is moving all 4 extremities. LABS: Show hemoglobin 11.6, sodium 143, potassium 3.8, BUN 18, serum creatinine 0.56, calcium 7.5, phosphorus 1.6. ASSESSMENT: 1. Acute kidney injury, acute tubular necrosis, currently resolved. 2. Hypernatremia, significantly improved. Change IV fluids to half-normal saline rather than normal saline. 3. Atrial fibrillation with rapid ventricular response, now with controlled ventricular response. 4. Encephalopathy, mainly metabolic, now improved. PLAN: Change IV fluids to half-normal saline and monitor electrolytes periodically. MMODL / IJN: [id number] /
[2018-12-17] MEDS: PIPERACILLIN-TAZOBACTAM 3.375 GM in SODIUM CHLORIDE 0.9% 100 ML IVPB SCH ×3 (00:25→17:11)
[2018-12-17] MEDS: INSULIN ASPART (NovoLOG) 100 UNIT/ML VIAL SQ SCH ×4 (06:06→21:45)
[2018-12-17 06:13] LABS: Glucose,Whole Blood 124 mg/dL (75-99)
[2018-12-17] MEDS: SODIUM CHLORIDE 0.45% 1,000 ML IV SCH (07:08)
[2018-12-17] MEDS: PANTOPRAZOLE 40 MG TABLET PO SCH ×2 (07:09→18:14)
--- NOTE | 2018-12-17 07:32 | XR ---
EXAMINATION TYPE: XR chest 1V portable DATE OF EXAM: 12/17/2018 COMPARISON: 12/16/2018 HISTORY: Difficulty breathing. Follow-up exam. TECHNIQUE: Single frontal view of the chest is obtained. FINDINGS: There is worsening bibasilar airspace disease, left greater than right and a stable small left pleural effusion. Remainder the lungs are clear. Cardia mediastinal silhouette is upper limits o f normal. Osseous structures are grossly intact. IMPRESSION: Worsening bibasilar airspace disease, left greater than right with associated trace left pleural effusion. Aspiration pneumonia could be considered given the recent modified barium swallow results of deep penetration.
[2018-12-17] MEDS: ASPIRIN 325 MG TAB PO SCH (08:25)
[2018-12-17] MEDS: levETIRAcetam 500 MG TAB PO SCH ×2 (08:26→21:45)
[2018-12-17] MEDS: METOPROLOL TARTRATE 25 MG TAB PO SCH ×2 (08:26→21:45)
[2018-12-17] MEDS: APIXABAN 5 MG TAB PO SCH ×2 (08:26→21:46)
[2018-12-17 11:14] LABS: Glucose,Whole Blood 207 mg/dL (75-99)
--- NOTE | 2018-12-17 12:42 | P.PN ---
Subjective Progress Note Date: 12/16/18 Principal diagnosis: Acute hyperosmolar nonketotic state Acute metabolic encephalopathy New onset atrial fibrillation Acute renal injury 63 years old male with past medical history of diabetes mellitus on insulin therapy, coronary artery disease status post cardiac cath and stenting,, CVA/TIA, diabetes mellitus, hyperlipidemia, hypertension, osteoarthritis, seizure disorder, Crohn's disease, CVA with right hemiparesis. He presents since with altered mental status secondary to hyperosmolar hyperglycemia nonketotic state. Workup was positive for left basilar pneumonia; patient has been off IV insulin drip and started on insulin sliding scale as well as Lantus; patient remains on treatment for pneumonia with IV Zosyn; vancomycin was discontinued yesterday 12/16/2018, remains in the ICU, however he seems to be doing quite well, responding much b carlyle to treatment. Patient is on 3 L nasal cannula, saturating well. His hemoglobin is stable. Electrolytes and renal profile significantly improved. His diabetes seems to be under control. His atrial fibrillation is also under control presently in normal sinus rhythm. Patient is now tolerating pured diet. Chest x-ray continues to show limited infiltrate in the left lower lobe. His CBC is relatively normal hemoglobin is 11.6. BUN is 18 and creatinine is 0.56. Patient has intermittent episodes of confusion, but he seems quite appropriate today, he is oriented to place, but not oriented to the year. Objective - Vital Signs Vital signs: Vital Signs Temp 98.6 F 12/16/18 08:00 Pulse 84 12/16/18 09:00 Resp 13 12/16/18 09:00 BP 155/78 12/16/18 09:00 Pulse Ox 91 L 12/16/18 09:00 Intake & Output 12/15/18 12/16/18 12/16/18 18:59 06:59 18:59 Intake Total 2405.000 1114.16 1245 Output Total 900 800 215 Balance 1505.000 314.16 1030 Weight 102.3 kg Intake: IV 1425 650 525 Dextrose 5% in Water 1, 225 000 ml @ 75 mls/hr IV . [id number] ALEYDA Rx#:[id number] Magnesium Sulfate-D5w Pmx 200 1 gm In Dextrose/Water 1 100ml.bag @ 100 mls/hr IVPB Q1H ALEYDA Rx#: [id number] Piperacillin-Tazobactam 3 200 25 .375 gm In Sodium Chloride 0.9% 100 ml @ 25 mls/hr IVPB Q8HR ALEYDA Rx# :[id number] Potassium Phosphate 10 250 250 mmol In Sodium Chloride 0 .9% 250 ml @ 125 mls/hr IV Q2H ALEYDA Rx#:[id number] Sodium Chloride 0.45% 1, 50 000 ml @ 50 mls/hr IV . Q20H A[facility]DA Rx#:[id number] Sodium Chloride 0.9% 1, 450 550 100 000 ml @ 50 mls/hr IV . Q20H ALEYDA Rx#:[id number] levETIRAcetam IV 500 mg 100 100 100 In Sodium Chloride 0.9% 100 ml @ 400 mls/hr IVPB Q12HR ALEYDA Rx#:[id number] Intake, IV Titration 500.000 224.16 Amount Heparin Sod,Pork in 0.45% 250.000 224.16 NaCl 25,000 unit In 0.45 % NaCl 1 250ml.bag @ 10. 12 UNITS/KG/HR 9.99 mls/ hr IV .Q24H ALEYDA Rx#: [id number] Potassium Phosphate 10 250 mmol In Sodium Chloride 0 .9% 250 ml @ 125 mls/hr IV Q2H ALEYDA Rx#:[id number] Oral 480 240 720 Output: Urine 900 800 215 Other: Voiding Method Indwelling Catheter Indwelling Catheter Indwelling Catheter # Bowel Movements 1 1 - Exam Physical Exam: Revealed a 63-year-old white male, awake, responsive, On high flow oxygen per nasal cannula, in no distress. Head: Atraumatic, normocephalic. HEENT:[Neck is supple.] [No neck masses.] [No thyromegaly.] [No JVD.] PERRLA, EOMI, no icterus. Chest: [Diminished breath sounds at the bases, minimal crackles at the left base noted, no rhonchi and no wheezes. Symmetrical chest expansion. No chest wall tenderness..] Cardiac Exam: [Normal S1 and S2, no S3 gallop, no murmur.] Abdomen: [Soft, nontender, no megaly, no rebound, no guarding, normal bowel sounds.] Extremities: [No clubbing, no edema, no cyanosis.], Ulceration changes on the tip of his big toe are unchanged. Neurological Exam: Alert, oriented, follows instructions. - Labs CBC & Chem 7: 12/16/18 05:23 12/16/18 05:23 Labs: Abnormal Lab Results - Last 24 Hours (Table) 12/15/18 12/15/18 12/15/18 Range/Units 10:44 12:33 13:59 RBC (4.30-5.90) m/uL Hgb (13.0-17.5) gm/dL Hct (39.0-53.0) % Plt Count (150-450) k/uL APTT 39.5 H (22.0-30.0) sec Chloride (98-107) mmol/L Carbon Dioxide (22-30) mmol/L Creatinine (0.66-1.25) mg/dL Glucose (74-99) mg/dL POC Glucose (mg/dL) 170 H 166 H (75-99) mg/dL Calcium (8.4-10.2) mg/dL Phosphorus (2.5-4.5) mg/dL 12/15/18 12/15/18 12/15/18 Range/Units 17:00 20:53 21:02 RBC (4.30-5.90) m/uL Hgb (13.0-17.5) gm/dL Hct (39.0-53.0) % Plt Count (150-450) k/uL APTT 56.3 H (22.0-30.0) sec Chloride (98-107) mmol/L Carbon Dioxide (22-30) mmol/L Creatinine (0.66-1.25) mg/dL Glucose (74-99) mg/dL POC Glucose (mg/dL) 279 H 171 H (75-99) mg/dL Calcium (8.4-10.2) mg/dL Phosphorus (2.5-4.5) mg/dL 12/16/18 12/16/18 12/16/18 Range/Units 01:36 05:23 05:23 RBC 4.12 L (4.30-5.90) m/uL Hgb 11.6 L (13.0-17.5) gm/dL Hct 37.4 L (39.0-53.0) % Plt Count 141 L (150-450) k/uL APTT (22.0-30.0) sec Chloride 116 H (98-107) mmol/L Carbon Dioxide 21 L (22-30) mmol/L Creatinine 0.56 L (0.66-1.25) mg/dL Glucose 138 H (74-99) mg/dL POC Glucose (mg/dL) 145 H (75-99) mg/dL Calcium 7.5 L (8.4-10.2) mg/dL Phosphorus 1.6 L (2.5-4.5) mg/dL 12/16/18 12/16/18 Range/Units 05:23 06:51 RBC (4.30-5.90) m/uL Hgb (13.0-17.5) gm/dL Hct (39.0-53.0) % Plt Count (150-450) k/uL APTT 36.7 H (22.0-30.0) sec Chloride (98-107) mmol/L Carbon Dioxide (22-30) mmol/L Creatinine (0.66-1.25) mg/dL Glucose (74-99) mg/dL POC Glucose (mg/dL) 135 H (75-99) mg/dL Calcium (8.4-10.2) mg/dL Phosphorus (2.5-4.5) mg/dL Microbiology - Last 24 Hours (Table) 12/13/18 12:11 Blood Culture - Preliminary Blood No Growth after 48 hours 12/12/18 10:34 Blood Culture - Preliminary Blood No Growth after 72 hours Assessment and Plan Assessment: 1. Acute hyperosmolar nonketotic state. Resolved. 2. Left lower lobe pneumonia/ possible aspiration; continue with IV Zosyn; vancomycin has been discontinued 3. New-onset atrial fibrillation with RVR, presently in sinus rhythm. Patient remains on picks up and an aspirin for anticoagulation along with metoprolol 25 mg twice a day for rate control 4. Acute kidney injury with anion gap metabolic acidosis, could be related to profound hypovolemia on presentation with hyperosmolar nonketotic state. Possibility of infection and sepsis is not entirely ruled out, so far we have negative cultures. And chest x-ray is suspicious for left lower lobe pneumonia. Again this is likely community-acquired. Or possibly aspiration. 5. Seizure disorder remains on Keppra. 6. History of CVA in 2013. 7. Coronary artery disease and previous [place]; continue with aspirin and beta blockers; patient currently not on any statin therapy 8. Benign essential hypertension; stable on metoprolol 25 mg twice a day 9. Chronic generalized anxiety disorder and depression; Ativan 0.5 mg IV every 2 hours when necessary. 10. Acute hypernatremia, improved significantly sodium is down to 143 today. 11. DVT prophylaxis; systemic anticoagulation CODE STATUS; DO NOT RESUSCITATE Recommendation: Change main IV fluid from D5 W2.9 normal saline at 50 mL per hour. Continue Zosyn but discontinue vancomycin. Continue GI and DVT prophylaxis. Continue heparin. Continue BiPAP if needed especially at night. Modified barium swallow scheduled for today. Discontinue insulin drip and start the patient on Lantus insulin and sliding scale coverage as per protocol. Continue bronchodilators. Prognosis remains definitely guarded. We'll con tinue to follow.
--- NOTE | 2018-12-17 13:43 | P.PN ---
Subjective Progress Note Date: 12/17/18 Principal diagnosis: Hyperosmolar nonketotic state and mental status change 63-year-old male patient presented with altered mentation and vomiting. He apparently had coffee-ground emesis and syncope. In the ED, the patient was diagnosed having a acute hyperosmolar nonketotic state and the patient was started on treatment immediately with IV fluids and insulin drip. The patient himself was unable to provide any history. He denied having any chest pain. No abdominal pain. His initial blood sugar was 1400. The patient was given 2 L of IV fluids and started on insulin drip. The first set of troponin was 0.1. The BNP was 7080. Computed tomography scan of the head and the neck was unremarkable. The patient got transferred to the ICU. The patient is an acute kidney injury. Urine is at 79. Creatinine is at 3.9. The patient's anion gap is at 32. Serum bicarb is at 15. The lactic acid level is at 3.0. There is only trace urinary ketones. The patient's hemoglobin is at 16.5. White cell count is not elevated. EKG showing atrial fibrillation with rapid ventricular response. Chest x-ray showing a basilar atelectasis Patient was reevaluated today on 12/12/2018, remains in the intensive care unit, and bit more arousable, follows very simple instructions, but overall remains a bit encephalopathic. According to the nurses his mental status is gradually improving. Patient remains on insulin drip, his IV fluid was switched to D5W because of his significantly elevated sodium today is up to 157. Patient does not seem to be in any form of distress. He is resting comfortably in bed. Repeat labs this morning showed a sodium of 154 BUN of 76 creatinine is 2.09. His creatinine is gradually improving, it was 3.95 yesterday. Chest x-ray this morning showed mostly left basilar airspace disease, likely atelectasis, underlying pneumonia is not entirely ruled out. Reevaluated today on 12/13/2018, patient remains in the ICU, he is more alert, however he is noted to have marginal O2 saturations. Patient was placed overnight on a high flow nasal cannula, and I have noted this morning that the patient has an extremely poor and weak cough. His chest x-ray showed mostly atelectasis especially at the left base. Hence I recommended patient goes on Bi PAP, and he would be on BiPAP of 12 and 4. His FiO2 will be titrated accordingly. His sodium remains high at 153, BUN is 46 creatinine is 1.05. WBC count is 10.5 hemoglobin is 14.6. Patient remains on Zosyn empirically, his IV fluid was cut down to 75 mL/h, he remains on Keppra, and this morning because of his agitation and I recommended Ativan 1 mg IV push times one. Patient was reevaluated today on 12/14/2018, remains in the ICU, becoming more and more alert, however he has a very weak cough. Patient is now off BiPAP, and he is on 10 L high flow nasal cannula. O2 saturation is in the mid 90s. Patient has been spiking fevers intermittently, cultures have been negative so far, and the patient remains on Zosyn and vancomycin for now. I will likely discontinue vancomycin tomorrow if cultures come back nondiagnostic. However I would maintain the patient on Zosyn. Chest x-ray continues to show some atelectasis at the left base. Patient had no major issues overnight, and his labs were reviewed today. CBC is relatively normal. PTT is therapeutic at 57.4. Sodium is coming down to 148 renal profile is significantly better is basically almost normal. Sugar is 163. Repeat lactic acid couple of days ago was 1.1 his serum osmolality on admission was 418. Patient remains on heparin for atrial fibrillation with RVR. And that is being addressed by cardiology, he was also noted to have elevated troponin on admission. Patient is now in sinus rhythm. Patient will likely have a swallow evaluation today, and if he passes we will start oral feedings. Patient was reevaluated today on 12/15/2018, remains in the ICU, he is becoming more awake and more oriented, he is coughing better, and he is now off BiPAP. Presently on 3 L nasal cannula, saturating in the low 90s. Blood cultures remain negative. Patient has been on Zosyn and vancomycin, hence I will go ahead and discontinue vancomycin today. He will remain on Zosyn, chest x-ray is suggestive of a left lower lobe infiltrate. Labs today were reviewed, WBC count is 12.9 hemoglobin is 12.5. Basic metabolic profile is normal, his sodium corrected nicely today it is 144. Hence I have switched his IV fluid from D5 to normal saline at 50 mL per hour. I would also discontinue his insulin drip, and start the patient on sliding scale as well as Lantus insulin. Patient failed his swallow evaluation yesterday, and he is going today for a modified barium swallow, and may or may not consider a Dobbhoff tube placement for nutritional support. This will be decided upon after the barium swallow. Patient was evaluated today on 12/16/2018, remains in the ICU, however he seems to be doing quite well, responding much better to treatment. Patient is on 3 L nasal cannula, saturating well. His hemoglobin is stable. Electrolytes and renal profile significantly improved. His diabetes seems to be under control. His atrial fibrillation is also under control presently in normal sinus rhythm. Patient is now tolerating pured diet. Chest x-ray continues to show limited infiltrate in the left lower lobe. His CBC is relatively normal hemoglobin is 11.6. BUN is 18 and creatinine is 0.56. Patient has intermittent episodes of confusion, but he seems quite appropriate today, he is oriented to place, but not oriented to the year. Patient was reevaluated today on 12/17/2018, he is now on the cardiac floor, doing fairly well, asymptomatic, denies any shortness of breath, no cough no wheezing, patient actually has made a significant improvement over the last few days. Remains on few liters nasal cannula.he had a relatively normal labs including normal CBC.normal basic metabolic profile, normal renal profile,remains on DuoNeb, Keppra, Ativan, Lopressor,Zosyn, Protonix,and his chest x-ray continues to show limited infiltrate in the left lower lobe. Clinically however the patient is doing better pulmonary xiao. Objective - Vital Signs Vital signs: Vital Signs Temp 97.9 F 12/17/18 12:53 Pulse 83 12/17/18 12:53 Resp 18 12/17/18 12:53 BP 137/87 12/17/18 12:53 Pulse Ox 93 L 12/17/18 12:53 Intake & Output 12/16/18 12/17/18 12/17/18 18:59 06:59 18:59 Intake Total 1481 0 Output Total 265 Balance 1216 0 Weight 102.3 kg 101.5 kg Intake: IV 525 Piperacillin-Tazobactam 3 25 .375 gm In Sodium Chloride 0.9% 100 ml @ 25 mls/hr IVPB Q8HR [facility] Rx# :[id number] Potassium Phosphate 10 250 mmol In Sodium Chloride 0 .9% 250 ml @ 125 mls/hr IV Q2H [facility] Rx#:[id number] Sodium Chloride 0.45% 1, 50 000 ml @ 50 mls/hr IV . Q20H [facility] Rx#:[id number] Sodium Chloride 0.9% 1, 100 000 ml @ 50 mls/hr IV . Q20H [facility] Rx#:[id number] levETIRAcetam IV 500 mg 100 In Sodium Chloride 0.9% 100 ml @ 400 mls/hr IVPB Q12HR [facility] Rx#:[id number] Oral 956 0 Output: Urine 265 Other: Voiding Method Indwelling Catheter Incontinent # Voids 1 3 1 # Bowel Movements 1 - Exam Physical Exam: Revealed a 63-year-old white male, in no form of respiratory distress Head: Atraumatic, normocephalic. HEENT:[Neck is supple.] [No neck masses.] [No thyromegaly.] [No JVD.] PERRLA, EOMI, no icterus. moist mucous membranes Chest: [fine crackles at the left base, otherwise unremarkable. Cardiac Exam: [Normal S1 and S2, no S3 gallop, no murmur.] Abdomen: [Soft, nontender, no megaly, no rebound, no guarding, normal bowel sounds.] Extremities: [No clubbing, no edema, no cyanosis.], Ulceration changes on the tip of his big toe are unchanged. Neurological Exam: Alert, oriented, follows instructions. Lymphatics: No lymphadenopathy. Psychiatric: Normal mood, affect and mental status examination. oriented to time place and person. - Labs CBC & Chem 7: 12/16/18 05:23 12/16/18 05:23 Labs: Abnormal Lab Results - Last 24 Hours (Table) 12/16/18 12/16/18 12/17/18 Range/Units 16:15 21:01 06:02 POC Glucose (mg/dL) 264 H 187 H 124 H (75-99) mg/dL 12/17/18 Range/Units 11:12 POC Glucose (mg/dL) 207 H (75-99) mg/dL Microbiology - Last 24 Hours (Table) 12/12/18 10:34 Blood Culture - Preliminary Blood No Growth after 120 hours 12/13/18 12:11 Blood Culture - Preliminary Blood No Growth after 72 hours Assessment and Plan Assessment: Impression: 1 acute hyperosmolar nonketotic state. Resolved. 2 acute metabolic encephalopathy, resolved 3 new-onset atrial fibrillation with RVR, presently in sinus rhythm. being addressed by cardiology. 4 acute kidney injury with anion gap metabolic acidosis, resolved 5 seizure disorder remains on Keppra. I will switch his Keppra from IV to oral which is his usual dose 500 mg by mouth twice a day 6 history of CVA in 2013. 7 coronary artery disease and previous [place], being followed by cardiology 8 benign essential hypertension 9 chronic generalized anxiety disorder and depression. 10 acute hypernatremia, resolved 11 basilar atelectasis is noted on the chest x-ray this morning, pneumonia involving the left lower lobe is not entirely ruled out, hence we'll continue Zosyn , this could be aspiration pneumonia. Recommendation:Continue Zosyn, incentive spirometry, bronchodilators, GI prophylaxis/Protonix, continue Keppra for his seizure disorder, continue cardiac meds including Lopressor,eliquis, and aspirin. Continue Levemir insulin, continue Ativan as needed, consider placement to a senior care or rehab facility in the next 48 hours. We'll continue to followon his multiple complex medical issues as noted above Time with Patient: Less than 30
--- NOTE | 2018-12-17 17:44 | P.PN ---
Subjective Progress Note Date: 12/17/18 This is 53-year-old gentleman is seemed to be more alert today. Patient is maintaining sinus rhythm. Slow in responding to verbal commands. His sodium is still remaining at 153. Be in his 46 and creatinine 1.05. No evidence of any recurrence of atrial fibrillation. Patient does have history of previous CVA. Because of his high TK score, patient is started on anti-cognition therapy in the form of IV heparin, if cleared by GI department. We'll continue with IV Lopressor. We'll switch to oral medication to gradually. Patient is also on prophylactic antibiotics. We'll follow. 12/14/2018: Patient remains alert and communicative. Maintaining sinus rhythm. His sodium showed improvement and is about 148. Renal functions are stable. Urine output is good. Doesn't appear to be in acute distress. Patient is going to have a swallowing evaluation. Patient is on IV heparin and also IV Lop ressor. We'll continue current medical therapy. Once patient is able to take medication by mouth, we'll start him on by mouth beta aliya and also anticoagulate agent. 12/15/2018: This patient is more alert and communicative. Maintaining sinus rhythm. His sodium levels are improved and patient was switched to normal saline. Patient is unable to swallow. Patient is having a barium swallow e valuation today. Patient is on IV heparin and IV beta aliya. We'll continue current medical therapy. May switch to by mouth medications, when patient is able to take his oral medication. 12/16/2018: Patient's to be alert and oriented. Doesn't appear to be in acute distress. Maintaining sinus rhythm. Hasn't had any recurrence of atrial fibrillation. Patient is able to take food by mouth. We'll resume his oral medication. Currently patient is on metoprolol 25 mg by mouth twice a day. We will start him on Eliquis 5 mg by mouth twice a day. Patient being transferred to stepdown unit. His blood work and vital signs are reviewed. 12/17/2018: Patient is on the telemetry unit. Patient seemed to be doing well. Denies any chest pain or shortness of breath. Patient is maintaining sinus rhythm. He had a bout of atrial fibrillation. Patient is currently on beta aliya and anticoagulation therapy. Overall patient critical status is stable. Lab values showed normal findings. Renal function is normal. Patient is going to be transferred to medical floor. We'll be following him as needed Objective - Vital Signs Vital signs: Vital Signs Temp 98.1 F 12/17/18 16:55 Pulse 79 12/17/18 16:55 Resp 18 12/17/18 16:55 BP 158/76 12/17/18 16:55 Pulse Ox 92 L 12/17/18 16:55 Intake & Output 12/16/18 12/17/18 12/17/18 18:59 06:59 18:59 Intake Total 1481 0 Output Total 265 Balance 1216 0 Weight 102.3 kg 101.5 kg Intake: IV 525 Piperacillin-Tazobactam 3 25 .375 gm In Sodium Chloride 0.9% 100 ml @ 25 mls/hr IVPB Q8HR [facility] Rx# :[id number] Potassium Phosphate 10 250 mmol In Sodium Chloride 0 .9% 250 ml @ 125 mls/hr IV Q2H A[facility] Rx#:[id number] Sodium Chloride 0.45% 1, 50 000 ml @ 50 mls/hr IV . Q20H A[facility] Rx#:[id number] Sodium Chloride 0.9% 1, 100 000 ml @ 50 mls/hr IV . Q20H A[facility]DA Rx#:[id number] levETIRAcetam IV 500 mg 100 In Sodium Chloride 0.9% 100 ml @ 400 mls/hr IVPB Q12HR A[facility] Rx#:[id number] Oral 956 0 Output: Urine 265 Other: Voiding Method Indwelling Catheter Incontinent # Voids 1 3 3 # Bowel Movements 1 1 - Exam GENERAL EXAM: Patient is alert but slow in mentation. Could be secondary to previous CVA HEENT: Normocephalic. Normal reaction of pupils, equal size, normal range of extraocular motion. No erythema or exudates in the throat. NECK: No masses, no nuchal rigidity. CHEST: No chest wall deformity. LUNGS: Crepitations at the base HEART: S1 and S2 normal with no audible mumurs or gallops. Regular rhythm, femorals equal on both sides.. ABDOMEN: No hepatosplenomegaly, normal bowel sounds, no guarding or rigidity. SKIN: No rashes CENTRAL NERVOUS SYSTEM: No focal deficits. EXTREMITIES: No cyanosis, clubbing or edema. - Labs CBC & Chem 7: 12/16/18 05:23 12/16/18 05:23 Labs: Abnormal Lab Results - Last 24 Hours (Table) 12/16/18 12/17/18 12/17/18 Range/Units 21:01 06:02 11:12 POC Glucose (mg/dL) 187 H 124 H 207 H (75-99) mg/dL Microbiology - Last 24 Hours (Table) 12/13/18 12:11 Blood Culture - Preliminary Blood No Growth after 96 hours 12/12/18 10:34 Blood Culture - Preliminary Blood No Growth after 120 hours Assessment and Plan (1) Atrial fibrillation with RVR Current Visit: Yes Status: Acute Code(s): I48.91 - UNSPECIFIED ATRIAL FIBRILLATION SNOMED Code(s): 466413138746971 (2) Dyslipidemia Current Visit: No Status: Acute Code(s): E78.5 - HYPERLIPIDEMIA, UNSPECIFIED SNOMED Code(s): 474888855 (3) Hypertension Current Visit: No Status: Acute Code(s): I10 - ESSENTIAL (PRIMARY) HYPERTENSION SNOMED Code(s): 87092710 (4) Elevated troponin Current Visit: Yes Status: Acute Code(s): R74.8 - ABNORMAL LEVELS OF OTHER SERUM ENZYMES SNOMED Code(s): 777173628 Plan: Patient is critically stable. Continue beta aliya on the anticoagulation therapy. Follow up as an outpatient
[2018-12-17 17:57] LABS: Glucose,Whole Blood 192 mg/dL (75-99)
[2018-12-17 20:06] LABS: Glucose,Whole Blood 198 mg/dL (75-99)
[2018-12-17] MEDS: INSULIN DETEMIR (LEVEMIR) 100 UNIT/ML SYR SQ SCH (21:44)
[2018-12-18] MEDS: PIPERACILLIN-TAZOBACTAM 3.375 GM in SODIUM CHLORIDE 0.9% 100 ML IVPB SCH ×2 (00:11→08:13)
[2018-12-18 07:06] LABS: Glucose,Whole Blood 126 mg/dL (75-99)
[2018-12-18] MEDS: METOPROLOL TARTRATE 25 MG TAB PO SCH ×2 (08:14→21:45)
[2018-12-18] MEDS: INSULIN ASPART (NovoLOG) 100 UNIT/ML VIAL SQ SCH ×4 (08:14→21:44)
[2018-12-18] MEDS: APIXABAN 5 MG TAB PO SCH ×2 (08:14→21:44)
[2018-12-18] MEDS: PANTOPRAZOLE 40 MG TABLET PO SCH ×2 (08:14→17:16)
[2018-12-18] MEDS: levETIRAcetam 500 MG TAB PO SCH ×2 (08:14→21:45)
[2018-12-18] MEDS: ASPIRIN 325 MG TAB PO SCH (08:14)
--- NOTE | 2018-12-18 10:20 | P.PN ---
Subjective Progress Note Date: 12/17/18 Principal diagnosis: Acute hyperosmolar nonketotic state Acute metabolic encephalopathy New onset atrial fibrillation Acute renal injury 63 years old male with past medical history of diabetes mellitus on insulin therapy, coronary artery disease status post cardiac cath and stenting,, CVA/TIA, diabetes mellitus, hyperlipidemia, hypertension, osteoarthritis, seizure disorder, Crohn's disease, CVA with right hemiparesis. He presents since with altered mental status secondary to hyperosmolar hyperglycemia nonketotic state. Workup was positive for left basilar pneumonia; patient has been off IV insulin drip and started on insulin sliding scale as well as Lantus; patient remains on treatment for pneumonia with IV Zosyn; vancomycin was discontinued yesterday 12/16/2018, remains in the ICU, however he seems to be doing quite well, responding much b carlyle to treatment. Patient is on 3 L nasal cannula, saturating well. His hemoglobin is stable. Electrolytes and renal profile significantly improved. His diabetes seems to be under control. His atrial fibrillation is also under control presently in normal sinus rhythm. Patient is now tolerating pured diet. Chest x-ray continues to show limited infiltrate in the left lower lobe. His CBC is relatively normal hemoglobin is 11.6. BUN is 18 and creatinine is 0.56. Patient has intermittent episodes of confusion, but he seems quite appropriate today, he is oriented to place, but not oriented to the year. 12/17/2018, Patient is seen and evaluated on the cardiac floor, doing fairly well, asymptomatic, denies any shortness of breath, no cough no wheezing Remains on few liters nasal cannula labs including normal CBC.normal basic metabolic profile, normal renal profile, remains on DuoNeb, Keppra, Ativan, Lopressor,Zosyn, Protonix,and his chest x-ray continues to show limited infiltrate in the left lower lobe. Clinically however the patient is doing better; pulmonary's recommending to continue with IV Zosyn for another 24-48 hours with recommendation to possible placement in [facility] facility versus long-term care. Objective - Vital Signs Vital signs: Vital Signs Temp 98.7 F 12/17/18 08:17 Pulse 82 12/17/18 08:17 Resp 18 12/17/18 08:17 BP 153/77 12/17/18 08:17 Pulse Ox 95 12/17/18 08:41 Intake & Output 12/16/18 12/17/18 12/17/18 18:59 06:59 18:59 Intake Total 1481 0 Output Total 265 Balance 1216 0 Weight 102.3 kg 101.5 kg Intake: IV 525 Piperacillin-Tazobactam 3 25 .375 gm In Sodium Chloride 0.9% 100 ml @ 25 mls/hr IVPB Q8HR [facility] Rx# :[id number] Potassium Phosphate 10 250 mmol In Sodium Chloride 0 .9% 250 ml @ 125 mls/hr IV Q2H [facility] Rx#:[id number] Sodium Chloride 0.45% 1, 50 000 ml @ 50 mls/hr IV . Q20H [facility] Rx#:[id number] Sodium Chloride 0.9% 1, 100 000 ml @ 50 mls/hr IV . Q20H [facility] Rx#:[id number] levETIRAcetam IV 500 mg 100 In Sodium Chloride 0.9% 100 ml @ 400 mls/hr IVPB Q12HR [facility] Rx#:[id number] Oral 956 0 Output: Urine 265 Other: Voiding Method Indwelling Catheter Incontinent # Voids 1 3 1 # Bowel Movements 1 - Exam Physical Exam: Revealed a 63-year-old white male, awake, responsive, On high flow oxygen per nasal cannula, in no distress. Head: Atraumatic, normocephalic. HEENT:[Neck is supple.] [No neck masses.] [No thyromegaly.] [No JVD.] PERRLA, EOMI, no icterus. Chest: [Diminished breath sounds at the bases, minimal crackles at the left base noted, no rhonchi and no wheezes. Symmetrical chest expansion. No chest wall tenderness..] Cardiac Exam: [Normal S1 and S2, no S3 gallop, no murmur.] Abdomen: [Soft, nontender, no megaly, no rebound, no guarding, normal bowel cesario nds.] Extremities: [No clubbing, no edema, no cyanosis.], Ulceration changes on the tip of his big toe are unchanged. Neurological Exam: Alert, oriented, follows instructions. - Labs CBC & Chem 7: 12/16/18 05:23 12/16/18 05:23 Labs: Abnormal Lab Results - Last 24 Hours (Table) 12/16/18 12/16/18 12/17/18 Range/Units 16:15 21:01 06:02 POC Glucose (mg/dL) 264 H 187 H 124 H (75-99) mg/dL 12/17/18 Range/Units 11:12 POC Glucose (mg/dL) 207 H (75-99) mg/dL Microbiology - Last 24 Hours (Table) 12/12/18 10:34 Blood Culture - Preliminary Blood No Growth after 120 hours 12/13/18 12:11 Blood Culture - Preliminary Blood No Growth after 72 hours Assessment and Plan Assessment: 1. Acute hyperosmolar nonketotic state. Resolved. 2. Left lower lobe pneumonia/ possible aspiration; continue with IV Zosyn; vancomycin has been discontinued 3. New-onset atrial fibrillation with RVR, presently in sinus rhythm. Patient remains on picks up and an aspirin for anticoagulation along with metoprolol 25 mg twice a day for rate control 4. Acute kidney injury with anion gap metabolic acidosis, could be related to profound hypovolemia on presentation with hyperosmolar nonketotic state. Possibility of infection and sepsis is not entirely ruled out, so far we have negative cultures. And chest x-ray is suspicious for left lower lobe pneumonia. Again this is likely community-acquired. Or possibly aspiration. 5. Seizure disorder remains on Keppra. 6. History of CVA in 2013. 7. Coronary artery disease and previous [place]; continue with aspirin and beta blockers; patient currently not on any statin therapy 8. Benign essential hypertension; stable on metoprolol 25 mg twice a day 9. Chronic generalized anxiety disorder and depression; Ativan 0.5 mg IV every 2 hours when necessary. 10. Acute hypernatremia, improved significantly sodium is down to 143 today. 11. DVT prophylaxis; systemic anticoagulation CODE STATUS; DO NOT RESUSCITATE Recommendation: Change main IV fluid from D5 W2.9 normal saline at 50 mL per hour. Continue Zosyn but discontinue vancomycin. Continue GI and DVT prophylaxis. Continue heparin. Continue BiPAP if needed especially at night. Modified barium swallow scheduled for today. Discontinue insulin drip and start the patient on Lantus insulin and sliding scale coverage as per protocol. Continue bronchodilators. Prognosis remains definitely guarded. We'll continue to follow. Time with Patient: Greater than 30
[2018-12-18 12:07] LABS: Glucose,Whole Blood 210 mg/dL (75-99)
--- NOTE | 2018-12-18 13:40 | P.PN ---
Subjective Progress Note Date: 12/18/18 Principal diagnosis: Hyperosmolar nonketotic state and mental status change 63-year-old male patient presented with altered mentation and vomiting. He apparently had coffee-ground emesis and syncope. In the ED, the patient was diagnosed having a acute hyperosmolar nonketotic state and the patient was started on treatment immediately with IV fluids and insulin drip. The patient himself was unable to provide any history. He denied having any chest pain. No abdominal pain. His initial blood sugar was 1400. The patient was given 2 L of IV fluids and started on insulin drip. The first set of troponin was 0.1. The BNP was 7080. Computed tomography scan of the head and the neck was unremarkable. The patient got transferred to the ICU. The patient is an acute kidney injury. Urine is at 79. Creatinine is at 3.9. The patient's anion gap is at 32. Serum bicarb is at 15. The lactic acid level is at 3.0. There is only trace urinary ketones. The patient's hemoglobin is at 16.5. White cell count is not elevated. EKG showing atrial fibrillation with rapid ventricular response. Chest x-ray showing a basilar atelectasis Patient was reevaluated today on 12/12/2018, remains in the intensive care unit, and bit more arousable, follows very simple instructions, but overall remains a bit encephalopathic. According to the nurses his mental status is gradually improving. Patient remains on insulin drip, his IV fluid was switched to D5W because of his significantly elevated sodium today is up to 157. Patient does not seem to be in any form of distress. He is resting comfortably in bed. Repeat labs this morning showed a sodium of 154 BUN of 76 creatinine is 2.09. His creatinine is gradually improving, it was 3.95 yesterday. Chest x-ray this morning showed mostly left basilar airspace disease, likely atelectasis, underlying pneumonia is not entirely ruled out. Reevaluated today on 12/13/2018, patient remains in the ICU, he is more alert, however he is noted to have marginal O2 saturations. Patient was placed overnight on a high flow nasal cannula, and I have noted this morning that the patient has an extremely poor and weak cough. His chest x-ray showed mostly atelectasis especially at the left base. Hence I recommended patient goes on Bi PAP, and he would be on BiPAP of 12 and 4. His FiO2 will be titrated accordingly. His sodium remains high at 153, BUN is 46 creatinine is 1.05. WBC count is 10.5 hemoglobin is 14.6. Patient remains on Zosyn empirically, his IV fluid was cut down to 75 mL/h, he remains on Keppra, and this morning because of his agitation and I recommended Ativan 1 mg IV push times one. Patient was reevaluated today on 12/14/2018, remains in the ICU, becoming more and more alert, however he has a very weak cough. Patient is now off BiPAP, and he is on 10 L high flow nasal cannula. O2 saturation is in the mid 90s. Patient has been spiking fevers intermittently, cultures have been negative so far, and the patient remains on Zosyn and vancomycin for now. I will likely discontinue vancomycin tomorrow if cultures come back nondiagnostic. However I would maintain the patient on Zosyn. Chest x-ray continues to show some atelectasis at the left base. Patient had no major issues overnight, and his labs were reviewed today. CBC is relatively normal. PTT is therapeutic at 57.4. Sodium is coming down to 148 renal profile is significantly better is basically almost normal. Sugar is 163. Repeat lactic acid couple of days ago was 1.1 his serum osmolality on admission was 418. Patient remains on heparin for atrial fibrillation with RVR. And that is being addressed by cardiology, he was also noted to have elevated troponin on admission. Patient is now in sinus rhythm. Patient will likely have a swallow evaluation today, and if he passes we will start oral feedings. Patient was reevaluated today on 12/15/2018, remains in the ICU, he is becoming more awake and more oriented, he is coughing better, and he is now off BiPAP. Presently on 3 L nasal cannula, saturating in the low 90s. Blood cultures remain negative. Patient has been on Zosyn and vancomycin, hence I will go ahead and discontinue vancomycin today. He will remain on Zosyn, chest x-ray is suggestive of a left lower lobe infiltrate. Labs today were reviewed, WBC count is 12.9 hemoglobin is 12.5. Basic metabolic profile is normal, his sodium corrected nicely today it is 144. Hence I have switched his IV fluid from D5 to normal saline at 50 mL per hour. I would also discontinue his insulin drip, and start the patient on sliding scale as well as Lantus insulin. Patient failed his swallow evaluation yesterday, and he is going today for a modified barium swallow, and may or may not consider a Dobbhoff tube placement for nutritional support. This will be decided upon after the barium swallow. Patient was evaluated today on 12/16/2018, remains in the ICU, however he seems to be doing quite well, responding much better to treatment. Patient is on 3 L nasal cannula, saturating well. His hemoglobin is stable. Electrolytes and renal profile significantly improved. His diabetes seems to be under control. His atrial fibrillation is also under control presently in normal sinus rhythm. Patient is now tolerating pured diet. Chest x-ray continues to show limited infiltrate in the left lower lobe. His CBC is relatively normal hemoglobin is 11.6. BUN is 18 and creatinine is 0.56. Patient has intermittent episodes of confusion, but he seems quite appropriate today, he is oriented to place, but not oriented to the year. Patient was reevaluated today on 12/17/2018, he is now on the cardiac floor, doing fairly well, asymptomatic, denies any shortness of breath, no cough no wheezing, patient actually has made a significant improvement over the last few days. Remains on few liters nasal cannula.he had a relatively normal labs including normal CBC.normal basic metabolic profile, normal renal profile,remains on DuoNeb, Keppra, Ativan, Lopressor,Zosyn, Protonix,and his chest x-ray continues to show limited infiltrate in the left lower lobe. Clinically however the patient is doing better pulmonary xiao. Reevaluated today on 12/18/2018, patient is now on the medical floor, more alert, more oriented, relatively asymptomatic, denies any chest pain, no cough, no wheezing, remains on beta blockers and anticoagulations therapy as per cardiology for his paroxysmal atrial fibrillation. Overall the patient has made a significant improvement since admission. And I believe we should start considering placement arrangements for this patient. Objective - Vital Signs Vital signs: Vital Signs Temp 97.9 F 12/18/18 04:56 Pulse 80 12/18/18 04:56 Resp 18 12/18/18 12:00 BP 148/74 12/18/18 04:56 Pulse Ox 95 12/18/18 04:56 Intake & Output 12/17/18 12/18/18 12/18/18 17:59 06:59 18:59 Intake Total Balance Weight Intake: Oral Other: Voiding Method Incontinent # Voids 1 # Bowel Movements - Exam Physical Exam: Revealed a 63-year-old white male, asymptomatic, not in distress Head: Atraumatic, normocephalic. HEENT:[Neck is supple.] [No neck masses.] [No thyromegaly.] [No JVD.] PERRLA, EOMI, no icterus. moist mucous membranes Chest: [Clear bilaterally no crackles or rhonchi or wheezes. Cardiac Exam: [Normal S1 and S2, no S3 gallop, no murmur.] Abdomen: [Soft, nontender, no megaly, no rebound, no guarding, normal bowel sounds.] Extremities: [No clubbing, no edema, no cyanosis.], Ulceration changes on the tip of his big toe are unchanged. Neurological Exam: Alert, oriented, follows instructions. Lymphatics: No lymphadenopathy. Psychiatric: Normal mood, affect and mental status examination. oriented 3 - Labs CBC & Chem 7: 12/16/18 05:23 12/16/18 05:23 Labs: Abnormal Lab Results - Last 24 Hours (Table) 12/17/18 12/17/18 12/18/18 Range/Units 17:36 20:04 07:03 POC Glucose (mg/dL) 192 H 198 H 126 H (75-99) mg/dL 12/18/18 Range/Units 12:05 POC Glucose (mg/dL) 210 H (75-99) mg/dL Microbiology - Last 24 Hours (Table) 12/12/18 10:34 Blood Culture - Final Blood No Growth after 144 hours 12/13/18 12:11 Blood Culture - Preliminary Blood No Growth after 96 hours Assessment and Plan Assessment: Impression: 1 acute hyperosmolar nonketotic state. Resolved. 2 acute metabolic encephalopathy, resolved 3 new-onset atrial fibrillation with RVR, presently in sinus rhythm. Remains on anticoagulation therapy and beta blockers. 4 acute kidney injury with anion gap metabolic acidosis, resolved 5 seizure disorder, back on his usual dose of Keppra. 6 history of CVA in 2013. 7 coronary artery disease and previous [place], being followed by cardiology 8 benign essential hypertension 9 chronic generalized anxiety disorder and depression. 10 acute hypernatremia, resolved 11 basilar atelectasis is noted on the chest x-ray this morning, pneumonia involving the left lower lobe is not entirely ruled out, hence we'll continue Zosyn , this could be aspiration pneumonia. Recommendation:Continue Zosyn, incentive spirometry, bronchodilators, GI prophylaxis/Protonix, continue Keppra for his seizure disorder, continue cardiac meds including Lopressor,eliquis, and aspirin. Continue Levemir insulin, continue Ativan as needed, consider placement to a senior living or rehab facility in the next 24 hours. We will continue to follow. Time with Patient: Less than 30
[2018-12-18 17:03] LABS: Glucose,Whole Blood 191 mg/dL (75-99)
[2018-12-18] MEDS: LEVOFLOXACIN 500 MG TAB PO SCH (17:16)
[2018-12-18 20:18] LABS: Glucose,Whole Blood 240 mg/dL (75-99)
[2018-12-18] MEDS: INSULIN DETEMIR (LEVEMIR) 100 UNIT/ML SYR SQ SCH (21:45)
[2018-12-19 07:05] LABS: Glucose,Whole Blood 142 mg/dL (75-99)
[2018-12-19] MEDS: ASPIRIN 325 MG TAB PO SCH (08:17)
[2018-12-19] MEDS: PANTOPRAZOLE 40 MG TABLET PO SCH ×2 (08:17→17:10)
[2018-12-19] MEDS: APIXABAN 5 MG TAB PO SCH ×2 (08:17→20:13)
[2018-12-19] MEDS: levETIRAcetam 500 MG TAB PO SCH ×2 (08:17→20:13)
[2018-12-19] MEDS: METOPROLOL TARTRATE 25 MG TAB PO SCH ×2 (08:17→20:13)
[2018-12-19] MEDS: INSULIN ASPART (NovoLOG) 100 UNIT/ML VIAL SQ SCH ×4 (08:17→20:13)
--- NOTE | 2018-12-19 09:07 | P.PN ---
Subjective Progress Note Date: 12/18/18 Principal diagnosis: Acute hyperosmolar nonketotic state Acute metabolic encephalopathy New onset atrial fibrillation Acute renal injury 63 years old male with past medical history of diabetes mellitus on insulin therapy, coronary artery disease status post cardiac cath and stenting,, CVA/TIA, diabetes mellitus, hyperlipidemia, hypertension, osteoarthritis, seizure disorder, Crohn's disease, CVA with right hemiparesis. He presents since with altered mental status secondary to hyperosmolar hyperglycemia nonketotic state. Workup was positive for left basilar pneumonia; patient has been off IV insulin drip and started on insulin sliding scale as well as Lantus; patient remains on treatment for pneumonia with IV Zosyn; vancomycin was discontinued yesterday 12/16/2018, remains in the ICU, however he seems to be doing quite well, responding much b carlyle to treatment. Patient is on 3 L nasal cannula, saturating well. His hemoglobin is stable. Electrolytes and renal profile significantly improved. His diabetes seems to be under control. His atrial fibrillation is also under control presently in normal sinus rhythm. Patient is now tolerating pured diet. Chest x-ray continues to show limited infiltrate in the left lower lobe. His CBC is relatively normal hemoglobin is 11.6. BUN is 18 and creatinine is 0.56. Patient has intermittent episodes of confusion, but he seems quite appropriate today, he is oriented to place, but not oriented to the year. 12/17/2018, Patient is seen and evaluated on the cardiac floor, doing fairly well, asymptomatic, denies any shortness of breath, no cough no wheezing Remains on few liters nasal cannula labs including normal CBC.normal basic metabolic profile, normal renal profile, remains on DuoNeb, Keppra, Ativan, Lopressor,Zosyn, Protonix,and his chest x-ray continues to show limited infiltrate in the left lower lobe. Clinically however the patient is doing better; pulmonary's recommending to continue with IV Zosyn for another 24-48 hours with recommendation to possible placement in nursing home facility versus long-term care. 12/18/2018 Continue Zosyn, incentive spirometry, bronchodilators, GI prophylaxis/Protonix, continue Keppra for his seizure disorder, continue cardiac meds including Lopressor,eliquis, and aspirin. Continue Levemir insulin, continue Ativan as needed, PT and pulmonary recommending placement to a group home or rehab facility in the next 48 hours; CM on board. DC when medically stable and arrangements are made; poss next 24-48 hrs Objective - Vital Signs Vital signs: Vital Signs Temp 97.9 F 12/18/18 04:56 Pulse 80 12/18/18 04:56 Resp 18 12/18/18 08:00 BP 148/74 12/18/18 04:56 Pulse Ox 95 12/18/18 04:56 Intake & Output 12/17/18 12/18/18 12/18/18 17:59 06:59 18:59 Intake Total Balance Weight Intake: Oral Other: Voiding Method Incontinent # Voids 1 # Bowel Movements - Exam Physical Exam: Revealed a 63-year-old white male, awake, responsive, On high flow oxygen per nasal cannula, in no distress. Head: Atraumatic, normocephalic. HEENT:[Neck is supple.] [No neck masses.] [No thyromegaly.] [No JVD.] PERRLA, EOMI, no icterus. Chest: [Diminished breath sounds at the bases, minimal crackles at the left base noted, no rhonchi and no wheezes. Symmetrical chest expansion. No chest wall tenderness..] Cardiac Exam: [Normal S1 and S2, no S3 gallop, no murmur.] Abdomen: [Soft, nontender, no megaly, no rebound, no guarding, normal bowel sounds.] Extremities: [No clubbing, no edema, no cyanosis.], Ulceration changes on the tip of his big toe are unchanged. Neurological Exam: Alert, oriented, follows instructions. - Labs CBC & Chem 7: 12/16/18 05:23 12/16/18 05:23 Labs: Abnormal Lab Results - Last 24 Hours (Table) 12/17/18 12/17/18 12/17/18 Range/Units 11:12 17:36 20:04 POC Glucose (mg/dL) 207 H 192 H 198 H (75-99) mg/dL 12/18/18 Range/Units 07:03 POC Glucose (mg/dL) 126 H (75-99) mg/dL Microbiology - Last 24 Hours (Table) 12/13/18 12:11 Blood Culture - Preliminary Blood No Growth after 96 hours 12/12/18 10:34 Blood Culture - Preliminary Blood No Growth after 120 hours Assessment and Plan Assessment: 1. Acute hyperosmolar nonketotic state. Resolved. 2. Left lower lobe pneumonia/ possible aspiration; continue with IV Zosyn; vancomycin has been discontinued 3. New-onset atrial fibrillation with RVR, presently in sinus rhythm. Patient remains on picks up and an aspirin for anticoagulation along with metoprolol 25 mg twice a day for rate control 4. Acute kidney injury with anion gap metabolic acidosis, could be related to profound hypovolemia on presentation with hyperosmolar nonketotic state. Possibility of infection and sepsis is not entirely ruled out, so far we have negative cultures. And chest x-ray is suspicious for left lower lobe pneumonia. Again this is likely community-acquired. Or possibly aspiration. 5. Seizure disorder remains on Keppra. 6. History of CVA in 2013. 7. Coronary artery disease and previous [place]; continue with aspirin and beta blockers; patient currently not on any statin therapy 8. Benign essential hypertension; stable on metoprolol 25 mg twice a day 9. Chronic generalized anxiety disorder and depression; Ativan 0.5 mg IV every 2 hours when necessary. 10. Acute hypernatremia, improved significantly sodium is down to 143 today. 11. DVT prophylaxis; systemic anticoagulation CODE STATUS; DO NOT RESUSCITATE Recommendation: Change main IV fluid from D5 W2.9 normal saline at 50 mL per hour. Continue Zosyn but discontinue vancomycin. Continue GI and DVT prophylaxis. Continue heparin. Continue BiPAP if needed especially at night. Modified barium swallow scheduled for today. Discontinue insulin drip and start the patient on Lantus insulin and sliding scale coverage as per protocol. Continue bronchodilators. Prognosis remains definitely guarded. We'll co ntdiana to follow. Time with Patient: Greater than 30
[2018-12-19 10:44] VITALS: BMI 32.3
[2018-12-19 11:24] LABS: Glucose,Whole Blood 207 mg/dL (75-99)
--- NOTE | 2018-12-19 14:38 | P.DS ---
Providers Date of admission: 12/11/18 14:55 Expected date of discharge: 12/19/18 Attending physician: Rafy Moura MD Consults: 12/11/18 14:55 Consult Physician Routine Consulting Provider: Girma Huang Consult Reason/Comments: Elevated troponin Do you want consulting provider notified?: Yes Consult Physician Stat Consulting Provider: Gustavo Fam Consult Reason/Comments: DKA Do you want consulting provider notified?: Already Contacted 12/11/18 15:37 Consult Physician Routine Consulting Provider: Chun Giron Consult Reason/Comments: GI Bleed Do you want consulting provider notified?: Yes 12/11/18 15:44 Consult Physician Routine Consulting Provider: Renetta Reeves Consult Reason/Comments: CELESTINA Do you want consulting provider notified?: Yes 12/13/18 09:19 Consult Physician Routine Consulting Provider: Panda Davis Consult Reason/Comments: diabetic foot ulcers Do you want consulting provider notified?: Yes Primary care physician: Stated None Hospital Course: Discharge diagnosis 1. Acute hyperosmolar nonketotic state. Resolved. Acute metabolic encephalopathy and admission resolved now 2. Left lower lobe pneumonia/ possible aspiration 3. New-onset atrial fibrillation with RVR/paroxysmal, presently in sinus rhythm. Patient remains on eliquis for anticoagulation along with metoprolol 25 mg twice a day for rate control 4. Acute kidney injury with anion gap metabolic acidosis, could be related to profound hypovolemia on presentation with hyperosmolar nonketotic state. 5. Seizure disorder remains on Keppra. 6. History of CVA in 2013. 7. Coronary artery disease and previous [place]; continue with aspirin and beta blockers; patient currently not on any statin therapy 8. Benign essential hypertension; stable on metoprolol 25 mg twice a day 9. Chronic generalized anxiety disorder and depression; 10. Acute hypernatremia, improved significantly sodium is down to 143. 11. DVT prophylaxis; systemic anticoagulation Hospital course 63 years old male with past medical history of diabetes mellitus on insulin therapy, coronary artery disease status post cardiac cath and stenting,, CVA/TIA, diabetes mellitus, hyperlipidemia, hypertension, osteoarthritis, seizure disorder, Crohn's disease, CVA with right hemiparesis. He presents since with altered mental status secondary to hyperosmolar hyperglycemia nonketotic state. Workup was positive for left basilar pneumonia; patient has been off IV insulin drip and started on insulin sliding scale as well as Lantus; patient remains on treatment for pneumonia with IV Zosyn; vancomycin was discontinued yesterday 12/16/2018, remains in the ICU, however he seems to be doing quite well, responding much better to treatment. Patient is on 3 L nasal cannula, saturating well. His hemoglobin is stable. Electrolytes and renal profile significantly improved. His diabetes seems to be under control. His atrial fibrillation is also under control presently in normal sinus rhythm. Patient is now tolerating pured diet. Chest x-ray continues to show limited infiltrate in the left lower lobe. His CBC is relatively normal hemoglobin is 11.6. BUN is 18 and creatinine is 0.56. Patient has intermittent episodes of confusion, but he seems quite appropriate today, he is oriented to place, but not oriented to the year. 12/17/2018, Patient is seen and evaluated on the cardiac floor, doing fairly well, asymptomatic, denies any shortness of breath, no cough no wheezing Remains on few liters nasal cannula labs including normal CBC.normal basic metabolic profile, normal renal profile, remains on DuoNeb, Keppra, Ativan, Lopressor,Zosyn, Protonix,and his chest x-ray continues to show limited infiltrate in the left lower lobe. Clinically however the patient is doing better; pulmonary's recommending to continue with IV Zosyn for another 24-48 hours with recommendation to possible placement in prison facility versus long-term care. 12/18/2018 Continue Zosyn, incentive spirometry, bronchodilators, GI prophylaxis/Protonix, continue Keppra for his seizure disorder, continue cardiac meds including Lopressor,eliquis, and aspirin. Continue Levemir insulin, continue Ativan as needed, PT and pulmonary recommending placement to a group home or rehab faci lity in the next 48 hours; CM on board. DC when medically stable and arrangements are made; poss next 24-48 hrs 12/19/2018 Patient currently denied any complaints of chest pain or shortness of breath. Saturating well on room air. Patient will be continued on antibiotics in the form of Levaquin. Blood sugar is fairly controlled with Lantus 10 units daily at bedtime along with insulin sliding scale. Lantus dose will be increased to 12 units at discharge. Patient is taking 24 units of Lantus prior to admission but blood sugar is currently controlled. No nausea vomiting or abdominal pain. Patient is able to swallow without cough or aspiration. Patient is being discharged to extended care facility today. PHYSICAL EXAMINATION: Patient is lying in the bed comfortably, no acute distress, awake alert and oriented.. HEENT: Normocephalic. Neck is supple. Pupils reactive. Nostrils clear. Oral cavity is moist. Ears reveal no drainage. Neck reveals no JVD, carotid bruits, or thyromegaly. CHEST EXAMINATION: Trachea is central. Symmetrical expansion. Left base. Minimal crackles. Otherwise Lung hawkins clear to auscultation and percussion. CARDIAC: Normal S1, S2 with no gallops. No murmurs ABDOMEN: Soft. Bowel sounds normal. No organomegaly. No abdominal bruits. Extremities: reveal no edema. No clubbing or cyanosis Neurologically awake, alert, oriented x3 with well-coordinated movements. Minimal right-sided weakness. Skin: No rash or skin lesions. Psychiatric: Coperative. Nonsuicidal Musculoskeletal: No joint swelling or deformity. Normal range of motion. Vital Signs 12/19/18 12/19/18 08:00 11:55 Temperature 98.2 F Pulse Rate [ 79 Pulse Oximetery ] Respiratory 16 17 Rate Blood Pressure 115/62 [Left Arm] O2 Sat by Pulse 93 L Oximetry Total time taken greater than 35 minutes including 18 minutes for counseling and coordination of care. Patient Condition at Discharge: Poor Plan - Discharge Summary Discharge Rx Participant: No New Discharge Prescriptions: New Apixaban [Eliquis] 5 mg PO BID #0 tab Levofloxacin [Levaquin] 500 mg PO 1800 #5 tab Metoprolol Tartrate [Lopressor] 25 mg PO BID #60 tab INSULIN ASPART (NovoLOG) [NovoLOG (formulary)] 0 unit SQ ACHS vial Insulin Detemir (Levemir) [Levemir] 12 unit SQ HS #1 vial Aspirin [Adult Low Dose Aspirin EC] 81 mg PO DAILY #30 tablet.dr Continue levETIRAcetam [Keppra] 500 mg PO Q12HR Sertraline [Zoloft] 150 mg PO DAILY Gabapentin 600 mg PO TID Atorvastatin [Lipitor] 20 mg PO DAILY Pantoprazole Sodium [Protonix] 40 mg PO DAILY Changed LORazepam [Ativan] 1 mg PO BID PRN #10 tab PRN Reason: Anxiety Discontinued Lisinopril [Zestril] 2.5 mg PO DAILY Temazepam [Restoril] 30 mg PO DAILY Metoprolol Tartrate [Lopressor] 50 mg PO BID Clopidogrel [Plavix] 75 mg PO DAILY Insulin Glargine [Lantus] 25 units SQ DAILY Insulin Glargine,Hum.rec.anlog [Toulolly Solostar] 25 units SQ DAILY Discharge Medication List Atorvastatin [Lipitor] 20 mg PO DAILY 09/08/16 [History] Gabapentin 600 mg PO TID 09/08/16 [History] Pantoprazole Sodium [Protonix] 40 mg PO DAILY 09/08/16 [History] Sertraline [Zoloft] 150 mg PO DAILY 09/08/16 [History] levETIRAcetam [Keppra] 500 mg PO Q12HR 09/08/16 [History] Apixaban [Eliquis] 5 mg PO BID #0 tab 12/19/18 [Rx] Aspirin [Adult Low Dose Aspirin EC] 81 mg PO DAILY #30 tablet. 12/19/18 [Rx] INSULIN ASPART (NovoLOG) [NovoLOG (formulary)] 0 unit SQ ACHS vial 12/19/18 [Rx] Insulin Detemir (Levemir) [Levemir] 12 unit SQ HS #1 vial 12/19/18 [Rx] LORazepam [Ativan] 1 mg PO BID PRN #10 tab 12/19/18 [Rx] Levofloxacin [Levaquin] 500 mg PO 1800 #5 tab 12/19/18 [Rx] Metoprolol Tartrate [Lopressor] 25 mg PO BID #60 tab 12/19/18 [Rx] Follow up Appointment(s)/Referral(s): None,Stated [Primary Care Provider] - 1-2 days Discharge Disposition: TRANSFER TO SNF/ECF
--- NOTE | 2018-12-19 14:52 | P.PN ---
Subjective Progress Note Date: 12/19/18 Principal diagnosis: Hyperosmolar nonketotic state and mental status changes. 63-year-old male patient presented with altered mentation and vomiting. He apparently had coffee-ground emesis and syncope. In the ED, the patient was diagnosed having a acute hyperosmolar nonketotic state and the patient was started on treatment immediately with IV fluids and insulin drip. The patient himself was unable to provide any history. He denied having any chest pain. No abdominal pain. His initial blood sugar was 1400. The patient was given 2 L of IV fluids and started on insulin drip. The first set of troponin was 0.1. The BNP was 7080. Computed tomography scan of the head and the neck was unremarkable. The patient got transferred to the ICU. The patient is an acute kidney injury. Urine is at 79. Creatinine is at 3.9. The patient's anion gap is at 32. Serum bicarb is at 15. The lactic acid level is at 3.0. There is only trace urinary ketones. The patient's hemoglobin is at 16.5. White cell count is not elevated. EKG showing atrial fibrillation with rapid ventricular response. Chest x-ray showing a basilar atelectasis Patient was reevaluated today on 12/12/2018, remains in the intensive care unit, and bit more arousable, follows very simple instructions, but overall remains a bit encephalopathic. According to the nurses his mental status is gradually improving. Patient remains on insulin drip, his IV fluid was switched to D5W because of his significantly elevated sodium today is up to 157. Patient does not seem to be in any form of distress. He is resting comfortably in bed. Repeat labs this morning showed a sodium of 154 BUN of 76 creatinine is 2.09. His creatinine is gradually improving, it was 3.95 yesterday. Chest x-ray this morning showed mostly left basilar airspace disease, likely atelectasis, underlying pneumonia is not entirely ruled out. Reevaluated today on 12/13/2018, patient remains in the ICU, he is more alert, however he is noted to have marginal O2 saturations. Patient was placed overnight on a high flow nasal cannula, and I have noted this morning that the patient has an extremely poor and weak cough. His chest x-ray showed mostly atelectasis especially at the left base. Hence I recommended patient goes on BiPAP, and he would be on BiPAP of 12 and 4. His FiO2 will be titrated accordingly. His sodium remains high at 153, BUN is 46 creatinine is 1.05. WBC count is 10.5 hemoglobin is 14.6. Patient remains on Zosyn empirically, his IV fluid was cut down to 75 mL/h, he remains on Keppra, and this morning because of his agitation and I recommended Ativan 1 mg IV push times one. Patient was reevaluated today on 12/14/2018, remains in the ICU, becoming more and more alert, however he has a very weak cough. Patient is now off BiPAP, and he is on 10 L high flow nasal cannula. O2 saturation is in the mid 90s. Patient has been spiking fevers intermittently, cultures have been negative so far, and the patient remains on Zosyn and vancomycin for now. I will likely discontinue vancomycin tomorrow if cultures come back nondiagnostic. However I would maintain the patient on Zosyn. Chest x-ray continues to show some atelectasis at the left base. Patient had no major issues overnight, and his labs were reviewed today. CBC is relatively normal. PTT is therapeutic at 57.4. Sodium is coming down to 148 renal profile is significantly better is basically almost normal. Sugar is 163. Repeat lactic acid couple of days ago was 1.1 his serum osmolality on admission was 418. Patient remains on heparin for atrial fibrillation with RVR. And that is being addressed by cardiology, he was also noted to have elevated troponin on admission. Patient is now in sinus rhythm. Patient will likely have a swallow evaluation today, and if he passes we will start oral feedings. Patient was reevaluated today on 12/15/2018, remains in the ICU, he is becoming more awake and more oriented, he is coughing better, and he is now off BiPAP. Presently on 3 L nasal cannula, saturating in the low 90s. Blood cultures remain negative. Patient has been on Zosyn and vancomycin, hence I will go ahead and discontinue vancomycin today. He will remain on Zosyn, chest x-ray is suggestive of a left lower lobe infiltrate. Labs today were reviewed, WBC count is 12.9 hemoglobin is 12.5. Basic metabolic profile is normal, his sodium corrected nicely today it is 144. Hence I have switched his IV fluid from D5 to normal saline at 50 mL per hour. I would also discontinue his insulin drip, and start the patient on sliding scale as well as Lantus insulin. Patient failed his swallow evaluation yesterday, and he is going today for a modified barium swallow, and may or may not consider a Dobbhoff tube placement for nutritional support. This will be decided upon after the barium swallow. Patient was evaluated today on 12/16/2018, remains in the ICU, however he seems to be doing quite well, responding much better to treatment. Patient is on 3 L nasal cannula, saturating well. His hemoglobin is stable. Electrolytes and renal profile significantly improved. His diabetes seems to be under control. His atrial fibrillation is also under control presently in normal sinus rhythm. Patient is now tolerating pured diet. Chest x-ray continues to show limited infiltrate in the left lower lobe. His CBC is relatively normal hemoglobin is 11.6. BUN is 18 and creatinine is 0.56. Patient has intermittent episodes of confusion, but he seems quite appropriate today, he is oriented to place, but not oriented to the year. Patient was reevaluated today on 12/17/2018, he is now on the cardiac floor, doing fairly well, asymptomatic, denies any shortness of breath, no cough no wheezing, patient actually has made a significant improvement over the last few days. Remains on few liters nasal cannula.he had a relatively normal labs including normal CBC.normal basic metabolic profile, normal renal profile,remains on DuoNeb, Keppra, Ativan, Lopressor,Zosyn, Protonix,and his chest x-ray continues to show limited infiltrate in the left lower lobe. Clinically however the patient is doing better pulmonary xiao. Reevaluated today on 12/18/2018, patient is now on the medical floor, more alert, more oriented, relatively asymptomatic, denies any chest pain, no cough, no wheezing, remains on beta blockers and anticoagulations therapy as per cardiology for his paroxysmal atrial fibrillation. Overall the patient has made a significant improvement since admission. And I believe we should start considering placement arrangements for this patient. On 12/19/2018 patient seen in follow-up on medical surgical floor. Awake and alert, in no acute distress, room air pulse ox is 93%, afebrile, vital signs are stable, related to chest x-rays, no acute events overnight, blood and urine culture showed no growth, antibiotics have been discontinued. Lung sounds are clear, no rhonchi, no wheezing, she has been treated with Zosyn and vancomycin, for possibility of aspiration pneumonia in the left lower lobe. Patient's currently in sinus rhythm, oral anticoagulation in the form of Eliquis, and metoprolol for rate control. Patient is being placed to subacute rehab, after discharge, and we anticipate discharge there today. From pulmonary perspective patient is stable. Objective - Vital Signs Vital signs: Vital Signs Temp 98.2 F 12/19/18 11:55 Pulse 79 12/19/18 11:55 Resp 17 12/19/18 11:55 BP 115/62 12/19/18 11:55 Pulse Ox 93 L 12/19/18 11:55 Intake & Output 12/18/18 12/19/18 12/19/18 18:59 06:59 18:59 Intake Total 710 Balance 710 Weight 108 kg Intake: Oral 710 Other: Voiding Method Incontinent Toilet Toilet Urinal Urinal Incontinent Incontinent # Voids 4 3 # Bowel Movements 1 1 - Exam GENERAL EXAM: Alert, pleasant, 63-year-old white male comfortable in no apparent distress. HEAD: Normocephalic/atraumatic. EYES: Normal reaction of pupils, equal size. Conjunctiva pink, sclera white. NOSE: Clear with pink turbinates. THROAT: No erythema or exudates. NECK: No masses, no JVD, no thyroid enlargement, no adenopathy. CHEST: No chest wall deformity. Symmetrical expansion. LUNGS: Equal air entry with no crackles, wheeze, rhonchi or dullness. CVS: Regular rate and rhythm, normal S1 and S2, no gallops, no murmurs, no rubs ABDOMEN: Soft, nontender. No hepatosplenomegaly, normal bowel sounds, no guarding or rigidity. EXTREMITIES: No clubbing, no edema, no cyanosis, 2+ pulses and upper and lower extremities. MUSCULOSKELETAL: Muscle strength and tone normal. SPINE: No scoliosis or deformity SKIN: No rashes CENTRAL NERVOUS SYSTEM: Alert and oriented -3. No focal deficits, tone is normal in all 4 extremities. PSYCHIATRIC: Alert and oriented -3. Appropriate affect. Intact judgment and insight. - Labs CBC & Chem 7: 12/16/18 05:23 12/16/18 05:23 Labs: Abnormal Lab Results - Last 24 Hours (Table) 12/18/18 12/18/18 12/19/18 Range/Units 16:49 20:15 07:04 POC Glucose (mg/dL) 191 H 240 H 142 H (75-99) mg/dL 12/19/18 Range/Units 11:23 POC Glucose (mg/dL) 207 H (75-99) mg/dL Microbiology - Last 24 Hours (Table) 12/13/18 12:11 Blood Culture - Final Blood No Growth after 144 hours 12/12/18 10:34 Blood Culture - Final Blood No Growth after 144 hours Assessment and Plan Plan: 1 acute hyperosmolar nonketotic state. Resolved. 2 acute metabolic encephalopathy, resolved 3 new-onset atrial fibrillation with RVR, presently in sinus rhythm. Remains on anticoagulation therapy and beta blockers. 4 acute kidney injury with anion gap metabolic acidosis, resolved 5 seizure disorder, back on his usual dose of Keppra. 6 history of CVA in 2013. 7 coronary artery disease and previous [place], being followed by cardiology 8 benign essential hypertension 9 chronic generalized anxiety disorder and depression. 10 acute hypernatremia, resolved 11 basilar atelectasis is noted on the chest x-ray this morning, pneumonia involving the left lower lobe is not entirely ruled out, hence we'll continue Zosyn , this could be aspiration pneumonia. Plan: Continue current treatment, patient is stable, doing very well, completed course of antibiotics, cultures remain negative, vital signs are stable, no fever or chills, he is being discharged to a subacute rehab today, from pulmonary spec to patient is stable for discharge. Follow-up with Dr. Arteaga any office in 7-10 days I performed a history & physical examination of the patient and discussed their management with my nurse practitioner, Lee Ann Kolb. I reviewed the nurse practitioner's note and agree with the documented findings and plan of care. Lung sounds are positive for clear breath sounds. The findings and the impression was discussed with the patient. I attest to the documentation by the nurse practitioner. Time with Patient: Less than 30
[2018-12-19 15:34] VITALS: RESP 16
[2018-12-19 16:58] LABS: Glucose,Whole Blood 207 mg/dL (75-99)
[2018-12-19] MEDS: LEVOFLOXACIN 500 MG TAB PO SCH (17:10)
[2018-12-19 20:05] LABS: Glucose,Whole Blood 244 mg/dL (75-99)
[2018-12-19 20:12] VITALS: BP 136/72; PULSE 91; TEMP 97.5
[2018-12-19] MEDS: INSULIN DETEMIR (LEVEMIR) 100 UNIT/ML SYR SQ SCH (20:14)
== END 2018-12-19 20:50 | DRG 637 ==
LOC: EC 11:40 → 2SICU 14:55 → 3SCARD 12-16 11:40 → 3NMEDONC 12-17 17:25
PROVIDERS: ADMIT Internal Medicine; ATTEND Internal Medicine
PROC: 5A09457 Assistance with Respiratory Ventilation, 24-96 Consecutive Hours, Continuous Positive Airway Pressure (ICD-10-PCS; principal; 2018-12-13)
DX: E11.00 Type 2 diabetes mellitus with hyperosmolarity without nonketotic hyperglycemic-hyperosmolar coma (NKHHC) (principal); G93.41 Metabolic encephalopathy; N17.0 Acute kidney failure with tubular necrosis; J96.01 Acute respiratory failure with hypoxia; J69.0 Pneumonitis due to inhalation of food and vomit; I21.A1 Myocardial infarction type 2; K92.0 Hematemesis; K50.90 Crohn's disease, unspecified, without complications; I69.351 Hemiplegia and hemiparesis following cerebral infarction affecting right dominant side; J98.11 Atelectasis; E87.2 Acidosis; E87.0 Hyperosmolality and hypernatremia; Z66 Do not resuscitate; I48.0 Paroxysmal atrial fibrillation; E86.9 Volume depletion, unspecified; E11.621 Type 2 diabetes mellitus with foot ulcer; L97.529 Non-pressure chronic ulcer of other part of left foot with unspecified severity; L97.519 Non-pressure chronic ulcer of other part of right foot with unspecified severity; R13.10 Dysphagia, unspecified; E83.39 Other disorders of phosphorus metabolism; R40.2352 Coma scale, best motor response, localizes pain, at arrival to emergency department; I69.998 Other sequelae following unspecified cerebrovascular disease; R40.2132 Coma scale, eyes open, to sound, at arrival to emergency department; R40.2232 Coma scale, best verbal response, inappropriate words, at arrival to emergency department; I25.10 Atherosclerotic heart disease of native coronary artery without angina pectoris; E78.5 Hyperlipidemia, unspecified; I10 Essential (primary) hypertension; F41.1 Generalized anxiety disorder; F32.9 Major depressive disorder, single episode, unspecified; M19.90 Unspecified osteoarthritis, unspecified site; G40.909 Epilepsy, unspecified, not intractable, without status epilepticus; I25.2 Old myocardial infarction; Z93.2 Ileostomy status; Z79.02 Long term (current) use of antithrombotics/antiplatelets; Z79.4 Long term (current) use of insulin; Z79.899 Other long term (current) drug therapy; Z95.5 Presence of coronary angioplasty implant and graft; Z87.891 Personal history of nicotine dependence; Z88.1 Allergy status to other antibiotic agents; Z88.2 Allergy status to sulfonamides; Z88.8 Allergy status to other drugs, medicaments and biological substances; Z91.048 Other nonmedicinal substance allergy status; Z81.8 Family history of other mental and behavioral disorders
CPT/HCPCS: 36415; 36600; 51702; 70450; 71045; 71046; 72125; 74230; 80048; 80051; 80053; 80202; 81001; 82272; 82565; 82803; 82805; 82947; 83036; 83605; 83690; 83735; 83880; 83930; 84100; 84484; 84520; 85025; 85027; 85610; 85730; 86850; 86900; 86901; 87040; 87086; 93005; 93306; 94660; 94760; 96361; 96374; 99285

== ENCOUNTER 2019-11-28 00:09 | Emergency (ER) | payer MEDICARE ==
--- NOTE | 2019-11-28 00:13 | ED ---
Neuro HPI - General Stated Complaint: poss CVA Time Seen by Provider: 11/28/19 00:11 - History of Present Illness Is the patient presenting with stroke symptoms?: Yes Last Known Well Date: 11/27/19 Last Known Well Time: 22:00 Initial Comments: Demian is a 64-year-old male with very extensive past medical history most significant for known coronary artery disease, history of TIAs in the past, some residual right-sided weakness from previous TIAs, normal pressure hydrocephalus, gait instability at baseline with recurrent falls. Patient presents the ER today via EMS for evaluation of a possible stroke. Per family the patient had surgery to remove his right great toe on September 14 and was in rehab till October 15. Family reports that since returning home the patient has with a refer to is good days and bad days. On his good days he is able to walk on his bad days the report that he becomes paralyzed in his lower extremities can't walk at all and is too weak. They report that today patient was in his usual state of health he was ambulating, around 9:45 PM the patient was ambulating around the house. Family noted that he appeared to be somewhat confused and looking for something, both the and son asked if he could help him but the patient did not respond verbally. Patient continued to walk from the bedroom to the kitchen and living room seeming lost. Around 10:15 PM patient ambulated into the living room where it appeared as though he is going to sit on the furniture fell to the ground. Family then noticed that he could not speak in seemed to have more weakness in his right-sided than typical. At that time decision was made to contact EMS for transport. They were talking to talk to the patient who had yelling garbled speech. EMS was contacted and patient was transported to the hospital for further evaluation. - Related Data Home Medications: Home Medications Medication Instructions Recorded Confirmed Atorvastatin [Lipitor] 20 mg PO DAILY 09/08/16 12/11/18 Pantoprazole Sodium [Protonix] 40 mg PO DAILY 09/08/16 12/11/18 Sertraline [Zoloft] 150 mg PO DAILY 09/08/16 12/11/18 levETIRAcetam [Keppra] 500 mg PO Q12HR 09/08/16 12/11/18 Previous Rx's Medication Instructions Recorded Apixaban [Eliquis] 5 mg PO BID #0 tab 12/19/18 Aspirin [Adult Low Dose Aspirin EC] 81 mg PO DAILY #30 tablet. 12/19/18 Gabapentin 300 mg PO TID 3 Days #9 tablet 12/19/18 INSULIN ASPART (NovoLOG) [NovoLOG 0 unit SQ ACHS vial 12/19/18 (formulary)] Insulin Detemir (Levemir) [Levemir] 12 unit SQ HS #1 vial 12/19/18 LORazepam [Ativan] 1 mg PO BID PRN #10 tab 12/19/18 Levofloxacin [Levaquin] 500 mg PO 1800 #5 tab 12/19/18 Metoprolol Tartrate [Lopressor] 25 mg PO BID #60 tab 12/19/18 Allergies/Adverse Reactions: Allergies Allergy/AdvReac Type Severity Reaction Status Date / Time infliximab [From Remicade] Allergy Unknown Verified 12/11/18 13:41 neomycin Allergy Unknown Verified 12/11/18 13:41 nickel Allergy Unknown Verified 12/11/18 13:41 sulfamethoxazole Allergy Unknown Verified 12/11/18 13:41 [From Bactrim] trimethoprim [From Bactrim] Allergy Unknown Verified 12/11/18 13:41 Review of Systems ROS Statement: Those systems with pertinent positive or pertinent negative responses have been documented in the HPI. ROS Other: All systems not noted in ROS Statement are negative. General Exam - General Exam Comments Initial Comments: Physical Exam GENERAL: Chronically ill appearing Right sided neglect noted HENT: Normocephalic, Atraumatic. EYES: PERRL PULMONARY: Unlabored respirations CARDIOVASCULAR: RRR ABDOMEN: Soft and nontender with normal bowel sounds. Scars on abdomen consistent with previous history Vomitus on clothing SKIN: Well healed surgical incision on right great toe Bruising on right shoulder bruising on right back in multiple stages of healing, bruising on extremities and multiple stages of healing : Normal external genitalia, diapered NEUROLOGIC: Alert, nonverbal No facial droop Expressive aphasia Right-sided neglect MUSCULOSKELETAL: No obvious deformities or injury Right great toe amputation PSYCHIATRIC: Unable to assess, combative agitated Stroke MDM - Lab Data Result diagrams: 11/28/19 00:16 11/28/19 00:16 Lab Results 11/28/19 11/28/19 11/28/19 Range/Units 00:15 00:16 00:16 WBC 12.8 H (3.8-10.6) k/uL RBC 4.72 (4.30-5.90) m/uL Hgb 12.7 L (13.0-17.5) gm/dL Hct 39.3 (39.0-53.0) % MCV 83.2 (80.0-100.0) fL MCH 26.8 (25.0-35.0) pg MCHC 32.2 (31.0-37.0) g/dL RDW 15.6 H (11.5-15.5) % Plt Count 245 (150-450) k/uL Neutrophils % 75 % Lymphocytes % 16 % Monocytes % 6 % Eosinophils % 1 % Basophils % 0 % Neutrophils # 9.6 H (1.3-7.7) k/uL Lymphocytes # 2.1 (1.0-4.8) k/uL Monocytes # 0.7 (0-1.0) k/uL Eosinophils # 0.2 (0-0.7) k/uL Basophils # 0.0 (0-0.2) k/uL PT (9.0-12.0) sec INR (<1.2) APTT (22.0-30.0) sec Sodium 141 (137-145) mmol/L Potassium 3.8 (3.5-5.1) mmol/L Chloride 104 (98-107) mmol/L Carbon Dioxide 28 (22-30) mmol/L Anion Gap 9 mmol/L BUN 19 (9-20) mg/dL Creatinine 0.77 (0.66-1.25) mg/dL Est GFR (CKD-EPI)AfAm >90 (>60 ml/min/1.73 sqM) Est GFR (CKD-EPI)NonAf >90 (>60 ml/min/1.73 sqM) Glucose 109 H (74-99) mg/dL POC Glucose (mg/dL) 109 H (75-99) mg/dL POC Glu Engine Generator Assembler ID Harvey, Esther Calcium 9.3 (8.4-10.2) mg/dL Total Bilirubin 1.1 (0.2-1.3) mg/dL AST 34 (17-59) U/L ALT 28 (4-49) U/L Alkaline Phosphatase 124 (38-126) U/L Total Creatine Kinase (55-170) U/L CK-MB (CK-2) (0.0-2.4) ng/mL CK-MB (CK-2) Rel Index Troponin I (0.000-0.034) ng/mL Total Protein 7.5 (6.3-8.2) g/dL Albumin 4.0 (3.5-5.0) g/dL 11/28/19 11/28/19 Range/Units 00:16 00:16 WBC (3.8-10.6) k/uL RBC (4.30-5.90) m/uL Hgb (13.0-17.5) gm/dL Hct (39.0-53.0) % MCV (80.0-100.0) fL MCH (25.0-35.0) pg MCHC (31.0-37.0) g/dL RDW (11.5-15.5) % Plt Count (150-450) k/uL Neutrophils % % Lymphocytes % % Monocytes % % Eosinophils % % Basophils % % Neutrophils # (1.3-7.7) k/uL Lymphocytes # (1.0-4.8) k/uL Monocytes # (0-1.0) k/uL Eosinophils # (0-0.7) k/uL Basophils # (0-0.2) k/uL PT 10.9 (9.0-12.0) sec INR 1.1 (<1.2) APTT 23.3 (22.0-30.0) sec Sodium (137-145) mmol/L Potassium (3.5-5.1) mmol/L Chloride (98-107) mmol/L Carbon Dioxide (22-30) mmol/L Anion Gap mmol/L BUN (9-20) mg/dL Creatinine (0.66-1.25) mg/dL Est GFR (CKD-EPI)AfAm (>60 ml/min/1.73 sqM) Est GFR (CKD-EPI)NonAf (>60 ml/min/1.73 sqM) Glucose (74-99) mg/dL POC Glucose (mg/dL) (75-99) mg/dL POC Glu Engine Generator Assembler ID Calcium (8.4-10.2) mg/dL Total Bilirubin (0.2-1.3) mg/dL AST (17-59) U/L ALT (4-49) U/L Alkaline Phosphatase (38-126) U/L Total Creatine Kinase 146 (55-170) U/L CK-MB (CK-2) 3.0 H (0.0-2.4) ng/mL CK-MB (CK-2) Rel Index 2.1 Troponin I <0.012 (0.000-0.034) ng/mL Total Protein (6.3-8.2) g/dL Albumin (3.5-5.0) g/dL - NIH Stroke Scale 1a. Level of Consciousness: (0) alert 1b. LOC Questions: (2) answers no questions correctly 1c. LOC Commands: (2) performs no tasks correctly 2. Best Gaze: (0) normal 3. Visual: (0) no visual loss 4. Facial Palsy: (0) normal symmetrical movement 5a. Motor Arm Left: (0) no drift 5b. Motor Arm Right: (0) no drift 6a. Motor Leg Left: (0) no drift 6b. Motor Leg Right: (3) no gravity effort 7. Limb Ataxia: (1) present 1 limb 8. Sensory: (1) mild/moderate sensory loss 9. Best Language: (un) mute/global aphasia 11. Extinction/Inattention: (2) profound inattention - Thrombolytic Inclusion/Exclusion Thrombolytic Exclusion Criteria: Onset of Symptoms Unknown - Medical Decision Making The patient was seen and evaluated, history was obtained from EMS and further history from upon her arrival while patient was in CT scanner A code stroke was activated based on the patient's right-sided neglect and expressive and receptive aphasia Patient care was discussed with neuro interventional is Dr. Basilio who will evaluate imaging Further history is provided by the , the patient has a history of similar events, history of normal pressure hydrocephalus, seizure disorder, right-sided weakness at baseline, gait instability CT brain and CT angio of brain and neck resulted with no acute findings, no significant change from previous Patient did receive some Ativan due to agitation, patient is noted to have some improvement in his right-sided deficits and no longer expressing any right-sided neglect. Patient able to respond with one word answers. Dr Basilio was again paged to discuss possible TPA at 1:22am TPA was offered to patient's - risks including bleeding and benefits including possible improvement in speech were discussed - at this time she is not comfortable with TPA due to patient's history, previous hydrocephalus Dr Basilio paged and messages left on voice mail at 1:42am, 2:04am, 2:24am Patient right sided neglect has resolved, he is using both arms, still with expressive aphasia but following commands Patient care was discussed with Dr Miller who recommend transfer to [facility] for further neurologic evaluation of possible intervention for his neuro pressure hydrocephalus This plan was discussed with the patient's family who report the patient is seen in neurologist out of [facility] in the past, I did discuss possible transfer with ER physician and [facility] but given that they don't have interventional and can perform perfusion studies they recommended transfer to a facility that has those capabilities. This was discussed with patient's family is comfortable with plan for transfer to [facility] at this time. Patient care was discussed with Dr. Felton at [facility] who agrees with plan for admission Past Medical History Past Medical History: Coronary Artery Disease (CAD), CVA/TIA, Diabetes Mellitus, Hyperlipidemia, Hypertension, Myocardial Infarction (NV), Osteoarthritis (OA), Seizure Disorder Additional Past Medical History / Comment(s): Coronary artery disease with previous cardiac catheterization and stenting, previous NV, Crohn's disease, diabetes mellitus, hyperlipidemia, depression, chronic anxiety, history of CVA with some right-sided weakness, history of seizure disorder last seizure was in 2013, hyperlipidemia, hypertension Last Myocardial Infarction Date:: History of Any Multi-Drug Resistant Organisms: None Reported Past Surgical History: Back Surgery, Heart Catheterization With Stent Additional Past Surgical History / Comment(s): lt elbow sx,bowel sx- ileostomy with reversal dt/ crohns disease, oral sx had all teeth extracted Past Anesthesia/Blood Transfusion Reactions: No Reported Reaction Date of Last Stent Placement:: 2011 Smoking Status: Former smoker - Past Family History Father Family Medical History: Unable to Obtain Mother Family Medical History: Dementia Course Vital Signs 11/28/19 11/28/19 11/28/19 00:15 00:17 00:25 Pulse Rate 75 75 80 Respiratory 20 20 Rate Blood Pressure 168/113 168/113 143/113 O2 Sat by Pulse 100 100 100 Oximetry 02/18/20 02/18/20 02/18/20 00:30 00:45 01:00 Pulse Rate 80 80 82 Respiratory 20 20 18 Rate Blood Pressure 142/85 176/81 130/112 O2 Sat by Pulse 97 100 96 Oximetry 11/28/19 11/28/19 11/28/19 01:15 01:30 01:45 Pulse Rate 79 77 78 Respiratory 18 18 18 Rate Blood Pressure 128/99 134/85 153/108 O2 Sat by Pulse 97 96 98 Oximetry 11/28/19 11/28/19 02:00 02:15 Pulse Rate 77 88 Respiratory 18 18 Rate Blood Pressure 146/78 170/68 O2 Sat by Pulse 98 98 Oximetry Critical Care Time Critical Care Time: Yes Total Critical Care Time: 45 Critical Care Time: Critical Care Time Critical care time was exclusive of separately billable procedures and treating other patients and teaching time. Critical care was necessary to treat or prevent imminent or life-threatening deterioration. Given the critical condition in which the patient arrived, the patient was immediately assessed by myself and the nurse, and cardiac monitoring initiated due to the potential for rapid decompensation of the patient's clinical condition. During the course of the patients stay, I spent a considerable amount of time at the bedside performing serial re-evaluations of the patient's hemodynamic and clinical status because of the recognized potential threat to life or limb in this condition. I then had a chance to review not only all of the available current laboratory and radiographic studies obtained today, but I also reviewed old records available to me at the time. Additionally, any ancillary information available including trimming press operator records were reviewed. Sequential vital signs were obtained. Disposition Clinical Impression: Neurocognitive deficits, Altered mental status Disposition: OTHER INSTITUTION NOT DEFINED Condition: Serious Is patient prescribed a controlled substance at d/c from ED?: No Referrals: Camacho Bauer MD [Primary Care Provider] - 1-2 days - Out of Hospital Transfer - Req. Specs Out of Hospital Transfer - Requested Specifics: Other Emergency Center ([facility]
[2019-11-28 00:18] LABS: Glucose,Whole Blood 109 mg/dL (75-99)
[2019-11-28 00:25] LABS: Basophils % (A) 0 %; Eosinophils # (A) 0.2 k/uL (0-0.7); Eosinophils % (A) 1 %; HCT 39.3 % (39.0-53.0); HGB 12.7 gm/dL (13.0-17.5); Lymphocytes # (A) 2.1 k/uL (1.0-4.8); Lymphocytes % (A) 16 %; MCH 26.8 pg (25.0-35.0); MCHC 32.2 g/dL (31.0-37.0); MCV 83.2 fL (80.0-100.0); Mean Platelet Volume 8.9; Monocytes # (A) 0.7 k/uL (0-1.0); Monocytes % (A) 6 %; Neutrophils # (A) 9.6 k/uL (1.3-7.7); Neutrophils % (A) 75 %; Platelet Count 245 k/uL (150-450); RBC 4.72 m/uL (4.30-5.90); RDW 15.6 % (11.5-15.5); WBC 12.8 k/uL (3.8-10.6)
[2019-11-28 00:34] LABS: INR 1.1 (<1.2); Partial Thromboplastin Time 23.3 sec (22.0-30.0); Prothrombin Time 10.9 sec (9.0-12.0)
[2019-11-28 00:42] LABS: ALT 28 U/L (4-49); AST 34 U/L (17-59); African American GFR (CKD) >90 (>60 ml/min/1.73 sqM); Alkaline Phosphatase 124 U/L (38-126); Anion Gap 9 mmol/L; Blood Urea Nitrogen 19 mg/dL (9-20); Calcium 9.3 mg/dL (8.4-10.2); Carbon Dioxide 28 mmol/L (22-30); Chloride 104 mmol/L (98-107); Glucose 109 mg/dL (74-99); Non-African American GFR(CKD) >90 (>60 ml/min/1.73 sqM); Potassium 3.8 mmol/L (3.5-5.1); Sodium 141 mmol/L (137-145); Total Bilirubin 1.1 mg/dL (0.2-1.3); Total Protein 7.5 g/dL (6.3-8.2)
[2019-11-28 00:46] LABS: Creatine Kinase 146 U/L (55-170)
[2019-11-28] MEDS ORDERED: LORazepam 2 MG/ML INJ IV STA (00:52)
--- NOTE | 2019-11-28 00:53 | CT ---
EXAMINATION TYPE: CODE STROKE: CTA head neck DATE OF EXAM: 11/28/2019 COMPARISON: HISTORY: Code stroke CT DLP: 523.40 mGycm Automated exposure control for dose reduction was used. CONTRAST: Performed with IV Contrast, patient injected with 65 mL of Isovue 370. There are 3-D post processed images. Multiple axial sections were obtained from the aortic arch to the vertex of the brain with intravenou s contrast. There is arterial flow in both subclavian arteries. There is arterial flow in the common internal and external carotid arteries bilaterally. There is bilateral plaque formation at the carotid artery bif urcations. The estimated stenosis is less than 20%. There is bilateral arterial flow in the vertebral arteries. There is no evidence of carotid or vertebral artery aneurysm or dissection. There is arterial flow in the anterior middle and posterior cerebral arteries. There is normal contra st opacification of the venous sinuses. There is arterial flow in the vertebrobasilar artery system. I see no evidence of intracranial aneurysm or neovascularity. There is no mass effect. There is no evidence of intracranial hemodynamic stenosis. IMPRESSION: Minimal plaque at the carotid artery bifurcations. Negative CT angiogram of the neck. Negative CT ang iogram of the brain.
--- NOTE | 2019-11-28 00:56 | CT ---
EXAMINATION TYPE: CT brain wo con for TPA DATE OF EXAM: 11/28/2019 COMPARISON: 12/11/2018 HISTORY: Code Stroke CT DLP: 2794.30 mGycm Automated exposure control for dose reduction was used. Multiple axial sections were obtained of the brain without contrast. There is some cerebral cortical atrophy. There is mild enlargement of the ventricles. There is 7 mm h ypodense area in the anterior left thalamus consistent with old lacunar infarct. There is no mass eff ect nor midline shift. There is no sign of intracranial hemorrhage. There is white matter hypodensity anterior left internal capsule. 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 Cerebral atrophy. Mild hydrocephalus. No acute intracranial abnormality. Brain not significan tly different than old exam.
[2019-11-28 01:00] LABS: Troponin I <0.012 ng/mL (0.000-0.034)
--- NOTE | 2019-11-28 01:03 | XR ---
EXAMINATION TYPE: XR chest 1V portable DATE OF EXAM: 11/28/2019 COMPARISON: 12/17/2018 HISTORY: Weakness TECHNIQUE: FINDINGS: Heart is normal. Lungs are clear of infiltrate. There is no heart failure. There are no hil ar masses. Bony thorax is intact. IMPRESSION: Normal chest. There is complete clearing of left lower lobe pneumonia compared to old exa m.
[2019-11-28 01:30] VITALS: RESP 18
[2019-11-28] MEDS ORDERED: NALOXONE 0.4 MG/ML 1 ML VIAL IV PRN (02:22)
[2019-11-28] MEDS ORDERED: MORPHINE SULFATE 4 MG/ML SYRINGE IVP STA (02:40)
[2019-11-28] MEDS ORDERED: ASPIRIN 81 MG PO STA (02:41)
[2019-11-28] MEDS ORDERED: ATORVASTATIN 80 MG TAB PO STA (02:41)
[2019-11-28] MEDS ORDERED: ASPIRIN 300 MG SUPP RECTAL STA (03:17)
[2019-11-28 03:24] VITALS: BP 179/87; PULSE 87
== END 2019-11-28 04:01 | disposition other institution (70) ==
LOC: EC 00:09 → SUPCPDRO 00:09 → EC 04:01
DX: R41.9 Unspecified symptoms and signs involving cognitive functions and awareness (principal); R41.82 Altered mental status, unspecified; R47.01 Aphasia; R45.1 Restlessness and agitation; S40.011A Contusion of right shoulder, initial encounter; G91.2 (Idiopathic) normal pressure hydrocephalus; R29.701 NIHSS score 1; F41.9 Anxiety disorder, unspecified; F32.9 Major depressive disorder, single episode, unspecified; E78.5 Hyperlipidemia, unspecified; I25.10 Atherosclerotic heart disease of native coronary artery without angina pectoris; I69.851 Hemiplegia and hemiparesis following other cerebrovascular disease affecting right dominant side; G40.909 Epilepsy, unspecified, not intractable, without status epilepticus; I10 Essential (primary) hypertension; M19.90 Unspecified osteoarthritis, unspecified site; I25.2 Old myocardial infarction; E11.9 Type 2 diabetes mellitus without complications; Z79.4 Long term (current) use of insulin; Z79.82 Long term (current) use of aspirin; Z79.01 Long term (current) use of anticoagulants; Z79.899 Other long term (current) drug therapy; Z88.2 Allergy status to sulfonamides; Z86.69 Personal history of other diseases of the nervous system and sense organs; Z87.891 Personal history of nicotine dependence; Z88.1 Allergy status to other antibiotic agents; Z88.8 Allergy status to other drugs, medicaments and biological substances; Z91.048 Other nonmedicinal substance allergy status; Z95.5 Presence of coronary angioplasty implant and graft; W18.39XA Other fall on same level, initial encounter
CPT/HCPCS: 36415; 93005; 80053; 82550; 82553; 84484; 85025; 85610; 85730; 71045; 70496; 70450; 70498; 99291; 96374; 96375; J2060; J2270; Q9967